=== PATIENT | female | born 1940 | race Caucasian/White ===

== ENCOUNTER 2020-06-26 09:54 | Inpatient (IN) | payer MEDICARE, SELFPAY ==
[2020-06-26] VITALS (35 sets, daily range): BP systolic 100–188; BP diastolic 56–170; PULSE 74–116; RESP 20–34; TEMP 35.8–36.2; O2SAT 88–100; BMI 43.4
--- NOTE | ~2020-06-26 | XR_ITS ---
XR chest 2V DATE: 06/30/2020 12:44 INDICATION: Shortness of breath. Congestive heart failure exacerbation. TECHNIQUE: AP and lateral views COMPARISON: 06/26/2020 portable AP chest FINDINGS: Cardiomegaly. Aortic arch calcification. Left-sided dual-lead pacemaker device with leads o verlying right atrium and right ventricle. There are bilateral lower lung infiltrates and/or atelectasis, left greater than right. There is mild blunting of the left costophrenic angle suggesting small left pleural effusion No pneumothorax. Diffuse osteopenia. Degenerative spurring of the thoracic spine. IMPRESSION: Bibasilar infiltrate and/or atelectasis, left greater than right Small left pleural effusion Cardiomegaly Aortic calcification Status post cholecystectomy Reviewed, dictated and finalized at location A.
--- NOTE | ~2020-06-26 | XR_ITS ---
EXAMINATION: XR chest 2V DATE: 07/08/2020 09:23 INDICATION: Shortness of breath. Respiratory failure. TECHNIQUE: frontal and lateral views of the chest were obtained. COMPARISON: Chest radiograph dated 07/03/2020 and 06/30/2020 FINDINGS: Unchanged opacities in the bilateral lower lung zones to largely 2 small bilateral pleural effusions with blunting at the left costophrenic and cardiophrenic angles and with fluid tracking along the rig ht major fissure. No pulmonary edema or pneumothorax. Cardiomegaly. Right paracardial fat pad. Calcif ied right hilar and mediastinal lymph nodes consistent with old granulomatous disease. Dual lead pace maker seen with leads projecting over the expected locations of the right atrium and right ventricle. Cholecystectomy clips in the right upper quadrant. Moderate thoracic spondylosis. Moderate thoracic spondylosis. IMPRESSION: 1. Unchanged opacities in the bilateral lower lung zones consistent with small bilateral pleural effu sions, left greater than right with associated bibasilar atelectasis and/or pneumonia. 2. Cardiomegaly. Reviewed, dictated and finalized at location B. IMPRESSION: 1. Unchanged opacities in the bilateral lower lung zones consistent with small bilateral pleural effusions, left greater than right with associated bibasilar atelectasis and/or pneumonia. 2. Cardiomegaly.
--- NOTE | ~2020-06-26 | XR_ITS ---
XR chest 1V portable DATE: 07/03/2020 05:54 INDICATION: Shortness of breath, cough, congestive heart failure TECHNIQUE: Portable AP chest on 07/03/2020 at 0522 hours COMPARISON: 06/30/2020 portable AP chest at 1242 hours FINDINGS: Left-sided dual-lead pacemaker device with leads overlying right atrium and right ventricle . Cardiomegaly. Aortic arch calcification. There are bilateral lower lung infiltrates and/atelectasis, left greater than right. There is mild bl unting of left costophrenic angle suggesting left pleural effusion. Diffuse osteopenia. IMPRESSION: No significant change since 06/30/2020 Reviewed, dictated and finalized at location A.
--- NOTE | ~2020-06-26 | XR_ITS ---
XR chest 1V portable DATE: 06/26/2020 10:24 INDICATION: Cough TECHNIQUE: Portable upright AP chest on 06/26/2020 at 1018 hours COMPARISON: 04/05/2016 portable AP chest FINDINGS: Cardiomegaly. There is pulmonary vascular redistribution consistent with pulmonary venous h ypertension. There are patchy infiltrates and/atelectasis in the lower lung zones. Left-sided dual-lead pacemaker device with leads overlying right atrium and right ventricle. Diffuse prominent osteopenia. IMPRESSION: Cardiomegaly, pulmonary vascular redistribution, consistent with congestive heart failure Dual-lead pacemaker Patchy infiltrate and/atelectasis in the lower lung zones Reviewed, dictated and finalized at location B. IMPRESSION: Cardiomegaly, pulmonary vascular redistribution, consistent with co ngestive heart failure Dual-lead pacemaker Patchy infiltrate and/atelectasis in the lower lung zones
--- NOTE | ~2020-06-26 | CT_ITS ---
EXAMINATION: CT brain wo con INDICATION: Transient alteration of awareness COMPARISON: 11/05/2012 TECHNIQUE: Standard unenhanced head CT. The dose-length product (DLP) was 681.00 mGy-cm. The mA was a djusted according to patient size. Iterative reconstruction technique was employed. FINDINGS: There is no acute intraparenchymal hemorrhage. No evidence of mass lesion. No evidence of a cute infarction. There is mild periventricular and subcortical hypodensity probably related to small vessel ischemic disease. There is mild prominence of the sulci and ventricles related to cerebral atr ophy. Intracranial calcified cerebral atherosclerosis is noted. There are no extra-axial collections. There is no mass effect or midline shift. Changes in the globes are likely from ocular lens surgery. Bilateral proptosis is again noted. There is mild mucosal thickening of the paranasal sinuses. IMPRESSION: 1. No acute intracranial abnormality. 2. Age related findings. Reviewed, dictated and finalized at location A.
--- NOTE | 2020-06-26 09:58 | ECG_ITS ---
Measurements Intervals [place] Rate: 77 P: DE: 0 QRS: 0 QRSD: 76 T: -82 QT: 364 QTc: 412 Interpretive Statements ATRIAL FLUTTER/TACHYCARDIA VENTRICULAR PREMATURE COMPLEXES LOW QRS VOLTAGE IN PRECORDIAL LEADS ST-T WAVE ABNORMALITY IN ANTEROLAT/INF LEADS- CONSIDER ISCHEMIA BASELINE ARTIFACT- V3-V4 ABNORMAL ECG Electronically Signed On 06-26-2020 10:34:30 CDT by Con Singh D.O.
--- NOTE | 2020-06-26 10:34 | ED.SOB ---
HPI - SOB/Dyspnea General Chief Complaint: Shortness of Breath/Dyspnea <Mitchell Asif PA-C - Last Filed: 06/26/20 12:16> Stated Complaint: SOB <ROLANDO Salvador Last Filed: 06/26/20 12:16> Time Seen by Provider: 06/26/20 10:14 <ROLANDO Salvador Last Filed: 06/26/20 12:16> Source: patient and old records reviewed <ROLANDO Salvador Last Filed: 06/26/20 12:16> Mode of arrival: EMS <ROLANDO Salvador Last Filed: 06/26/20 12:16> Limitations: no limitations <ROLANDO Salvador Last Filed: 06/26/20 12:16> History of Present Illness HPI Narrative: Patient is a 80-year-old female who presents to emergency department for evaluation of shortness of breath patient has been having difficulty managing her heart failure 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 <ROLANDO Salvador Last Filed: 06/26/20 12:16> Related Data Home Medications: Home Medications Medication Instructions Recorded Confirmed diltiazem HCl 180 mg capsule,24 180 mg PO DAILY 08/05/19 hr,extended release furosemide 40 mg tablet 60 mg PO QAM 08/05/19 ipratropium 0.5 mg-albuterol 3 mg 3 ml INHALATION Q4H PRN 08/05/19 (2.5 mg base)/3 mL nebulization soln metoprolol tartrate 25 mg tablet 25 mg PO DAILY 08/05/19 cholecalciferol (vitamin D3) 25 1,000 unit PO DAILY cap 08/21/19 mcg (1,000 unit) capsule <ROLANDO Salvador Last Filed: 06/26/20 12:16> Allergies/Adverse Reactions: Allergies Allergy/AdvReac Type Severity Reaction Status Date / Time succinylcholine Allergy Severe unknown Verified 06/26/20 10:13 rosuvastatin Allergy Unknown muscle Verified 10/02/20 10:13 aches <Mitchell Asif PA-C - Last Filed: 06/26/20 12:16> Review of Systems Review of Systems: All systems reviewed & are unremarkable except as noted in HPI and below <Mitchell Asif PA-C - Last Filed: 06/26/20 12:16> [facility] Past Medical History Medical History: Medical History (Updated 06/26/20 @ 12:16 by Mitchell Asif PA-C) Benign hypertension Body mass index (BMI) 40.0-44.9, adult (12/29/15) Chronic kidney disease, stage 4 (severe) Chronic obstructive pulmonary disease, unspecified Congestive heart failure Hypertensive chronic kidney disease with stage 1 through stage 4 chronic kidney disease, or unspecified chronic kidney disease Irritable bowel syndrome Ischemic cardiomyopathy Mixed hyperlipidemia due to type 2 diabetes mellitus Obstructive sleep apnea Obstructive sleep apnea, adult Postprocedural hypothyroidism Unspecified atrial fibrillation <Mitchell Asif PA-C - Last Filed: 06/26/20 12:16> Surgical History Surgical History: Surgical History H/O cataract extraction H/O thyroidectomy History of appendectomy History of biliary duct stent placement History of cholecystectomy History of permanent cardiac pacemaker placement <Mitchell Asif PA-C - Last Filed: 06/26/20 12:16> Family History Family History: Family History Father Family history of malignant neoplasm Mother Diabetes mellitus Sibling Diabetes mellitus Family history of glaucoma Family history of malignant neoplasm <Mitchell Asif PA-C - Last Filed: 06/26/20 12:16> Social History Social History: Social History Smoking status: Never smoker Alcohol intake: never Substance use: never Substance use type: does not use Gender identity (if verbalized by the patient): Female <Mitchell Asif PA-C - Last Filed: 06/26/20 12:16> Exam Narr
[2020-06-26 10:36] LABS: Basophils Percent Auto 0.3 % (0.2-1.2); Eosinophils Percent Auto 0.1 % (0-4.4); Hematocrit 33.9 % (37.0-47.0); Hemoglobin 10.8 g/dL (12.0-15.0); Immature Granulocyte Absolute 0.13 K/mm3 (0.00-0.031); Immature Granulocyte Percent A 0.8 % (0-0.5); Lymphocytes Absolute Auto 0.41 K/mm3 (0.9-3.2); Lymphocytes Percent Auto 2.6 % (18.3-44.2); Mean Corpuscular HGB Conc 31.9 g/dl (32-36); Mean Corpuscular Hemoglobin 35.9 pg (26-34); Mean Corpuscular Volume 112.6 fl (80-100); Mean Platelet Volume 11.2 fl (7.4-10.4); Monocytes Percent Auto 6.5 % (2.6-8.5); Neutrophils Percent Auto 89.7 % (45.5-73.1); Nucleated Red Blood Cells Perc 0.2 % (0.0-0.2); Platelet Count Result 249 k/mm3 (150-375); Red Blood Count 3.01 M/mm3 (4.2-5.4); Red Cell Distribution Width 13.3 % (11.5-14.5); White Blood Count 15.7 K/mm3 (4.5-10.0)
[2020-06-26 10:46] LABS: INR 3.2; Prothrombin Time 32.5 Seconds (11.1-14.7)
[2020-06-26 10:47] LABS: Partial Thromboplastin Time 40.4 SECONDS (22.3-36.8)
[2020-06-26] MEDS: FUROSEMIDE INJ 40 MG/4 ML VIAL 60 MG IV PUSH (10:59)
[2020-06-26 11:28] LABS: Anion Gap 9 mmol/L (8-16); Blood Urea Nitrogen 56 mg/dL (7-17); Calcium 9.3 mg/dL (8.4-10.2); Carbon Dioxide 38 mmol/L (22-30); Chloride 93 mmol/L (98-107); Estimated CRCL calculation 30 ml/min; Estimated Glomerular Filt Rate 29; Glucose 328 mg/dL (65-105); Potassium 5.7 mmol/L (3.4-5.0); Sodium 140 mmol/L (137-145)
[2020-06-26 11:39] LABS: NT Pro B Type Natriuretic Pept 2680 PG/ML (5-100); Troponin I 0.021 ng/mL (0.000-0.034)
--- NOTE | 2020-06-26 12:32 | PC.NURSE ---
BS 293.
[2020-06-26] MEDS: INSULIN HUMAN REGULAR (*BKC) 100 UNITS/ML 10 UNITS IV PUSH (12:39)
[2020-06-26] MEDS: DEXTROSE 50% 25 GM/50 ML SYRINGE IV PUSH (12:42)
[2020-06-26] MEDS: CALCIUM GLUCONATE 1,000 MG/10 ML VIAL 1000 MG IV PUSH (12:45)
[2020-06-26] MEDS: SODIUM POLYSTYRENE SULFONONATE 15 GM/60 ML BTL 30 GM PO (12:50)
[2020-06-26 12:57] LABS: Glucose Point of Care 293 (65-105)
--- NOTE | 2020-06-26 13:49 | ECHO_ITS ---
Patient Info Name: Shelli Albrecht Age: 80 years : 1940 Gender: Female Ht: 64 in Wt: 249 lbs BSA: 2.32 m2 HR: 79 bpm BP: 100 / 77 mmHg Heart Rhythm: Atrial Fibrillation Technical Quality: Good Exam Date: 06/26/2020 2:30 PM Exam Location: [facility] Patient Status: Outpatient Admit Date: 06/26/2020 Staff Ordering Physician: Carolee Albrecht APRN Nuclear Plant Equipment Operator: Pedro Saldana RDCS, RT Attending Provider: Miles Talley MD Referring Physician: Ambrocio VALLE; Exam Type: CA echo dop color flow w con Study Info Indications R06.02 - Shortness of breath Complete two-dimensional, color flow and Doppler transthoracic echocardiogram is performed with contrast to opacify the left ventricle and to improve the deliniation of the left ventricle endocardial borders. Summary 1. Definity contrast injected to improve visualization. 2. Left ventricular systolic function is normal, estimated at 55-60%. 3. There is mild aortic valve sclerosis. 4. The aortic valve is mildly stenotic. 5. The mitral valve has normal leaflets. 6. There is trace mitral valve regurgitation. 7. Moderate biatrial dilation. 8. Atrial fibrillation. Left Ventricle Left ventricular chamber dimension is mildly enlarged. Left ventricular systolic function is normal, estimated at 55-60%. Definity contrast injected to improve visualization. Right Ventricle Right ventricular chamber dimension is normal. Linear artifact in right ventricle suggestive of catheter(s), pacemaker lead(s), or ICD lead(s). Left Atria Left atrial chamber dimension is moderately enlarged. Right Atria Right atrial chamber dimension is moderately enlarged. Aortic Valve The aortic valve is trileaflet. There is mild aortic valve sclerosis. There is trace aortic valve regurgitation. The aortic valve is mildly stenotic. Pulmonic Valve The pulmonic valve is not well visualized. Mitral Valve The mitral valve has normal leaflets. There is trace mitral valve regurgitation. Tricuspid Valve The tricuspid valve leaflets are not well visualized. There is mild tricuspid valve regurgitation. Pericardium/Pleural The pericardium appears normal. Aorta The aortic root size at the sinus of Valsalva is normal. Left Ventricular Outflow Tract Name Value Normal LVOT 2D LVOT Diameter 1.95 cm LVOT Doppler LVOT Peak Gradient 4 mmHg LVOT Mean Gradient 2 mmHg LVOT VTI 20.38 cm LVOT VTI/AV VTI Ratio 0.43 LVOT Stroke Volume 60.69 ml LVOT CO 4.47 l/min LVOT CI 1.93 L/min/m2 Mitral Valve Name Value Normal MV Doppler MV Peak Gradient 1 mmHg MV Mean Gradient 1
[2020-06-26] MEDS: PERFLUTREN LIPID MICROSPHERES 1.5 ML VIAL DILUTED TO 10 ML TOTAL VOLUME IV PUSH (14:57)
--- NOTE | 2020-06-26 16:12 | PM.CNCAR ---
Assessment and Plan Additional Plan 80-year-old woman who apparently has developed worsening diastolic heart failure she has shortness of breath and volume overload despite relatively aggressive outpatient diuretic treatment. According to the chart she has chronic atrial fibrillation for that reason she is anticoagulated and has rate control being provided with combination of diltiazem and metoprolol. Anticoagulation is with warfarin. At this time I would recommend advancing her furosemide for the time being 80 mg IV q.12 hours try to mobilize some of her volume overload. I will ask for another echocardiogram to be done to assess her structural /functional status at this time since she is having a lot more difficulty with fluid overload and required a lot more aggressive diuretic treatment than I would expect otherwise. I would continue her baseline regimen of metoprolol and diltiazem for now to provide rate control. Jeremias Zamora MD [facility] History of Present Illness History of Present Illness Consult date/time: 06/26/20 16:12 Consult reason: congestive heart failure Reason For Visit: Acute CHF/acute renal insufficiency/hyperkalemia/h Narrative: this is a 80-year-old woman is known to Dr. caldwell stromal our practice but previously not known to myself. She entered the hospital through the emergency room earlier today with shortness of breath and symptoms of increasing lower extremity edema she says this has been progressively getting worse for about the last 2 weeks. She says that she does have mild MARTÍNEZ at baseline she is morbidly obese and has sleep apnea and therefore shortness of breath to some extent is not a new thing but it has gotten a lot worse in the last couple of weeks or so. She follows with Dr. huber from what I can see in the chart with a history of persistent, chronic atrial fibrillation she has a chronically implanted pacemaker device that was implanted in 2012 and history of diastolic noncompliance. Previous evaluations with echocardiogram have demonstrated evidence of good left ventricular systolic function and no significant valvular disease that was noticed or least mentioned in her chart. The patient is not reporting any sense of chest pain pressure or heaviness. She saw Dr. barr in the office on Monday of this week and she notice these issues and advanced her dosages of furosemide and added some metolazone. She says that she spoke with her this morning and they decided things were getting any better so she came to the emergency room. We in the situation I have been consulted to see her in assist with her care. Her significant comorbidities a can include morbid obesity some chronic kidney disease a history of sleep apnea which treated with CPAP with which she says she is compliant. She also has type 2 diabetes. The patient has a history of intolerance to statins in the past having a myopathy. Review of Systems Constitutional: Constitutional: Reports fatigue and Reports lethargy Eyes: Eyes: Reports no additional eye complaints ENT: Reports system reviewed and no additional complaints, except as documented Cardiovascular: Cardiovascular: Reports as per HPI Respiratory: Respiratory: Reports dyspnea Gastrointestinal: Gastrointestinal: Reports no additional gastrointestinal complaints Musculoskeletal: Musculoskeletal: Reports no additional musculoskeletal complaints Neurologic: Reports system reviewed and no additional complaints, except as documented Endocrine: Endocrine: Reports no additional endocrine complaints Hematologic/Lymphatic: Hematologic/Lymphatic: Reports no additional hematologic/lymphatic complaints Allergic/Immunologic: Allergic/Immunologic: Reports no additional allergic/immunologic complaints [facility] Past Medical History Medical History (Updated 06/26/20 @ 13:00 by Alonzo Evangelista PA-C) Benign hypertension Body mass index (BMI) 40.0-44.9, adult (12/29/15) Chronic kidney dise
--- NOTE | 2020-06-26 17:30 | PM.IMHP ---
H&P: HPI History of Present Illness Date/Time: 06/26/20 17:30 Chief complaint: Shortness of breath. Narrative: Shelli Albrecht is a a 80-year-old female with persistent atrial fibrillation on long-term anticoagulation, diastolic congestive heart failure, insulin-dependent diabetes, hypertension, chronic kidney disease, Graves disease now with postsurgical hypothyroidism, and obstructive sleep apnea presented to the emergency department earlier today for evaluation of shortness of breath. She has had progressive dyspnea on lesser and lesser exertion for the past couple of weeks and by chance she had a routine appointment with Dr. Mahan earlier this week at which point her Lasix was increased. She was also given a prescription for home oxygen due to ambulatory hypoxia, and she has been monitoring her pulse ox since that time. She was instructed to come to the emergency department should she be persistently hypoxic, and over the past couple of days she has frequently see numbers in the mid 70s to 80s on 2 L nasal cannula and thus she came in for evaluation today. With further questioning she states compliance with her medications but it sounds like she has dietary indiscretion, consuming chips and deli meat including ham. She has gained about 10 lb in the last 48 hours or so and also reports increasing lower extremity edema, increased abdominal girth, orthopnea, and PND. She has not had chest pain, pleuritic pain, palpitations, or feelings of racing heart. She also denies cough as well as cold and flu symptoms. No sick contacts. Review of Systems Review of Systems: Narrative: Twelve systems were reviewed with pertinent positives and negatives as per HPI. No fever, chills, or sweats. She denies sick contacts and exposure to those positive for COVID-19. She sleeps in a hospital bed at nighttime and has been raising that up for the last week or so due to orthopnea. She states compliance with her CPAP at nighttime. Unfortunately she has not been sleeping well despite the CPAP. Appetite has been stable. No nausea or vomiting. She has not noticed an increase in urine output with her recent increase in Lasix. Her glucose has been running a bit high was 7.4% in July 2019. She denies blurry vision, polydipsia, and polyuria. On exam patient noted to have bilateral elbow nodules and evidence of gouty tophi, but she denies ever having been diagnosed with such and has no known history of gout however she will on occasion have painful, swollen joints. No history of rheumatoid arthritis either. Except as documented, all other systems were reviewed and are negative. [facility] Past Medical History Medical History (Updated 06/26/20 @ 19:30 by Chantel Gr PA-C) Benign hypertension Body mass index (BMI) 40.0-44.9, adult (12/29/15) Chronic anemia Chronic macrocytic anemia. 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 Insulin dependent type 2 diabetes mellitus Irritable bowel syndrome Macular degeneration Mixed hyperlipidemia Obstructive sleep apnea on CPAP Persistent atrial fibrillation On long-term anticoagulation with warfarin. Postsurgical hypothyroidism Surgical History Surgical History (Updated 06/26/20 @ 19:15 by Chantel Gr PA-C) History of appendectomy History of bilateral cataract extraction History of biliary duct stent placement History of cholecystectomy History of permanent cardiac pacemaker placement History of thyroidectomy Family History Family History Father COPD (chronic obstructive pulmonary disease) Mother Diabetes mellitus Glaucoma
[2020-06-26] MEDS: FUROSEMIDE INJ 100 MG/10 ML VIAL 80 MG IV PUSH (17:34)
[2020-06-26 17:37] LABS: Glucose Point of Care 306 (65-105)
[2020-06-26] MEDS: INSULIN ASPART (*BKC) 100 UNITS/ML SUB-Q (17:39)
[2020-06-26 19:40] LABS: Hemoglobin A1C 6.6 % (<5.7)
[2020-06-26 19:50] LABS: Alanine Aminotransferase 36 U/L (4-35); Albumin Level 4.1 g/dL (3.5-5.1); Alkaline Phosphatase 123 U/L (38-126); Anion Gap 10.99999 mmol/L (8-16); Aspartate Amino Transferase 29 U/L (14-36); Bilirubin,Total 0.9 mg/dL (0.2-1.3); Blood Urea Nitrogen 56 mg/dL (7-17); Calcium 9.8 mg/dL (8.4-10.2); Carbon Dioxide > 40 mmol/L (22-30); Chloride 90 mmol/L (98-107); Estimated CRCL calculation 29 ml/min; Estimated Glomerular Filt Rate 27; Glucose 348 mg/dL (65-105); Phosphorus 4.9 mg/dL (2.5-4.5); Potassium 4.7 mmol/L (3.4-5.0); Sodium 141 mmol/L (137-145); Uric Acid 10.2 mg/dL (2.5-7.5)
[2020-06-26] MEDS: LATANOPROST 0.005% OP SOLN 2.5 ML BTL 1 DROP EACH EYE (20:37)
[2020-06-26] MEDS: METOPROLOL TARTRATE 25 MG TABLET PO (20:38)
[2020-06-26 20:52] LABS: Glucose Point of Care 330 (65-105)
[2020-06-26] MEDS: ALBUTEROL SULFATE NEB 2.5 MG/0.5 ML INH INHALATION (22:12)
[2020-06-26] MEDS: IPRATROPIUM BR 0.02% INH SOLN 0.5 MG/2.5 ML VIAL INHALATION (22:12)
[2020-06-27] VITALS (23 sets, daily range): BP systolic 122–149; BP diastolic 51–88; PULSE 73–121; RESP 16–30; TEMP 35.7–37.1; O2SAT 78–100
[2020-06-27] MEDS: IPRATROPIUM BR 0.02% INH SOLN 0.5 MG/2.5 ML VIAL INHALATION ×2 (02:23→21:17)
[2020-06-27] MEDS: ALBUTEROL SULFATE NEB 2.5 MG/0.5 ML INH INHALATION ×2 (02:23→21:17)
[2020-06-27 05:57] LABS: Hematocrit 31.8 % (37.0-47.0); Hemoglobin 10.2 g/dL (12.0-15.0); Mean Corpuscular HGB Conc 32.1 g/dl (32-36); Mean Corpuscular Hemoglobin 35.3 pg (26-34); Mean Platelet Volume 10.8 fl (7.4-10.4); Platelet Count Result 207 k/mm3 (150-375); Red Blood Count 2.89 M/mm3 (4.2-5.4); Red Cell Distribution Width 12.9 % (11.5-14.5); White Blood Count 13.6 K/mm3 (4.5-10.0)
[2020-06-27] MEDS: LEVOTHYROXINE SODIUM 100 MCG TABLET 200 MCG PO (05:59)
[2020-06-27 06:18] LABS: Anion Gap 9.99999 mmol/L (8-16); Blood Urea Nitrogen 57 mg/dL (7-17); Calcium 9.1 mg/dL (8.4-10.2); Carbon Dioxide > 40 mmol/L (22-30); Chloride 92 mmol/L (98-107); Estimated CRCL calculation 29 ml/min; Estimated Glomerular Filt Rate 27; Glucose 252 mg/dL (65-105); Magnesium 1.9 mg/dL (1.6-2.3); Potassium 4.8 mmol/L (3.4-5.0); Sodium 142 mmol/L (137-145)
[2020-06-27 07:41] LABS: Glucose Point of Care 221 (65-105)
[2020-06-27 07:59] LABS: INR 3.5; Prothrombin Time 34.3 Seconds (11.1-14.7)
[2020-06-27] MEDS: INSULIN ASPART (*BKC) 100 UNITS/ML SUB-Q ×2 (08:36→11:59)
[2020-06-27] MEDS: FUROSEMIDE INJ 100 MG/10 ML VIAL 80 MG IV PUSH ×2 (08:39→17:26)
[2020-06-27] MEDS: CHOLECALCIFEROL 1,000 UNITS TABLET 1000 UNITS PO (08:40)
[2020-06-27] MEDS: CYANOCOBALAMIN 1,000 MCG TABLET 1000 MCG PO (08:40)
[2020-06-27] MEDS: CALCIUM CARBONATE (OSCAL) 500 MG TABLET PO (08:40)
[2020-06-27] MEDS: METOPROLOL TARTRATE 25 MG TABLET PO ×2 (08:40→21:27)
[2020-06-27] MEDS: dilTIAZem HCL CD 180 MG CAP.ER.24H PO (08:41)
[2020-06-27] MEDS: PRAVASTATIN SODIUM 10 MG TABLET PO (08:41)
[2020-06-27] MEDS: calcitrioL 0.25 MCG CAPSULE PO (08:41)
[2020-06-27] MEDS: MAGNESIUM OXIDE 400 MG TABLET PO (08:41)
[2020-06-27] MEDS: TIMOLOL MALEATE 0.5% OP SOLN 5 ML BOTTLE 1 DROP EACH EYE (08:43)
[2020-06-27] MEDS: INSULIN HUMAN REGULAR (*BKC) 100 UNITS/ML 25 UNITS SUB-Q ×2 (10:21→13:58)
[2020-06-27] MEDS: INSULIN DETEMIR 100 UNITS/ML 25 UNITS SUB-Q (10:22)
[2020-06-27 11:36] LABS: Glucose Point of Care 263 (65-105)
--- NOTE | 2020-06-27 12:05 | PM.PNCARD ---
Progress Note: A&P Additional Plan picture of volume overload presumed diastolic congestive heart failure in this 80-year-old lady who also has chronic persistent atrial fibrillation. 's office notes clearly demonstrate the patient has been in AFib for a long time there is therefore no recent to discuss or consider cardioverting this lady. We will continue high-dose furosemide for now she seems to be benefitting from that. Jeremias Zamora MD [facility] Subjective Date/time seen: Date of service:06/27/20 12:05 Interval history: Follow-up visit in this 80-year-old lady with decompensated congestive heart failure primarily right-sided failure with volume overload some pulmonary congestion on exam. Patient is high-dose furosemide now and reports improvement in her symptomatology since yesterday. She is eating lunch with her in the room and appears to be comfortable. Oxygen saturations are reasonable on nasal cannula supplementation. Accurate IO is not recorded in the chart. Exam Const: General: comfortable and no acute distress HENMT: Mouth: Yes moist mucous membranes Eyes: Sclera: sclerae normal Neck: Neck: supple Other: Cannot assess JVD given her body habitus Resp: Effort & Inspection: normal respiratory effort Other: breath sounds relatively clear there may be a few scant bibasilar rales Cardio: Rhythm: abnormal rhythm regularly irregular Skin: General skin exam: normal color Neuro: Cognition (Neuro): normal cognition Extrem: Other: moderate lower extremity edema persists may be is little bit better than yesterday, difficult to assess Objective Data Vital Signs Vital Signs: Vital Signs - 24 hr 06/26/20 12:15 06/26/20 12:17 06/26/20 12:31 Temperature Pulse Rate 95 116 H 97 Respiratory Rate 26 H 26 H 23 H Blood Pressure 188/170 H Pulse Oximetry 99 100 99 06/26/20 12:51 06/26/20 13:14 06/26/20 14:00 Temperature 36.1 C L Pulse Rate 108 H 89 91 Respiratory Rate 23 H 26 H 22 H Blood Pressure 128/69 100/77 Pulse Oximetry 99 98 92 06/26/20 16:00 06/26/20 18:00 06/26/20 20:00 Temperature 36.1 C L 35.8 C L Pulse Rate 101 H 107 H 100 Respiratory Rate 20 22 H Blood Pressure 138/56 L 150/62 H Pulse Oximetry 96 92 06/26/20 20:36 06/26/20 20:38 06/26/20 21:02 Temperature Pulse Rate 74 Respiratory Rate Blood Pressure Pulse Oximetry 96 93 06/26/20 22:13 06/26/20 22:16 06/26/20 22:21 Temperature Pulse Rate 113 H 108 H 108 H Respiratory Rate 24 H 25 H 25 H Blood Pressure Pulse Oximetry 93 06/26/20 23:48 06/26/20 23:54 06/27/20 00:00 Temperature 36.6 C Pulse Rate 89 Respiratory Rate 20 Blood Pressure 149/74 H Pulse Oximetry 91 88 L 94 06/27/20 02:24 06/27/20 02:25 06/27/20 02:31 Temperature Pulse Rate 94 94 92 Respiratory Rate 26 H 26 H 28 H Blood Pressure Pulse Oximetry 88 L 06/27/20 02:56 06/27/20 03:40 06/27/20 03:41 Temperature Pulse Rate 90 Respiratory Rate Blood Pressure Pulse Oximetry 92 92 06/27/20 04:00 06/27/20 08:00 06/27/20 08:40 Temperature 37.1 C Pulse Rate 81 121 H 98 Respiratory Rate 22 H Blood Pressure 140/68 Pulse Oximetry 91 06/27/20 10:00 Temperature 35.7 C L Pulse Rate 96 Respiratory Rate 30 H Blood Pressure 127/88 Pulse Oximetry 91 Intake/Output Intake/Output: Intake & Output 06/24/20 06/25/20 06/26/20 06/27/20 23:59 23:59 23:59 23:59 Intake Total 440 540 Output Total 2900 Balance 440 -2360 Meds/Results Medications: Active Medications Generic Name Dose Route Start Last Admin Trade Name Freq PRN Reason Stop Dose Admin Acetaminophen 650 mg 06/26/20 12:17 Tylenol Tablet PO Q4H PRN Mild Pain (1-3) Albuterol 2.5 mg 06/26/20 19:04 06/27/20 02:23 Albuterol Sulf Neb 2.5mg/0.5ml INHALATION 2.5 mg Q4HRT PRN Administration Shortness Of Breath Calcitriol 0.25 mcg 06/27/20 09:00 06/27/20
--- NOTE | 2020-06-27 12:38 | P.PNIM_ITS ---
Progress Note: A&P Assessment and Plan (1) Acute exacerbation of congestive heart failure: Code(s): I50.9 - Heart failure, unspecified Status: Acute Assessment and Plan: Diastolic CHF; right sided. Cardiology following and appreciate recommendations. Appears to be clinically improving. I/Os inaccurate in chart * Continue IV lasix 80 mg BID per Cardiology * Monitor volume status and renal function closely * Echo is pending to be read * Await further recommendation from Cardiology (2) Acute and chronic respiratory failure with hypoxia: Code(s): J96.21 - Acute and chronic respiratory failure with hypoxia Status: Acute Assessment and Plan: Likely secondary to acute CHF exacerbation. Patient states she was just placed on Home oxygen on 06/25 due to her increasing shortness of breath. Hopefully, we willl see improvement with hypoxia with diuresis * Wean O2 as tolerated * Goal is to wean to RA if possible. (3) Chronic kidney disease, stage 4 (severe): Code(s): N18.4 - Chronic kidney disease, stage 4 (severe) Status: Acute Assessment and Plan: Cr 1.80 today; stable. Appears to be at baseline. Dr. Nguyen following and krysten reciate recommendations * monitor closely with diuresis * Await further recommendations from Nephrology (4) Current use of machine long goods helper anticoagulation: Code(s): Z79.01 - shelter (current) use of anticoagulants Status: Acute Assessment and Plan: Currently taking warfarin for a. fib; this has been held given mildly supratherapeutic INR. No evidence of bleeding * Continue to hold warfarin for now * Resume once therapeutic (5) Persistent atrial fibrillation: Code(s): I48.19 - Other persistent atrial fibrillation Status: Acute Assessment and Plan: On warfarin and rate controlled with diltiazem and metoprolol; has a pacemaker. Dr. 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 BGL in 200s today * Continue home insulin regimen * Accuchecks ACHS, hypoglycemia protocol, correctional insulin, diabetic diet * Monitor closely; adjust insulin as appropriate (7) Postsurgical hypothyroidism: Code(s): E89.0 - Postprocedural hypothyroidism Status: Acute Assessment and Plan: TSH wnl * Continue home levothyroxine (8) Obstructive sleep apnea on CPAP: Code(s): G47.33 - Obstructive sleep apnea (adult) (pediatric); Z99.89 - Dependence on other enabling machines and devices Status: Acute Assessment and Plan: * Continue with CPAP (9) Benign hypertension: Code(s): I10 - Essential (primary) hypertension Status: Acute Assessment and Plan: BP 120s sys this morning. * Spironolactone held given hyperkalemia * Continue other home medications * Monitor (10) Hyperkalemia: Code(s): E87.5 - Hyperkalemia Status: Acute Assessment and Plan: K 4.8 today * Monitor
--- NOTE | 2020-06-27 12:38 | PM.IMPN ---
Progress Note: A&P Assessment and Plan (1) Acute exacerbation of congestive heart failure: Code(s): I50.9 - Heart failure, unspecified Status: Acute Assessment and Plan: Diastolic CHF; right sided. Cardiology following and appreciate recommendations. Appears to be clinically improving. I/Os inaccurate in chart Continue IV lasix 80 mg BID per Cardiology Monitor volume status and renal function closely Echo is pending to be read Await further recommendation from Cardiology (2) Acute and chronic respiratory failure with hypoxia: Code(s): J96.21 - Acute and chronic respiratory failure with hypoxia Status: Acute Assessment and Plan: Likely secondary to acute CHF exacerbation. Patient states she was just placed on Home oxygen on 06/25 due to her increasing shortness of breath. Hopefully, we willl see improvement with hypoxia with diuresis Wean O2 as tolerated Goal is to wean to RA if possible. (3) Chronic kidney disease, stage 4 (severe): Code(s): N18.4 - Chronic kidney disease, stage 4 (severe) Status: Acute Assessment and Plan: Cr 1.80 today; stable. Appears to be at baseline. Dr. Nguyen following and appreciate recommendations monitor closely with diuresis Await further recommendations from Nephrology (4) Current use of exterminator termite anticoagulation: Code(s): Z79.01 - exterminator termite (current) use of anticoagulants Status: Acute Assessment and Plan: Currently taking warfarin for a. fib; this has been held given mildly supratherapeutic INR. No evidence of bleeding Continue to hold warfarin for now Resume once therapeutic (5) Persistent atrial fibrillation: Code(s): I48.19 - Other persistent atrial fibrillation Status: Acute Assessment and Plan: On warfarin and rate controlled with diltiazem and metoprolol; has a pacemaker. Dr. Zamora following Continue home metoprolol and diltizem Warfarin held due to supratherapeutic INR Monitor (6) Insulin dependent type 2 diabetes mellitus: Code(s): E11.9 - Type 2 diabetes mellitus without complications; Z79.4 - exterminator termite (current) use of insulin Status: Acute Assessment and Plan: A1c 6.6 yesterday. BGL in 200s today Continue home insulin regimen Accuchecks ACHS, hypoglycemia protocol, correctional insulin, diabetic diet Monitor closely; adjust insulin as appropriate (7) Postsurgical hypothyroidism: Code(s): E89.0 - Postprocedural hypothyroidism Status: Acute Assessment and Plan: TSH wnl Continue home levothyroxine (8) Obstructive sleep apnea on CPAP: Code(s): G47.33 - Obstructive sleep apnea (adult) (pediatric); Z99.89 - Dependence on other enabling machines and devices Status: Acute Assessment and Plan: Continue with CPAP (9) Benign hypertension: Code(s): I10 - Essential (primary) hypertension Status: Acute Assessment and Plan: BP 120s sys this morning. Spironolactone held given hyperkalemia Continue other home medications Monitor (10) Hyperkalemia: Code(s): E87.5 - Hyperkalemia Status: Acute Assessment and Plan: K 4.8 today Monitor Consider resuming spironolactone if improvement in hyperkalemia (11) Chronic anemia: Code(s): D64.9 - Anemia, unspecified Status: Acute Assessment and Plan: She has chronic macrocytic anemia which is stable on review of previous labs. Given non megaloblastic macrocytic anemia she may have underlying myelodysplasia but again is stable. Monitor F/u with P
--- NOTE | 2020-06-27 12:42 | PM.CNNEP ---
Assessment and Plan Assessment and plan (1) Chronic kidney disease, stage 4 (severe): Code(s): N18.4 - Chronic kidney disease, stage 4 (severe) Status: Acute Assessment and Plan: baseline creatinine ~ 1.7 - 2.1mg/dl in last couple of years due to DM, HTN, diastolic heart failure + diuretics, YUDELKA, and age follow trend with ongoing IV diuresis (2) Acute on chronic diastolic heart failure: Code(s): I50.33 - Acute on chronic diastolic (congestive) heart failure Status: Acute Assessment and Plan: suspect possible dietary indiscretion as trigger however, did not improve with higher dose outpatient therapy on IV lasix follow I/Os, respiratory status, and daily weights repeat Echo Cardiology following (3) Hyperkalemia: Code(s): E87.5 - Hyperkalemia Status: Acute Assessment and Plan: possibly due to #2 better with IV diuretic therapy follow trend (4) Benign hypertension: Code(s): I10 - Essential (primary) hypertension Status: Acute Assessment and Plan: reasonably controlled follow hemodynamics (5) Chronic anemia: Code(s): D64.9 - Anemia, unspecified Status: Acute Assessment and Plan: partly due to CKD if worsens, check iron studies follow trend of H/H (6) Type 2 diabetes mellitus: Code(s): E11.9 - Type 2 diabetes mellitus without complications Status: Acute Assessment and Plan: follow accuchecks on SSI and Levemir Will continue to follow. History of Present Illness Reason for Consult Consult date: 06/27/20 Reason for consult: chronic renal failure Chief Complaint Chief complaint: Shortness of breath. History of Present Illness Narrative: The patient is a 80-year-old female with a past medical history as outlined below who presented to [facility] ER with complaints of worsening shortness of breath. Over the last few weeks, the patient has noticed increasing shortness of breath with minimal exertional activities. She recently had an appointment with her primary archives director, Dr. barr, who increased her Lasix to compensate for the symptoms and was also given a prescription for home oxygen therapy due to ambulatory hypoxia. She was instructed to follow her oxygen saturations and if they put progressively got worse she was instructed to come to the emergency room. She noted in the last couple of days that her O2 saturations were anywhere from 70-80% on 2 L of oxygen and hence came to the ER based on these findings. Further questioning reveals some evidence of dietary indiscretion along with associated 10 lb weight gain in the last 2-3 days associated with increasing lower extremity edema abdominal girth, orthopnea, and PND. She denies any symptoms of chest pain palpitations dizziness lightheadedness fever chills nausea vomiting or diarrhea. Workup and evaluation emergency room demonstrated the patient to be hemodynamically stable. Routine blood test demonstrated labs consistent with her known history of chronic kidney disease but her chest x-ray was significant for pulmonary vascular congestion and findings consistent with congestive heart failure. She was not noted to be hypoxic as far as I am aware. She was started on high-dose IV diuretic therapy and subsequent [facility] for further evaluation and therapy. Since her admission, she clinically states that she feels somewhat better particular with regard to her breathing and edema. Cardiology has seen the patient already and is continuing with aggressive IV diuretic therapy given her failure with outpatient therapy. I am unclear if she is resistant to her current oral diuretics and perhaps maybe she would benefit from different loop diuretic therapy (.e. torsemide or bumex) or his there is some other factor besides dietary indiscretion that led to her current status. Renal consultation was requested due to h
[2020-06-27 16:17] LABS: Glucose Point of Care 71 (65-105)
[2020-06-27] MEDS: LATANOPROST 0.005% OP SOLN 2.5 ML BTL 1 DROP EACH EYE (21:27)
[2020-06-27 21:40] LABS: Glucose Point of Care 128 (65-105)
[2020-06-28] VITALS (21 sets, daily range): BP systolic 117–144; BP diastolic 52–66; PULSE 71–112; RESP 15–24; TEMP 36.1–36.4; O2SAT 84–99
[2020-06-28] MEDS: LEVOTHYROXINE SODIUM 100 MCG TABLET 200 MCG PO (05:14)
[2020-06-28 05:27] LABS: Basophils Percent Auto 0.3 % (0.2-1.2); Eosinophils Absolute Auto 0.1 K/mm3 (0-0.3); Eosinophils Percent Auto 0.8 % (0-4.4); Hematocrit 32.6 % (37.0-47.0); Hemoglobin 10.6 g/dL (12.0-15.0); Immature Granulocyte Absolute 0.08 K/mm3 (0.00-0.031); Immature Granulocyte Percent A 0.6 % (0-0.5); Lymphocytes Absolute Auto 0.76 K/mm3 (0.9-3.2); Mean Corpuscular HGB Conc 32.5 g/dl (32-36); Mean Corpuscular Hemoglobin 35.2 pg (26-34); Mean Corpuscular Volume 108.3 fl (80-100); Monocytes Absolute Auto 1.1 K/mm3 (0.1-0.6); Monocytes Percent Auto 8.7 % (2.6-8.5); Neutrophils Absolute Auto 10.5 K/mm3 (1.3-6.7); Neutrophils Percent Auto 83.6 % (45.5-73.1); Nucleated Red Blood Cells Perc 0.2 % (0.0-0.2); Platelet Count Result 237 k/mm3 (150-375); Red Blood Count 3.01 M/mm3 (4.2-5.4); Red Cell Distribution Width 12.8 % (11.5-14.5); White Blood Count 12.6 K/mm3 (4.5-10.0)
[2020-06-28 05:32] LABS: INR 1.9; Prothrombin Time 21.5 Seconds (11.1-14.7)
[2020-06-28 05:43] LABS: Anion Gap 11.99999 mmol/L (8-16); Blood Urea Nitrogen 58 mg/dL (7-17); Calcium 9.7 mg/dL (8.4-10.2); Carbon Dioxide > 40 mmol/L (22-30); Chloride 89 mmol/L (98-107); Estimated CRCL calculation 33 ml/min; Estimated Glomerular Filt Rate 31; Glucose 182 mg/dL (65-105); Magnesium 1.8 mg/dL (1.6-2.3); Potassium 4.2 mmol/L (3.4-5.0); Sodium 141 mmol/L (137-145)
[2020-06-28 08:19] LABS: Glucose Point of Care 187 (65-105)
[2020-06-28] MEDS: INSULIN HUMAN REGULAR (*BKC) 100 UNITS/ML 25 UNITS SUB-Q ×3 (08:21→17:32)
[2020-06-28] MEDS: INSULIN DETEMIR 100 UNITS/ML 25 UNITS SUB-Q (08:21)
[2020-06-28] MEDS: FUROSEMIDE INJ 100 MG/10 ML VIAL 80 MG IV PUSH ×2 (08:22→17:32)
[2020-06-28] MEDS: TIMOLOL MALEATE 0.5% OP SOLN 5 ML BOTTLE 1 DROP EACH EYE (08:22)
[2020-06-28] MEDS: dilTIAZem HCL CD 180 MG CAP.ER.24H PO (08:23)
[2020-06-28] MEDS: MAGNESIUM OXIDE 400 MG TABLET PO (08:23)
[2020-06-28] MEDS: METOPROLOL TARTRATE 25 MG TABLET PO ×2 (08:23→20:28)
[2020-06-28] MEDS: CHOLECALCIFEROL 1,000 UNITS TABLET 1000 UNITS PO (08:23)
[2020-06-28] MEDS: CALCIUM CARBONATE (OSCAL) 500 MG TABLET PO (08:23)
[2020-06-28] MEDS: CYANOCOBALAMIN 1,000 MCG TABLET 1000 MCG PO (08:23)
[2020-06-28] MEDS: calcitrioL 0.25 MCG CAPSULE PO (08:23)
[2020-06-28] MEDS: PRAVASTATIN SODIUM 10 MG TABLET PO (08:24)
--- NOTE | 2020-06-28 11:25 | PM.PNCARD ---
Progress Note: A&P Additional Plan 80-year-old lady with a history of chronic atrial fibrillation admitted with exacerbation of diastolic heart failure. She still is responding well to IV furosemide and I do not believe I would recommend discharging her today. They at least another 24 hours of IV diuretics would seem to be beneficial. Jeremias Zamora MD [facility] Subjective Date/time seen: 06/28/20 11:25 Interval history: Follow-up visit in this 80-year-old lady with decompensated congestive heart failure primarily right-sided failure with volume overload some pulmonary congestion on exam. Patient is high-dose furosemide now . has been diuresing relatively well for the last couple of days. Still has modest MARTÍNEZ which I think is to be expected. Lower extremity edema is clearly improving. Patient indicates somewhat on the staff told her she was probably going home today. Exam Const: General: comfortable and no acute distress HENMT: Mouth: Yes dry mucous membranes Eyes: Sclera: sclerae normal Neck: Neck: supple Other: Difficult to assess JVD given morbid obesity Resp: Effort & Inspection: normal respiratory effort Other: scattered bibasilar rales are audible today Cardio: Rhythm: abnormal rhythm irregularly irregular GI: Auscultation: normal bowel sounds Skin: General skin exam: normal color Neuro: Cognition (Neuro): normal cognition Extrem: Other: chronic lower extremity edema is improving but moderate edema persists Objective Data Vital Signs Vital Signs: Vital Signs - 24 hr 06/27/20 12:00 06/27/20 14:00 06/27/20 16:00 Temperature 35.9 C L Pulse Rate 84 73 86 Respiratory Rate 22 H Blood Pressure 122/69 Pulse Oximetry 95 06/27/20 18:00 06/27/20 20:00 06/27/20 20:58 Temperature 35.9 C L 36.3 C L Pulse Rate 85 109 H 83 Respiratory Rate 20 16 Blood Pressure 139/51 L 129/66 Pulse Oximetry 100 98 06/27/20 21:17 06/27/20 21:20 06/27/20 21:27 Temperature Pulse Rate 86 86 90 Respiratory Rate 26 H 26 H Blood Pressure Pulse Oximetry 96 06/27/20 21:32 06/27/20 23:30 06/28/20 00:00 Temperature Pulse Rate 88 93 78 Respiratory Rate 24 H 24 H Blood Pressure Pulse Oximetry 78 L 06/28/20 02:40 06/28/20 03:03 06/28/20 03:36 Temperature 36.1 C L Pulse Rate 71 96 Respiratory Rate 18 21 H Blood Pressure 144/66 H Pulse Oximetry 94 84 L 98 06/28/20 04:00 06/28/20 05:45 06/28/20 08:00 Temperature 36.2 C L Pulse Rate 86 82 100 Respiratory Rate 16 Blood Pressure 138/57 L Pulse Oximetry 98 06/28/20 08:23 06/28/20 10:05 Temperature 36.4 C Pulse Rate 112 H 90 Respiratory Rate 15 Blood Pressure 117/54 L Pulse Oximetry 99 Intake/Output Intake/Output: Intake & Output 06/25/20 06/26/20 06/27/20 06/28/20 23:59 23:59 23:59 23:59 Intake Total 440 1560 510 Output Total 4050 800 Balance 440 -9870 -290 Meds/Results Medications: Active Medications Generic Name Dose Route Start Last Admin Trade Name Freq PRN Reason Stop Dose Admin Acetaminophen 650 mg 06/26/20 12:17 Tylenol Tablet PO Q4H PRN Mild Pain (1-3) Albuterol 2.5 mg 06/26/20 19:04 06/27/20 21:17 Albuterol Sulf Neb 2.5mg/0.5ml INHALATION 2.5 mg Q4HRT PRN Administration Shortness Of Breath Calcitriol 0.25 mcg 06/27/20 09:00 06/28/20 08:23 Rocaltrol PO 0.25 mcg DAILY RAEANN Administration Calcium Carbonate 500 mg 06/27/20 09:00 06/28/20 08:23 Oscal 500 Mg PO 500 mg DAILY RAEANN Administration Cyanocobalamin 1,000 mcg 06/27/20 09:00 06/28/20 08:23 Vitamin B-12 Tab PO 1,000 mcg DAILY RAEANN Administration Diltiazem HCl 180 mg 06/27/20 09:00 06/28/20 08:23 Cardizem Cd PO 180 mg DAILY RAEANN Administration Furosemide 80 mg 06/26/20 17:00 06/28/20 08:22 Lasix Inj IV PUSH 80 mg BID RAEANN Administration Insulin Aspart 2 - 5 units 06/26/20 17:00 06/28/20 08:24 Novolog SUB-Q
[2020-06-28 11:32] LABS: Glucose Point of Care 293 (65-105)
--- NOTE | 2020-06-28 11:35 | P.PNNP_ITS ---
Progress Note: A&P Assessment and Plan (1) Chronic kidney disease, stage 4 (severe): Code(s): N18.4 - Chronic kidney disease, stage 4 (severe) Status: Acute Assessment and Plan: * baseline creatinine ~ 1.7 - 2.1mg/dl in last couple of years * due to DM, HTN, diastolic heart failure + diuretics, YUDELKA, and age * stable if not better at this time * follow trend with ongoing IV diuresis (2) Acute on chronic diastolic heart failure: Code(s): I50.33 - Acute on chronic diastolic (congestive) heart failure Status: Acute Assessment and Plan: * suspect possible dietary indiscretion as trigger * however, did not improve with higher dose outpatient therapy * on IV lasix * follow I/Os, respiratory status, and daily weights * repeat Echo * Cardiology following (3) Metabolic alkalosis: Code(s): E87.3 - Alkalosis Status: Acute Assessment and Plan: * due to contraction from diuresis(?) * will give a couple of doses of acetazolamide * follow trend (4) Hyperkalemia: Code(s): E87.5 - Hyperkalemia Status: Acute Assessment and Plan: * possibly due to #2 * better with IV diuretic therapy * follow trend (5) Chronic anemia: Code(s): D64.9 - Anemia, unspecified Status: Acute Assessment and Plan: * partly due to CKD * no need for NURY * follow trend of H/H (6) Benign hypertension: Code(s): I10 - Essential (primary) hypertension Status: Acute Assessment and Plan: * reasonably controlled * follow hemodynamics (7) Type 2 diabetes mellitus: Code(s): E11.9 - Type 2 diabetes mellitus without complications Status: Acute Assessment and Plan: * follow accuchecks * on SSI and Levemir Will continue to follow. Subjective Date/time seen: 06/28/20 11:35 Seems to be doing reasonably well; reasonable response with IV diuretics with improvement in shortness of breath as well as lower extremity edema; no events overnight or earlier this AM; no apparent distress voiced at the time of my visit. Exam 2 Narrative: Exam Narrative: General: Elderly female in NAD Heart: IRRR, normal S1 and S2; no rub Lungs: clear anteriorly; decreased at bases Abdomen: soft, nontender, nondistended, positive bowel sounds Extremities: no cyanosis or clubbing; 1+ edema Skin: warm and dry Objective Data Vital Signs Vital Signs: Vital Signs Temp Pulse Resp BP Pulse Ox 06/28/20 11:27 91 06/28/20 10:05 36.4 C 90 15 117/54 L 99 06/28/20 08:23 112 H 06/28/20 08:00 100 06/28/20 05:45 36.2 C L 82 16 138/57 L 98 06/28/20 04:00 86 06/28/20 03:36 98 06/28/20 03:03 96 21 H 84 L 06/28/20 02:40 36.1 C L 71 18 144/66 H 94 06/28/20 00:00 78 06/27/20 23:30 93 24 H 78 L 06/27/20 21:32 88 24 H 06/27/20 21:27 90 06/27/20 21:20 86 26 H 96 06/27/20 21:17 86 26 H 06/27/20 20:58 36.3 C L 83 16 129/66 98 06/27/20 20:00 109 H 06/27/20 18:00 35.9 C L 85 20 139/51 L 100 06/27/20 16:00 86 06/27/20 14:00 35.9 C L 73 22 H 122/69 95 06/27/20 12:00 84 Intake/Output Intake/Output: Intake & Output 06/25/20
--- NOTE | 2020-06-28 11:35 | PM.PNNEP ---
Progress Note: A&P Assessment and Plan (1) Chronic kidney disease, stage 4 (severe): Code(s): N18.4 - Chronic kidney disease, stage 4 (severe) Status: Acute Assessment and Plan: baseline creatinine ~ 1.7 - 2.1mg/dl in last couple of years due to DM, HTN, diastolic heart failure + diuretics, YUDELKA, and age stable if not better at this time follow trend with ongoing IV diuresis (2) Acute on chronic diastolic heart failure: Code(s): I50.33 - Acute on chronic diastolic (congestive) heart failure Status: Acute Assessment and Plan: suspect possible dietary indiscretion as trigger however, did not improve with higher dose outpatient therapy on IV lasix follow I/Os, respiratory status, and daily weights repeat Echo Cardiology following (3) Metabolic alkalosis: Code(s): E87.3 - Alkalosis Status: Acute Assessment and Plan: due to contraction from diuresis(?) will give a couple of doses of acetazolamide follow trend (4) Hyperkalemia: Code(s): E87.5 - Hyperkalemia Status: Acute Assessment and Plan: possibly due to #2 better with IV diuretic therapy follow trend (5) Chronic anemia: Code(s): D64.9 - Anemia, unspecified Status: Acute Assessment and Plan: partly due to CKD no need for NURY follow trend of H/H (6) Benign hypertension: Code(s): I10 - Essential (primary) hypertension Status: Acute Assessment and Plan: reasonably controlled follow hemodynamics (7) Type 2 diabetes mellitus: Code(s): E11.9 - Type 2 diabetes mellitus without complications Status: Acute Assessment and Plan: follow accuchecks on SSI and Levemir Will continue to follow. Subjective Date/time seen: 06/28/20 11:35 Seems to be doing reasonably well; reasonable response with IV diuretics with improvement in shortness of breath as well as lower extremity edema; no events overnight or earlier this AM; no apparent distress voiced at the time of my visit. Exam Narrative: Exam Narrative: General: Elderly female in NAD Heart: IRRR, normal S1 and S2; no rub Lungs: clear anteriorly; decreased at bases Abdomen: soft, nontender, nondistended, positive bowel sounds Extremities: no cyanosis or clubbing; 1+ edema Skin: warm and dry Objective Data Vital Signs Vital Signs: Vital Signs Temp Pulse Resp BP Pulse Ox 06/28/20 11:27 91 06/28/20 10:05 36.4 C 90 15 117/54 L 99 06/28/20 08:23 112 H 06/28/20 08:00 100 06/28/20 05:45 36.2 C L 82 16 138/57 L 98 06/28/20 04:00 86 06/28/20 03:36 98 06/28/20 03:03 96 21 H 84 L 06/28/20 02:40 36.1 C L 71 18 144/66 H 94 06/28/20 00:00 78 06/27/20 23:30 93 24 H 78 L 06/27/20 21:32 88 24 H 06/27/20 21:27 90 06/27/20 21:20 86 26 H 96 06/27/20 21:17 86 26 H 06/27/20 20:58 36.3 C L 83 16 129/66 98 06/27/20 20:00 109 H 06/27/20 18:00 35.9 C L 85 20 139/51 L 100 06/27/20 16:00 86 06/27/20 14:00 35.9 C L 73 22 H 122/69 95 06/27/20 12:00 84 Intake/Output Intake/Output: Intake & Output 06/25/20 06/26/20 06/27/20 06/28/20 23:59 23:59 23:59 23:59 Intake Total 440 1560 510 Output Total 4050 800 Balance 393 -9282 -727 Meds/Results Medications: Active Medications Generic Name Dose Route Start Last Admin Trade Name Joeq PRN Reason Stop Dose Admin Acetaminophen 650 mg 06/26/20 12:17 Tylenol Tablet PO Q4H PRN Mild Pain (1-3) Albuterol 2.5 mg 06/26/20 19:04 06/27/20 21:17 Albuterol Sulf Neb 2.5mg/0.5ml INHALATION 2.5 mg Q4HRT PRN Administration Shortness Of Breath Calcitriol 0.25 mcg 06/27/20 09:00 06/28/20 08:23 Rocaltrol PO 0.25 mcg DAILY RAEANN Administration Calcium Carbonate 500 mg 06/27/20 09:00 06/28/20 08:23 Oscal 500 Mg PO 500 mg DAILY [facility] Ad
[2020-06-28] MEDS: INSULIN ASPART (*BKC) 100 UNITS/ML SUB-Q (11:48)
--- NOTE | 2020-06-28 12:10 | P.PNIM_ITS ---
Progress Note: A&P Assessment and Plan (1) Acute exacerbation of congestive heart failure: Code(s): I50.9 - Heart failure, unspecified Status: Acute Assessment and Plan: Diastolic CHF; right sided. Cardiology following and appreciate recommendations. Appears to be clinically improving. Appears to have ~2.5 L negative fluid balance since admission. Echo results as above. * Continue IV lasix 80 mg BID per Cardiology * Monitor volume status and renal function closely * Await further recommendation from Cardiology (2) Acute and chronic respiratory failure with hypoxia: Code(s): J96.21 - Acute and chronic respiratory failure with hypoxia Status: Acute Assessment and Plan: Likely secondary to acute CHF exacerbation. Patient states she was just placed on Home oxygen on 06/25 due to her increasing shortness of breath. Hopefully, we willl see improvement with hypoxia with diuresis * Wean O2 as tolerated * Goal is to wean to RA if possible. (3) Chronic kidney disease, stage 4 (severe): Code(s): N18.4 - Chronic kidney disease, stage 4 (severe) Status: Acute Assessment and Plan: Cr 1.60 today; stable/improved. Appears to be at baseline. Dr. Nguyen following and appreciate recommendations. 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 fib; this had been held given mildly supratherapeutic INR; INR 1.9 today. No evidence of bleeding * Resume home warfarin tonight * Monitor INR (5) Persistent atrial fibrillation: Code(s): I48.19 - Other persistent atrial fibrillation Status: Acute Assessment and Plan: On warfarin and rate controlled with diltiazem and metoprolol; has a pacemaker. Dr. 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 BGL in high 100- 200s today * Continue home insulin regimen * Accuchecks ACHS, hypoglycemia protocol, correctional insulin, diabetic diet * Monitor closely; adjust insulin as appropriate (7) Postsurgical hypothyroidism: Code(s): E89.0 - Postprocedural hypothyroidism Status: Acute Assessment and Plan: TSH wnl * Continue home levothyroxine (8) Obstructive sleep apnea on CPAP: Code(s): G47.33 - Obstructive sleep apnea (adult) (pediatric); Z99.89 - Dependence on o ther enabling machines and devices Status: Acute Assessment and Plan: * Continue with CPAP (9) Benign hypertension: Code(s): I10 - Essential (primary) hypertension Status: Acute Assessment and Plan: BP 110s sys this morning. * Spironolactone held given hyperkalemia * Continue other home medications * Monitor
--- NOTE | 2020-06-28 12:10 | PM.IMPN ---
Progress Note: A&P Assessment and Plan (1) Acute exacerbation of congestive heart failure: Code(s): I50.9 - Heart failure, unspecified Status: Acute Assessment and Plan: Diastolic CHF; right sided. Cardiology following and appreciate recommendations. Appears to be clinically improving. Appears to have ~2.5 L negative fluid balance since admission. Echo results as above. Continue IV lasix 80 mg BID per Cardiology Monitor volume status and renal function closely Await further recommendation from Cardiology (2) Acute and chronic respiratory failure with hypoxia: Code(s): J96.21 - Acute and chronic respiratory failure with hypoxia Status: Acute Assessment and Plan: Likely secondary to acute CHF exacerbation. Patient states she was just placed on Home oxygen on 06/25 due to her increasing shortness of breath. Hopefully, we willl see improvement with hypoxia with diuresis Wean O2 as tolerated Goal is to wean to RA if possible. (3) Chronic kidney disease, stage 4 (severe): Code(s): N18.4 - Chronic kidney disease, stage 4 (severe) Status: Acute Assessment and Plan: Cr 1.60 today; stable/improved. Appears to be at baseline. Dr. Nguyen following and appreciate recommendations. 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 fib; this had been held given mildly supratherapeutic INR; INR 1.9 today. No evidence of bleeding Resume home warfarin tonight Monitor INR (5) Persistent atrial fibrillation: Code(s): I48.19 - Other persistent atrial fibrillation Status: Acute Assessment and Plan: On warfarin and rate controlled with diltiazem and metoprolol; has a pacemaker. Dr. Zamora following Continue home metoprolol and diltiazem Warfarin to be resumed tonight Monitor (6) Insulin dependent type 2 diabetes mellitus: Code(s): E11.9 - Type 2 diabetes mellitus without complications; Z79.4 - long-term (current) use of insulin Status: Acute Assessment and Plan: A1c 6.6 yesterday. BGL in high 100- 200s today Continue home insulin regimen Accuchecks ACHS, hypoglycemia protocol, correctional insulin, diabetic diet Monitor closely; adjust insulin as appropriate (7) Postsurgical hypothyroidism: Code(s): E89.0 - Postprocedural hypothyroidism Status: Acute Assessment and Plan: TSH wnl Continue home levothyroxine (8) Obstructive sleep apnea on CPAP: Code(s): G47.33 - Obstructive sleep apnea (adult) (pediatric); Z99.89 - Dependence on other enabling machines and devices Status: Acute Assessment and Plan: Continue with CPAP (9) Benign hypertension: Code(s): I10 - Essential (primary) hypertension Status: Acute Assessment and Plan: BP 110s sys this morning. Spironolactone held given hyperkalemia Continue other home medications Monitor (10) Hyperkalemia: Code(s): E87.5 - Hyperkalemia Status: Acute Assessment and Plan: K 4.2 today Monitor Consider resuming spironolactone if improvement in hyperkalemia and if BP allows given aggressive diuresis (11) Chronic anemia: Code(s): D64.9 - Anemia, unspecified Status: Acute Assessment and Plan: She has chr
[2020-06-28] MEDS: acetaZOLAMIDE TAB 250 MG TABLET PO ×2 (13:28→17:32)
[2020-06-28 16:38] LABS: Glucose Point of Care 120 (65-105)
[2020-06-28] MEDS: WARFARIN (*PBKC) 5 MG TABLET PO (17:32)
[2020-06-28] MEDS: LATANOPROST 0.005% OP SOLN 2.5 ML BTL 1 DROP EACH EYE (20:28)
[2020-06-28 20:35] LABS: Glucose Point of Care 133 (65-105)
[2020-06-28] MEDS: IPRATROPIUM BR 0.02% INH SOLN 0.5 MG/2.5 ML VIAL INHALATION (20:36)
[2020-06-28] MEDS: ALBUTEROL SULFATE NEB 2.5 MG/0.5 ML INH INHALATION (20:36)
[2020-06-29] VITALS (17 sets, daily range): BP systolic 99–131; BP diastolic 54–75; PULSE 70–93; RESP 14–22; TEMP 36.1–36.6; O2SAT 90–100
[2020-06-29 05:32] LABS: Basophils Absolute Auto 0.1 K/mm3 (0.0-0.1); Basophils Percent Auto 0.4 % (0.2-1.2); Eosinophils Absolute Auto 0.1 K/mm3 (0-0.3); Eosinophils Percent Auto 1.2 % (0-4.4); Hematocrit 32.9 % (37.0-47.0); Hemoglobin 10.6 g/dL (12.0-15.0); Immature Granulocyte Absolute 0.09 K/mm3 (0.00-0.031); Immature Granulocyte Percent A 0.8 % (0-0.5); Lymphocytes Absolute Auto 0.79 K/mm3 (0.9-3.2); Lymphocytes Percent Auto 6.6 % (18.3-44.2); Mean Corpuscular HGB Conc 32.2 g/dl (32-36); Mean Corpuscular Hemoglobin 35.7 pg (26-34); Mean Corpuscular Volume 110.8 fl (80-100); Mean Platelet Volume 11.1 fl (7.4-10.4); Monocytes Absolute Auto 1.1 K/mm3 (0.1-0.6); Monocytes Percent Auto 8.9 % (2.6-8.5); Neutrophils Absolute Auto 9.8 K/mm3 (1.3-6.7); Neutrophils Percent Auto 82.1 % (45.5-73.1); Nucleated Red Blood Cells Perc 0.3 % (0.0-0.2); Platelet Count Result 249 k/mm3 (150-375); Red Blood Count 2.97 M/mm3 (4.2-5.4); Red Cell Distribution Width 13.1 % (11.5-14.5)
[2020-06-29 05:45] LABS: INR 1.4
[2020-06-29 06:06] LABS: Anion Gap 12.99999 mmol/L (8-16); Blood Urea Nitrogen 62 mg/dL (7-17); Calcium 9.7 mg/dL (8.4-10.2); Carbon Dioxide > 40 mmol/L (22-30); Chloride 86 mmol/L (98-107); Estimated CRCL calculation 28 ml/min; Estimated Glomerular Filt Rate 26; Glucose 134 mg/dL (65-105); Magnesium 1.9 mg/dL (1.6-2.3); Potassium 3.9 mmol/L (3.4-5.0); Sodium 139 mmol/L (137-145)
[2020-06-29] MEDS: LEVOTHYROXINE SODIUM 100 MCG TABLET 200 MCG PO (06:12)
[2020-06-29 07:34] LABS: Glucose Point of Care 163 (65-105)
[2020-06-29] MEDS: CALCIUM CARBONATE (OSCAL) 500 MG TABLET PO (08:41)
[2020-06-29] MEDS: CHOLECALCIFEROL 1,000 UNITS TABLET 1000 UNITS PO (08:41)
[2020-06-29] MEDS: dilTIAZem HCL CD 180 MG CAP.ER.24H PO (08:41)
[2020-06-29] MEDS: MAGNESIUM OXIDE 400 MG TABLET PO (08:41)
[2020-06-29] MEDS: acetaZOLAMIDE TAB 250 MG TABLET PO ×2 (08:42→18:10)
[2020-06-29] MEDS: calcitrioL 0.25 MCG CAPSULE PO (08:42)
[2020-06-29] MEDS: PRAVASTATIN SODIUM 10 MG TABLET PO (08:42)
[2020-06-29] MEDS: CYANOCOBALAMIN 1,000 MCG TABLET 1000 MCG PO (08:42)
[2020-06-29] MEDS: FUROSEMIDE INJ 100 MG/10 ML VIAL 80 MG IV PUSH (08:42)
[2020-06-29] MEDS: METOPROLOL TARTRATE 25 MG TABLET PO ×2 (08:42→21:05)
[2020-06-29] MEDS: TIMOLOL MALEATE 0.5% OP SOLN 5 ML BOTTLE 1 DROP EACH EYE (08:43)
[2020-06-29] MEDS: INSULIN DETEMIR 100 UNITS/ML 25 UNITS SUB-Q (09:08)
[2020-06-29] MEDS: INSULIN HUMAN REGULAR (*BKC) 100 UNITS/ML 25 UNITS SUB-Q ×3 (09:09→18:08)
--- NOTE | 2020-06-29 10:33 | P.PNIM_ITS ---
Progress Note: A&P Assessment and Plan (1) Acute exacerbation of congestive heart failure: Code(s): I50.9 - Heart failure, unspecified Status: Acute Assessment and Plan: Diastolic CHF; right sided. Cardiology following and appreciate recommendations. Appears to be clinically improving. Appears to have ~3.5 L negative fluid balance since admission. Echo results as above. * Continue IV lasix 80 mg BID per Cardiology * Monitor volume status and renal function closely * Await further recommendation from Cardiology (2) Acute and chronic respiratory failure with hypoxia: Code(s): J96.21 - Acute and chronic respiratory failure with hypoxia Status: Acute Assessment and Plan: Likely secondary to acute CHF exacerbation. Patient states she was just placed on Home oxygen on 06/25 due to her increasing shortness of breath. Hopefully, we willl see improvement with hypoxia with diuresis * Wean O2 as tolerated * Goal is to wean to RA if possible. * Home O2 evaluation prior to discharge (3) Chronic kidney disease, stage 4 (severe): Code(s): N18.4 - Chronic kidney disease, stage 4 (severe) Status: Acute Assessment and Plan: Cr 1.90 today; stable/improved. Appears to be at baseline. Dr. Nguyen following and appreciate recommendations. Metabolic alkalosis noted, likely contraction alkalosis 2/2 aggressive diuresis * monitor closely with diuresis * Agree with acetazolamide * Await further recommendations from Nephrology (4) Current use of [facility] anticoagulation: Code(s): Z79.01 - correction (current) use of anticoagulants Status: Acute Assessment and Plan: Currently taking warfarin for a. fib; this had been held given mildly suprather apeutic INR; INR 1.4 today. No evidence of bleeding * Continue Warfarin * Monitor INR (5) Persistent atrial fibrillation: Code(s): I48.19 - Other persistent atrial fibrillation Status: Acute Assessment and Plan: On warfarin and rate controlled with diltiazem and metoprolol; has a pacemaker. Cardiology following * Continue home metoprolol and diltiazem * Continue Warfarin * Monitor (6) Insulin dependent type 2 diabetes mellitus: Code(s): E11.9 - Type 2 diabetes mellitus without complications; Z79.4 - correction (current) use of insulin Status: Acute Assessment and Plan: A1c 6.6 yesterday. BGL in high 100s today * Continue home insulin regimen * Accuchecks ACHS, hypoglycemia protocol, correctional insulin, diabetic diet * Monitor closely; adjust insulin as appropriate (7) Postsurgical hypothyroidism: Code(s): E89.0 - Postprocedural hypothyroidism Status: Acute Assessment and Plan: TSH wnl * Continue home levothyroxine (8) Obstructive sleep apnea on CPAP: Code(s): G47.33 - Obstructive sleep apnea (adult) (pediatric); Z99.89 - Dependence on other enabling machines and devices Status: Acute Assessment and Plan: * Continue with CPAP (9) Benign hypertension: Code(s): I10 - Essential (primary) hypertension Status: Acute Assessment and Plan: BP 110s sys this morning. * Spironolactone held given hyperkalemia earlier in stay * Continue other home medications * Monitor
--- NOTE | 2020-06-29 10:33 | PM.IMPN ---
Progress Note: A&P Assessment and Plan (1) Acute exacerbation of congestive heart failure: Code(s): I50.9 - Heart failure, unspecified Status: Acute Assessment and Plan: Diastolic CHF; right sided. Cardiology following and appreciate recommendations. Appears to be clinically improving. Appears to have ~3.5 L negative fluid balance since admission. Echo results as above. Continue IV lasix 80 mg BID per Cardiology Monitor volume status and renal function closely Await further recommendation from Cardiology (2) Acute and chronic respiratory failure with hypoxia: Code(s): J96.21 - Acute and chronic respiratory failure with hypoxia Status: Acute Assessment and Plan: Likely secondary to acute CHF exacerbation. Patient states she was just placed on Home oxygen on 06/25 due to her increasing shortness of breath. Hopefully, we willl see improvement with hypoxia with diuresis Wean O2 as tolerated Goal is to wean to RA if possible. Home O2 evaluation prior to discharge (3) Chronic kidney disease, stage 4 (severe): Code(s): N18.4 - Chronic kidney disease, stage 4 (severe) Status: Acute Assessment and Plan: Cr 1.90 today; stable/improved. Appears to be at baseline. Dr. Nguyen following and appreciate recommendations. Metabolic alkalosis noted, likely contraction alkalosis 2/2 aggressive diuresis monitor closely with diuresis Agree with acetazolamide Await further recommendations from Nephrology (4) Current use of terminal superintendent anticoagulation: Code(s): Z79.01 - termite helper (current) use of anticoagulants Status: Acute Assessment and Plan: Currently taking warfarin for a. fib; this had been held given mildly supratherapeutic INR; INR 1.4 today. No evidence of bleeding Continue Warfarin Monitor INR (5) Persistent atrial fibrillation: Code(s): I48.19 - Other persistent atrial fibrillation Status: Acute Assessment and Plan: On warfarin and rate controlled with diltiazem and metoprolol; has a pacemaker. Cardiology following Continue home metoprolol and diltiazem Continue Warfarin Monitor (6) Insulin dependent type 2 diabetes mellitus: Code(s): E11.9 - Type 2 diabetes mellitus without complications; Z79.4 - alf (current) use of insulin Status: Acute Assessment and Plan: A1c 6.6 yesterday. BGL in high 100s today Continue home insulin regimen Accuchecks ACHS, hypoglycemia protocol, correctional insulin, diabetic diet Monitor closely; adjust insulin as appropriate (7) Postsurgical hypothyroidism: Code(s): E89.0 - Postprocedural hypothyroidism Status: Acute Assessment and Plan: TSH wnl Continue home levothyroxine (8) Obstructive sleep apnea on CPAP: Code(s): G47.33 - Obstructive sleep apnea (adult) (pediatric); Z99.89 - Dependence on other enabling machines and devices Status: Acute Assessment and Plan: Continue with CPAP (9) Benign hypertension: Code(s): I10 - Essential (primary) hypertension Status: Acute Assessment and Plan: BP 110s sys this morning. Spironolactone held given hyperkalemia earlier in stay Continue other home medications Monitor (10) Hyperkalemia: Code(s): E87.5 - Hyperkalemia Status: Acute Assessment and Plan: K 3.9 today Monitor Consider resuming spironolactone if improvement in hyperkalemia and if BP allows given aggressive diuresis (11) Chronic anemia: Code(s): D64.9 - Anemia, unspecified Status: Acute Assessment
[2020-06-29 12:07] LABS: Glucose Point of Care 331 (65-105)
[2020-06-29] MEDS: EUCERIN CREAM 120 GM JAR 1 APPLIC TOPICAL (12:30)
[2020-06-29] MEDS: INSULIN ASPART (*BKC) 100 UNITS/ML SUB-Q (12:30)
--- NOTE | 2020-06-29 13:30 | PM.PNCARD ---
Progress Note: A&P Assessment and Plan (1) Acute exacerbation of congestive heart failure: Code(s): I50.9 - Heart failure, unspecified Status: Acute Assessment and Plan: Echocardiogram 06/26/2020: Definity contrast injected to improve visualization.Left ventricular systolic function is normal, estimated at 55-60%. There is mild aortic valve sclerosis. The aortic valve is mildly stenotic. The mitral valve has normal leaflets. There is trace mitral valve regurgitation. Moderate biatrial dilation. Atrial fibrillation. Cumulative since admission -3620 cc. Clinically improved. Transition furosemide to 80 mg p.o. b.i.d.. BMP in the morning. (2) [facility] (current) use of anticoagulants: Code(s): Z79.01 - long term care pharmacist (current) use of anticoagulants Status: Acute Assessment and Plan: She is on warfarin for her atrial fibrillation. NR 3.2 on admission. Dayna to 3.5. INR 1.4 06/28/2020. Restarted on 5 mg warfarin daily (home dose). INR 1.4 today. Elevated INR most likely due to heart failure. Would continue her home dose of warfarin , allow her to drift back up and monitor INR. (3) Acute and chronic respiratory failure with hypoxia: Code(s): J96.21 - Acute and chronic respiratory failure with hypoxia Status: Acute Assessment and Plan: Uses her CPAP at home without fail. Unable to be comfortable on the CPAP masks we have available. Still on oxygen at 1 L.. Home O2 eval to be done. (4) Chronic kidney disease, stage 4 (severe): Code(s): N18.4 - Chronic kidney disease, stage 4 (severe) Status: Acute Assessment and Plan: Dr. Patrick marshall. He follows her in his clinic. Additional Plan Not ready for discharge today. Hopefully Dr Uppstrom will be able to see her tomorrow. Plan discussed with Dr. Zamora [id number] 06/29/2020 Subjective Date/time seen: 06/29/20 13:30 Interval history: Follow-up for: decompensated congestive heart failure primarily right-sided failure with volume overload some pulmonary congestion on exam. Date of service: 06/29/2020 Subjective: Shortness of breath with exertional activity as much better. Lower extremity edema some better. Still has edema up to behind her knees. No lightheadedness. No chest discomfort. Review of Systems Constitutional: Constitutional: Reports fatigue Eyes: Eyes: Denies blurry vision ENT: Denies epistaxis Cardiovascular: Cardiovascular: Reports dyspnea ( Improved) Respiratory: Respiratory: Reports dyspnea ( improved) Gastrointestinal: Gastrointestinal: Reports bloating ( improved), Denies nausea and Denies vomiting Genitourinary: Genitourinary: Denies hematuria Musculoskeletal: Musculoskeletal: Denies back pain Integumentary/Breasts: Skin/Breast: Denies erythema and Denies rash Neurologic: Reports Normal hearing present Psychiatric: Psychiatric: Reports anxiety Endocrine: Endocrine: Reports fatigue Hematologic/Lymphatic: Hematologic/Lymphatic: Denies easy bleeding and Denies easy bruising Allergic/Immunologic: Allergic/Immunologic: Denies lip swelling and Denies throat swelling Exam Const: General: comfortable and no acute distress Other: Morbidly obese white female sitting up in chair. at bedside. HENMT: Head: normocephalic and atraumatic Ears: hearing grossly normal bilaterally General nose exam: Normal external nose present Mouth: Yes moist mucous membranes Eyes: Sclera: sclerae normal Pupils: Equal, round and reactive pupils present Neck: Neck: supple Resp: Effort & Inspection: normal respiratory effort and able to speak in complete sentences Other: Bibasilar crackles right greater than left Cardio: Rhythm: abnormal rhythm irregularly irregular GI: Inspection: obesity GI Palp: Yes Soft to palpati
--- NOTE | 2020-06-29 15:55 | P.PNNP_ITS ---
Progress Note: A&P Assessment and Plan (1) Chronic kidney disease, stage 4 (severe): Code(s): N18.4 - Chronic kidney disease, stage 4 (severe) Status: Acute Assessment and Plan: * baseline creatinine ~ 1.7 - 2.1mg/dl in last couple of years * due to DM, HTN, diastolic heart failure + diuretics, YUDELKA, and age * in spite of diuresis, creatinine seems to be relatively stable within the range stated above. (2) Acute on chronic diastolic heart failure: Code(s): I50.33 - Acute on chronic diastolic (congestive) heart failure Status: Acute Assessment and Plan: * suspect possible dietary indiscretion as trigger * Seems to be responding to diuretics now. * Her repeat echocardiogram shows normal ejection fraction. * It is possible that decreased renal function could be the cause of the edema and with diuresis she may end up with a higher creatinine reflective of her true kidney function. * So far no rise in creatinine. Continue IV diuretics for now. (3) Metabolic alkalosis: Code(s): E87.3 - Alkalosis Status: Acute Assessment and Plan: * due to contraction from diuresis(?) * Continue the acetazolamide (4) Hyperkalemia: Code(s): E87.5 - Hyperkalemia Status: Acute Assessment and Plan: * possibly due to #2 * better with IV diuretic therapy * follow trend (5) Chronic anemia: Code(s): D64.9 - Anemia, unspecified Status: Acute Assessment and Plan: * partly due to CKD * no need for NURY * hemoglobin still above 10. (6) Benign hypertension: Code(s): I10 - Essential (primary) hypertension Status: Acute Assessment and Plan: * reasonably controlled * follow hemodynamics (7) Type 2 diabetes mellitus: Code(s): E11.9 - Type 2 diabetes mellitus without complications Status: Acute Assessment and Plan: * follow accuchecks * on SSI and Levemir Subjective Date/time seen: 06/29/20 15:55 Interval history: Patient feels okay today. She is a little less short of breath. However she does get a little dyspneic when she lays flat. No chest pain. Eating okay and bowels are moving fine. Review of Systems Cardiovascular: Cardiovascular: Reports no additional cardiovascular complaints Respiratory: Respiratory: Reports no additional respiratory complaints Gastrointestinal: Gastrointestinal: Reports no additional gastrointestinal complaints Genitourinary: Genitourinary: Reports no additional female genitourinary complaints Exam Narrative: Exam Narrative: General: Elderly female in NAD Heart: IRRR, normal S1 and S2; no rub or gallop Lungs: clear anteriorly; decreased at bases Abdomen: soft, nontender, nondistended, positive bowel sounds Extremities: no cyanosis or clubbing; 1-2+ edema Skin: No rash Objective Data Vital Signs Vital Signs: Vital Signs - 24 hr 06/28/20 16:00 06/28/20 18:02 06/28/20 20:00 Temperature 36.4 C L Pulse Rate 85 89 89 Respiratory Rate 16 Blood Pressure 120/52 L Pulse Oximetry 94 06/28/20 20:28 06/28/20 20:37 06/28/20 20:42 Temperature Pulse Rate 90 91 91 Respiratory Rate 24 H 24 H Blood Pressure Pulse Oximetry 90 1
--- NOTE | 2020-06-29 15:55 | PM.PNNEP ---
Progress Note: A&P Assessment and Plan (1) Chronic kidney disease, stage 4 (severe): Code(s): N18.4 - Chronic kidney disease, stage 4 (severe) Status: Acute Assessment and Plan: baseline creatinine ~ 1.7 - 2.1mg/dl in last couple of years due to DM, HTN, diastolic heart failure + diuretics, YUDELKA, and age in spite of diuresis, creatinine seems to be relatively stable within the range stated above. (2) Acute on chronic diastolic heart failure: Code(s): I50.33 - Acute on chronic diastolic (congestive) heart failure Status: Acute Assessment and Plan: suspect possible dietary indiscretion as trigger Seems to be responding to diuretics now. Her repeat echocardiogram shows normal ejection fraction. It is possible that decreased renal function could be the cause of the edema and with diuresis she may end up with a higher creatinine reflective of her true kidney function. So far no rise in creatinine. Continue IV diuretics for now. (3) Metabolic alkalosis: Code(s): E87.3 - Alkalosis Status: Acute Assessment and Plan: due to contraction from diuresis(?) Continue the acetazolamide (4) Hyperkalemia: Code(s): E87.5 - Hyperkalemia Status: Acute Assessment and Plan: possibly due to #2 better with IV diuretic therapy follow trend (5) Chronic anemia: Code(s): D64.9 - Anemia, unspecified Status: Acute Assessment and Plan: partly due to CKD no need for NURY hemoglobin still above 10. (6) Benign hypertension: Code(s): I10 - Essential (primary) hypertension Status: Acute Assessment and Plan: reasonably controlled follow hemodynamics (7) Type 2 diabetes mellitus: Code(s): E11.9 - Type 2 diabetes mellitus without complications Status: Acute Assessment and Plan: follow accuchecks on SSI and Levemir Subjective Date/time seen: 06/29/20 15:55 Interval history: Patient feels okay today. She is a little less short of breath. However she does get a little dyspneic when she lays flat. No chest pain. Eating okay and bowels are moving fine. Review of Systems Cardiovascular: Cardiovascular: Reports no additional cardiovascular complaints Respiratory: Respiratory: Reports no additional respiratory complaints Gastrointestinal: Gastrointestinal: Reports no additional gastrointestinal complaints Genitourinary: Genitourinary: Reports no additional female genitourinary complaints Exam Narrative: Exam Narrative: General: Elderly female in NAD Heart: IRRR, normal S1 and S2; no rub or gallop Lungs: clear anteriorly; decreased at bases Abdomen: soft, nontender, nondistended, positive bowel sounds Extremities: no cyanosis or clubbing; 1-2+ edema Skin: No rash Objective Data Vital Signs Vital Signs: Vital Signs - 24 hr 06/28/20 16:00 06/28/20 18:02 06/28/20 20:00 Temperature 36.4 C L Pulse Rate 85 89 89 Respiratory Rate 16 Blood Pressure 120/52 L Pulse Oximetry 94 06/28/20 20:28 06/28/20 20:37 06/28/20 20:42 Temperature Pulse Rate 90 91 91 Respiratory Rate 24 H 24 H Blood Pressure Pulse Oximetry 90 06/28/20 20:45 06/28/20 21:02 06/28/20 22:40 Temperature 36.3 C L Pulse Rate 89 90 79 Respiratory Rate 24 H 16 24 H Blood Pressure 117/53 L Pulse Oximetry 95 94 06/29/20 00:00 06/29/20 01:42 06/29/20 03:20 Temperature 36.2 C L Pulse Rate 79 93 77 Respiratory Rate 18 22 H Blood Pressure 119/57 L Pulse Oximetry 94 93 06/29/20 04:00 06/29/20 05:53 06/29/20 08:00 Temperature 36.1 C L Pulse Rate 81 80 86 Respiratory Rate 16 Blood Pressure 131/56 L Pulse Oximetry 97 06/29/20 08:30 06/29/20 08:42 06/29/20 10:37 Temperature 36.3 C L Pulse Rate 92 80 Respiratory Rate 17 Blood Pressure 120/60 112/75 Pulse Oximetry 98 06/29/20 14:58 Temperature 36.4 C
[2020-06-29 17:00] LABS: Glucose Point of Care 158 (65-105)
[2020-06-29] MEDS: FUROSEMIDE 80 MG TABLET PO (18:10)
[2020-06-29] MEDS: WARFARIN (*PBKC) 5 MG TABLET PO (18:11)
[2020-06-29] MEDS: LATANOPROST 0.005% OP SOLN 2.5 ML BTL 1 DROP EACH EYE (21:05)
[2020-06-29 21:19] LABS: Glucose Point of Care 115 (65-105)
[2020-06-30] VITALS (20 sets, daily range): BP systolic 110–131; BP diastolic 51–89; PULSE 69–97; RESP 16–28; TEMP 36.3–36.6; O2SAT 86–99
[2020-06-30 05:55] LABS: Basophils Absolute Auto 0.1 K/mm3 (0.0-0.1); Basophils Percent Auto 0.4 % (0.2-1.2); Eosinophils Absolute Auto 0.1 K/mm3 (0-0.3); Hematocrit 32.8 % (37.0-47.0); Hemoglobin 10.5 g/dL (12.0-15.0); Immature Granulocyte Absolute 0.12 K/mm3 (0.00-0.031); Immature Granulocyte Percent A 0.9 % (0-0.5); Lymphocytes Absolute Auto 0.68 K/mm3 (0.9-3.2); Lymphocytes Percent Auto 4.9 % (18.3-44.2); Mean Corpuscular Hemoglobin 35.7 pg (26-34); Mean Corpuscular Volume 111.6 fl (80-100); Mean Platelet Volume 11.3 fl (7.4-10.4); Monocytes Absolute Auto 1.3 K/mm3 (0.1-0.6); Monocytes Percent Auto 9.2 % (2.6-8.5); Neutrophils Absolute Auto 11.7 K/mm3 (1.3-6.7); Neutrophils Percent Auto 83.6 % (45.5-73.1); Nucleated Red Blood Cells Perc 0.1 % (0.0-0.2); Platelet Count Result 250 k/mm3 (150-375); Red Blood Count 2.94 M/mm3 (4.2-5.4)
[2020-06-30 06:04] LABS: INR 1.6; Prothrombin Time 18.5 Seconds (11.1-14.7)
[2020-06-30] MEDS: LEVOTHYROXINE SODIUM 100 MCG TABLET 200 MCG PO (06:08)
[2020-06-30 06:18] LABS: Anion Gap 12.99999 mmol/L (8-16); Blood Urea Nitrogen 71 mg/dL (7-17); Calcium 9.9 mg/dL (8.4-10.2); Carbon Dioxide > 40 mmol/L (22-30); Chloride 84 mmol/L (98-107); Estimated CRCL calculation 26 ml/min; Estimated Glomerular Filt Rate 24; Glucose 143 mg/dL (65-105); Magnesium 2.1 mg/dL (1.6-2.3); Potassium 3.9 mmol/L (3.4-5.0); Sodium 137 mmol/L (137-145)
[2020-06-30 08:06] LABS: Glucose Point of Care 170 (65-105)
--- NOTE | 2020-06-30 09:15 | P.PNNP_ITS ---
Progress Note: A&P Assessment and Plan (1) Chronic kidney disease, stage 4 (severe): Code(s): N18.4 - Chronic kidney disease, stage 4 (severe) Status: Acute Assessment and Plan: * baseline creatinine ~ 1.7 - 2.1mg/dl in last couple of years * due to DM, HTN, diastolic heart failure + diuretics, YUDELKA, and age * Creatinine creeping up, as expected. (2) Acute on chronic diastolic heart failure: Code(s): I50.33 - Acute on chronic diastolic (congestive) heart failure Status: Acute Assessment and Plan: * suspect possible dietary indiscretion as trigger * Seems to be responding to diuretics now. * Her repeat echocardiogram shows normal ejection fraction. * It is possible that decreased renal function could be the cause of the edema and with diuresis she may end up with a higher creatinine reflective of her true kidney function. (3) Metabolic alkalosis: Code(s): E87.3 - Alkalosis Status: Acute Assessment and Plan: * due to contraction from diuresis(?) * Continue the acetazolamide bid. (4) Hyperkalemia: Code(s): E87.5 - Hyperkalemia Status: Acute Assessment and Plan: * possibly due to #2 * better with IV diuretic therapy * follow trend (5) Chronic anemia: Code(s): D64.9 - Anemia, unspecified Status: Acute Assessment and Plan: * partly due to CKD * no need for NURY * hemoglobin still above 10. (6) Benign hypertension: Code(s): I10 - Essential (primary) hypertension Status: Acute Assessment and Plan: * well controlled * follow hemodynamics (7) Type 2 diabetes mellitus: Code(s): E11.9 - Type 2 diabetes mellitus without complications Status: Acute Assessment and Plan: * follow accuchecks * on SSI and Levemir Subjective Date/time seen: 06/30/20 09:15 Interval history: Patient feels okay today. She is still unable to lie flat in bed but is much better than she was. Swelling is down some. Still on oxygen Review of Systems Cardiovascular: Cardiovascular: Reports no additional cardiovascular complaints Respiratory: Respiratory: Reports no additional respiratory complaints Gastrointestinal: Gastrointestinal: Reports no additional gastrointestinal complaints Genitourinary: Genitourinary: Reports no additional female genitourinary complaints Exam Narrative: Exam Narrative: General: Elderly female in NAD Heart: IRRR, normal S1 and S2; no rub or gallop Lungs: clear anteriorly; decreased at bases Abdomen: soft, nontender, nondistended, positive bowel sounds Extremities: no cyanosis or clubbing; 1-2+ edema. left may be slightly better. Skin: No rash Objective Data Vital Signs Vital Signs: Vital Signs - 24 hr 06/29/20 10:00 06/29/20 10:37 06/29/20 12:00 Temperature 36.3 C L Pulse Rate 80 86 Respiratory Rate 17 Blood Pressure 112/75 Pulse Oximetry 91 98 06/29/20 14:58 06/29/20 16:00 06/29/20 19:27 Temperature 36.4 C 36.6 C Pulse Rate 70 90 80 Respiratory Rate 18 14 Blood Pressure 99/68 L 104/54 L Pulse Oximetry 98 100 06/29/20 20:00 06/29/20 21:05 06/29/20 22:00 Temperature 36.2 C L Pulse Rate 78
--- NOTE | 2020-06-30 09:15 | PM.PNNEP ---
Progress Note: A&P Assessment and Plan (1) Chronic kidney disease, stage 4 (severe): Code(s): N18.4 - Chronic kidney disease, stage 4 (severe) Status: Acute Assessment and Plan: baseline creatinine ~ 1.7 - 2.1mg/dl in last couple of years due to DM, HTN, diastolic heart failure + diuretics, YUDELKA, and age Creatinine creeping up, as expected. (2) Acute on chronic diastolic heart failure: Code(s): I50.33 - Acute on chronic diastolic (congestive) heart failure Status: Acute Assessment and Plan: suspect possible dietary indiscretion as trigger Seems to be responding to diuretics now. Her repeat echocardiogram shows normal ejection fraction. It is possible that decreased renal function could be the cause of the edema and with diuresis she may end up with a higher creatinine reflective of her true kidney function. (3) Metabolic alkalosis: Code(s): E87.3 - Alkalosis Status: Acute Assessment and Plan: due to contraction from diuresis(?) Continue the acetazolamide bid. (4) Hyperkalemia: Code(s): E87.5 - Hyperkalemia Status: Acute Assessment and Plan: possibly due to #2 better with IV diuretic therapy follow trend (5) Chronic anemia: Code(s): D64.9 - Anemia, unspecified Status: Acute Assessment and Plan: partly due to CKD no need for NURY hemoglobin still above 10. (6) Benign hypertension: Code(s): I10 - Essential (primary) hypertension Status: Acute Assessment and Plan: well controlled follow hemodynamics (7) Type 2 diabetes mellitus: Code(s): E11.9 - Type 2 diabetes mellitus without complications Status: Acute Assessment and Plan: follow accuchecks on SSI and Levemir Subjective Date/time seen: 06/30/20 09:15 Interval history: Patient feels okay today. She is still unable to lie flat in bed but is much better than she was. Swelling is down some. Still on oxygen Review of Systems Cardiovascular: Cardiovascular: Reports no additional cardiovascular complaints Respiratory: Respiratory: Reports no additional respiratory complaints Gastrointestinal: Gastrointestinal: Reports no additional gastrointestinal complaints Genitourinary: Genitourinary: Reports no additional female genitourinary complaints Exam Narrative: Exam Narrative: General: Elderly female in NAD Heart: IRRR, normal S1 and S2; no rub or gallop Lungs: clear anteriorly; decreased at bases Abdomen: soft, nontender, nondistended, positive bowel sounds Extremities: no cyanosis or clubbing; 1-2+ edema. left may be slightly better. Skin: No rash Objective Data Vital Signs Vital Signs: Vital Signs - 24 hr 06/29/20 10:00 06/29/20 10:37 06/29/20 12:00 Temperature 36.3 C L Pulse Rate 80 86 Respiratory Rate 17 Blood Pressure 112/75 Pulse Oximetry 91 98 06/29/20 14:58 06/29/20 16:00 06/29/20 19:27 Temperature 36.4 C 36.6 C Pulse Rate 70 90 80 Respiratory Rate 18 14 Blood Pressure 99/68 L 104/54 L Pulse Oximetry 98 100 06/29/20 20:00 06/29/20 21:05 06/29/20 22:00 Temperature 36.2 C L Pulse Rate 78 84 Respiratory Rate 22 H Blood Pressure 112/59 L Pulse Oximetry 90 94 06/30/20 00:00 06/30/20 00:18 06/30/20 03:42 Temperature 36.6 C Pulse Rate 72 77 70 Respiratory Rate 24 H 24 H 22 H Blood Pressure 130/55 L Pulse Oximetry 95 94 94 06/30/20 04:00 Temperature 36.5 C Pulse Rate 77 Respiratory Rate 20 Blood Pressure 131/51 L Pulse Oximetry 92 Intake/Output Intake/Output: Intake & Output 06/27/20 06/28/20 06/29/20 06/30/20 23:59 23:59 23:59 23:59 Intake Total 1560 1590 1420 600 Output Total 4050 2350 2200 900 Balance -2490 -760 -780 -300 Meds/Results Medications: Active Medications Generic Name Dose Route Start Last Admin Trade Name Freq PRN Reason Stop Dose Admin Acetaminoph
[2020-06-30] MEDS: INSULIN HUMAN REGULAR (*BKC) 100 UNITS/ML 25 UNITS SUB-Q ×3 (09:41→17:28)
[2020-06-30] MEDS: METOPROLOL TARTRATE 25 MG TABLET PO ×2 (09:49→21:19)
[2020-06-30] MEDS: FUROSEMIDE 80 MG TABLET PO ×2 (09:49→17:24)
[2020-06-30] MEDS: CALCIUM CARBONATE (OSCAL) 500 MG TABLET PO (09:49)
[2020-06-30] MEDS: CHOLECALCIFEROL 1,000 UNITS TABLET 1000 UNITS PO (09:49)
[2020-06-30] MEDS: CYANOCOBALAMIN 1,000 MCG TABLET 1000 MCG PO (09:49)
[2020-06-30] MEDS: dilTIAZem HCL CD 180 MG CAP.ER.24H PO (09:49)
[2020-06-30] MEDS: MAGNESIUM OXIDE 400 MG TABLET PO (09:49)
[2020-06-30] MEDS: calcitrioL 0.25 MCG CAPSULE PO (09:49)
[2020-06-30] MEDS: EUCERIN CREAM 120 GM JAR 1 APPLIC TOPICAL (09:50)
[2020-06-30] MEDS: PRAVASTATIN SODIUM 10 MG TABLET PO (09:50)
[2020-06-30] MEDS: TIMOLOL MALEATE 0.5% OP SOLN 5 ML BOTTLE 1 DROP EACH EYE (09:50)
[2020-06-30] MEDS: INSULIN DETEMIR 100 UNITS/ML 25 UNITS SUB-Q (09:53)
--- NOTE | 2020-06-30 11:19 | P.PNIM_ITS ---
Progress Note: A&P Assessment and Plan (1) Acute exacerbation of congestive heart failure: Code(s): I50.9 - Heart failure, unspecified Status: Acute Assessment and Plan: Diastolic CHF; right sided. Cardiology following and appreciate recommendations. Appears to be clinically improving, although still crackles on exam. Appears to have ~4 L negative fluid balance since admission. Echo results as above. * Continue PO lasix 80 mg BID per Cardiology; switched from IV to PO on 06/29 * Will do CXR today * Monitor volume status and renal function closely * Await further recommendation from Cardiology (2) Acute and chronic respiratory failure with hypoxia: Code(s): J96.21 - Acute and chronic respiratory failure with hypoxia Status: Acute Assessment and Plan: Likely secondary to acute CHF exacerbation. Patient states she was just placed on Home oxygen on 06/25 due to her increasing shortness of breath. Hopefully, we willl see improvement with hypoxia with diuresis * Wean O2 as tolerated * Goal is to wean to RA if possible. * Home O2 evaluation prior to discharge (3) Chronic kidney disease, stage 4 (severe): Code(s): N18.4 - Chronic kidney disease, stage 4 (severe) Status: Acute Assessment and Plan: Cr 2.00 today; stable. Appears to be at baseline. Dr. Mclaughlin following and appreciate recommendations; follows with Dr. Nguyen as OP. Metabolic alkalosis noted, likely contraction alkalosis 2/2 aggressive diuresis. Discussed with Dr. Mclaughlin and will likely need acetazolamide as outpatient until follow up as an outpatient. 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 fib; this had been held given mildly supratherapeutic INR; INR 1.6 today. No evidence of bleeding * Continue Warfarin * Monitor INR (5) Persistent atrial fibrillation: Code(s): I48.19 - Other persistent atrial fibrillation Status: Acute Assessment and Plan: On warfarin and rate controlled with diltiazem and metoprolol; has a pacemaker. Cardiology following * Continue home metoprolol and diltiazem * Continue Warfarin * Monitor (6) Insulin dependent type 2 diabetes mellitus: Code(s): E11.9 - Type 2 diabetes mellitus without complications; Z79.4 - oil heaterman (current) use of insulin Status: Acute Assessment and Plan: A1c 6.6 yesterday. BGL in mid-high 100s today * Continue home insulin regimen * Accuchecks ACHS, hypoglycemia protocol, correctional insulin, diabetic diet * Monitor closely; adjust insulin as appropriate (7) Postsurgical hypothyroidism: Code(s): E89.0 - Postprocedural hypothyroidism Status: Acute Assessment and Plan: TSH wnl * Continue home levothyroxine (8) Obstructive sleep apnea on CPAP: Code(s): G47.33 - Obstructive sleep apnea (adult) (pediatric); Z99.89 - Dependence on other enabling machines and devices Status: Acute Assessment and Plan: * Continue with home CPAP (9) Benign hypertension: Code(s): I10 - Essential (
--- NOTE | 2020-06-30 11:19 | PM.IMPN ---
Progress Note: A&P Assessment and Plan (1) Acute exacerbation of congestive heart failure: Code(s): I50.9 - Heart failure, unspecified Status: Acute Assessment and Plan: Diastolic CHF; right sided. Cardiology following and appreciate recommendations. Appears to be clinically improving, although still crackles on exam. Appears to have ~4 L negative fluid balance since admission. Echo results as above. Continue PO lasix 80 mg BID per Cardiology; switched from IV to PO on 06/29 Will do CXR today Monitor volume status and renal function closely Await further recommendation from Cardiology (2) Acute and chronic respiratory failure with hypoxia: Code(s): J96.21 - Acute and chronic respiratory failure with hypoxia Status: Acute Assessment and Plan: Likely secondary to acute CHF exacerbation. Patient states she was just placed on Home oxygen on 06/25 due to her increasing shortness of breath. Hopefully, we willl see improvement with hypoxia with diuresis Wean O2 as tolerated Goal is to wean to RA if possible. Home O2 evaluation prior to discharge (3) Chronic kidney disease, stage 4 (severe): Code(s): N18.4 - Chronic kidney disease, stage 4 (severe) Status: Acute Assessment and Plan: Cr 2.00 today; stable. Appears to be at baseline. Dr. Mclaughlin following and appreciate recommendations; follows with Dr. Nguyen as OP. Metabolic alkalosis noted, likely contraction alkalosis 2/2 aggressive diuresis. Discussed with Dr. Mclaughlin and will likely need acetazolamide as outpatient until follow up as an outpatient. monitor closely with diuresis Agree with acetazolamide Await further recommendations from Nephrology (4) Current use of long term care administrator anticoagulation: Code(s): Z79.01 - watermaster (current) use of anticoagulants Status: Acute Assessment and Plan: Currently taking warfarin for a. fib; this had been held given mildly supratherapeutic INR; INR 1.6 today. No evidence of bleeding Continue Warfarin Monitor INR (5) Persistent atrial fibrillation: Code(s): I48.19 - Other persistent atrial fibrillation Status: Acute Assessment and Plan: On warfarin and rate controlled with diltiazem and metoprolol; has a pacemaker. Cardiology following Continue home metoprolol and diltiazem Continue Warfarin Monitor (6) Insulin dependent type 2 diabetes mellitus: Code(s): E11.9 - Type 2 diabetes mellitus without complications; Z79.4 - USP (current) use of insulin Status: Acute Assessment and Plan: A1c 6.6 yesterday. BGL in mid-high 100s today Continue home insulin regimen Accuchecks ACHS, hypoglycemia protocol, correctional insulin, diabetic diet Monitor closely; adjust insulin as appropriate (7) Postsurgical hypothyroidism: Code(s): E89.0 - Postprocedural hypothyroidism Status: Acute Assessment and Plan: TSH wnl Continue home levothyroxine (8) Obstructive sleep apnea on CPAP: Code(s): G47.33 - Obstructive sleep apnea (adult) (pediatric); Z99.89 - Dependence on other enabling machines and devices Status: Acute Assessment and Plan: Continue with home CPAP (9) Benign hypertension: Code(s): I10 - Essential (primary) hypertension Status: Acute Assessment and Plan: BP 110s sys this morning. Spironolactone held given hyperkalemia earlier in stay Continue other home medications Monitor (10) Hyperkalemia: Code(s): E87.5 - Hyperkalemia Status: Acute Assessment and Plan: K 3.9 today Monitor Consider resuming juanis
[2020-06-30] MEDS: INSULIN ASPART (*BKC) 100 UNITS/ML SUB-Q (11:46)
[2020-06-30 11:57] LABS: Glucose Point of Care 294 (65-105)
--- NOTE | 2020-06-30 15:16 | PM.PNCARD ---
Progress Note: A&P Assessment and Plan (1) Acute exacerbation of congestive heart failure: Code(s): I50.9 - Heart failure, unspecified Status: Acute Assessment and Plan: Echocardiogram 06/26/2020: EF estimated at 55-60%. Cumulative since admission -3620 cc. Clinically improved with some improvement of edema and dyspnea, Improvement of chest x-ray but still has a lot of volume overload and pleural effusions. I do not think she is quite ready to be discharged and manage herself.. Continue furosemide to 80 mg p.o. b.i.d. Also now on Diamox and will continue the spironolactone. BMP in the morning. If renal function has improved perhaps another dose of IV Lasix tomorrow morning. Probably discharge tomorrow. Likely will need home health care, physical therapy and possibly home O2. 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 NR 3.2 on admission. Dayna to 3.5. INR 1.4 06/28/2020. Restarted on 5 mg warfarin daily (home dose). INR 1.6 today. Elevated INR most likely due to heart failure. Would continue her home dose of warfarin , allow her to drift back up and monitor INR. (3) Acute and chronic respiratory failure with hypoxia: Code(s): J96.21 - Acute and chronic respiratory failure with hypoxia Status: Acute Assessment and Plan: Uses her CPAP at home without fail. Unable to be comfortable on the CPAP masks we have available. Still on oxygen at 1 L.. Home O2 eval to be done. (4) Chronic kidney disease, stage 4 (severe): Code(s): N18.4 - Chronic kidney disease, stage 4 (severe) Status: Acute Assessment and Plan: Dr. Patrick marshall. He follows her in his clinic. Subjective Date/time seen: 06/30/20 15:16 Interval history: Follow-up for: decompensated Diastolic congestive heart failure with volume overload, significant edema,pleural effusions and pulmonary congestion on exam. VIsit: 06/29/2020 Subjective: Shortness of breath with exertional activity as much better. Lower extremity edema some better. Still has edema up to behind her knees. No lightheadedness. No chest discomfort. change IV furosemide 2:80 mg p.o. b.i.d.. Still on 1 L O2. INR still low, but back on warfarin 5 mg daily Date of service: 06/30/2020 Patient says she sometimes feels good and sometimes not so good. Restless at times, even talking and with mild activity. Not sleeping well, says she is still having trouble with her CPAP although the respiratory therapist said she tolerated it pretty well. Patient is afraid that if she goes home today showed be coming right back. I's and O's yesterday were: 1400 in, 2200 out. Diuresing a little today on her p.o. Lasix 80 mg b.i.d..Still on O2 1 L nasal prong. INR today 1.6 , back on warfarin 5 mg daily since June 28. Review of Systems Constitutional: Constitutional: Reports difficulty sleeping, Reports fatigue, Reports lethargy and Reports weakness Eyes: Eyes: Reports no additional eye complaints ENT: Denies nasal congestion Cardiovascular: Cardiovascular: Denies chest pain, Reports pedal edema, Reports leg edema and Denies palpitations Respiratory: Respiratory: Reports dyspnea and Reports dyspnea on exertion Gastrointestinal: Gastrointestinal: Denies abdominal pain Genitourinary: Genitourinary: Denies hematuria Neurologic: Denies confusion Psychiatric: Psychiatric: Reports no additional psychiatric complaints Exam Const: General: no acute distress and uncomfortable Other: Patient is having difficulty with tachypnea and cannot talk in full sentences. HENMT: Mouth: Yes dry mucous membranes Eyes: EOM: EOMs intact bilaterally Ot
[2020-06-30 16:43] LABS: Glucose Point of Care 174 (65-105)
--- NOTE | 2020-06-30 17:15 | HOMEO2EVAL ---
Home Oxygen Evaluation RC: Home Oxygen (O2) Evaluation Start: 06/29/20 10:37 Freq: ONCE Status: Active Protocol: RPE Activity Type Activity Date Activity User E-Sign Co-Sign Detail Recorded Client Recorded Date Recorded By Document 06/30/20 16:30 CHRIS [email or web address] 06/30/20 17:15 CHRIS Document 06/30/20 16:33 CHRIS [email or web address] 06/30/20 17:15 CHRIS Document 06/30/20 16:35 CHRIS [email or web address] 06/30/20 17:15 CHRIS Document 06/30/20 16:38 CHRIS [email or web address] 06/30/20 17:15 CHRIS Document 06/30/20 16:45 CHRIS [email or web address] 06/30/20 17:15 CHRIS 06/30/20 06/30/20 06/30/20 16:30 16:33 16:35 Home O2 Evaluation Test Phase Resting Resting Exercise Oxygen Delivery Room Air Nasal Cannula Nasal Cannula Oxygen Flow Rate (L/min) 1 1 Pulse Oximetry (90-100 %) 86 L 92 87 L Pulse Rate (60-100 beats/min) 76 89 Activity Tolerance Good Ambulation Distance (feet) Home Oxygen Evaluation Comments Treatment Charges O2 Evaluation 06/30/20 06/30/20 16:38 16:45 Home O2 Evaluation Test Phase Exercise Resting Oxygen Delivery Nasal Cannula Nasal Cannula Oxygen Flow Rate (L/min) 2 1 Pulse Oximetry (90-100 %) 90 94 Pulse Rate (60-100 beats/min) 72 Activity Tolerance Ambulation Distance (feet) 50 Home Oxygen Evaluation Comments PT REQUIRES 1 L AT REST AND 2 L WITH ACTIVITY Treatment Charges
--- NOTE | 2020-06-30 17:22 | PCRCNOTE ---
WILL FAX ALL PAPERWORK FOR UPDATED HOME O2 NEEDS. 1L REST AND 2L ACTIVITY TO [facility]. PHONE # [phone]. [facility] IS AWARE. PT HAS PORTABLE [employer]OG[employer] CONCENTRATOR IN CAR FOR TRANSPORT HOME. [facility] IS CLOSED AT THIS TIME.
[2020-06-30] MEDS: WARFARIN (*PBKC) 5 MG TABLET PO (17:24)
[2020-06-30] MEDS: acetaZOLAMIDE TAB 250 MG TABLET 500 MG PO (17:24)
[2020-06-30] MEDS: LATANOPROST 0.005% OP SOLN 2.5 ML BTL 1 DROP EACH EYE (21:20)
[2020-06-30 21:50] LABS: Glucose Point of Care 101 (65-105)
[2020-07-01] VITALS (19 sets, daily range): BP systolic 105–142; BP diastolic 38–50; PULSE 65–90; RESP 14–28; TEMP 36.1–37.1; O2SAT 90–100
[2020-07-01] MEDS: LEVOTHYROXINE SODIUM 100 MCG TABLET 200 MCG PO (05:57)
[2020-07-01 06:30] LABS: Basophils Percent Auto 0.3 % (0.2-1.2); Eosinophils Percent Auto 0.2 % (0-4.4); Hematocrit 32.6 % (37.0-47.0); Hemoglobin 10.3 g/dL (12.0-15.0); Immature Granulocyte Absolute 0.14 K/mm3 (0.00-0.031); Immature Granulocyte Percent A 0.9 % (0-0.5); Lymphocytes Absolute Auto 0.72 K/mm3 (0.9-3.2); Lymphocytes Percent Auto 4.5 % (18.3-44.2); Mean Corpuscular HGB Conc 31.6 g/dl (32-36); Mean Corpuscular Hemoglobin 35.2 pg (26-34); Mean Corpuscular Volume 111.3 fl (80-100); Mean Platelet Volume 11.4 fl (7.4-10.4); Monocytes Absolute Auto 1.2 K/mm3 (0.1-0.6); Monocytes Percent Auto 7.5 % (2.6-8.5); Neutrophils Absolute Auto 13.7 K/mm3 (1.3-6.7); Neutrophils Percent Auto 86.6 % (45.5-73.1); Nucleated Red Blood Cells Perc 0.2 % (0.0-0.2); Platelet Count Result 259 k/mm3 (150-375); Red Blood Count 2.93 M/mm3 (4.2-5.4); Red Cell Distribution Width 13.2 % (11.5-14.5); White Blood Count 15.9 K/mm3 (4.5-10.0)
[2020-07-01 06:38] LABS: Magnesium 2.3 mg/dL (1.6-2.3)
[2020-07-01 06:42] LABS: Albumin Level 3.7 g/dL (3.5-5.1); Anion Gap 11.99999 mmol/L (8-16); Blood Urea Nitrogen 72 mg/dL (7-17); Calcium 9.9 mg/dL (8.4-10.2); Carbon Dioxide > 40 mmol/L (22-30); Chloride 85 mmol/L (98-107); Estimated CRCL calculation 26 ml/min; Estimated Glomerular Filt Rate 24; Glucose 117 mg/dL (65-105); Phosphorus 4.6 mg/dL (2.5-4.5); Potassium 3.9 mmol/L (3.4-5.0); Sodium 137 mmol/L (137-145)
[2020-07-01 06:46] LABS: INR 1.8; Prothrombin Time 20.1 Seconds (11.1-14.7)
[2020-07-01 07:52] LABS: Glucose Point of Care 147 (65-105)
[2020-07-01] MEDS: INSULIN HUMAN REGULAR (*BKC) 100 UNITS/ML 25 UNITS SUB-Q ×3 (08:54→17:43)
[2020-07-01] MEDS: INSULIN DETEMIR 100 UNITS/ML 25 UNITS SUB-Q (08:54)
[2020-07-01] MEDS: FUROSEMIDE 80 MG TABLET PO ×2 (08:56→17:43)
[2020-07-01] MEDS: CYANOCOBALAMIN 1,000 MCG TABLET 1000 MCG PO (08:56)
[2020-07-01] MEDS: MAGNESIUM OXIDE 400 MG TABLET PO (08:56)
[2020-07-01] MEDS: acetaZOLAMIDE TAB 250 MG TABLET 500 MG PO ×2 (08:56→17:43)
[2020-07-01] MEDS: calcitrioL 0.25 MCG CAPSULE PO (08:57)
[2020-07-01] MEDS: CALCIUM CARBONATE (OSCAL) 500 MG TABLET PO (08:57)
[2020-07-01] MEDS: dilTIAZem HCL CD 180 MG CAP.ER.24H PO (08:57)
[2020-07-01] MEDS: METOPROLOL TARTRATE 25 MG TABLET PO ×2 (08:57→20:29)
[2020-07-01] MEDS: PRAVASTATIN SODIUM 10 MG TABLET PO (08:57)
[2020-07-01] MEDS: CHOLECALCIFEROL 1,000 UNITS TABLET 1000 UNITS PO (08:57)
[2020-07-01] MEDS: TIMOLOL MALEATE 0.5% OP SOLN 5 ML BOTTLE 1 DROP EACH EYE (08:58)
[2020-07-01] MEDS: EUCERIN CREAM 120 GM JAR 1 APPLIC TOPICAL (08:58)
[2020-07-01] MEDS: ACETAMINOPHEN 325 MG TABLET 650 MG PO (10:17)
[2020-07-01 11:46] LABS: Glucose Point of Care 208 (65-105)
[2020-07-01] MEDS: INSULIN ASPART (*BKC) 100 UNITS/ML SUB-Q (12:19)
--- NOTE | 2020-07-01 13:12 | PCOTNOTE ---
Attempted OT evaluation, but unable to complete as nurse advised to wait until tomorrow. RN reported that patient seems off today and has stat ABGs ordered. Will continue to follow.
--- NOTE | 2020-07-01 13:15 | PCPTNOTE ---
Patient attempted to be seen this afternoon for PT/OT evaluation, after speaking with patient's nurse she stated a change in patient's status and is going for STAT lab work, RN stated to wait for evaluation until tomorrow 07/02.
[2020-07-01 13:38] LABS: Base Excess ABG 16.1 mEq/l (+/-2.0); Carboxyhemoglobin 0.8 % THb (0-2.0); Fractional Inspired Oxygen 28 %; HCO3 ABG 46.6 mEq/l (22.0-26.0); Methemoglobin ABG 0.4 %THb (0-1.5); Oxygen Saturation ABG 96.3 % (95.0-100.0); PO2 ABG 95.6 mmHg (80.0-100.0); PO2 FiO2 Ratio Arterial Blood 3.41 %; Reduced Hemoglobin 3.8 %THb (0-5.0); Total Hemoglobin 13.4 g/dL (12.0-18.0); pH ABG 7.325 (7.350-7.450)
[2020-07-01 13:46] LABS: Modified Allen's Test Pass; PCO2 ABG 91.5 mmHg (35.0-45.0); Site Drawn LEFT RADIAL
[2020-07-01 13:47] LABS: Device NASAL CANNULA
--- NOTE | 2020-07-01 14:03 | PCRCNOTE ---
Placed patient on Bipap settings of 14/7 per Daniel Sheihk PA-C. Obtain ABG in one hour.
--- NOTE | 2020-07-01 14:05 | P.PNIM_ITS ---
Progress Note: A&P Assessment and Plan (1) Respiratory acidosis: Code(s): E87.2 - Acidosis Status: Acute Assessment and Plan: With met alkolosis; likely multifactorial with aggressive diuresing for CHF and likely retention of CO2. * Will do BiPAP, recheck ABG later this afternoon. * Likely BiPAP overnight * Monitor closely (2) Acute exacerbation of congestive heart failure: Code(s): I50.9 - Heart failure, unspecified Status: Acute Assessment and Plan: Diastolic CHF; right sided. Cardiology following and appreciate r ecommendations. Appears to be clinically improving, although still crackles on exam. Appears to have ~4.3 L negative fluid balance since admission. Echo results as above. * Continue diuresing per Cardiology; switched from IV to PO on 06/29 * Monitor volume status and renal function closely * Await further recommendation from Cardiology (3) Acute and chronic respiratory failure with hypoxia: Code(s): J96.21 - Acute and chronic respiratory failure with hypoxia Status: Acute Assessment and Plan: Likely secondary to acute CHF exacerbation. Patient states she was just placed on Home oxygen on 06/25 due to her increasing shortness of breath. Hopefully, we willl see improvement with hypoxia with diuresis * Wean O2 as tolerated * Goal is to wean to RA if possible. * Home O2 evaluation rec 1L at rest with 2L with activity * See a/p for #1. Likely BiPAP overnight (4) Chronic kidney disease, stage 4 (severe): Code(s): N18.4 - Chronic kidney disease, stage 4 (severe) Status: Acute Assessment and Plan: Cr 2.00 today; stable. Appears to be at baseline. Dr. Mclaughlin following and appreciate recommendations; follows with Dr. Nguyen as OP. Metabolic alkalosis noted, likely contraction alkalosis 2/2 aggressive diuresis, although patient also shows acidosis on ABG; respiratory acidosis likely due to retention. * monitor closely with diuresis * Agree with acetazolamide; likely will continue this until OP follow up with [facility] * Await further recommendations from Nephrology (5) Current use of long-term anticoagulation: Code(s): Z79.01 - senior living (current) use of anticoagulants Status: Acute Assessment and Plan: Currently taking warfarin for a. fib; this had been held given mildly supratherapeutic INR; INR 1.8 today. No evidence of bleeding * Continue Warfarin * Monitor INR (6) Persistent atrial fibrillation: Code(s): I48.19 - Other persistent atrial fibrillation Status: Acute Assessment and Plan: On warfarin and rate controlled with diltiazem and metoprolol; has a pacemaker. Cardiology following * Continue home metoprolol and diltiazem * Continue Warfarin * Monitor (7) Insulin dependent type 2 diabetes mellitus: Code(s): E11.9 - Type 2 diabetes mellitus without complications; Z79.4 - senior living (current) use of insulin Status: Acute Assessment and Plan: A1c 6.6 yesterday. BGL in mid-high 100s today * Continue home insulin regimen * Accuchecks ACHS, hypoglycemia protocol, correctional insulin, diabetic diet * Monitor closely; adjust insulin as appropriate (8) Postsurgical hypothyroidism: Code(s): E89.0 - Postprocedural hypothyroidism Status: Acute Assessment and Plan:
--- NOTE | 2020-07-01 14:05 | PM.IMPN ---
Progress Note: A&P Assessment and Plan (1) Respiratory acidosis: Code(s): E87.2 - Acidosis Status: Acute Assessment and Plan: With met alkolosis; likely multifactorial with aggressive diuresing for CHF and likely retention of CO2. Will do BiPAP, recheck ABG later this afternoon. Likely BiPAP overnight Monitor closely (2) Acute exacerbation of congestive heart failure: Code(s): I50.9 - Heart failure, unspecified Status: Acute Assessment and Plan: Diastolic CHF; right sided. Cardiology following and appreciate recommendations. Appears to be clinically improving, although still crackles on exam. Appears to have ~4.3 L negative fluid balance since admission. Echo results as above. Continue diuresing per Cardiology; switched from IV to PO on 06/29 Monitor volume status and renal function closely Await further recommendation from Cardiology (3) Acute and chronic respiratory failure with hypoxia: Code(s): J96.21 - Acute and chronic respiratory failure with hypoxia Status: Acute Assessment and Plan: Likely secondary to acute CHF exacerbation. Patient states she was just placed on Home oxygen on 06/25 due to her increasing shortness of breath. Hopefully, we willl see improvement with hypoxia with diuresis Wean O2 as tolerated Goal is to wean to RA if possible. Home O2 evaluation rec 1L at rest with 2L with activity See a/p for #1. Likely BiPAP overnight (4) Chronic kidney disease, stage 4 (severe): Code(s): N18.4 - Chronic kidney disease, stage 4 (severe) Status: Acute Assessment and Plan: Cr 2.00 today; stable. Appears to be at baseline. Dr. Mclaughlin following and appreciate recommendations; follows with Dr. Nguyen as OP. Metabolic alkalosis noted, likely contraction alkalosis 2/2 aggressive diuresis, although patient also shows acidosis on ABG; respiratory acidosis likely due to retention. 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 fib; this had been held given mildly supratherapeutic INR; INR 1.8 today. No evidence of bleeding Continue Warfarin Monitor INR (6) Persistent atrial fibrillation: Code(s): I48.19 - Other persistent atrial fibrillation Status: Acute Assessment and Plan: On warfarin and rate controlled with diltiazem and metoprolol; has a pacemaker. Cardiology following Continue home metoprolol and diltiazem Continue Warfarin Monitor (7) Insulin dependent type 2 diabetes mellitus: Code(s): E11.9 - Type 2 diabetes mellitus without complications; Z79.4 - snf (current) use of insulin Status: Acute Assessment and Plan: A1c 6.6 yesterday. BGL in mid-high 100s today Continue home insulin regimen Accuchecks ACHS, hypoglycemia protocol, correctional insulin, diabetic diet Monitor closely; adjust insulin as appropriate (8) Postsurgical hypothyroidism: Code(s): E89.0 - Postprocedural hypothyroidism Status: Acute Assessment and Plan: TSH wnl Continue home levothyroxine (9) Obstructive sleep apnea on CPAP: Code(s): G47.33 - Obstructive sleep apnea (adult) (pediatric); Z99.89 - Dependence on other enabling machines and devices Status: Acute Assessment and Plan: Continue with home CPAP (10) Benign hypertension:
[2020-07-01 15:26] LABS: Alveolar/Arterial O2 Gradient 27.7 mmHg; Base Excess ABG 15.1 mEq/l (+/-2.0); Carboxyhemoglobin 0.4 % THb (0-2.0); Fractional Inspired Oxygen 28 %; HCO3 ABG 44.6 mEq/l (22.0-26.0); Methemoglobin ABG 0.4 %THb (0-1.5); Oxygen Content ABG 15.9 %vol (16.0-22.0); Oxygen Saturation ABG 92.6 % (95.0-100.0); Oxyhemoglobin 91.4 % THb (90.0-100.0); PO2 ABG 72.1 mmHg (80.0-100.0); PO2 FiO2 Ratio Arterial Blood 2.58 %; Reduced Hemoglobin 7.8 %THb (0-5.0); Total Hemoglobin 12.3 g/dL (12.0-18.0)
--- NOTE | 2020-07-01 15:26 | P.PNNP_ITS ---
Progress Note: A&P Assessment and Plan (1) Chronic kidney disease, stage 4 (severe): Code(s): N18.4 - Chronic kidney disease, stage 4 (severe) Status: Acute Assessment and Plan: * baseline creatinine ~ 1.7 - 2.1mg/dl in last couple of years * due to DM, HTN, diastolic heart failure + diuretics, YUDELKA, and age * Creatinine creeping up, as expected. (2) Acute on chronic diastolic heart failure: Code(s): I50.33 - Acute on chronic diastolic (congestive) heart failure Status: Acute Assessment and Plan: * suspect possible dietary indiscretion as trigger * Seems to be responding to diuretics now. * Diuresis continues and creatinine seems to be hanging in there at 2.0 today. (3) Metabolic alkalosis: Code(s): E87.3 - Alkalosis Status: Acute Assessment and Plan: * due to contraction from diuresis(?) * Continue the acetazolamide bid. * She will need this as an outpatient for now. (4) Hyperkalemia: Code(s): E87.5 - Hyperkalemia Status: Acute Assessment and Plan: * possibly due to #2 * better with IV diuretic therapy * follow trend (5) Chronic anemia: Code(s): D64.9 - Anemia, unspecified Status: Acute Assessment and Plan: * partly due to CKD * no need for NURY * hemoglobin still above 10. (6) Benign hypertension: Code(s): I10 - Essential (primary) hypertension Status: Acute Assessment and Plan: * well controlled * follow hemodynamics (7) Type 2 diabetes mellitus: Code(s): E11.9 - Type 2 diabetes mellitus without complications Status: Acute Assessment and Plan: * follow accuchecks * on SSI and Levemir Subjective Date/time seen: 07/01/20 15:26 Interval history: Patient feels okay today. Feels so much better. Eager for discharge. She walked in the halls last evening and also is walking to the bathroom now. Review of Systems Cardiovascular: Cardiovascular: Reports no additional cardiovascular complaints Respiratory: Respiratory: Reports no additional respiratory complaints Gastrointestinal: Gastrointestinal: Reports no additional gastrointestinal complaints Genitourinary: Genitourinary: Reports no additional female genitourinary complaints Exam Narrative: Exam Narrative: General: Elderly female in NAD Heart: IRRR, normal S1 and S2; no rub or gallop Lungs: clear anteriorly; decreased at bases Abdomen: soft, nontender, nondistended, positive bowel sounds Extremities: no cyanosis or clubbing; 1-2+ edema. Skin: No rash Objective Data Vital Signs Vital Signs: Vital Signs - 24 hr 06/30/20 16:00 06/30/20 16:30 06/30/20 16:33 Temperature Pulse Rate 77 76 Respiratory Rate Blood Pressure Pulse Oximetry 86 L 92 06/30/20 16:35 06/30/20 16:38 06/30/20 16:45 Temperature Pulse Rate 89 72 Respiratory Rate Blood Pressure Pulse Oximetry 87 L 90 94 06/30/20 18:00 06/30/20 20:00 06/30/20 21:04 Temperature 36.5 C 36.6 C Pulse Rate 79 69 78 Respiratory Rate 16 28 H 18 Blood Pressure 127/89 118/63 Pulse Oximetry 98 93 96 06/30/20 21:05 06/30/20
--- NOTE | 2020-07-01 15:26 | PM.PNNEP ---
Progress Note: A&P Assessment and Plan (1) Chronic kidney disease, stage 4 (severe): Code(s): N18.4 - Chronic kidney disease, stage 4 (severe) Status: Acute Assessment and Plan: baseline creatinine ~ 1.7 - 2.1mg/dl in last couple of years due to DM, HTN, diastolic heart failure + diuretics, YUDELKA, and age Creatinine creeping up, as expected. (2) Acute on chronic diastolic heart failure: Code(s): I50.33 - Acute on chronic diastolic (congestive) heart failure Status: Acute Assessment and Plan: suspect possible dietary indiscretion as trigger Seems to be responding to diuretics now. Diuresis continues and creatinine seems to be hanging in there at 2.0 today. (3) Metabolic alkalosis: Code(s): E87.3 - Alkalosis Status: Acute Assessment and Plan: due to contraction from diuresis(?) Continue the acetazolamide bid. She will need this as an outpatient for now. (4) Hyperkalemia: Code(s): E87.5 - Hyperkalemia Status: Acute Assessment and Plan: possibly due to #2 better with IV diuretic therapy follow trend (5) Chronic anemia: Code(s): D64.9 - Anemia, unspecified Status: Acute Assessment and Plan: partly due to CKD no need for NURY hemoglobin still above 10. (6) Benign hypertension: Code(s): I10 - Essential (primary) hypertension Status: Acute Assessment and Plan: well controlled follow hemodynamics (7) Type 2 diabetes mellitus: Code(s): E11.9 - Type 2 diabetes mellitus without complications Status: Acute Assessment and Plan: follow accuchecks on SSI and Levemir Subjective Date/time seen: 07/01/20 15:26 Interval history: Patient feels okay today. Feels so much better. Eager for discharge. She walked in the halls last evening and also is walking to the bathroom now. Review of Systems Cardiovascular: Cardiovascular: Reports no additional cardiovascular complaints Respiratory: Respiratory: Reports no additional respiratory complaints Gastrointestinal: Gastrointestinal: Reports no additional gastrointestinal complaints Genitourinary: Genitourinary: Reports no additional female genitourinary complaints Exam Narrative: Exam Narrative: General: Elderly female in NAD Heart: IRRR, normal S1 and S2; no rub or gallop Lungs: clear anteriorly; decreased at bases Abdomen: soft, nontender, nondistended, positive bowel sounds Extremities: no cyanosis or clubbing; 1-2+ edema. Skin: No rash Objective Data Vital Signs Vital Signs: Vital Signs - 24 hr 06/30/20 16:00 06/30/20 16:30 06/30/20 16:33 Temperature Pulse Rate 77 76 Respiratory Rate Blood Pressure Pulse Oximetry 86 L 92 06/30/20 16:35 06/30/20 16:38 06/30/20 16:45 Temperature Pulse Rate 89 72 Respiratory Rate Blood Pressure Pulse Oximetry 87 L 90 94 06/30/20 18:00 06/30/20 20:00 06/30/20 21:04 Temperature 36.5 C 36.6 C Pulse Rate 79 69 78 Respiratory Rate 16 28 H 18 Blood Pressure 127/89 118/63 Pulse Oximetry 98 93 96 06/30/20 21:05 06/30/20 21:19 06/30/20 22:00 Temperature Pulse Rate 69 78 69 Respiratory Rate 28 H Blood Pressure Pulse Oximetry 94 93 07/01/20 00:00 07/01/20 02:00 07/01/20 04:00 Temperature 37.0 C Pulse Rate 70 70 70 Respiratory Rate 20 Blood Pressure 121/50 L Pulse Oximetry 90 07/01/20 04:48 07/01/20 06:00 07/01/20 08:00 Temperature 36.9 C Pulse Rate 65 67 83 Respiratory Rate 23 H 18 Blood Pressure 117/49 L Pulse Oximetry 92 95 07/01/20 08:57 07/01/20 09:57 07/01/20 10:05 Temperature 36.3 C L Pulse Rate 80 71 Respiratory Rate 17 Blood Pressure 114/38 L Pulse Oximetry 94 92 07/01/20 12:00 07/01/20 14:05 07/01/20 14:48 Temperature 37.1 C Pulse Rate 70 88 70 Respiratory Rate 26 H 14 Blood Pressure 105/45 L Pulse Oximetry
[2020-07-01 15:28] LABS: Device BIPAP; Modified Allen's Test Pass; PCO2 ABG 84.6 mmHg (35.0-45.0); Site Drawn RIGHT RADIAL
[2020-07-01 15:29] LABS: Expiratory Pressure 7 cmH2O; Inspiratory Pressure 14 cmH2O
[2020-07-01 16:33] LABS: Glucose Point of Care 144 (65-105)
[2020-07-01 16:49] LABS: Alveolar/Arterial O2 Gradient 38.4 mmHg; Carboxyhemoglobin 0.3 % THb (0-2.0); Fractional Inspired Oxygen 28 %; HCO3 ABG 43.5 mEq/l (22.0-26.0); Methemoglobin ABG 0.4 %THb (0-1.5); Oxygen Saturation ABG 93.3 % (95.0-100.0); PO2 ABG 71.7 mmHg (80.0-100.0); PO2 FiO2 Ratio Arterial Blood 2.56 %; Reduced Hemoglobin 7.3 %THb (0-5.0); Total Hemoglobin 12.3 g/dL (12.0-18.0); pH ABG 7.376 (7.350-7.450)
[2020-07-01 16:51] LABS: PCO2 ABG 75.9 mmHg (35.0-45.0)
[2020-07-01 16:52] LABS: Device BIPAP; Expiratory Pressure 8 cmH2O; Inspiratory Pressure 18 cmH2O; Modified Allen's Test Pass; Site Drawn RIGHT RADIAL
[2020-07-01] MEDS: WARFARIN (*PBKC) 5 MG TABLET PO (17:44)
[2020-07-01] MEDS: LATANOPROST 0.005% OP SOLN 2.5 ML BTL 1 DROP EACH EYE (20:29)
[2020-07-01 20:49] LABS: Glucose Point of Care 175 (65-105)
[2020-07-02] VITALS (21 sets, daily range): BP systolic 107–147; BP diastolic 35–63; PULSE 69–84; RESP 16–25; TEMP 35.9–36.8; O2SAT 92–100
[2020-07-02 05:05] LABS: Alveolar/Arterial O2 Gradient 75.5 mmHg; Base Excess ABG 15.7 mEq/l (+/-2.0); Carboxyhemoglobin 0.2 % THb (0-2.0); Fractional Inspired Oxygen 32 %; HCO3 ABG 43.9 mEq/l (22.0-26.0); Methemoglobin ABG 0.3 %THb (0-1.5); Oxygen Content ABG 14.9 %vol (16.0-22.0); Oxygen Saturation ABG 91.3 % (95.0-100.0); Oxyhemoglobin 91.1 % THb (90.0-100.0); PO2 ABG 64.7 mmHg (80.0-100.0); PO2 FiO2 Ratio Arterial Blood 2.02 %; Reduced Hemoglobin 8.4 %THb (0-5.0); Total Hemoglobin 11.6 g/dL (12.0-18.0); pH ABG 7.384 (7.350-7.450)
[2020-07-02 05:08] LABS: Device BIPAP; Modified Allen's Test Pass; PCO2 ABG 75.2 mmHg (35.0-45.0); Site Drawn RIGHT RADIAL
[2020-07-02 05:09] LABS: Expiratory Pressure 8 cmH2O; Inspiratory Pressure 18 cmH2O
[2020-07-02] MEDS: LEVOTHYROXINE SODIUM 100 MCG TABLET 200 MCG PO (05:35)
[2020-07-02 06:08] LABS: Basophils Percent Auto 0.3 % (0.2-1.2); Eosinophils Absolute Auto 0.1 K/mm3 (0-0.3); Eosinophils Percent Auto 0.3 % (0-4.4); Hematocrit 32.9 % (37.0-47.0); Hemoglobin 10.5 g/dL (12.0-15.0); Immature Granulocyte Absolute 0.11 K/mm3 (0.00-0.031); Immature Granulocyte Percent A 0.7 % (0-0.5); Lymphocytes Absolute Auto 0.66 K/mm3 (0.9-3.2); Lymphocytes Percent Auto 4.5 % (18.3-44.2); Mean Corpuscular HGB Conc 31.9 g/dl (32-36); Mean Corpuscular Hemoglobin 35.4 pg (26-34); Mean Corpuscular Volume 110.8 fl (80-100); Mean Platelet Volume 11.3 fl (7.4-10.4); Monocytes Absolute Auto 1.3 K/mm3 (0.1-0.6); Monocytes Percent Auto 8.9 % (2.6-8.5); Neutrophils Absolute Auto 12.6 K/mm3 (1.3-6.7); Neutrophils Percent Auto 85.3 % (45.5-73.1); Nucleated Red Blood Cells Perc 0.3 % (0.0-0.2); Platelet Count Result 265 k/mm3 (150-375); Red Blood Count 2.97 M/mm3 (4.2-5.4); Red Cell Distribution Width 13.2 % (11.5-14.5); White Blood Count 14.8 K/mm3 (4.5-10.0)
[2020-07-02 06:19] LABS: INR 2.2; Prothrombin Time 23.7 Seconds (11.1-14.7)
[2020-07-02 06:34] LABS: Albumin Level 3.7 g/dL (3.5-5.1); Anion Gap 12.99999 mmol/L (8-16); Blood Urea Nitrogen 75 mg/dL (7-17); Calcium 10.4 mg/dL (8.4-10.2); Carbon Dioxide > 40 mmol/L (22-30); Chloride 87 mmol/L (98-107); Estimated CRCL calculation 25 ml/min; Estimated Glomerular Filt Rate 23; Glucose 92 mg/dL (65-105); Magnesium 2.4 mg/dL (1.6-2.3); Phosphorus 4.8 mg/dL (2.5-4.5); Potassium 3.8 mmol/L (3.4-5.0); Sodium 140 mmol/L (137-145)
[2020-07-02 08:18] LABS: Alveolar/Arterial O2 Gradient 56.1 mmHg; Base Excess ABG 14.1 mEq/l (+/-2.0); Carboxyhemoglobin 0.3 % THb (0-2.0); Fractional Inspired Oxygen 30 %; HCO3 ABG 41.7 mEq/l (22.0-26.0); Methemoglobin ABG 0.3 %THb (0-1.5); Oxygen Content ABG 14.9 %vol (16.0-22.0); Oxygen Saturation ABG 94.6 % (95.0-100.0); Oxyhemoglobin 93.1 % THb (90.0-100.0); PO2 FiO2 Ratio Arterial Blood 2.53 %; Reduced Hemoglobin 6.3 %THb (0-5.0); Total Hemoglobin 11.3 g/dL (12.0-18.0); pH ABG 7.395 (7.350-7.450)
[2020-07-02 08:20] LABS: Device NON-INVASIVE VENT; Modified Allen's Test Pass; Non-Invasive Expiratory Pressure 8 CMH2O; Non-Invasive Inspiratory Pressure 20 CMH2O; Non-Invasive Vent Rate 20 /MIN; PCO2 ABG 69.6 mmHg (35.0-45.0); Site Drawn LEFT RADIAL
[2020-07-02] MEDS: MAGNESIUM OXIDE 400 MG TABLET PO (09:48)
[2020-07-02] MEDS: CYANOCOBALAMIN 1,000 MCG TABLET 1000 MCG PO (09:48)
[2020-07-02] MEDS: acetaZOLAMIDE TAB 250 MG TABLET 500 MG PO ×2 (09:48→18:11)
[2020-07-02] MEDS: dilTIAZem HCL CD 180 MG CAP.ER.24H PO (09:48)
[2020-07-02] MEDS: CALCIUM CARBONATE (OSCAL) 500 MG TABLET PO (09:48)
[2020-07-02] MEDS: calcitrioL 0.25 MCG CAPSULE PO (09:48)
[2020-07-02] MEDS: TIMOLOL MALEATE 0.5% OP SOLN 5 ML BOTTLE 1 DROP EACH EYE (09:48)
[2020-07-02] MEDS: PRAVASTATIN SODIUM 10 MG TABLET PO (09:48)
[2020-07-02] MEDS: FUROSEMIDE 80 MG TABLET PO ×2 (09:49→18:12)
[2020-07-02] MEDS: METOPROLOL TARTRATE 25 MG TABLET PO ×2 (09:49→20:26)
[2020-07-02] MEDS: CHOLECALCIFEROL 1,000 UNITS TABLET 1000 UNITS PO (09:49)
[2020-07-02 10:06] LABS: Folic Acid 11.8 ng/mL (2.76->20); Vitamin B12 > 1000.0 pg/mL (239-931)
[2020-07-02 10:11] LABS: Glucose Point of Care 123 (65-105)
[2020-07-02 11:27] LABS: Glucose Point of Care 141 (65-105)
[2020-07-02] MEDS: INSULIN HUMAN REGULAR (*BKC) 100 UNITS/ML 25 UNITS SUB-Q (12:09)
[2020-07-02] MEDS: INSULIN DETEMIR 100 UNITS/ML 25 UNITS SUB-Q (12:10)
[2020-07-02] MEDS: EUCERIN CREAM 120 GM JAR 1 APPLIC TOPICAL (12:18)
--- NOTE | 2020-07-02 12:22 | PM.PNCARD ---
Progress Note: A&P Assessment and Plan (1) Acute exacerbation of congestive heart failure: Code(s): I50.9 - Heart failure, unspecified Status: Acute Assessment and Plan: Echocardiogram 06/26/2020: EF estimated at 55-60%. Cumulative since admission -3900 cc. Clinically improved with some improvement of edema and dyspnea, Improvement of chest x-ray but still has a lot of volume overload and pleural effusions. Continue furosemide to 80 mg p.o. b.i.d. Extra dose fursemide 40 mg today X1. Also now on Diamox and will resume the spironolactone at a lower dose, 50 mg qd. Follow renal fxn and K+ w/ daily BMP Portable CXR tmr. Likely will need home health care, physical therapy and possibly home O2. (2) custodial (current) use of anticoagulants: Code(s): Z79.01 - custodial (current) use of anticoagulants Status: Acute Assessment and Plan: She is on warfarin for her atrial fibrillation. NR 3.2 on admission. Dayna to 3.5. INR 1.4 06/28/2020. Restarted on 5 mg warfarin daily (home dose). INR 2.2 today. Elevated INR most likely due to heart failure. Would continue her home dose of warfarin , and monitor INR. (3) Acute and chronic respiratory failure with hypoxia: Code(s): J96.21 - Acute and chronic respiratory failure with hypoxia Status: Acute Assessment and Plan: Uses her CPAP at home . Looks like she has chronic hypercarbic respiratory failure since her pH is normal with a pCO2 of 70. May be near her baseline? (4) Chronic kidney disease, stage 4 (severe): Code(s): N18.4 - Chronic kidney disease, stage 4 (severe) Status: Acute Assessment and Plan: Dr. Mclaughlin is following. Additional Plan Subjective Date/time seen: 07/02/20 12:22 Interval history: Follow-up for: decompensated Diastolic congestive heart failure with volume overload, significant edema,pleural effusions and pulmonary congestion on exam. VIsit: 06/29/2020 Subjective: Shortness of breath with exertional activity as much better. Lower extremity edema some better. Still has edema up to behind her knees. No lightheadedness. No chest discomfort. change IV furosemide 2:80 mg p.o. b.i.d.. Still on 1 L O2. INR still low, but back on warfarin 5 mg daily Visit: 06/30/2020 Patient says she sometimes feels good and sometimes not so good. Restless at times, even talking and with mild activity. Not sleeping well, says she is still having trouble with her CPAP although the respiratory therapist said she tolerated it pretty well. Patient is afraid that if she goes home today showed be coming right back. I's and O's yesterday were: 1400 in, 2200 out. Diuresing a little today on her p.o. Lasix 80 mg b.i.d..Still on O2 1 L nasal prong. INR today 1.6 , back on warfarin 5 mg daily since June 28 Date of service: 07/02/2020. Patient was not discharged yesterday because her pCO2 was 80 and she was mildly acidotic. ON CPAP most of the day. Today's pCO2 is 70 with a normal pH so she probably lives around this level. Does not feel SOB w/ mild activity. Not diuresing much by I's and O's, but has no Molina and says she's urinating a lot, with less edema, on furosemide 80 mg b.i.d.. Renal function looks stable, though BUN and creatinine have increased somewhat since admission. Review of Systems Constitutional: Constitutional: Denies fever(s) Cardiovascular: Cardiovascular: Denies chest pain, Reports pedal edema (improved), Denies lightheadedness and Denies dyspnea Respiratory: Respiratory: Denies chest congestion and Denies dyspnea Gastrointestinal: Gastrointestinal: Denies abdominal pain and Denies hematochezia Musculoskeletal: Musculoskeletal: Reports no additional musculoskeletal complaints Integumentary/Breasts: Skin/Breast:
--- NOTE | 2020-07-02 12:54 | P.PNIM_ITS ---
Progress Note: A&P Assessment and Plan (1) Respiratory acidosis: Code(s): E87.2 - Acidosis Status: Acute Assessment and Plan: With met alkalosis; likely multifactorial with aggressive diuresing for CHF/contraction alkalosis and likely retention (chronic issue?) of CO2 * Will do BiPAP twice during the day, then every night * Monitor closely (2) Acute exacerbation of congestive heart failure: Code(s): I50.9 - Heart failure, unspecified Status: Acute Assessment and Plan: Diastolic CHF; right sided. Cardiology following and appreciate recommendations. Appears to be clinically improving, although still crackles on exam. Appears to have ~4 L negative fluid balance since admission. Echo results as above. * Continue diuresing per Cardiology; switched from IV to PO on 06/29 * Monitor volume status and renal function closely * Await further recommendation from Cardiology (3) Acute and chronic respiratory failure with hypoxia: Code(s): J96.21 - Acute and chronic respiratory failure with hypoxia Status: Acute Assessment and Plan: Likely secondary to acute CHF exacerbation vs underlying lung issues such as YUDELKA, COPD, or even OHS. Patient states she was just placed on Home oxygen on 06/25 due to her increasing shortness of breath. She was * Wean O2 as tolerated * Goal is to wean to RA if possible. * Home O2 evaluation rec 1L at rest with 2L with activity * See a/p for #1. BiPAP twice during the day and overnight (4) Chronic kidney disease, stage 4 (severe): Code(s): N18.4 - Chronic kidney disease, stage 4 (severe) Status: Acute Assessment and Plan: Cr 2.10 today; stable. Appears to be at baseline, although creeping up. Dr. Mclaughlin following and appreciate recommendations; follows with Dr. Nguyen as OP. Metabolic alkalosis noted, likely contraction alkalosis 2/2 aggressive diuresis, although patient also shows acidosis on ABG; respiratory acidosis likely due to retention. * monitor closely with diuresis * Agree with acetazolamide; likely will continue this until OP follow up with Nephrology * Await further recommendations from Nephrology (5) Current use of group home anticoagulation: Code(s): Z79.01 - FDC (current) use of anticoagulants Status: Acute Assessment and Plan: Currently taking warfarin for a. fib; this had been held given mildly supratherapeutic INR; INR 2.2 today. No evidence of bleeding * Continue Warfarin * Monitor INR (6) Persistent atrial fibrillation: Code(s): I48.19 - Other persistent atrial fibrillation Status: Acute Assessment and Plan: On warfarin and rate controlled with diltiazem and metoprolol; has a pacemaker. Cardiology following * Continue home metoprolol and diltiazem * Continue Warfarin * Monitor (7) Insulin dependent type 2 diabetes mellitus: Code(s): E11.9 - Type 2 diabetes mellitus without complications; Z79.4 - FDC (current) use of insulin Status: Acute Assessment and Plan: A1c 6.6. BGL in mid 100s today * Continue home insulin regimen * Accuchecks ACHS, hypoglycemia protocol, correctional insulin, diabetic diet * Monitor closely; adjust insulin as appropriate (8) Postsurgical hypothyroidism: Code(s): E89.0 - Postprocedural hypothyroidism Status: Acu
--- NOTE | 2020-07-02 12:54 | PM.IMPN ---
Progress Note: A&P Assessment and Plan (1) Respiratory acidosis: Code(s): E87.2 - Acidosis Status: Acute Assessment and Plan: With met alkalosis; likely multifactorial with aggressive diuresing for CHF/contraction alkalosis and likely retention (chronic issue?) of CO2 Will do BiPAP twice during the day, then every third mate closely (2) Acute exacerbation of congestive heart failure: Code(s): I50.9 - Heart failure, unspecified Status: Acute Assessment and Plan: Diastolic CHF; right sided. Cardiology following and appreciate recommendations. Appears to be clinically improving, although still crackles on exam. Appears to have ~4 L negative fluid balance since admission. Echo results as above. Continue diuresing per Cardiology; switched from IV to PO on 06/29 Monitor volume status and renal function closely Await further recommendation from Cardiology (3) Acute and chronic respiratory failure with hypoxia: Code(s): J96.21 - Acute and chronic respiratory failure with hypoxia Status: Acute Assessment and Plan: Likely secondary to acute CHF exacerbation vs underlying lung issues such as YUDELKA, COPD, or even OHS. Patient states she was just placed on Home oxygen on 06/25 due to her increasing shortness of breath. She was Wean O2 as tolerated Goal is to wean to RA if possible. Home O2 evaluation rec 1L at rest with 2L with activity See a/p for #1. BiPAP twice during the day and overnight (4) Chronic kidney disease, stage 4 (severe): Code(s): N18.4 - Chronic kidney disease, stage 4 (severe) Status: Acute Assessment and Plan: Cr 2.10 today; stable. Appears to be at baseline, although creeping up. Dr. Mclaughlin following and appreciate recommendations; follows with Dr. Nguyen as OP. Metabolic alkalosis noted, likely contraction alkalosis 2/2 aggressive diuresis, although patient also shows acidosis on ABG; respiratory acidosis likely due to retention. 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 fib; this had been held given mildly supratherapeutic INR; INR 2.2 today. No evidence of bleeding Continue Warfarin Monitor INR (6) Persistent atrial fibrillation: Code(s): I48.19 - Other persistent atrial fibrillation Status: Acute Assessment and Plan: On warfarin and rate controlled with diltiazem and metoprolol; has a pacemaker. 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 BGL in mid 100s today Continue home insulin regimen Accuchecks ACHS, hypoglycemia protocol, correctional insulin, diabetic diet Monitor closely; adjust insulin as appropriate (8) Postsurgical hypothyroidism: Code(s): E89.0 - Postprocedural hypothyroidism Status: Acute Assessment and Plan: TSH wnl Continue home levothyroxine (9) Obstructive sleep apnea on CPAP: Code(s): G47.33 - Obstructive sleep apnea (adult) (pediatric); Z99.89 - Dependence on other enabling machines and devices Status: Acute Assessment and Plan: Continue with home CPAP
--- NOTE | 2020-07-02 13:45 | P.PNNP_ITS ---
Progress Note: A&P Assessment and Plan (1) Chronic kidney disease, stage 4 (severe): Code(s): N18.4 - Chronic kidney disease, stage 4 (severe) Status: Acute Assessment and Plan: * baseline creatinine ~ 1.7 - 2.1mg/dl in last couple of years * due to DM, HTN, diastolic heart failure + diuretics, YUDELKA, and age * Creatinine creeping up, as expected. currently the level is 2.1. (2) Acute on chronic diastolic heart failure: Code(s): I50.33 - Acute on chronic diastolic (congestive) heart failure Status: Acute Assessment and Plan: * suspect possible dietary indiscretion as trigger * Seems to be responding to diuretics now. * Diuresis continues * Her oxygen level still is relatively low. * Think we should increase diuretics. * Add metolazone for a couple of days. (3) Metabolic alkalosis: Code(s): E87.3 - Alkalosis Status: Acute Assessment and Plan: * due to contraction from diuresis(?) * Continue the acetazolamide bid. * She will need this as an outpatient for now. (4) Hyperkalemia: Code(s): E87.5 - Hyperkalemia Status: Acute Assessment and Plan: * possibly due to #2 * better with IV diuretic therapy * follow trend (5) Chronic anemia: Code(s): D64.9 - Anemia, unspecified Status: Acute Assessment and Plan: * partly due to CKD * no need for NURY * hemoglobin still above 10. (6) Benign hypertension: Code(s): I10 - Essential (primary) hypertension Status: Acute Assessment and Plan: * well controlled * follow hemodynamics (7) Type 2 diabetes mellitus: Code(s): E11.9 - Type 2 diabetes mellitus without complications Status: Acute Assessment and Plan: * follow accuchecks * on SSI and Levemir Subjective Date/time seen: 07/02/20 13:45 Interval history: Patient feels okay today. up in a chair.. Review of Systems Cardiovascular: Cardiovascular: Reports no additional cardiovascular complaints Respiratory: Respiratory: Reports no additional respiratory complaints Gastrointestinal: Gastrointestinal: Reports no additional gastrointestinal complaints Genitourinary: Genitourinary: Reports no additional female genitourinary complaints Exam Narrative: Exam Narrative: General: Elderly female in NAD Heart: IRRR, normal S1 and S2; no rub or gallop Lungs: clear anteriorly; decreased at bases Abdomen: soft, nontender, nondistended, positive bowel sounds Extremities: 1-2+ edema. Skin: No rash Or subcu nodules Objective Data Vital Signs Vital Signs: Vital Signs - 24 hr 07/01/20 14:05 07/01/20 14:48 07/01/20 15:30 Temperature 37.1 C Pulse Rate 88 70 89 Respiratory Rate 26 H 14 28 H Blood Pressure 105/45 L Pulse Oximetry 93 100 93 07/01/20 16:00 07/01/20 18:46 07/01/20 20:00 Temperature 36.1 C L Pulse Rate 70 70 76 Respiratory Rate 17 22 H Blood Pressure 142/46 H Pulse Oximetry 95 97 07/01/20 20:16 07/01/20 20:29 07/01/20 21:24 Temperature 36.6 C Pulse Rate 88 70 76 Respiratory Rate 26 H 22 H Blood Pressure 140/46 L Pulse Oximetry 95 97 07/02/20
--- NOTE | 2020-07-02 13:45 | PM.PNNEP ---
Progress Note: A&P Assessment and Plan (1) Chronic kidney disease, stage 4 (severe): Code(s): N18.4 - Chronic kidney disease, stage 4 (severe) Status: Acute Assessment and Plan: baseline creatinine ~ 1.7 - 2.1mg/dl in last couple of years due to DM, HTN, diastolic heart failure + diuretics, YUDELKA, and age Creatinine creeping up, as expected. currently the level is 2.1. (2) Acute on chronic diastolic heart failure: Code(s): I50.33 - Acute on chronic diastolic (congestive) heart failure Status: Acute Assessment and Plan: suspect possible dietary indiscretion as trigger Seems to be responding to diuretics now. Diuresis continues Her oxygen level still is relatively low. Think we should increase diuretics. Add metolazone for a couple of days. (3) Metabolic alkalosis: Code(s): E87.3 - Alkalosis Status: Acute Assessment and Plan: due to contraction from diuresis(?) Continue the acetazolamide bid. She will need this as an outpatient for now. (4) Hyperkalemia: Code(s): E87.5 - Hyperkalemia Status: Acute Assessment and Plan: possibly due to #2 better with IV diuretic therapy follow trend (5) Chronic anemia: Code(s): D64.9 - Anemia, unspecified Status: Acute Assessment and Plan: partly due to CKD no need for NURY hemoglobin still above 10. (6) Benign hypertension: Code(s): I10 - Essential (primary) hypertension Status: Acute Assessment and Plan: well controlled follow hemodynamics (7) Type 2 diabetes mellitus: Code(s): E11.9 - Type 2 diabetes mellitus without complications Status: Acute Assessment and Plan: follow accuchecks on SSI and Levemir Subjective Date/time seen: 07/02/20 13:45 Interval history: Patient feels okay today. up in a chair.. Review of Systems Cardiovascular: Cardiovascular: Reports no additional cardiovascular complaints Respiratory: Respiratory: Reports no additional respiratory complaints Gastrointestinal: Gastrointestinal: Reports no additional gastrointestinal complaints Genitourinary: Genitourinary: Reports no additional female genitourinary complaints Exam Narrative: Exam Narrative: General: Elderly female in NAD Heart: IRRR, normal S1 and S2; no rub or gallop Lungs: clear anteriorly; decreased at bases Abdomen: soft, nontender, nondistended, positive bowel sounds Extremities: 1-2+ edema. Skin: No rash Or subcu nodules Objective Data Vital Signs Vital Signs: Vital Signs - 24 hr 07/01/20 14:05 07/01/20 14:48 07/01/20 15:30 Temperature 37.1 C Pulse Rate 88 70 89 Respiratory Rate 26 H 14 28 H Blood Pressure 105/45 L Pulse Oximetry 93 100 93 07/01/20 16:00 07/01/20 18:46 07/01/20 20:00 Temperature 36.1 C L Pulse Rate 70 70 76 Respiratory Rate 17 22 H Blood Pressure 142/46 H Pulse Oximetry 95 97 07/01/20 20:16 07/01/20 20:29 07/01/20 21:24 Temperature 36.6 C Pulse Rate 88 70 76 Respiratory Rate 26 H 22 H Blood Pressure 140/46 L Pulse Oximetry 95 97 07/02/20 00:00 07/02/20 01:55 07/02/20 02:00 Temperature 36.8 C Pulse Rate 70 69 70 Respiratory Rate 20 16 Blood Pressure 129/44 L Pulse Oximetry 93 96 07/02/20 04:00 07/02/20 05:40 07/02/20 06:00 Temperature 36.6 C Pulse Rate 70 70 70 Respiratory Rate 21 H 25 H Blood Pressure 126/45 L Pulse Oximetry 92 97 07/02/20 08:00 07/02/20 09:49 07/02/20 09:50 Temperature 36.2 C L Pulse Rate 75 84 72 Respiratory Rate 18 22 H Blood Pressure 135/55 L Pulse Oximetry 92 98 Intake/Output Intake/Output: Intake & Output 06/29/20 06/30/20 07/01/20 07/02/20 23:59 23:59 23:59 23:59 Intake Total 1420 1600 1270 590 Output Total 2200 2200 975 600 Balance -780 -600 295 -10 Meds/Results Medications: Active Medications Generic Name Dose Route Star
--- NOTE | 2020-07-02 14:55 | ECG_ITS ---
Measurements Intervals Hatch Rate: 70 P: [place]: 0 QRS: -72 QRSD: 197 T: 89 QT: 489 QTc: 529 Interpretive Statements ELECTRONIC VENTRICULAR PACEMAKER BASELINE ARTIFACT- V1-V2 NO FURTHER INTERPRETATION IS POSSIBLE ATYPICAL ECG Electronically Signed On 07-02-2020 16:48:05 CDT by Con Singh D.O.
--- NOTE | 2020-07-02 15:06 | PCOTNOTE ---
OT evaluation attempted. Patient found unresponsive sitting in recliner. Rapid response called. Will attempt OT evaluation at later date pending medical appropriateness/stability.
[2020-07-02 15:22] LABS: Alveolar/Arterial O2 Gradient 42.6 mmHg; Base Excess ABG 14.1 mEq/l (+/-2.0); Carboxyhemoglobin 0.1 % THb (0-2.0); Fractional Inspired Oxygen 28 %; HCO3 ABG 44.3 mEq/l (22.0-26.0); Methemoglobin ABG 0.5 %THb (0-1.5); Oxygen Content ABG 11.9 %vol (16.0-22.0); PO2 FiO2 Ratio Arterial Blood 1.62 %; Reduced Hemoglobin 26.4 %THb (0-5.0); Total Hemoglobin 11.6 g/dL (12.0-18.0)
[2020-07-02 15:23] LABS: Device NASAL CANNULA; Modified Allen's Test Pass; Oxygen Saturation ABG 72.7 % (95.0-100.0); PCO2 ABG 94.7 mmHg (35.0-45.0); PO2 ABG 45.3 mmHg (80.0-100.0); Site Drawn RIGHT RADIAL; pH ABG 7.288 (7.350-7.450)
[2020-07-02] MEDS: FUROSEMIDE INJ 40 MG/4 ML VIAL IV PUSH (15:26)
[2020-07-02] MEDS: SPIRONOLACTONE 50 MG TABLET PO (15:26)
--- NOTE | 2020-07-02 16:01 | PCRCNOTE ---
ALL REQUIRED DOCUMENTATION HAS BEEN SUBMITTED TO [facility] FOR HOME TRILOGY UNIT. WAITING ON NICKOLAS FROM [facility] TO FAX ORDER FORM FOR DOCTOR SIGNATURE. PT RECENTLY MOVED FROM [facility] TO [facility].
[2020-07-02 16:32] LABS: Glucose Point of Care 232 (65-105)
--- NOTE | 2020-07-02 17:09 | PC.NURSE ---
This patient, Shelli Albrecht, was received from [facility] on 07/02/20 at 1620. Report received from MARTINA Edward. Patient/family oriented to unit policies and routines
[2020-07-02] MEDS: INSULIN ASPART (*BKC) 100 UNITS/ML SUB-Q (18:07)
[2020-07-02 18:10] LABS: Alveolar/Arterial O2 Gradient 52.9 mmHg; Base Excess ABG 15.8 mEq/l (+/-2.0); Fractional Inspired Oxygen 30 %; HCO3 ABG 44.1 mEq/l (22.0-26.0); Oxygen Content ABG 15.2 %vol (16.0-22.0); Oxygen Saturation ABG 93.6 % (95.0-100.0); Oxyhemoglobin 92.6 % THb (90.0-100.0); PO2 ABG 72.3 mmHg (80.0-100.0); PO2 FiO2 Ratio Arterial Blood 2.41 %; Total Hemoglobin 11.6 g/dL (12.0-18.0); pH ABG 7.384 (7.350-7.450)
[2020-07-02 18:12] LABS: PCO2 ABG 75.5 mmHg (35.0-45.0)
[2020-07-02] MEDS: WARFARIN (*PBKC) 5 MG TABLET PO (18:12)
[2020-07-02 18:13] LABS: Device BIPAP; Expiratory Pressure 8 cmH2O; Inspiratory Pressure 20 cmH2O; Modified Allen's Test Pass; Site Drawn RIGHT RADIAL
--- NOTE | 2020-07-02 18:17 | PC.NURSE ---
Pt found at 1500 by PT to be sound asleep. PT could not wake the patient up so they came and got me. We tried sternal rubbing the patient and shouting her name and pt was still not waking up. A rapid was called. After several other attempts, the pt slowly started to wake up/open her eyes. After 10-15 minutes she was able to answer orientation questions.
--- NOTE | 2020-07-02 18:19 | PC.NURSE ---
This patient, Shelli Albrecht, was transferred to [ IMU] on 07/02/20 at 1819. Personal belongings sent with patient. Belongings list checked and signed with receiving [ IMU]. Report given to [ RN]. Appropriate documentation sent with patient.
[2020-07-02] MEDS: LATANOPROST 0.005% OP SOLN 2.5 ML BTL 1 DROP EACH EYE (20:26)
[2020-07-02 22:06] LABS: Glucose Point of Care 147 (65-105)
[2020-07-03] VITALS (20 sets, daily range): BP systolic 100–137; BP diastolic 39–64; PULSE 70–77; RESP 20–24; TEMP 36–36.5; O2SAT 96–100
[2020-07-03 04:56] LABS: Alveolar/Arterial O2 Gradient 54.2 mmHg; Base Excess ABG 16.3 mEq/l (+/-2.0); Carboxyhemoglobin 0.1 % THb (0-2.0); Fractional Inspired Oxygen 30 %; HCO3 ABG 44.6 mEq/l (22.0-26.0); Methemoglobin ABG 0.3 %THb (0-1.5); Oxygen Content ABG 16.6 %vol (16.0-22.0); Oxyhemoglobin 92.7 % THb (90.0-100.0); PO2 ABG 73.1 mmHg (80.0-100.0); PO2 FiO2 Ratio Arterial Blood 2.44 %; Reduced Hemoglobin 6.9 %THb (0-5.0); Total Hemoglobin 12.7 g/dL (12.0-18.0)
[2020-07-03 04:59] LABS: Device BIPAP; Modified Allen's Test Pass; PCO2 ABG 73.7 mmHg (35.0-45.0); Site Drawn RIGHT RADIAL
[2020-07-03 05:00] LABS: Expiratory Pressure 8 cmH2O; Inspiratory Pressure 20 cmH2O
[2020-07-03 05:38] LABS: Basophils Percent Auto 0.3 % (0.2-1.2); Eosinophils Absolute Auto 0.1 K/mm3 (0-0.3); Hematocrit 31.2 % (37.0-47.0); Hemoglobin 9.8 g/dL (12.0-15.0); Immature Granulocyte Absolute 0.08 K/mm3 (0.00-0.031); Immature Granulocyte Percent A 0.7 % (0-0.5); Lymphocytes Absolute Auto 0.74 K/mm3 (0.9-3.2); Lymphocytes Percent Auto 6.4 % (18.3-44.2); Mean Corpuscular HGB Conc 31.4 g/dl (32-36); Mean Corpuscular Hemoglobin 34.5 pg (26-34); Mean Corpuscular Volume 109.9 fl (80-100); Monocytes Absolute Auto 1.3 K/mm3 (0.1-0.6); Neutrophils Absolute Auto 9.3 K/mm3 (1.3-6.7); Neutrophils Percent Auto 80.6 % (45.5-73.1); Nucleated Red Blood Cells Perc 0.3 % (0.0-0.2); Platelet Count Result 267 k/mm3 (150-375); Red Blood Count 2.84 M/mm3 (4.2-5.4); Red Cell Distribution Width 13.2 % (11.5-14.5); White Blood Count 11.6 K/mm3 (4.5-10.0)
[2020-07-03 05:57] LABS: INR 3.2; Prothrombin Time 32.2 Seconds (11.1-14.7)
[2020-07-03] MEDS: LEVOTHYROXINE SODIUM 100 MCG TABLET 200 MCG PO (06:01)
[2020-07-03 06:09] LABS: Albumin Level 3.5 g/dL (3.5-5.1); Anion Gap 13.99999 mmol/L (8-16); Blood Urea Nitrogen 74 mg/dL (7-17); Calcium 10.3 mg/dL (8.4-10.2); Carbon Dioxide > 40 mmol/L (22-30); Chloride 85 mmol/L (98-107); Estimated CRCL calculation 25 ml/min; Estimated Glomerular Filt Rate 23; Glucose 188 mg/dL (65-105); Magnesium 2.3 mg/dL (1.6-2.3); Phosphorus 4.2 mg/dL (2.5-4.5); Potassium 3.5 mmol/L (3.4-5.0); Sodium 139 mmol/L (137-145)
[2020-07-03 06:42] LABS: Glucose Point of Care 159 (65-105)
[2020-07-03] MEDS: INSULIN HUMAN REGULAR (*BKC) 100 UNITS/ML 25 UNITS SUB-Q ×3 (06:42→19:39)
--- NOTE | 2020-07-03 08:18 | P.PNIM_ITS ---
Progress Note: A&P Assessment and Plan (1) Respiratory acidosis: Code(s): E87.2 - Acidosis Status: Acute Assessment and Plan: Likely mixed picture with aggressive diuresing for CHF/contraction alkalosis and likely retention (chronic issue?) of CO2. Patient states she feels better today. * Will continue continuous BiPAP; consider trial off BiPAP if continued clinical improvement, likely tomorrow * ABG tomorrow * Monitor closely (2) Acute exacerbation of congestive heart failure: Code(s): I50.9 - Heart failure, unspecified Status: Acute Assessment and Plan: Diastolic CHF; right sided. Cardiology following and appreciate recommendations. Appears to be clinically improving, although still crackles on exam. Appears to have ~4.5 L negative fluid balance since admission. Echo results as above. * Continue diuresing per Cardiology; switched from IV to PO on 06/29. IV lasix once yesterday per Cardiology, as well * Monitor volume status and renal function closely * Await further recommendation from Cardiology (3) Acute and chronic respiratory failure with hypoxia: Code(s): J96.21 - Acute and chronic respiratory failure with hypoxia Status: Acute Assessment and Plan: Likely secondary to acute CHF exacerbation vs underlying lung issues such as YUDELKA, COPD, or even OHS. Patient states she was just placed on Home oxygen on 06/25 due to her increasing shortness of breath. She was * Wean O2 as tolerated * Goal is to wean to RA if possible after improvement on Bipap * Home O2 evaluation rec 1L at rest with 2L with activity on 06/30; likely will need to repeat closer to discharge * See a/p for #1. (4) Chronic kidney disease, stage 4 (severe): Code(s): N18.4 - Chronic kidney disease, stage 4 (severe) Status: Acute Assessment and Plan: Cr 2.10 today; stable. Appears to be at baseline, although creeping up. Dr. Mclaughlin following and appreciate recommendations; follows with Dr. Nguyen as OP. Metabolic alkalosis noted, likely contraction alkalosis 2/2 diuresis, although patient also shows acidosis on previous ABGs; respiratory acidosis lik fernando due to retention. 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 fib; this had been held given mildly supratherapeutic INR; INR 3.2 today. No evidence of bleeding * Continue Warfarin; if still supratherapeutic tomorrow, then likely hold * Cardiology following patient as well * Monitor INR (6) Persistent atrial fibrillation: Code(s): I48.19 - Other persistent atrial fibrillation Status: Acute Assessment and Plan: On warfarin and rate controlled with diltiazem and metoprolol; has a pacemaker. Cardiology following * Continue home metoprolol and diltiazem * Continue Warfarin * Monitor (7) Insulin dependent type 2 diabetes mellitus: Code(s): E11.9 - Type 2 diabetes mellitus without complications; Z79.4 - continuous churn buttermaker (current) use of insulin Status: Acute Assessment and Plan: A1c 6.6. BGL in mid-upper 100s today * Continue home insulin regimen
--- NOTE | 2020-07-03 08:18 | PM.IMPN ---
Progress Note: A&P Assessment and Plan (1) Respiratory acidosis: Code(s): E87.2 - Acidosis Status: Acute Assessment and Plan: Likely mixed picture with aggressive diuresing for CHF/contraction alkalosis and likely retention (chronic issue?) of CO2. Patient states she feels better today. Will continue continuous BiPAP; consider trial off BiPAP if continued clinical improvement, likely tomorrow ABG tomorrow Monitor closely (2) Acute exacerbation of congestive heart failure: Code(s): I50.9 - Heart failure, unspecified Status: Acute Assessment and Plan: Diastolic CHF; right sided. Cardiology following and appreciate recommendations. Appears to be clinically improving, although still crackles on exam. Appears to have ~4.5 L negative fluid balance since admission. Echo results as above. Continue diuresing per Cardiology; switched from IV to PO on 06/29. IV lasix once yesterday per Cardiology, as well Monitor volume status and renal function closely Await further recommendation from Cardiology (3) Acute and chronic respiratory failure with hypoxia: Code(s): J96.21 - Acute and chronic respiratory failure with hypoxia Status: Acute Assessment and Plan: Likely secondary to acute CHF exacerbation vs underlying lung issues such as YUDELKA, COPD, or even OHS. Patient states she was just placed on Home oxygen on 06/25 due to her increasing shortness of breath. She was Wean O2 as tolerated Goal is to wean to RA if possible after improvement on Bipap Home O2 evaluation rec 1L at rest with 2L with activity on 06/30; likely will need to repeat closer to discharge See a/p for #1. (4) Chronic kidney disease, stage 4 (severe): Code(s): N18.4 - Chronic kidney disease, stage 4 (severe) Status: Acute Assessment and Plan: Cr 2.10 today; stable. Appears to be at baseline, although creeping up. Dr. Mclaughlin following and appreciate recommendations; follows with Dr. Nguyen as OP. Metabolic alkalosis noted, likely contraction alkalosis 2/2 diuresis, although patient also shows acidosis on previous ABGs; respiratory acidosis likely due to retention. monitor closely with diuresis Agree with acetazolamide; likely will continue this until OP follow up with Nephrology Await further recommendations from Nephrology (5) Current use of shelter anticoagulation: Code(s): Z79.01 - intermodal customer service (current) use of anticoagulants Status: Acute Assessment and Plan: Currently taking warfarin for a. fib; this had been held given mildly supratherapeutic INR; INR 3.2 today. No evidence of bleeding Continue Warfarin; if still supratherapeutic tomorrow, then likely hold Cardiology following patient as well Monitor INR (6) Persistent atrial fibrillation: Code(s): I48.19 - Other persistent atrial fibrillation Status: Acute Assessment and Plan: On warfarin and rate controlled with diltiazem and metoprolol; has a pacemaker. Cardiology following Continue home metoprolol and diltiazem Continue Warfarin Monitor (7) Insulin dependent type 2 diabetes mellitus: Code(s): E11.9 - Type 2 diabetes mellitus without complications; Z79.4 - intermodal customer service (current) use of insulin Status: Acute Assessment and Plan: A1c 6.6. BGL in mid-upper 100s today Continue home insulin regimen Accuchecks ACHS, hypoglycemia protocol, correctional insulin, diabetic diet Monitor closely; adjust insulin as appropriate (8) Postsurgical hypothyroidism: Code(s): E89.0 - Postprocedural hypothyroidism Status: Acute Assessment and Plan: TSH wnl Continue home levothyroxine
[2020-07-03] MEDS: TIMOLOL MALEATE 0.5% OP SOLN 5 ML BOTTLE 1 DROP EACH EYE (09:09)
[2020-07-03] MEDS: MAGNESIUM OXIDE 400 MG TABLET PO (09:09)
[2020-07-03] MEDS: FUROSEMIDE 80 MG TABLET PO (09:09)
[2020-07-03] MEDS: CALCIUM CARBONATE (OSCAL) 500 MG TABLET PO (09:10)
[2020-07-03] MEDS: METOPROLOL TARTRATE 25 MG TABLET PO ×2 (09:10→20:52)
[2020-07-03] MEDS: CYANOCOBALAMIN 1,000 MCG TABLET 1000 MCG PO (09:10)
[2020-07-03] MEDS: calcitrioL 0.25 MCG CAPSULE PO (09:10)
[2020-07-03] MEDS: metOLazone 5 MG TABLET PO (09:10)
[2020-07-03] MEDS: dilTIAZem HCL CD 180 MG CAP.ER.24H PO (09:10)
[2020-07-03] MEDS: acetaZOLAMIDE TAB 250 MG TABLET 500 MG PO ×2 (09:10→19:40)
[2020-07-03] MEDS: PRAVASTATIN SODIUM 10 MG TABLET PO (09:10)
[2020-07-03] MEDS: CHOLECALCIFEROL 1,000 UNITS TABLET 1000 UNITS PO (09:10)
[2020-07-03] MEDS: SPIRONOLACTONE 50 MG TABLET PO (09:10)
[2020-07-03] MEDS: INSULIN DETEMIR 100 UNITS/ML 25 UNITS SUB-Q (09:11)
[2020-07-03] MEDS: EUCERIN CREAM 120 GM JAR 1 APPLIC TOPICAL (09:11)
[2020-07-03 09:25] LABS: Glucose Point of Care 132 (65-105)
--- NOTE | 2020-07-03 10:54 | PCDIET ---
Weekly nutritional screen. Patient is tolerating diabetic diet with adequate intake. No weight loss reported. BMI 43.4. No nutritional needs at this time.
--- NOTE | 2020-07-03 11:21 | PM.PNCARD ---
Progress Note: A&P Assessment and Plan (1) Acute exacerbation of congestive heart failure: Code(s): I50.9 - Heart failure, unspecified Status: Acute Assessment and Plan: HFpEF . Mostly right-sided. Diuresing with furosemide 80 mg p.o. b.i.d.. Cumulative balance since admission -4175 cc. Also receiving Diamox. Spironolactone restarted by Dr Mahan 07/02/2020. Monitor renal function and electrolytes closely (2) ct scan technologist (current) use of anticoagulants: Code(s): Z79.01 - [facility] (current) use of anticoagulants Status: Acute Assessment and Plan: She is on warfarin for her atrial fibrillation. INR 3.2 on admission. Dayna to 3.5. Warfarin held. INR 1.4 06/29/2020. Restarted on 5 mg warfarin daily (home dose). INR 3.2 07/03/2020. Seems to drop quickly if doses are held. Elevated INR most likely due to heart failure. Would continue her home dose of warfarin , allow her to drift back up and monitor INR. (3) Acute and chronic respiratory failure with hypoxia: Code(s): J96.21 - Acute and chronic respiratory failure with hypoxia Status: Acute Assessment and Plan: Uses her CPAP at home without fail. Rapid was called yesterday due to CO2 narcosis. Transferred down to IMU and placed on BiPAP. C02 improve this morning. Management per hospitalist. (4) Chronic kidney disease, stage 4 (severe): Code(s): N18.4 - Chronic kidney disease, stage 4 (severe) Status: Acute Assessment and Plan: Dr. Mclaughlin now following. Follows with Dr. Nguyen in the office. Additional Plan Plan discussed with Dr Dejesus 1215 07/03/2020 Subjective Date/time seen: 07/03/20 11:21 Interval history: Follow-up for: decompensated congestive heart failure primarily right-sided failure with volume overload some pulmonary congestion on exam. Date of service: 07/03/2020 Subjective: just getting back to bed off bedside commode. Short of breath with exertional activity which she believes is at her baseline. Denied chest discomfort or lightheadedness. Review of Systems Constitutional: Constitutional: Reports fatigue Eyes: Eyes: Denies blurry vision ENT: Reports Normal hearing present, Denies lip swelling, Denies epistaxis and Denies throat swelling Cardiovascular: Cardiovascular: Reports dyspnea ( improved) Respiratory: Respiratory: Reports dyspnea ( improved) Gastrointestinal: Gastrointestinal: Reports bloating ( improved), Denies nausea and Denies vomiting Genitourinary: Genitourinary: Denies hematuria Musculoskeletal: Musculoskeletal: Denies back pain Integumentary/Breasts: Skin/Breast: Denies erythema and Denies rash Neurologic: Reports Normal hearing present Psychiatric: Psychiatric: Reports anxiety Endocrine: Endocrine: Reports fatigue Hematologic/Lymphatic: Hematologic/Lymphatic: Denies easy bleeding and Denies easy bruising Allergic/Immunologic: Allergic/Immunologic: Denies lip swelling and Denies throat swelling Exam Const: General: comfortable and no acute distress Other: Morbidly obese white female in bed at bedside. HENMT: Head: normocephalic and atraumatic Ears: hearing grossly normal bilaterally General nose exam: Normal external nose present Mouth: Yes moist mucous membranes Eyes: Sclera: sclerae normal Pupils: Equal, round and reactive pupils present Neck: Neck: supple Resp: Effort & Inspection: normal respiratory effort and able to speak in complete sentences Other: decreased only to right base Cardio: Rhythm: abnormal rhythm irregularly irregular GI: Inspection: obesity Auscultation: normal bowel sounds Skin: General skin exam: normal color Neuro: Cranial nerves: Yes Equal, round and reactive pupils present and Yes Normal hearing pr
[2020-07-03 12:21] LABS: Glucose Point of Care 216 (65-105)
[2020-07-03] MEDS: INSULIN ASPART (*BKC) 100 UNITS/ML SUB-Q (13:44)
--- NOTE | 2020-07-03 15:32 | P.PNNP_ITS ---
Progress Note: A&P Assessment and Plan (1) Chronic kidney disease, stage 4 (severe): Code(s): N18.4 - Chronic kidney disease, stage 4 (severe) Status: Acute Assessment and Plan: * baseline creatinine ~ 1.7 - 2.1mg/dl in last couple of years * due to DM, HTN, diastolic heart failure + diuretics, YUDELKA, and age * Creatinine creeping up, as expected. currently the level is 2.1 , same as yesterday.. (2) Acute on chronic diastolic heart failure: Code(s): I50.33 - Acute on chronic diastolic (congestive) heart failure Status: Acute Assessment and Plan: * suspect possible dietary indiscretion as trigger * Seems to be responding to diuretics now. * Diuresis continues * (3) Metabolic alkalosis: Code(s): E87.3 - Alkalosis Status: Acute Assessment and Plan: * due to contraction from diuresis(?) * Continue the acetazolamide bid. * Her pCO2 is now high. So she has CO2 narcosis. * Will hold diuretics except for acetazolamide and spironolactone. * I talked with pharmacy about the possibility of giving 0.1 % hydrochloric acid or ammonium chloride but they do not have any in stock and they called around to all the pharmacies in the area and no but he seems to have any. (4) Hyperkalemia: Code(s): E87.5 - Hyperkalemia Status: Acute Assessment and Plan: * Resolved (5) Chronic anemia: Code(s): D64.9 - Anemia, unspecified Status: Acute Assessment and Plan: * partly due to CKD * no need for NURY * hemoglobin dropped a little bit to 9.8. (6) Benign hypertension: Code(s): I10 - Essential (primary) hypertension Status: Acute Assessment and Plan: * well controlled * follow hemodynamics (7) Type 2 diabetes mellitus: Code(s): E11.9 - Type 2 diabetes mellitus without complications Status: Acute Assessment and Plan: * follow accuchecks * on SSI and Levemir Subjective Date/time seen: 07/03/20 15:32 Interval history: Patient Is sleepy. She developed CO2 narcosis and is on the BiPAP machine now. Review of Systems Cardiovascular: Cardiovascular: Reports no additional cardiovascular complaints Respiratory: Respiratory: Reports no additional respiratory complaints Gastrointestinal: Gastrointestinal: Reports no additional gastrointestinal complaints Genitourinary: Genitourinary: Reports no additional female genitourinary complaints Exam Narrative: Exam Narrative: General: Elderly female in NAD Heart: IRRR, normal S1 and S2; no rub or gallop Lungs: clear anteriorly; decreased at bases Abdomen: soft, nontender, nondistended, positive bowel sounds Extremities: 1-2+ edema. Skin: No rash Objective Data Vital Signs Vital Signs: Vital Signs - 24 hr 07/02/20 16:00 07/02/20 18:00 07/02/20 20:00 Temperature 35.9 C L 36.2 C L Pulse Rate 70 70 70 Respiratory Rate 25 H 20 Blood Pressure 107/35 L 119/46 L Pulse Oximetry 98 99 07/02/20 20:26 07/02/20 20:53 07/02/20 21:15 Temperature Pulse Rate 70 Respiratory Rate Blood Pressure Pulse Oximetry 100 100 07/02/20 21:40 07/02/20 21:53 07/02/20 23:55 Temperature 36.8 C
--- NOTE | 2020-07-03 15:32 | PM.PNNEP ---
Progress Note: A&P Assessment and Plan (1) Chronic kidney disease, stage 4 (severe): Code(s): N18.4 - Chronic kidney disease, stage 4 (severe) Status: Acute Assessment and Plan: baseline creatinine ~ 1.7 - 2.1mg/dl in last couple of years due to DM, HTN, diastolic heart failure + diuretics, YUDELKA, and age Creatinine creeping up, as expected. currently the level is 2.1 , same as yesterday.. (2) Acute on chronic diastolic heart failure: Code(s): I50.33 - Acute on chronic diastolic (congestive) heart failure Status: Acute Assessment and Plan: suspect possible dietary indiscretion as trigger Seems to be responding to diuretics now. Diuresis continues (3) Metabolic alkalosis: Code(s): E87.3 - Alkalosis Status: Acute Assessment and Plan: due to contraction from diuresis(?) Continue the acetazolamide bid. Her pCO2 is now high. So she has CO2 narcosis. Will hold diuretics except for acetazolamide and spironolactone. I talked with pharmacy about the possibility of giving 0.1 % hydrochloric acid or ammonium chloride but they do not have any in stock and they called around to all the pharmacies in the area and no but he seems to have any. (4) Hyperkalemia: Code(s): E87.5 - Hyperkalemia Status: Acute Assessment and Plan: Resolved (5) Chronic anemia: Code(s): D64.9 - Anemia, unspecified Status: Acute Assessment and Plan: partly due to CKD no need for NURY hemoglobin dropped a little bit to 9.8. (6) Benign hypertension: Code(s): I10 - Essential (primary) hypertension Status: Acute Assessment and Plan: well controlled follow hemodynamics (7) Type 2 diabetes mellitus: Code(s): E11.9 - Type 2 diabetes mellitus without complications Status: Acute Assessment and Plan: follow accuchecks on SSI and Levemir Subjective Date/time seen: 07/03/20 15:32 Interval history: Patient Is sleepy. She developed CO2 narcosis and is on the BiPAP machine now. Review of Systems Cardiovascular: Cardiovascular: Reports no additional cardiovascular complaints Respiratory: Respiratory: Reports no additional respiratory complaints Gastrointestinal: Gastrointestinal: Reports no additional gastrointestinal complaints Genitourinary: Genitourinary: Reports no additional female genitourinary complaints Exam Narrative: Exam Narrative: General: Elderly female in NAD Heart: IRRR, normal S1 and S2; no rub or gallop Lungs: clear anteriorly; decreased at bases Abdomen: soft, nontender, nondistended, positive bowel sounds Extremities: 1-2+ edema. Skin: No rash Objective Data Vital Signs Vital Signs: Vital Signs - 24 hr 07/02/20 16:00 07/02/20 18:00 07/02/20 20:00 Temperature 35.9 C L 36.2 C L Pulse Rate 70 70 70 Respiratory Rate 25 H 20 Blood Pressure 107/35 L 119/46 L Pulse Oximetry 98 99 07/02/20 20:26 07/02/20 20:53 07/02/20 21:15 Temperature Pulse Rate 70 Respiratory Rate Blood Pressure Pulse Oximetry 100 100 07/02/20 21:40 07/02/20 21:53 07/02/20 23:55 Temperature 36.8 C Pulse Rate 70 70 70 Respiratory Rate 25 H 23 H Blood Pressure 147/39 H Pulse Oximetry 98 98 07/02/20 23:57 07/03/20 00:00 07/03/20 02:00 Temperature Pulse Rate 70 70 70 Respiratory Rate 23 H Blood Pressure Pulse Oximetry 98 07/03/20 03:00 07/03/20 04:00 07/03/20 04:15 Temperature 36.5 C Pulse Rate 70 70 70 Respiratory Rate 20 24 H 24 H Blood Pressure 124/40 L Pulse Oximetry 98 100 100 07/03/20 05:01 07/03/20 06:00 07/03/20 07:35 Temperature Pulse Rate 71 70 70 Respiratory Rate 23 H 20 Blood Pressure Pulse Oximetry 96 100 07/03/20 08:00 07/03/20 09:10 07/03/20 10:00 Temperature 36.0 C L Pulse Rate 70 70 70 Respiratory Rate 21 H Blood Pressure 128/48 L
[2020-07-03 16:44] LABS: Glucose Point of Care 180 (65-105)
[2020-07-03] MEDS: LATANOPROST 0.005% OP SOLN 2.5 ML BTL 1 DROP EACH EYE (20:52)
[2020-07-03 21:04] LABS: Glucose Point of Care 242 (65-105)
[2020-07-04] VITALS (25 sets, daily range): BP systolic 102–136; BP diastolic 42–94; PULSE 67–91; RESP 16–26; TEMP 35.7–36.6; O2SAT 96–100
[2020-07-04 04:48] LABS: Basophils Percent Auto 0.3 % (0.2-1.2); Eosinophils Absolute Auto 0.1 K/mm3 (0-0.3); Eosinophils Percent Auto 0.8 % (0-4.4); Hemoglobin 10.2 g/dL (12.0-15.0); Immature Granulocyte Absolute 0.15 K/mm3 (0.00-0.031); Immature Granulocyte Percent A 1.1 % (0-0.5); Lymphocytes Absolute Auto 0.77 K/mm3 (0.9-3.2); Lymphocytes Percent Auto 5.9 % (18.3-44.2); Mean Corpuscular HGB Conc 31.9 g/dl (32-36); Mean Corpuscular Hemoglobin 35.2 pg (26-34); Mean Corpuscular Volume 110.3 fl (80-100); Mean Platelet Volume 11.4 fl (7.4-10.4); Monocytes Absolute Auto 1.5 K/mm3 (0.1-0.6); Monocytes Percent Auto 11.2 % (2.6-8.5); Neutrophils Absolute Auto 10.6 K/mm3 (1.3-6.7); Neutrophils Percent Auto 80.7 % (45.5-73.1); Nucleated Red Blood Cells Absolute Auto 0.1 K/mm3 (0.0-0.012); Nucleated Red Blood Cells Perc 0.5 % (0.0-0.2); Platelet Count Result 279 k/mm3 (150-375); Red Cell Distribution Width 13.2 % (11.5-14.5); White Blood Count 13.2 K/mm3 (4.5-10.0)
[2020-07-04 04:57] LABS: INR 3.2; Prothrombin Time 31.8 Seconds (11.1-14.7)
[2020-07-04 05:14] LABS: Albumin Level 3.7 g/dL (3.5-5.1); Anion Gap 8.99999 mmol/L (8-16); Blood Urea Nitrogen 79 mg/dL (7-17); Calcium 10.2 mg/dL (8.4-10.2); Carbon Dioxide > 40 mmol/L (22-30); Chloride 87 mmol/L (98-107); Estimated CRCL calculation 23 ml/min; Estimated Glomerular Filt Rate 22; Glucose 99 mg/dL (65-105); Magnesium 2.3 mg/dL (1.6-2.3); Phosphorus 3.7 mg/dL (2.5-4.5); Potassium 3.4 mmol/L (3.4-5.0); Sodium 136 mmol/L (137-145)
[2020-07-04 06:23] LABS: Glucose Point of Care 122 (65-105)
[2020-07-04] MEDS: LEVOTHYROXINE SODIUM 100 MCG TABLET 200 MCG PO (06:23)
[2020-07-04] MEDS: INSULIN HUMAN REGULAR (*BKC) 100 UNITS/ML 25 UNITS SUB-Q ×3 (07:28→17:58)
[2020-07-04 08:36] LABS: Glucose Point of Care 168 (65-105)
--- NOTE | 2020-07-04 09:02 | P.PNIM_ITS ---
Progress Note: A&P Assessment and Plan (1) Respiratory acidosis: Code(s): E87.2 - Acidosis Status: Acute Assessment and Plan: Likely mixed picture with aggressive diuresing for CHF/contraction alkalosis and likely retention (chronic issue?) of CO2. Patient states she feels better today. * Will trial off of BiPAP for today; BiPAP overnight and with naps * ABG today to reassess * Monitor closely (2) Acute exacerbation of congestive heart failure: Code(s): I50.9 - Heart failure, unspecified Status: Acute Assessment and Plan: Diastolic CHF; right sided. Cardiology following and appreciate recommendations. Appears to be clinically improving, although still crackles on exam. Appears to have ~4.7 L negative fluid balance since admission. Echo results as above. * Continue diuresing per Cardiology; switched from IV to PO on 06/29. Spironolactone resumed 07/02 per Cardiology * Monitor volume status and renal function closely * Await further recommendation from Cardiology (3) Acute and chronic respiratory failure with hypoxia: Code(s): J96.21 - Acute and chronic respiratory failure with hypoxia Status: Acute Assessment and Plan: Likely secondary to acute CHF exacerbation vs underlying lung issues such as YUDELKA, COPD, or even OHS. Patient states she was just placed on Home oxygen on 06/25 due to her increasing shortness of breath. She was * Wean O2 as tolerated * Goal is to wean to RA if possible after improvement on Bipap * Home O2 evaluation rec 1L at rest with 2L with activity on 06/30; likely will need to repeat closer to discharge * See a/p for #1. (4) Chronic kidney disease, stage 4 (severe): Code(s): N18.4 - Chronic kidney disease, stage 4 (severe) Status: Acute Assessment and Plan: Cr 2.20 today; stable. Appears to be at baseline, although creeping up. Dr. Mclaughlin following and appreciate recommendations; follows with Dr. Nguyen as OP. Metabolic alkalosis noted, likely contraction alkalosis 2/2 diuresis, although patient also shows acidosis on previous ABGs; respiratory acidosis likely due to underlying lung conditions * monitor closely with diuresis * Agree with acetazolamide; likely will continue this until OP follow up with Nephrology * Await further recommendations from Nephrology (5) Current use of alf anticoagulation: Code(s): Z79.01 - computer terminal operator (current) use of anticoagulants Status: Acute Assessment and Plan: Currently taking warfarin for a. fib; this had been held given mildly supratherapeutic INR; INR 3.2 today; stable. No evidence of bleeding * Continue Warfarin per Cardiology rec * Cardiology following patient as well * Monitor INR (6) Persistent atrial fibrillation: Code(s): I48.19 - Other persistent atrial fibrillation Status: Acute Assessment and Plan: On warfarin and rate controlled with diltiazem and metoprolol; has a pacemaker. Cardiology following * Continue home metoprolol and diltiazem * Continue Warfarin * Monitor (7) Insulin dependent type 2 diabetes mellitus: Code(s): E11.9 - Type 2 diabetes mellitus without complications; Z79.4 - computer terminal operator (current) use of insulin Status: Acute Assessment and Plan: A1c 6.6. BGL in mid 100s today * Continue home insulin regimen * Accuchecks ACHS, hypoglycemia protocol, correctional in
--- NOTE | 2020-07-04 09:02 | PM.IMPN ---
Progress Note: A&P Assessment and Plan (1) Respiratory acidosis: Code(s): E87.2 - Acidosis Status: Acute Assessment and Plan: Likely mixed picture with aggressive diuresing for CHF/contraction alkalosis and likely retention (chronic issue?) of CO2. Patient states she feels better today. Will trial off of BiPAP for today; BiPAP overnight and with naps ABG today to reassess Monitor closely (2) Acute exacerbation of congestive heart failure: Code(s): I50.9 - Heart failure, unspecified Status: Acute Assessment and Plan: Diastolic CHF; right sided. Cardiology following and appreciate recommendations. Appears to be clinically improving, although still crackles on exam. Appears to have ~4.7 L negative fluid balance since admission. Echo results as above. Continue diuresing per Cardiology; switched from IV to PO on 06/29. Spironolactone resumed 07/02 per Cardiology Monitor volume status and renal function closely Await further recommendation from Cardiology (3) Acute and chronic respiratory failure with hypoxia: Code(s): J96.21 - Acute and chronic respiratory failure with hypoxia Status: Acute Assessment and Plan: Likely secondary to acute CHF exacerbation vs underlying lung issues such as YUDELKA, COPD, or even OHS. Patient states she was just placed on Home oxygen on 06/25 due to her increasing shortness of breath. She was Wean O2 as tolerated Goal is to wean to RA if possible after improvement on Bipap Home O2 evaluation rec 1L at rest with 2L with activity on 06/30; likely will need to repeat closer to discharge See a/p for #1. (4) Chronic kidney disease, stage 4 (severe): Code(s): N18.4 - Chronic kidney disease, stage 4 (severe) Status: Acute Assessment and Plan: Cr 2.20 today; stable. Appears to be at baseline, although creeping up. Dr. Mclaughlin following and appreciate recommendations; follows with Dr. Nguyen as OP. 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 fib; this had been held given mildly supratherapeutic INR; INR 3.2 today; stable. No evidence of bleeding Continue Warfarin per Cardiology rec Cardiology following patient as well Monitor INR (6) Persistent atrial fibrillation: Code(s): I48.19 - Other persistent atrial fibrillation Status: Acute Assessment and Plan: On warfarin and rate controlled with diltiazem and metoprolol; has a pacemaker. Cardiology following Continue home metoprolol and diltiazem Continue Warfarin Monitor (7) Insulin dependent type 2 diabetes mellitus: Code(s): E11.9 - Type 2 diabetes mellitus without complications; Z79.4 - terminal manager (current) use of insulin Status: Acute Assessment and Plan: A1c 6.6. BGL in mid 100s today Continue home insulin regimen Accuchecks ACHS, hypoglycemia protocol, correctional insulin, diabetic diet Monitor closely; adjust insulin as appropriate (8) Postsurgical hypothyroidism: Code(s): E89.0 - Postprocedural hypothyroidism Status: Acute Assessment and Plan: TSH wnl Continue home levothyroxine (9) Obstructive sleep apnea on CPAP: Code(
[2020-07-04] MEDS: CALCIUM CARBONATE (OSCAL) 500 MG TABLET PO (10:37)
[2020-07-04] MEDS: SPIRONOLACTONE 50 MG TABLET PO (10:37)
[2020-07-04] MEDS: CHOLECALCIFEROL 1,000 UNITS TABLET 1000 UNITS PO (10:37)
[2020-07-04] MEDS: PRAVASTATIN SODIUM 10 MG TABLET PO (10:38)
[2020-07-04] MEDS: calcitrioL 0.25 MCG CAPSULE PO (10:38)
[2020-07-04] MEDS: EUCERIN CREAM 120 GM JAR 1 APPLIC TOPICAL (10:38)
[2020-07-04] MEDS: MAGNESIUM OXIDE 400 MG TABLET PO (10:39)
[2020-07-04] MEDS: dilTIAZem HCL CD 180 MG CAP.ER.24H PO (10:39)
[2020-07-04] MEDS: METOPROLOL TARTRATE 25 MG TABLET PO ×2 (10:39→21:07)
[2020-07-04] MEDS: CYANOCOBALAMIN 1,000 MCG TABLET 1000 MCG PO (10:40)
[2020-07-04] MEDS: acetaZOLAMIDE TAB 250 MG TABLET 500 MG PO ×2 (10:40→17:59)
[2020-07-04] MEDS: TIMOLOL MALEATE 0.5% OP SOLN 5 ML BOTTLE 1 DROP EACH EYE (10:41)
[2020-07-04] MEDS: INSULIN DETEMIR 100 UNITS/ML 25 UNITS SUB-Q (10:42)
[2020-07-04 10:53] LABS: Alveolar/Arterial O2 Gradient 9.7 mmHg; Base Excess ABG 15.3 mEq/l (+/-2.0); Carboxyhemoglobin 0.5 % THb (0-2.0); Fractional Inspired Oxygen 28 %; HCO3 ABG 44.4 mEq/l (22.0-26.0); Methemoglobin ABG 0.5 %THb (0-1.5); Oxygen Content ABG 19.9 %vol (16.0-22.0); Oxygen Saturation ABG 97.3 % (95.0-100.0); Oxyhemoglobin 95.9 % THb (90.0-100.0); PO2 ABG 101.2 mmHg (80.0-100.0); PO2 FiO2 Ratio Arterial Blood 3.61 %; Reduced Hemoglobin 3.1 %THb (0-5.0); Total Hemoglobin 14.7 g/dL (12.0-18.0); pH ABG 7.389 (7.350-7.450)
[2020-07-04 10:56] LABS: PCO2 ABG 75.2 mmHg (35.0-45.0)
[2020-07-04 10:57] LABS: Device NASAL CANNULA; Modified Allen's Test Pass; Site Drawn LEFT RADIAL
[2020-07-04 12:13] LABS: Glucose Point of Care 338 (65-105)
[2020-07-04] MEDS: INSULIN ASPART (*BKC) 100 UNITS/ML SUB-Q ×2 (12:26→17:58)
--- NOTE | 2020-07-04 13:08 | P.PNNP_ITS ---
Progress Note: A&P Assessment and Plan (1) Chronic kidney disease, stage 4 (severe): Code(s): N18.4 - Chronic kidney disease, stage 4 (severe) Status: Acute Assessment and Plan: * baseline creatinine ~ 1.7 - 2.1mg/dl in last couple of years * due to DM, HTN, diastolic heart failure + diuretics, YUDELKA, and age * Creatinine creeping up, as expected. currently the level is 2.2 * (2) Acute on chronic diastolic heart failure: Code(s): I50.33 - Acute on chronic diastolic (congestive) heart failure Status: Acute Assessment and Plan: * suspect possible dietary indiscretion as trigger * Diuresis continues * made 2L overnight in spite of only being on a seat his own might in spironolactone. * Her potassium is fine. (3) Metabolic alkalosis: Code(s): E87.3 - Alkalosis Status: Acute Assessment and Plan: * due to contraction from diuresis * Continue the acetazolamide bid. * Her pCO2 is Still above 40. * Continue same regimen. * (4) Hyperkalemia: Code(s): E87.5 - Hyperkalemia Status: Acute Assessment and Plan: * Resolved (5) Chronic anemia: Code(s): D64.9 - Anemia, unspecified Status: Acute Assessment and Plan: * partly due to CKD * no need for NURY * hemoglobin back up above 10 (6) Benign hypertension: Code(s): I10 - Essential (primary) hypertension Status: Acute Assessment and Plan: * well controlled * follow hemodynamics (7) Type 2 diabetes mellitus: Code(s): E11.9 - Type 2 diabetes mellitus without complications Status: Acute Assessment and Plan: * follow accuchecks * on SSI and Levemir Subjective Date/time seen: 07/04/20 13:08 Interval history: the patient feels better today. Up in a chair off BiPAP and conversive. is in the room. Review of Systems Cardiovascular: Cardiovascular: Reports no additional cardiovascular complaints Respiratory: Respiratory: Reports no additional respiratory complaints Gastrointestinal: Gastrointestinal: Reports no additional gastrointestinal complaints Genitourinary: Genitourinary: Reports no additional female genitourinary complaints Exam Narrative: Exam Narrative: General: Elderly female in NAD Sitting in a chair. Heart: IRRR, normal S1 and S2; no rub or gallop Lungs: clear anteriorly; decreased at bases Abdomen: soft, nontender, nondistended, positive bowel sounds Extremities: 1-2+ edema. Skin: No rash Or subcu nodules Objective Data Vital Signs Vital Signs: Vital Signs - 24 hr 07/03/20 14:00 07/03/20 16:00 07/03/20 18:00 Temperature 36.4 C L Pulse Rate 70 71 74 Respiratory Rate 21 H Blood Pressure 135/43 L Pulse Oximetry 100 07/03/20 20:00 07/03/20 20:52 07/03/20 21:15 Temperature 36.4 C L Pulse Rate 70 70 77 Respiratory Rate 20 21 H Blood Pressure 137/39 L Pulse Oximetry 100 100 07/03/20 22:00 07/03/20 23:50 07/04/20 00:00 Temperature 36.3 C L Pulse Rate 70 70 70 Respiratory Rate 23 H 23 H Blood Pressure 115/43 L Pulse Oximetry 98 98 07/04/20 02:00 07/04/20
--- NOTE | 2020-07-04 13:08 | PM.PNNEP ---
Progress Note: A&P Assessment and Plan (1) Chronic kidney disease, stage 4 (severe): Code(s): N18.4 - Chronic kidney disease, stage 4 (severe) Status: Acute Assessment and Plan: baseline creatinine ~ 1.7 - 2.1mg/dl in last couple of years due to DM, HTN, diastolic heart failure + diuretics, YUDELKA, and age Creatinine creeping up, as expected. currently the level is 2.2 (2) Acute on chronic diastolic heart failure: Code(s): I50.33 - Acute on chronic diastolic (congestive) heart failure Status: Acute Assessment and Plan: suspect possible dietary indiscretion as trigger Diuresis continues made 2L overnight in spite of only being on a seat his own might in spironolactone. Her potassium is fine. (3) Metabolic alkalosis: Code(s): E87.3 - Alkalosis Status: Acute Assessment and Plan: due to contraction from diuresis Continue the acetazolamide bid. Her pCO2 is Still above 40. Continue same regimen. (4) Hyperkalemia: Code(s): E87.5 - Hyperkalemia Status: Acute Assessment and Plan: Resolved (5) Chronic anemia: Code(s): D64.9 - Anemia, unspecified Status: Acute Assessment and Plan: partly due to CKD no need for NURY hemoglobin back up above 10 (6) Benign hypertension: Code(s): I10 - Essential (primary) hypertension Status: Acute Assessment and Plan: well controlled follow hemodynamics (7) Type 2 diabetes mellitus: Code(s): E11.9 - Type 2 diabetes mellitus without complications Status: Acute Assessment and Plan: follow accuchecks on SSI and Levemir Subjective Date/time seen: 07/04/20 13:08 Interval history: the patient feels better today. Up in a chair off BiPAP and conversive. is in the room. Review of Systems Cardiovascular: Cardiovascular: Reports no additional cardiovascular complaints Respiratory: Respiratory: Reports no additional respiratory complaints Gastrointestinal: Gastrointestinal: Reports no additional gastrointestinal complaints Genitourinary: Genitourinary: Reports no additional female genitourinary complaints Exam Narrative: Exam Narrative: General: Elderly female in NAD Sitting in a chair. Heart: IRRR, normal S1 and S2; no rub or gallop Lungs: clear anteriorly; decreased at bases Abdomen: soft, nontender, nondistended, positive bowel sounds Extremities: 1-2+ edema. Skin: No rash Or subcu nodules Objective Data Vital Signs Vital Signs: Vital Signs - 24 hr 07/03/20 14:00 07/03/20 16:00 07/03/20 18:00 Temperature 36.4 C L Pulse Rate 70 71 74 Respiratory Rate 21 H Blood Pressure 135/43 L Pulse Oximetry 100 07/03/20 20:00 07/03/20 20:52 07/03/20 21:15 Temperature 36.4 C L Pulse Rate 70 70 77 Respiratory Rate 20 21 H Blood Pressure 137/39 L Pulse Oximetry 100 100 07/03/20 22:00 07/03/20 23:50 07/04/20 00:00 Temperature 36.3 C L Pulse Rate 70 70 70 Respiratory Rate 23 H 23 H Blood Pressure 115/43 L Pulse Oximetry 98 98 07/04/20 02:00 07/04/20 02:01 07/04/20 03:19 Temperature 36.6 C Pulse Rate 70 73 70 Respiratory Rate 20 24 H Blood Pressure 136/53 L Pulse Oximetry 99 99 07/04/20 04:00 07/04/20 06:00 07/04/20 08:20 Temperature 36.1 C L Pulse Rate 75 80 83 Respiratory Rate 22 H Blood Pressure 108/42 L Pulse Oximetry 100 07/04/20 09:00 07/04/20 10:39 07/04/20 12:06 Temperature 35.7 C L Pulse Rate 91 87 Respiratory Rate 16 Blood Pressure 103/45 L Pulse Oximetry 100 100 Intake/Output Intake/Output: Intake & Output 07/01/20 07/02/20 07/03/20 07/04/20 23:59 23:59 23:59 23:59 Intake Total 2538 218 6591 640 Output Total 975 1200 1700 700 Balance 295 -610 -180 -60 Meds/Results Medications: Active Medications Generic Name Dose Route Start Last Admin Trade Name Freq
--- NOTE | 2020-07-04 14:48 | PM.PNCARD ---
Progress Note: A&P Assessment and Plan (1) Acute exacerbation of congestive heart failure: Code(s): I50.9 - Heart failure, unspecified Status: Acute Assessment and Plan: HFpEF . Mostly right-sided. furosemide 80 mg p.o. b.i.d. Held since yesterday afternoon. Resume per Nephrology, but will hold for now. Diamox. Spironolactone restarted 07/02/2020. Monitor renal function and electrolytes closely (2) intermodal customer service (current) use of anticoagulants: Code(s): Z79.01 - nursing home (current) use of anticoagulants Status: Acute Assessment and Plan: She is on warfarin for her atrial fibrillation. INR 3.2. (3) Acute and chronic respiratory failure with hypoxia: Code(s): J96.21 - Acute and chronic respiratory failure with hypoxia Status: Acute Assessment and Plan: BiPAP (4) Chronic kidney disease, stage 4 (severe): Code(s): N18.4 - Chronic kidney disease, stage 4 (severe) Status: Acute Assessment and Plan: Dr. Mclaughlin following. Follows with Dr. Nguyen in the office. appreciate his recommendations. Additional Plan Subjective Date/time seen: Date of service: 07/04/20 14:48 Interval history: Follow-up for: decompensated congestive heart failure primarily right-sided failure with volume overload some pulmonary congestion on exam. Subjective: Okay today. Less short of breath but wearing BiPAP while sleeping. Denies chest pain or new issues overnight. Tolerating BiPAP well. at bedside. Lasix was held yesterday afternoon. Review of Systems Constitutional: Constitutional: Reports difficulty sleeping, Reports fatigue, Denies fever(s), Reports lethargy and Reports weakness Eyes: Eyes: Reports no additional eye complaints and Denies blurry vision ENT: Reports Normal hearing present, Denies lip swelling, Denies epistaxis, Denies nasal congestion and Denies throat swelling Cardiovascular: Cardiovascular: Denies chest pain, Reports pedal edema (improved), Reports leg edema, Denies lightheadedness, Denies palpitations, Reports dyspnea ( improved) and Reports dyspnea on exertion Respiratory: Respiratory: Denies chest congestion, Reports dyspnea ( improved) and Reports dyspnea on exertion Gastrointestinal: Gastrointestinal: Denies abdominal pain, Reports bloating ( improved), Denies hematochezia, Denies nausea and Denies vomiting Genitourinary: Genitourinary: Denies hematuria Musculoskeletal: Musculoskeletal: Reports no additional musculoskeletal complaints and Denies back pain Integumentary/Breasts: Skin/Breast: Reports system reviewed and no additional complaints, except as docu, Denies erythema and Denies rash Neurologic: Reports system reviewed and no additional complaints, except as documented, Reports Normal hearing present, Denies behavioral changes, Denies confusion and Reports weakness Psychiatric: Psychiatric: Reports no additional psychiatric complaints, Reports anxiety, Denies behavioral changes and Denies confusion Endocrine: Endocrine: Reports fatigue and Denies palpitations Hematologic/Lymphatic: Hematologic/Lymphatic: Denies easy bleeding and Denies easy bruising Allergic/Immunologic: Allergic/Immunologic: Denies lip swelling and Denies throat swelling Exam Const: General: comfortable, no acute distress and uncomfortable; No confusion Orientation/consciousness: No confusion Other: Morbidly obese white female in bed at bedside. BiPAP in place. HENMT: Head: normocephalic and atraumatic Ears: hearing grossly normal bilaterally General nose exam: Normal external nose present Mouth: Yes moist mucous membranes and Yes dry mucous membranes Eyes: Sclera: sclerae normal Pupils: Equal, round and reactive pupils present EOM: EOMs intact bilaterally
[2020-07-04 16:47] LABS: Glucose Point of Care 228 (65-105)
[2020-07-04] MEDS: LATANOPROST 0.005% OP SOLN 2.5 ML BTL 1 DROP EACH EYE (21:06)
[2020-07-04 21:14] LABS: Glucose Point of Care 207 (65-105)
[2020-07-04] MEDS: WARFARIN (*PBKC) 5 MG TABLET PO (21:21)
[2020-07-05] VITALS (16 sets, daily range): BP systolic 105–147; BP diastolic 44–65; PULSE 69–85; RESP 16–26; TEMP 36–36.6; O2SAT 92–99
[2020-07-05 06:22] LABS: Basophils Absolute Auto 0.1 K/mm3 (0.0-0.1); Basophils Percent Auto 0.4 % (0.2-1.2); Eosinophils Absolute Auto 0.1 K/mm3 (0-0.3); Eosinophils Percent Auto 0.5 % (0-4.4); Hematocrit 31.6 % (37.0-47.0); Hemoglobin 9.9 g/dL (12.0-15.0); Immature Granulocyte Absolute 0.14 K/mm3 (0.00-0.031); Lymphocytes Absolute Auto 0.71 K/mm3 (0.9-3.2); Lymphocytes Percent Auto 5.1 % (18.3-44.2); Mean Corpuscular HGB Conc 31.3 g/dl (32-36); Mean Corpuscular Hemoglobin 35.1 pg (26-34); Mean Corpuscular Volume 112.1 fl (80-100); Mean Platelet Volume 11.5 fl (7.4-10.4); Monocytes Absolute Auto 1.6 K/mm3 (0.1-0.6); Monocytes Percent Auto 11.3 % (2.6-8.5); Neutrophils Absolute Auto 11.5 K/mm3 (1.3-6.7); Neutrophils Percent Auto 81.7 % (45.5-73.1); Nucleated Red Blood Cells Absolute Auto 0.1 K/mm3 (0.0-0.012); Nucleated Red Blood Cells Perc 0.4 % (0.0-0.2); Platelet Count Result 263 k/mm3 (150-375); Red Blood Count 2.82 M/mm3 (4.2-5.4); Red Cell Distribution Width 13.3 % (11.5-14.5); White Blood Count 14.1 K/mm3 (4.5-10.0)
[2020-07-05 06:30] LABS: INR 2.9; Prothrombin Time 29.7 Seconds (11.1-14.7)
[2020-07-05] MEDS: LEVOTHYROXINE SODIUM 100 MCG TABLET 200 MCG PO (06:34)
[2020-07-05] MEDS: INSULIN HUMAN REGULAR (*BKC) 100 UNITS/ML 25 UNITS SUB-Q ×3 (06:34→16:49)
[2020-07-05 06:35] LABS: Glucose Point of Care 145 (65-105)
[2020-07-05 06:41] LABS: Albumin Level 3.7 g/dL (3.5-5.1); Anion Gap 10.99999 mmol/L (8-16); Blood Urea Nitrogen 84 mg/dL (7-17); Calcium 10.2 mg/dL (8.4-10.2); Carbon Dioxide > 40 mmol/L (22-30); Chloride 88 mmol/L (98-107); Estimated CRCL calculation 21 ml/min; Estimated Glomerular Filt Rate 20; Glucose 133 mg/dL (65-105); Magnesium 2.3 mg/dL (1.6-2.3); Phosphorus 3.8 mg/dL (2.5-4.5); Potassium 3.5 mmol/L (3.4-5.0); Sodium 139 mmol/L (137-145)
[2020-07-05 08:37] LABS: CRP 3.6 mg/dL (<1.0)
[2020-07-05 08:48] LABS: Glucose Point of Care 119 (65-105)
[2020-07-05] MEDS: ACETAMINOPHEN 325 MG TABLET 650 MG PO (09:57)
[2020-07-05] MEDS: acetaZOLAMIDE TAB 250 MG TABLET 500 MG PO ×2 (09:58→16:49)
[2020-07-05] MEDS: INSULIN DETEMIR 100 UNITS/ML 25 UNITS SUB-Q (09:58)
[2020-07-05] MEDS: CHOLECALCIFEROL 1,000 UNITS TABLET 1000 UNITS PO (09:59)
[2020-07-05] MEDS: dilTIAZem HCL CD 180 MG CAP.ER.24H PO (09:59)
[2020-07-05] MEDS: calcitrioL 0.25 MCG CAPSULE PO (09:59)
[2020-07-05] MEDS: CALCIUM CARBONATE (OSCAL) 500 MG TABLET PO (09:59)
[2020-07-05] MEDS: PRAVASTATIN SODIUM 10 MG TABLET PO (09:59)
[2020-07-05] MEDS: TIMOLOL MALEATE 0.5% OP SOLN 5 ML BOTTLE 1 DROP EACH EYE (09:59)
[2020-07-05] MEDS: CYANOCOBALAMIN 1,000 MCG TABLET 1000 MCG PO (10:00)
[2020-07-05] MEDS: EUCERIN CREAM 120 GM JAR 1 APPLIC TOPICAL (10:00)
[2020-07-05] MEDS: MAGNESIUM OXIDE 400 MG TABLET PO (10:00)
[2020-07-05] MEDS: METOPROLOL TARTRATE 25 MG TABLET PO ×2 (10:00→20:26)
[2020-07-05] MEDS: SPIRONOLACTONE 50 MG TABLET PO (10:00)
--- NOTE | 2020-07-05 10:21 | P.PNNP_ITS ---
Progress Note: A&P Assessment and Plan (1) Chronic kidney disease, stage 4 (severe): Code(s): N18.4 - Chronic kidney disease, stage 4 (severe) Status: Acute Assessment and Plan: * baseline creatinine ~ 1.7 - 2.1mg/dl in last couple of years * due to DM, HTN, diastolic heart failure + diuretics, YUDELKA, and age * Creatinine Continues to creep up. She is up to 2.4 now. * I suspect she will end up needing to be higher to get all of her fluid off. (2) Acute on chronic diastolic heart failure: Code(s): I50.33 - Acute on chronic diastolic (congestive) heart failure Status: Acute Assessment and Plan: * suspect possible dietary indiscretion as trigger * On spironolactone and acetazolamide mostly for electrolyte issues. * Loop diuretics are on hold because of her high CO2. * Urine output not so good last night. * If this cycle of high CO2 respiratory failure and holding diuretics again keeps happening then perhaps dialysis might be in the near future. (3) Metabolic alkalosis: Code(s): E87.3 - Alkalosis Status: Acute Assessment and Plan: * due to contraction from diuresis * Continue the acetazolamide bid. * Her pCO2 is Still above 40. * Continue same regimen. (4) Hyperkalemia: Code(s): E87.5 - Hyperkalemia Status: Acute Assessment and Plan: * Resolved (5) Chronic anemia: Code(s): D64.9 - Anemia, unspecified Status: Acute Assessment and Plan: * partly due to CKD * no need for NURY * hemoglobin back up arouond 10 (6) Benign hypertension: Code(s): I10 - Essential (primary) hypertension Status: Acute Assessment and Plan: * well controlled * follow hemodynamics (7) Type 2 diabetes mellitus: Code(s): E11.9 - Type 2 diabetes mellitus without complications Status: Acute Assessment and Plan: * follow accuchecks * on SSI and Levemir Subjective Date/time seen: 07/05/20 10:21 Interval history: the patient feels better today. sitting up in a chair. Was on BiPAP last night. Review of Systems Cardiovascular: Cardiovascular: Reports no additional cardiovascular complaints Respiratory: Respiratory: Reports no additional respiratory complaints Gastrointestinal: Gastrointestinal: Reports no additional gastrointestinal complaints Genitourinary: Genitourinary: Reports no additional female genitourinary complaints Exam Narrative: Exam Narrative: General: Elderly female in NAD Sitting in a chair. Heart: IRRR, normal S1 and S2; no rub or gallop Lungs: clear anteriorly; decreased at bases Abdomen: soft, nontender, nondistended, positive bowel sounds Extremities: 1-2+ edema. Skin: No rash Or subcu nodules Objective Data Vital Signs Vital Signs: Vital Signs - 24 hr 07/04/20 10:39 07/04/20 12:00 07/04/20 12:06 Temperature 35.7 C L Pulse Rate 91 85 87 Respiratory Rate 16 Blood Pressure 103/45 L Pulse Oximetry 100 07/04/20 14:00 07/04/20 15:44 07/04/20 16:00 Temperature Pulse Rate 71 71 70 Respiratory Rate 20 Blood Pressure Pulse Oximetry 100 07/04/20 16:38 07/04/20 18:00 07/04/20 19:57 Temperature
--- NOTE | 2020-07-05 10:21 | PM.PNNEP ---
Progress Note: A&P Assessment and Plan (1) Chronic kidney disease, stage 4 (severe): Code(s): N18.4 - Chronic kidney disease, stage 4 (severe) Status: Acute Assessment and Plan: baseline creatinine ~ 1.7 - 2.1mg/dl in last couple of years due to DM, HTN, diastolic heart failure + diuretics, YUDELKA, and age Creatinine Continues to creep up. She is up to 2.4 now. I suspect she will end up needing to be higher to get all of her fluid off. (2) Acute on chronic diastolic heart failure: Code(s): I50.33 - Acute on chronic diastolic (congestive) heart failure Status: Acute Assessment and Plan: suspect possible dietary indiscretion as trigger On spironolactone and acetazolamide mostly for electrolyte issues. Loop diuretics are on hold because of her high CO2. Urine output not so good last night. If this cycle of high CO2 respiratory failure and holding diuretics again keeps happening then perhaps dialysis might be in the near future. (3) Metabolic alkalosis: Code(s): E87.3 - Alkalosis Status: Acute Assessment and Plan: due to contraction from diuresis Continue the acetazolamide bid. Her pCO2 is Still above 40. Continue same regimen. (4) Hyperkalemia: Code(s): E87.5 - Hyperkalemia Status: Acute Assessment and Plan: Resolved (5) Chronic anemia: Code(s): D64.9 - Anemia, unspecified Status: Acute Assessment and Plan: partly due to CKD no need for NURY hemoglobin back up arouond 10 (6) Benign hypertension: Code(s): I10 - Essential (primary) hypertension Status: Acute Assessment and Plan: well controlled follow hemodynamics (7) Type 2 diabetes mellitus: Code(s): E11.9 - Type 2 diabetes mellitus without complications Status: Acute Assessment and Plan: follow accuchecks on SSI and Levemir Subjective Date/time seen: 07/05/20 10:21 Interval history: the patient feels better today. sitting up in a chair. Was on BiPAP last night. Review of Systems Cardiovascular: Cardiovascular: Reports no additional cardiovascular complaints Respiratory: Respiratory: Reports no additional respiratory complaints Gastrointestinal: Gastrointestinal: Reports no additional gastrointestinal complaints Genitourinary: Genitourinary: Reports no additional female genitourinary complaints Exam Narrative: Exam Narrative: General: Elderly female in NAD Sitting in a chair. Heart: IRRR, normal S1 and S2; no rub or gallop Lungs: clear anteriorly; decreased at bases Abdomen: soft, nontender, nondistended, positive bowel sounds Extremities: 1-2+ edema. Skin: No rash Or subcu nodules Objective Data Vital Signs Vital Signs: Vital Signs - 24 hr 07/04/20 10:39 07/04/20 12:00 07/04/20 12:06 Temperature 35.7 C L Pulse Rate 91 85 87 Respiratory Rate 16 Blood Pressure 103/45 L Pulse Oximetry 100 07/04/20 14:00 07/04/20 15:44 07/04/20 16:00 Temperature Pulse Rate 71 71 70 Respiratory Rate 20 Blood Pressure Pulse Oximetry 100 07/04/20 16:38 07/04/20 18:00 07/04/20 19:57 Temperature 35.9 C L 36.4 C Pulse Rate 71 81 75 Respiratory Rate 24 H 24 H Blood Pressure 119/83 134/94 H Pulse Oximetry 97 97 07/04/20 20:00 07/04/20 21:07 07/04/20 21:21 Temperature Pulse Rate 72 71 67 Respiratory Rate 24 H 25 H Blood Pressure Pulse Oximetry 97 99 07/04/20 22:00 07/04/20 23:22 07/04/20 23:58 Temperature 36.4 C L Pulse Rate 75 77 77 Respiratory Rate 24 H 26 H Blood Pressure 102/78 Pulse Oximetry 96 98 07/05/20 00:00 07/05/20 02:00 07/05/20 03:06 Temperature Pulse Rate 74 72 70 Respiratory Rate 26 H 20 Blood Pressure Pulse Oximetry 98 98 07/05/20 03:51 07/05/20 03:53 07/05/20 04:00 Temperature 36.1 C L Pulse Rate 74 74 72 Respiratory Rate 24 H 24
--- NOTE | 2020-07-05 10:40 | P.PNIM_ITS ---
Progress Note: A&P Assessment and Plan (1) Respiratory acidosis: Code(s): E87.2 - Acidosis Status: Acute Assessment and Plan: Likely mixed picture with diuresing for CHF/contraction alkalosis and likely retention (chronic issue?) of CO2. Patient states she feels better today. * Will continue BiPAP overnight and with naps * Transfer to medical floor * Consider ABG tomorrow * Monitor closely (2) Acute exacerbation of congestive heart failure: Code(s): I50.9 - Heart failure, unspecified Status: Acute Assessment and Plan: Diastolic CHF; right sided. Cardiology following and appreciate recommendations. Appears to be clinically improving, although still crackles on exam. Appears to have ~3.5 L negative fluid balance since admission. Echo results as above. * Continue diuresing per Cardiology; switched from IV to PO on 06/29 although this has been held for now given chemistry abnormalities. Spironolactone resumed 07/02 per Cardiology * Monitor volume status and renal function closely * Await further recommendation from Cardiology (3) Acute and chronic respiratory failure with hypoxia: Code(s): J96.21 - Acute and chronic respiratory failure with hypoxia Status: Acute Assessment and Plan: Likely secondary to acute CHF exacerbation vs underlying lung issues such as YUDELKA, COPD, or even OHS. Patient states she was just placed on Home oxygen on 06/25 due to her increasing shortness of breath. She was * Wean O2 as tolerated * Home O2 evaluation rec 1L at rest with 2L with activity on 06/30; likely will need to repeat closer to discharge * See a/p for #1. (4) Chronic kidney disease, stage 4 (severe): Code(s): N18.4 - Chronic kidney disease, stage 4 (severe) Status: Acute Assessment and Plan: Cr 2.40 today; although creeping up. Dr. Mclaughlin following and appreciate recommendations; follows with Dr. Nguyen as OP. 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 fib; this had been held given mildly supratherapeutic INR; INR 2.9 today; stable. No evidence of bleeding * Continue Warfarin per Cardiology rec * Cardiology following patient as well * Monitor INR (6) Persistent atrial fibrillation: Code(s): I48.19 - Other persistent atrial fibrillation Status: Acute Assessment and Plan: On warfarin and rate controlled with diltiazem and metoprolol; has a pacemaker. Cardiology following * Continue home metoprolol and diltiazem * Continue Warfarin * Monitor (7) Insulin dependent type 2 diabetes mellitus: Code(s): E11.9 - Type 2 diabetes mellitus without complications; Z79.4 - intermediate accountant (cu rrent) use of insulin Status: Acute Assessment and Plan: A1c 6.6. BGL in low-mid 100s today * Continue home insulin regimen * Accuchecks ACHS, hypoglycemia protocol, correctional insulin, diabetic diet * Mon
--- NOTE | 2020-07-05 10:40 | PM.IMPN ---
Progress Note: A&P Assessment and Plan (1) Respiratory acidosis: Code(s): E87.2 - Acidosis Status: Acute Assessment and Plan: Likely mixed picture with diuresing for CHF/contraction alkalosis and likely retention (chronic issue?) of CO2. Patient states she feels better today. Will continue BiPAP overnight and with naps Transfer to medical floor Consider ABG tomorrow Monitor closely (2) Acute exacerbation of congestive heart failure: Code(s): I50.9 - Heart failure, unspecified Status: Acute Assessment and Plan: Diastolic CHF; right sided. Cardiology following and appreciate recommendations. Appears to be clinically improving, although still crackles on exam. Appears to have ~3.5 L negative fluid balance since admission. Echo results as above. Continue diuresing per Cardiology; switched from IV to PO on 06/29 although this has been held for now given chemistry abnormalities. Spironolactone resumed 07/02 per Cardiology Monitor volume status and renal function closely Await further recommendation from Cardiology (3) Acute and chronic respiratory failure with hypoxia: Code(s): J96.21 - Acute and chronic respiratory failure with hypoxia Status: Acute Assessment and Plan: Likely secondary to acute CHF exacerbation vs underlying lung issues such as YUDELKA, COPD, or even OHS. Patient states she was just placed on Home oxygen on 06/25 due to her increasing shortness of breath. She was Wean O2 as tolerated Home O2 evaluation rec 1L at rest with 2L with activity on 06/30; likely will need to repeat closer to discharge See a/p for #1. (4) Chronic kidney disease, stage 4 (severe): Code(s): N18.4 - Chronic kidney disease, stage 4 (severe) Status: Acute Assessment and Plan: Cr 2.40 today; although creeping up. Dr. Mclaughlin following and appreciate recommendations; follows with Dr. Nguyen as OP. Metabolic alkalosis noted, likely contraction alkalosis 2/2 diuresis, although patient also shows acidosis on previous ABGs; respiratory acidosis likely due to underlying lung conditions monitor closely with diuresis Agree with acetazolamide; likely will continue this until OP follow up with Nephrology Await further recommendations from Nephrology (5) Current use of manager long term care anticoagulation: Code(s): Z79.01 - buttermaker (current) use of anticoagulants Status: Acute Assessment and Plan: Currently taking warfarin for a. fib; this had been held given mildly supratherapeutic INR; INR 2.9 today; stable. No evidence of bleeding Continue Warfarin per Cardiology rec Cardiology following patient as well Monitor INR (6) Persistent atrial fibrillation: Code(s): I48.19 - Other persistent atrial fibrillation Status: Acute Assessment and Plan: On warfarin and rate controlled with diltiazem and metoprolol; has a pacemaker. Cardiology following Continue home metoprolol and diltiazem Continue Warfarin Monitor (7) Insulin dependent type 2 diabetes mellitus: Code(s): E11.9 - Type 2 diabetes mellitus without complications; Z79.4 - buttermaker (current) use of insulin Status: Acute Assessment and Plan: A1c 6.6. BGL in low-mid 100s today Continue home insulin regimen Accuchecks ACHS, hypoglycemia protocol, correctional insulin, diabetic diet Monitor closely; adjust insulin as appropriate (8) Postsurgical hypothyroidism: Code(s): E89.0 - Postprocedural hypothyroidism Status: Acute Assessment and Plan: TSH wnl Continue home levothyroxine (9) Obstructive sleep apnea on CPAP: Code(s): G47.33 - Obstructive sleep
--- NOTE | 2020-07-05 12:29 | PM.PNCARD ---
Progress Note: A&P Assessment and Plan (1) Acute exacerbation of congestive heart failure: Code(s): I50.9 - Heart failure, unspecified Status: Acute Assessment and Plan: HFpEF . Mostly right-sided. furosemide on hld due to contraction alkalosis and worsening renal failure. Resume per Nephrology, but will hold for now. Diamox. Spironolactone restarted 07/02/2020. 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 INR 2.9. (3) Acute and chronic respiratory failure with hypoxia: Code(s): J96.21 - Acute and chronic respiratory failure with hypoxia Status: Acute Assessment and Plan: BiPAP (4) Chronic kidney disease, stage 4 (severe): Code(s): N18.4 - Chronic kidney disease, stage 4 (severe) Status: Acute Assessment and Plan: Dr. Mclaughlin following. Appreciate recommendations/involvement. IF renal function continues to deteriorate with decompensated heart failure hemodialysis may be required. (5) Persistent atrial fibrillation: Code(s): I48.19 - Other persistent atrial fibrillation Status: Acute Assessment and Plan: Intermittently V paced. As above. (6) History of permanent cardiac pacemaker placement: Code(s): Z95.0 - Presence of cardiac pacemaker Status: Acute Assessment and Plan: Intermittently V paced. Additional Plan Subjective Date/time seen: date of service: 07/05/20 12:29 Interval history: Follow-up for: decompensated congestive heart failure primarily right-sided failure with volume overload some pulmonary congestion on exam. Subjective: Feels better today. Tolerating BiPAP well. No chest pain. Sitting up in chair today, less shortness of breath overall. No new issues overnight. Tolerating BiPAP well. at bedside. They feel her edema continues to improve. Review of Systems Constitutional: Constitutional: Denies difficulty sleeping, Reports fatigue, Denies fever(s), Denies lethargy and Denies weakness Eyes: Eyes: Reports no additional eye complaints and Denies blurry vision ENT: Reports Normal hearing present, Denies lip swelling, Denies epistaxis, Denies nasal congestion and Denies throat swelling Cardiovascular: Cardiovascular: Denies chest pain, Reports pedal edema (improved), Reports leg edema, Denies lightheadedness, Denies palpitations, Denies dyspnea ( improved) and Reports dyspnea on exertion Respiratory: Respiratory: Denies chest congestion, Denies dyspnea ( improved) and Reports dyspnea on exertion Gastrointestinal: Gastrointestinal: Denies abdominal pain, Denies bloating ( improved), Denies hematochezia, Denies nausea and Denies vomiting Genitourinary: Genitourinary: Denies hematuria Musculoskeletal: Musculoskeletal: Reports no additional musculoskeletal complaints and Denies back pain Integumentary/Breasts: Skin/Breast: Reports system reviewed and no additional complaints, except as docu, Denies erythema and Denies rash Neurologic: Reports system reviewed and no additional complaints, except as documented, Reports Normal hearing present, Denies behavioral changes, Denies confusion and Reports weakness Psychiatric: Psychiatric: Reports no additional psychiatric complaints, Denies anxiety, Denies behavioral changes and Denies confusion Endocrine: Endocrine: Reports fatigue and Denies palpitations Hematologic/Lymphatic: Hematologic/Lymphatic: Denies easy bleeding and Denies easy bruising Allergic/Immunologic: Allergic/Immunologic: Denies lip swelling and Denies throat swelling Exam Const: General:
[2020-07-05 12:33] LABS: Glucose Point of Care 159 (65-105)
[2020-07-05] MEDS: INSULIN ASPART (*BKC) 100 UNITS/ML SUB-Q (16:48)
[2020-07-05] MEDS: WARFARIN (*PBKC) 5 MG TABLET PO (16:50)
[2020-07-05 16:55] LABS: Glucose Point of Care 229 (65-105)
--- NOTE | 2020-07-05 18:05 | PC.NURSE ---
This patient, Shelli Albrecht, was received from IMU on 07/05/20 at 1805. Personal belongings list checked and signed. Patient/family oriented to unit policies and routines
--- NOTE | 2020-07-05 18:11 | PC.NURSE ---
This patient, Shelli Albrecht, was transferred to [facility] on 07/05/20 at 1753. Personal belongings sent with patient. Report given to Trish. Appropriate documentation sent with patient.
[2020-07-05] MEDS: LATANOPROST 0.005% OP SOLN 2.5 ML BTL 1 DROP EACH EYE (20:26)
[2020-07-05 21:49] LABS: Glucose Point of Care 148 (65-105)
[2020-07-06] VITALS (9 sets, daily range): BP systolic 112–145; BP diastolic 71–93; PULSE 70–73; RESP 16–24; TEMP 35.7–36.8; O2SAT 94–98
[2020-07-06 06:11] LABS: Basophils Percent Auto 0.3 % (0.2-1.2); Eosinophils Absolute Auto 0.1 K/mm3 (0-0.3); Eosinophils Percent Auto 0.9 % (0-4.4); Hematocrit 31.5 % (37.0-47.0); Immature Granulocyte Absolute 0.11 K/mm3 (0.00-0.031); Immature Granulocyte Percent A 1.1 % (0-0.5); Lymphocytes Absolute Auto 0.74 K/mm3 (0.9-3.2); Lymphocytes Percent Auto 7.1 % (18.3-44.2); Mean Corpuscular HGB Conc 31.7 g/dl (32-36); Mean Corpuscular Hemoglobin 34.6 pg (26-34); Mean Platelet Volume 11.3 fl (7.4-10.4); Monocytes Absolute Auto 1.2 K/mm3 (0.1-0.6); Monocytes Percent Auto 11.1 % (2.6-8.5); Neutrophils Absolute Auto 8.3 K/mm3 (1.3-6.7); Neutrophils Percent Auto 79.5 % (45.5-73.1); Nucleated Red Blood Cells Perc 0.4 % (0.0-0.2); Platelet Count Result 244 k/mm3 (150-375); Red Blood Count 2.89 M/mm3 (4.2-5.4); White Blood Count 10.4 K/mm3 (4.5-10.0)
[2020-07-06 06:18] LABS: INR 3.4; Prothrombin Time 33.9 Seconds (11.1-14.7)
[2020-07-06] MEDS: LEVOTHYROXINE SODIUM 100 MCG TABLET 200 MCG PO (06:27)
[2020-07-06 06:42] LABS: Albumin Level 3.6 g/dL (3.5-5.1); Anion Gap 10.99999 mmol/L (8-16); Blood Urea Nitrogen 78 mg/dL (7-17); Calcium 10.2 mg/dL (8.4-10.2); Carbon Dioxide > 40 mmol/L (22-30); Chloride 89 mmol/L (98-107); Estimated CRCL calculation 24 ml/min; Estimated Glomerular Filt Rate 23; Glucose 106 mg/dL (65-105); Magnesium 2.4 mg/dL (1.6-2.3); Phosphorus 4.4 mg/dL (2.5-4.5); Potassium 3.6 mmol/L (3.4-5.0); Sodium 140 mmol/L (137-145)
[2020-07-06 06:51] LABS: Glucose Point of Care 106 (65-105)
[2020-07-06 07:56] LABS: Glucose Point of Care 136 (65-105)
[2020-07-06] MEDS: PRAVASTATIN SODIUM 10 MG TABLET PO (08:10)
[2020-07-06] MEDS: calcitrioL 0.25 MCG CAPSULE PO (08:10)
[2020-07-06] MEDS: TIMOLOL MALEATE 0.5% OP SOLN 5 ML BOTTLE 1 DROP EACH EYE (08:10)
[2020-07-06] MEDS: CALCIUM CARBONATE (OSCAL) 500 MG TABLET PO (08:10)
[2020-07-06] MEDS: MAGNESIUM OXIDE 400 MG TABLET PO (08:10)
[2020-07-06] MEDS: CYANOCOBALAMIN 1,000 MCG TABLET 1000 MCG PO (08:10)
[2020-07-06] MEDS: acetaZOLAMIDE TAB 250 MG TABLET 500 MG PO ×2 (08:10→16:50)
[2020-07-06] MEDS: CHOLECALCIFEROL 1,000 UNITS TABLET 1000 UNITS PO (08:10)
[2020-07-06] MEDS: INSULIN DETEMIR 100 UNITS/ML 25 UNITS SUB-Q (08:10)
[2020-07-06] MEDS: SPIRONOLACTONE 50 MG TABLET PO (08:10)
[2020-07-06] MEDS: METOPROLOL TARTRATE 25 MG TABLET PO ×2 (08:12→20:00)
[2020-07-06] MEDS: dilTIAZem HCL CD 180 MG CAP.ER.24H PO (08:12)
[2020-07-06] MEDS: EUCERIN CREAM 120 GM JAR 1 APPLIC TOPICAL (08:17)
[2020-07-06] MEDS: ACETAMINOPHEN 325 MG TABLET 650 MG PO ×2 (08:26→23:01)
--- NOTE | 2020-07-06 09:46 | PM.PNCARD ---
Progress Note: A&P Assessment and Plan (1) Acute exacerbation of congestive heart failure: Code(s): I50.9 - Heart failure, unspecified Status: Acute Assessment and Plan: HFpEF . Mostly right-sided. Furosemide on hold due to contraction alkalosis and worsening renal failure. Resume per Nephrology. Diamox. Spironolactone restarted 07/02/2020. 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 INR 3.4 will hold warfarin for today (3) Acute and chronic respiratory failure with hypoxia: Code(s): J96.21 - Acute and chronic respiratory failure with hypoxia Status: Acute Assessment and Plan: BiPAP (4) Chronic kidney disease, stage 4 (severe): Code(s): N18.4 - Chronic kidney disease, stage 4 (severe) Status: Acute Assessment and Plan: Nephrology following. Appreciate recommendations/involvement. IF renal function continues to deteriorate with decompensated heart failure hemodialysis may be required. (5) Persistent atrial fibrillation: Code(s): I48.19 - Other persistent atrial fibrillation Status: Acute Assessment and Plan: Rate controlled (6) History of permanent cardiac pacemaker placement: Code(s): Z95.0 - Presence of cardiac pacemaker Status: Acute Assessment and Plan: No longer on telemetry. Was intermittently V paced Additional Plan Plan discussed with Dr Brenner [phone] 07/06/2020 Subjective Date/time seen: 07/06/20 09:46 Interval history: Follow-up for: decompensated congestive heart failure primarily right-sided failure with volume overload some pulmonary congestion on exam. Date of service: 07/06/2020 Subjective: Up in chair with legs elevated. No chest pain. Denies shortness of breath with activity. No lightheadedness. Review of Systems Constitutional: Constitutional: Denies difficulty sleeping, Reports fatigue, Denies fever(s), Denies lethargy and Reports weakness Eyes: Eyes: Denies blurry vision ENT: Reports Normal hearing present, Denies lip swelling, Denies epistaxis, Denies nasal congestion and Denies throat swelling Cardiovascular: Cardiovascular: Denies chest pain, Reports pedal edema (improved), Reports leg edema, Denies lightheadedness, Denies palpitations, Denies dyspnea ( improved) and Reports dyspnea on exertion Respiratory: Respiratory: Denies chest congestion, Denies dyspnea and Denies dyspnea on exertion Gastrointestinal: Gastrointestinal: Denies abdominal pain, Denies bloating ( improved), Denies hematochezia, Denies nausea and Denies vomiting Genitourinary: Genitourinary: Denies hematuria Musculoskeletal: Musculoskeletal: Denies back pain Integumentary/Breasts: Skin/Breast: Denies erythema and Denies rash Neurologic: Reports Normal hearing present, Denies behavioral changes, Denies confusion and Reports weakness Psychiatric: Psychiatric: Denies anxiety, Denies behavioral changes and Denies confusion Endocrine: Endocrine: Reports fatigue and Denies palpitations Hematologic/Lymphatic: Hematologic/Lymphatic: Denies easy bleeding and Denies easy bruising Allergic/Immunologic: Allergic/Immunologic: Denies lip swelling and Denies throat swelling Exam Const: General: comfortable and no acute distress; No confusion Orientation/consciousness: No confusion Other: Morbidly obese white female sitting upright in chair breathing comfortably. No distress. HENMT: Head: normocephalic and atraumatic Ears: hearing grossly normal bilaterally General nose exam: Normal external nose pres
[2020-07-06 11:41] LABS: Glucose Point of Care 271 (65-105)
[2020-07-06] MEDS: INSULIN ASPART (*BKC) 100 UNITS/ML SUB-Q ×2 (12:30→16:49)
[2020-07-06] MEDS: INSULIN HUMAN REGULAR (*BKC) 100 UNITS/ML 25 UNITS SUB-Q ×2 (12:30→16:49)
--- NOTE | 2020-07-06 14:57 | P.PNIM_ITS ---
Progress Note: A&P Assessment and Plan (1) Respiratory acidosis: Code(s): E87.2 - Acidosis Status: Acute Assessment and Plan: Likely mixed picture with diuresing for CHF/contraction alkalosis and likely retention (chronic issue?) of CO2. Patient states she feels better again today. * Will continue BiPAP overnight and with naps * Consider ABG tomorrow * Monitor closely (2) Acute exacerbation of congestive heart failure: Code(s): I50.9 - Heart failure, unspecified Status: Acute Assessment and Plan: Diastolic CHF; right sided. Cardiology following and appreciate recommendations. Appears to be clinically improving, although still crackles on exam. Appears to have ~1.6 L negative fluid balance since admission, although accurate I/Os in question. Echo results as above. * Continue diuresing per Cardiology; switched from IV to PO on 06/29 although this has been held for now given chemistry abnormalities. Spironolactone resumed 07/02 per Cardiology * Monitor volume status and renal function closely * Await further recommendation from Cardiology/Nephrology (3) Acute and chronic respiratory failure with hypoxia: Code(s): J96.21 - Acute and chronic respiratory failure with hypoxia Status: Acute Assessment and Plan: Likely secondary to acute CHF exacerbation vs underlying lung issues such as YUDELKA, COPD, or even OHS. Patient states she was just placed on Home oxygen on 06/25 due to her increasing shortness of breath. * Wean O2 as tolerated * Home O2 evaluation rec 1L at rest with 2L with activity on 06/30; likely will need to repeat Home O2 eval closer to discharge * See a/p for #1. (4) Chronic kidney disease, stage 4 (severe): Code(s): N18.4 - Chronic kidney disease, stage 4 (severe) Status: Acute Assessment and Plan: Cr 2.10 today; improved today. Nephrology following and appreciate recommendations; follows with Dr. Nguyen as OP. 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 fib; this had been held given mildly supratherapeutic INR; INR 3.4 today; warfarin held per Cardiology. No evidence of bleeding * Hold Warfarin per Cardiology rec * Cardiology following patient as well * Monitor INR (6) Persistent atrial fibrillation: Code(s): I48.19 - Other persistent atrial fibrillation Status: Acute Assessment and Plan: On warfarin and rate controlled with diltiazem and metoprolol; has a pacemaker. 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 BGL up into 200s today, although morning insulin held by delivery mgr given BGL 100
--- NOTE | 2020-07-06 14:57 | PM.IMPN ---
Progress Note: A&P Assessment and Plan (1) Respiratory acidosis: Code(s): E87.2 - Acidosis Status: Acute Assessment and Plan: Likely mixed picture with diuresing for CHF/contraction alkalosis and likely retention (chronic issue?) of CO2. Patient states she feels better again today. Will continue BiPAP overnight and with naps Consider ABG tomorrow Monitor closely (2) Acute exacerbation of congestive heart failure: Code(s): I50.9 - Heart failure, unspecified Status: Acute Assessment and Plan: Diastolic CHF; right sided. Cardiology following and appreciate recommendations. Appears to be clinically improving, although still crackles on exam. Appears to have ~1.6 L negative fluid balance since admission, although accurate I/Os in question. Echo results as above. Continue diuresing per Cardiology; switched from IV to PO on 06/29 although this has been held for now given chemistry abnormalities. Spironolactone resumed 07/02 per Cardiology Monitor volume status and renal function closely Await further recommendation from Cardiology/Nephrology (3) Acute and chronic respiratory failure with hypoxia: Code(s): J96.21 - Acute and chronic respiratory failure with hypoxia Status: Acute Assessment and Plan: Likely secondary to acute CHF exacerbation vs underlying lung issues such as YUDELKA, COPD, or even OHS. Patient states she was just placed on Home oxygen on 06/25 due to her increasing shortness of breath. Wean O2 as tolerated Home O2 evaluation rec 1L at rest with 2L with activity on 06/30; likely will need to repeat Home O2 eval closer to discharge See a/p for #1. (4) Chronic kidney disease, stage 4 (severe): Code(s): N18.4 - Chronic kidney disease, stage 4 (severe) Status: Acute Assessment and Plan: Cr 2.10 today; improved today. Nephrology following and appreciate recommendations; follows with Dr. Nguyen as OP. 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 fib; this had been held given mildly supratherapeutic INR; INR 3.4 today; warfarin held per Cardiology. No evidence of bleeding Hold Warfarin per Cardiology rec Cardiology following patient as well Monitor INR (6) Persistent atrial fibrillation: Code(s): I48.19 - Other persistent atrial fibrillation Status: Acute Assessment and Plan: On warfarin and rate controlled with diltiazem and metoprolol; has a pacemaker. 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 BGL up into 200s today, although morning insulin held by sales support consultant given BGL 100s on BMP Continue home insulin regimen Accuchecks ACHS, hypoglycemia protocol, correctional insulin, diabetic diet Monitor closely; adjust insulin as appropriate (8) Postsurgical hypothyroidism: Code(s): E89.0 - Postprocedural hypothyroidism Status: Acute Assessment and Plan: TSH wnl Continue home l
[2020-07-06 16:15] LABS: Glucose Point of Care 253 (65-105)
--- NOTE | 2020-07-06 18:26 | P.PNNP_ITS ---
Progress Note: A&P Assessment and Plan (1) Chronic kidney disease, stage 4 (severe): Code(s): N18.4 - Chronic kidney disease, stage 4 (severe) Status: Acute Assessment and Plan: * baseline creatinine ~ 1.7 - 2.1mg/dl in last couple of years * due to DM, HTN, diastolic heart failure + diuretics, YUDELKA, and age * we may have to accept a higher creatinine to maintain euvolemia (2) Acute on chronic diastolic heart failure: Code(s): I50.33 - Acute on chronic diastolic (congestive) heart failure Status: Acute Assessment and Plan: * suspect possible dietary indiscretion as trigger * on spironolactone and acetazolamide mostly for electrolyte issues. * loop diuretics are on hold because of her high CO2. * urine output not so good last night. * if this cycle of high CO2 respiratory failure and holding diuretics again keeps happening then perhaps dialysis might be in the near future (3) Metabolic alkalosis: Code(s): E87.3 - Alkalosis Status: Acute Assessment and Plan: * due to contraction from diuresis * continue acetazolamide bid. * CO2 still above 40. (4) Hyperkalemia: Code(s): E87.5 - Hyperkalemia Status: Acute Assessment and Plan: * Resolved (5) Chronic anemia: Code(s): D64.9 - Anemia, unspecified Status: Acute Assessment and Plan: * partly due to CKD * no need for NURY * hemoglobin back up arouond 10 (6) Benign hypertension: Code(s): I10 - Essential (primary) hypertension Status: Acute Assessment and Plan: * well controlled * follow hemodynamics (7) Type 2 diabetes mellitus: Code(s): E11.9 - Type 2 diabetes mellitus without complications Status: Acute Assessment and Plan: * follow accuchecks * on SSI and Levemir Will continue to follow. Subjective Date/time seen: 07/06/20 18:26 Appears to be doing reasonably well since I last saw her; breathing seems stable if not improved; still has some chronic edema but appears better as well. Exam Narrative: Exam Narrative: General: Elderly female in NAD Sitting in a chair. Heart: IRRR, normal S1 and S2; no rub or gallop Lungs: clear anteriorly; decreased at bases Abdomen: soft, nontender, nondistended, positive bowel sounds Extremities: 1+ edema Skin: Warm and dry Objective Data Vital Signs Vital Signs: Vital Signs Temp Pulse Resp BP Pulse Ox 07/06/20 15:36 71 18 98 07/06/20 14:58 36.8 C 70 16 112/72 97 07/06/20 08:12 73 07/06/20 06:01 35.7 C L 70 16 145/71 H 94 07/06/20 02:40 71 22 H 98 07/05/20 23:28 69 26 H 97 07/05/20 20:27 36.0 C L 70 16 147/65 H 99 07/05/20 20:26 77 07/05/20 19:49 96 Intake/Output Intake/Output: Intake & Output 07/03/20 07/04/20 07/05/20 07/06/20 23:59 23:59 23:59 23:59 Intake Total 1520 1200 2600 1130 Output Total 1700 800 820 Balance -151 985 8237 1130 Meds/Results Medications: Active Medications Generic Name Dose Route Start Last Admin Trade Name Joeq PRN Reason Stop Dose Admin Acetaminophen 650 mg 06/26/20 12:17 07/06/20 08:26 Acetaminophen 325 Mg Tablet PO 650 mg Q4H PRN Administration
--- NOTE | 2020-07-06 18:26 | PM.PNNEP ---
Progress Note: A&P Assessment and Plan (1) Chronic kidney disease, stage 4 (severe): Code(s): N18.4 - Chronic kidney disease, stage 4 (severe) Status: Acute Assessment and Plan: baseline creatinine ~ 1.7 - 2.1mg/dl in last couple of years due to DM, HTN, diastolic heart failure + diuretics, YUDELKA, and age we may have to accept a higher creatinine to maintain euvolemia (2) Acute on chronic diastolic heart failure: Code(s): I50.33 - Acute on chronic diastolic (congestive) heart failure Status: Acute Assessment and Plan: suspect possible dietary indiscretion as trigger on spironolactone and acetazolamide mostly for electrolyte issues. loop diuretics are on hold because of her high CO2. urine output not so good last night. if this cycle of high CO2 respiratory failure and holding diuretics again keeps happening then perhaps dialysis might be in the near future (3) Metabolic alkalosis: Code(s): E87.3 - Alkalosis Status: Acute Assessment and Plan: due to contraction from diuresis continue acetazolamide bid. CO2 still above 40. (4) Hyperkalemia: Code(s): E87.5 - Hyperkalemia Status: Acute Assessment and Plan: Resolved (5) Chronic anemia: Code(s): D64.9 - Anemia, unspecified Status: Acute Assessment and Plan: partly due to CKD no need for NURY hemoglobin back up arouond 10 (6) Benign hypertension: Code(s): I10 - Essential (primary) hypertension Status: Acute Assessment and Plan: well controlled follow hemodynamics (7) Type 2 diabetes mellitus: Code(s): E11.9 - Type 2 diabetes mellitus without complications Status: Acute Assessment and Plan: follow accuchecks on SSI and Levemir Will continue to follow. Subjective Date/time seen: 07/06/20 18:26 Appears to be doing reasonably well since I last saw her; breathing seems stable if not improved; still has some chronic edema but appears better as well. Exam Narrative: Exam Narrative: General: Elderly female in NAD Sitting in a chair. Heart: IRRR, normal S1 and S2; no rub or gallop Lungs: clear anteriorly; decreased at bases Abdomen: soft, nontender, nondistended, positive bowel sounds Extremities: 1+ edema Skin: Warm and dry Objective Data Vital Signs Vital Signs: Vital Signs Temp Pulse Resp BP Pulse Ox 07/06/20 15:36 71 18 98 07/06/20 14:58 36.8 C 70 16 112/72 97 07/06/20 08:12 73 07/06/20 06:01 35.7 C L 70 16 145/71 H 94 07/06/20 02:40 71 22 H 98 07/05/20 23:28 69 26 H 97 07/05/20 20:27 36.0 C L 70 16 147/65 H 99 07/05/20 20:26 77 07/05/20 19:49 96 Intake/Output Intake/Output: Intake & Output 07/03/20 07/04/20 07/05/20 07/06/20 23:59 23:59 23:59 23:59 Intake Total 1520 1200 2600 1130 Output Total 1700 800 820 Balance -557 080 0906 1130 Meds/Results Medications: Active Medications Generic Name Dose Route Start Last Admin Trade Name Freq PRN Reason Stop Dose Admin Acetaminophen 650 mg 06/26/20 12:17 07/06/20 08:26 Acetaminophen 325 Mg Tablet PO 650 mg Q4H PRN Administration Mild Pain (1-3) Acetazolamide 500 mg 06/30/20 17:00 07/06/20 16:50 Diamox Tab PO 500 mg BID RAEANN Administration Albuterol 2.5 mg 06/26/20 19:04 06/28/20 20:36 Albuterol Sulf Neb 2.5mg/0.5ml INHALATION 2.5 mg Q4HRT PRN Administration Shortness Of Breath Calcitriol 0.25 mcg 06/27/20 09:00 07/06/20 08:10 Rocaltrol PO 0.25 mcg DAILY RAEANN Administration Calcium Carbonate 500 mg 06/27/20 09:00 07/06/20 08:10 Oscal 500 Mg PO 500 mg DAILY [facility] Administration Cyanocobalamin 1,000 mcg 06/27/20 09:00 07/06/20 08:10 Vitamin B-12 Tab PO 1,000 mcg DAILY [facility] Administration Diltiazem HCl 180 mg 06/27/20 09:00 07/06/20 08:12 Cardizem Cd PO 180 mg DAILY [facility]
[2020-07-06 19:58] LABS: Glucose Point of Care 169 (65-105)
[2020-07-06] MEDS: LATANOPROST 0.005% OP SOLN 2.5 ML BTL 1 DROP EACH EYE (20:00)
[2020-07-07] VITALS (9 sets, daily range): BP systolic 122–130; BP diastolic 65–86; PULSE 68–76; RESP 18–24; TEMP 36.2–36.6; O2SAT 95–100
[2020-07-07] MEDS: LEVOTHYROXINE SODIUM 100 MCG TABLET 200 MCG PO (06:07)
[2020-07-07] MEDS: INSULIN HUMAN REGULAR (*BKC) 100 UNITS/ML 25 UNITS SUB-Q ×3 (06:07→16:57)
[2020-07-07 06:22] LABS: Glucose Point of Care 155 (65-105)
[2020-07-07 07:53] LABS: Glucose Point of Care 146 (65-105)
[2020-07-07 07:53] LABS: Glucose Point of Care 144 (65-105)
[2020-07-07 08:08] LABS: Basophils Percent Auto 0.4 % (0.2-1.2); Eosinophils Absolute Auto 0.1 K/mm3 (0-0.3); Eosinophils Percent Auto 0.9 % (0-4.4); Hematocrit 32.8 % (37.0-47.0); Hemoglobin 10.3 g/dL (12.0-15.0); Immature Granulocyte Percent A 0.9 % (0-0.5); Lymphocytes Absolute Auto 0.77 K/mm3 (0.9-3.2); Lymphocytes Percent Auto 7.2 % (18.3-44.2); Mean Corpuscular HGB Conc 31.4 g/dl (32-36); Mean Corpuscular Hemoglobin 34.7 pg (26-34); Mean Corpuscular Volume 110.4 fl (80-100); Monocytes Absolute Auto 1.1 K/mm3 (0.1-0.6); Monocytes Percent Auto 10.6 % (2.6-8.5); Neutrophils Absolute Auto 8.5 K/mm3 (1.3-6.7); Nucleated Red Blood Cells Perc 0.3 % (0.0-0.2); Platelet Count Result 259 k/mm3 (150-375); Red Blood Count 2.97 M/mm3 (4.2-5.4); Red Cell Distribution Width 13.1 % (11.5-14.5); White Blood Count 10.6 K/mm3 (4.5-10.0)
[2020-07-07 08:17] LABS: INR 3.5; Prothrombin Time 34.8 Seconds (11.1-14.7)
[2020-07-07 08:32] LABS: Albumin Level 3.6 g/dL (3.5-5.1); Anion Gap 9.99999 mmol/L (8-16); Blood Urea Nitrogen 74 mg/dL (7-17); Calcium 10.7 mg/dL (8.4-10.2); Carbon Dioxide > 40 mmol/L (22-30); Chloride 89 mmol/L (98-107); Estimated CRCL calculation 24 ml/min; Estimated Glomerular Filt Rate 23; Glucose 162 mg/dL (65-105); Magnesium 2.5 mg/dL (1.6-2.3); Phosphorus 4.1 mg/dL (2.5-4.5); Potassium 3.7 mmol/L (3.4-5.0); Sodium 139 mmol/L (137-145)
[2020-07-07] MEDS: acetaZOLAMIDE TAB 250 MG TABLET 500 MG PO ×2 (09:09→16:54)
[2020-07-07] MEDS: SPIRONOLACTONE 50 MG TABLET PO (09:09)
[2020-07-07] MEDS: CHOLECALCIFEROL 1,000 UNITS TABLET 1000 UNITS PO (09:09)
[2020-07-07] MEDS: PRAVASTATIN SODIUM 10 MG TABLET PO (09:09)
[2020-07-07] MEDS: CYANOCOBALAMIN 1,000 MCG TABLET 1000 MCG PO (09:09)
[2020-07-07] MEDS: MAGNESIUM OXIDE 400 MG TABLET PO (09:09)
[2020-07-07] MEDS: TIMOLOL MALEATE 0.5% OP SOLN 5 ML BOTTLE 1 DROP EACH EYE (09:09)
[2020-07-07] MEDS: calcitrioL 0.25 MCG CAPSULE PO (09:09)
[2020-07-07] MEDS: CALCIUM CARBONATE (OSCAL) 500 MG TABLET PO (09:09)
[2020-07-07] MEDS: dilTIAZem HCL CD 180 MG CAP.ER.24H PO (09:10)
[2020-07-07] MEDS: EUCERIN CREAM 120 GM JAR 1 APPLIC TOPICAL (09:10)
[2020-07-07] MEDS: METOPROLOL TARTRATE 25 MG TABLET PO ×2 (09:12→20:02)
[2020-07-07] MEDS: INSULIN DETEMIR 100 UNITS/ML 25 UNITS SUB-Q (09:12)
--- NOTE | 2020-07-07 11:09 | PM.PNNEP ---
Progress Note: A&P Assessment and Plan (1) Chronic kidney disease, stage 4 (severe): Code(s): N18.4 - Chronic kidney disease, stage 4 (severe) Status: Acute Assessment and Plan: baseline creatinine ~ 1.7 - 2.1mg/dl in last couple of years due to DM, HTN, diastolic heart failure + diuretics, YUDELKA, and age we may have to accept a higher creatinine to maintain euvolemia (2) Acute on chronic diastolic heart failure: Code(s): I50.33 - Acute on chronic diastolic (congestive) heart failure Status: Acute Assessment and Plan: suspect possible dietary indiscretion as trigger on spironolactone and acetazolamide mostly for electrolyte issues. loop diuretics are on hold because of her high CO2 but will these on discharge if this cycle of high CO2 respiratory failure and holding diuretics again keeps happening then perhaps dialysis might be in the near future (3) Metabolic alkalosis: Code(s): E87.3 - Alkalosis Status: Acute Assessment and Plan: due to contraction from diuresis continue acetazolamide but will increase to tid dosing CO2 still above 40 (4) Hyperkalemia: Code(s): E87.5 - Hyperkalemia Status: Acute Assessment and Plan: resolved (5) Chronic anemia: Code(s): D64.9 - Anemia, unspecified Status: Acute Assessment and Plan: partly due to CKD no need for NURY hemoglobin back up around 10 (6) Benign hypertension: Code(s): I10 - Essential (primary) hypertension Status: Acute Assessment and Plan: well controlled follow hemodynamics (7) Type 2 diabetes mellitus: Code(s): E11.9 - Type 2 diabetes mellitus without complications Status: Acute Assessment and Plan: follow accuchecks on SSI and Levemir Will continue to follow. Subjective Date/time seen: 07/07/20 11:09 Appears to be doing reasonably well; no apparent distress voiced at this time; no events overnight or earlier this AM. Exam Narrative: Exam Narrative: General: Elderly female in NAD Sitting in a chair. Heart: IRRR, normal S1 and S2; no rub or gallop Lungs: clear anteriorly; decreased at bases Abdomen: soft, nontender, nondistended, positive bowel sounds Extremities: no cyanosis or clubbing; 1+ edema Skin: Warm and intact Objective Data Vital Signs Vital Signs: Vital Signs Temp Pulse Resp BP Pulse Ox 07/07/20 09:12 70 07/07/20 08:30 36.2 C L 76 18 127/84 99 07/07/20 04:15 69 24 H 98 07/07/20 03:56 68 95 07/06/20 23:21 70 24 H 98 07/06/20 23:15 96 07/06/20 20:00 70 07/06/20 19:52 36.2 C L 70 16 135/93 H 96 07/06/20 15:36 71 18 98 07/06/20 14:58 36.8 C 70 16 112/72 97 Intake/Output Intake/Output: Intake & Output 07/04/20 07/05/20 07/06/20 07/07/20 23:59 23:59 23:59 23:59 Intake Total 1200 2600 1130 540 Output Total 800 820 600 Balance 400 1780 1130 -60 Meds/Results Medications: Active Medications Generic Name Dose Route Start Last Admin Trade Name Freq PRN Reason Stop Dose Admin Acetaminophen 650 mg 06/26/20 12:17 07/06/20 23:01 Acetaminophen 325 Mg Tablet PO 650 mg Q4H PRN Administration Mild Pain (1-3) Acetazolamide 500 mg 06/30/20 17:00 07/07/20 09:09 Diamox Tab PO 500 mg BID RAEANN Administration Albuterol 2.5 mg 06/26/20 19:04 06/28/20 20:36 Albuterol Sulf Neb 2.5mg/0.5ml INHALATION 2.5 mg Q4HRT PRN Administration Shortness Of Breath Calcitriol 0.25 mcg 06/27/20 09:00 07/07/20 09:09 Rocaltrol PO 0.25 mcg DAILY RAEANN Administration Calcium Carbonate 500 mg 06/27/20 09:00 07/07/20 09:09 Oscal 500 Mg PO 500 mg DAILY RAEANN Administration Cyanocobalamin 1,000 mcg 06/27/20 09:00 07/07/20 09:09 Vitamin B-12 Tab PO 1,000 mcg DAILY RAEANN Administration Diltiazem HCl 180 mg 06/27/20 09:00 07/07/20 09:10 Cardizem Cd P
[2020-07-07 11:39] LABS: Glucose Point of Care 204 (65-105)
[2020-07-07] MEDS: INSULIN ASPART (*BKC) 100 UNITS/ML SUB-Q (12:00)
--- NOTE | 2020-07-07 15:14 | P.PNIM_ITS ---
Progress Note: A&P Assessment and Plan (1) Respiratory acidosis: Code(s): E87.2 - Acidosis Status: Acute Assessment and Plan: Likely mixed picture with diuresing for CHF/contraction alkalosis and likely retention (chronic issue?) of CO2. Patient states she feels better again today. * Will continue BiPAP overnight and with naps * Talked to Nephrology to is worried about her serum bicarb being greater than 40. We will get an ABG in the morning to see the overall picture and if it is related to metabolic versus respiratory cause. * Monitor closely (2) Acute exacerbation of congestive heart failure: Code(s): I50.9 - Heart failure, unspecified Status: Acute Assessment and Plan: Diastolic CHF; right sided. Cardiology following and appreciate recommendations. Appears to be clinically improving, although still crackles on exam. Appears to have ~1.6 L negative fluid balance since admission, although accurate I/Os in question. Echo results as above. * Continue diuresing per Nephrology due to her electrolyte abnormalities. * Lasix switched from IV to PO on 06/29 although this has been held for now given chemistry abnormalities * Now nephrology is adjusting her diuretics with spironolactone and acetazolamide * Appears to be euvolemic at this time. * Monitor volume status and renal function closely * Await further recommendation from Cardiology/Nephrology (3) Acute and chronic respiratory failure with hypoxia: Code(s): J96.21 - Acute and chronic respiratory failure with hypoxia Status: Acute Assessment and Plan: Likely secondary to acute CHF exacerbation vs underlying lung issues such as YUDELKA, COPD, or even OHS. Patient states she was just placed on Home oxygen on 06/25 due to her increasing shortness of breath. * Wean O2 as tolerated * Home O2 evaluation rec 1L at rest with 2L with activity on 06/30 * Will repeat home oxygen evaluation tomorrow * This morning she was 99% on 1 L which would not help with her CO2 retention. * See a/p for #1. (4) Chronic kidney disease, stage 4 (severe): Code(s): N18.4 - Chronic kidney disease, stage 4 (severe) Status: Acute Assessment and Plan: Cr 2.10 today; stable today. Nephrology following and appreciate recommendations; follows with Dr. Nguyen as outpatient. 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 fib; this had been held given mildly supratherapeutic INR; INR 3.5 today; warfarin held per Cardiology. No evidence of bleeding * Hold Warfarin per Cardiology rec * Cardiology following patient as well * Monitor INR (6) Persistent atrial fibrillation: Code(s): I48.19 - Other persistent atrial fibrillation Status: Acute Assessment and Plan: On warfarin and rate controlled with diltiazem and metoprolol; has a pacemaker. Cardiology following * Continue home metoprolol and diltiazem * Warfarin held * Monit
--- NOTE | 2020-07-07 15:14 | PM.IMPN ---
Progress Note: A&P Assessment and Plan (1) Respiratory acidosis: Code(s): E87.2 - Acidosis Status: Acute Assessment and Plan: Likely mixed picture with diuresing for CHF/contraction alkalosis and likely retention (chronic issue?) of CO2. Patient states she feels better again today. Will continue BiPAP overnight and with naps Talked to Nephrology to is worried about her serum bicarb being greater than 40. We will get an ABG in the morning to see the overall picture and if it is related to metabolic versus respiratory cause. Monitor closely (2) Acute exacerbation of congestive heart failure: Code(s): I50.9 - Heart failure, unspecified Status: Acute Assessment and Plan: Diastolic CHF; right sided. Cardiology following and appreciate recommendations. Appears to be clinically improving, although still crackles on exam. Appears to have ~1.6 L negative fluid balance since admission, although accurate I/Os in question. Echo results as above. Continue diuresing per Nephrology due to her electrolyte abnormalities. Lasix switched from IV to PO on 06/29 although this has been held for now given chemistry abnormalities Now nephrology is adjusting her diuretics with spironolactone and acetazolamide Appears to be euvolemic at this time. Monitor volume status and renal function closely Await further recommendation from Cardiology/Nephrology (3) Acute and chronic respiratory failure with hypoxia: Code(s): J96.21 - Acute and chronic respiratory failure with hypoxia Status: Acute Assessment and Plan: Likely secondary to acute CHF exacerbation vs underlying lung issues such as YUDELKA, COPD, or even OHS. Patient states she was just placed on Home oxygen on 06/25 due to her increasing shortness of breath. Wean O2 as tolerated Home O2 evaluation rec 1L at rest with 2L with activity on 06/30 Will repeat home oxygen evaluation tomorrow This morning she was 99% on 1 L which would not help with her CO2 retention. See a/p for #1. (4) Chronic kidney disease, stage 4 (severe): Code(s): N18.4 - Chronic kidney disease, stage 4 (severe) Status: Acute Assessment and Plan: Cr 2.10 today; stable today. Nephrology following and appreciate recommendations; follows with Dr. Nguyen as outpatient. Metabolic alkalosis noted, likely contraction alkalosis 2/2 diuresis, although patient also shows acidosis on previous ABGs; respiratory acidosis likely due to underlying lung conditions Monitor closely with diuresis Lasix has been held for now and nephrology working on adjustments with acetazolamide and spironolactone Await further recommendations from Nephrology (5) Current use of alf anticoagulation: Code(s): Z79.01 - [facility] (current) use of anticoagulants Status: Acute Assessment and Plan: Currently taking warfarin for a. fib; this had been held given mildly supratherapeutic INR; INR 3.5 today; warfarin held per Cardiology. No evidence of bleeding Hold Warfarin per Cardiology rec Cardiology following patient as well Monitor INR (6) Persistent atrial fibrillation: Code(s): I48.19 - Other persistent atrial fibrillation Status: Acute Assessment and Plan: On warfarin and rate controlled with diltiazem and metoprolol; has a pacemaker. Cardiology following Continue home metoprolol and diltiazem Warfarin held Monitor (7) Insulin dependent type 2 diabetes mellitus: Code(s): E11.9 - Type 2 diabetes mellitus without complications; Z79.4 - [facility] (current) use of insulin Status: Acute Assessment and Plan: A1c 6.6. BGL up into 160-200s today, although morning insulin held by table games manager given BGL 100s on BM
--- NOTE | 2020-07-07 15:45 | PM.PNCARD ---
Progress Note: A&P Assessment and Plan (1) Acute exacerbation of congestive heart failure: Code(s): I50.9 - Heart failure, unspecified Status: Acute Assessment and Plan: HFpEF . Mostly right-sided. Furosemide on hold due to contraction alkalosis and worsening renal failure. Resume per Nephrology. Diamox. Spironolactone restarted 07/02/2020. Monitor renal function and electrolytes closely Chest X-ray in am. Still has some decreased breath size on the right and fine crackles in the bases on the left (2) [facility] (current) use of anticoagulants: Code(s): Z79.01 - [facility] (current) use of anticoagulants Status: Acute Assessment and Plan: She is on warfarin for her atrial fibrillation. INR 3.5 will hold warfarin again today (3) Acute and chronic respiratory failure with hypoxia: Code(s): J96.21 - Acute and chronic respiratory failure with hypoxia Status: Acute Assessment and Plan: BiPAP (4) Chronic kidney disease, stage 4 (severe): Code(s): N18.4 - Chronic kidney disease, stage 4 (severe) Status: Acute Assessment and Plan: Nephrology following. Appreciate recommendations/involvement. IF renal function continues to deteriorate with decompensated heart failure hemodialysis may be required. magnesium 2.5 07/07/2020. Will hold Mag oxide. (5) Persistent atrial fibrillation: Code(s): I48.19 - Other persistent atrial fibrillation Status: Acute Assessment and Plan: Rate controlled (6) History of permanent cardiac pacemaker placement: Code(s): Z95.0 - Presence of cardiac pacemaker Status: Acute Assessment and Plan: No longer on telemetry. Was intermittently V paced Additional Plan Plan discussed with Dr Brenner [id number] 07/07/2020 Subjective Date/time seen: 07/07/20 15:45 Interval history: Follow-up for: decompensated congestive heart failure primarily right-sided failure with volume overload some pulmonary congestion on exam. Date of service: 07/06/2020 Subjective: Up in chair with legs elevated. No chest pain. Denies shortness of breath with activity. No lightheadedness. Review of Systems Constitutional: Constitutional: Denies difficulty sleeping, Reports fatigue, Denies fever(s), Denies lethargy and Reports weakness Eyes: Eyes: Denies blurry vision ENT: Reports Normal hearing present, Denies lip swelling, Denies epistaxis, Denies nasal congestion and Denies throat swelling Cardiovascular: Cardiovascular: Denies chest pain, Reports pedal edema (improved), Reports leg edema, Denies lightheadedness, Denies palpitations, Denies dyspnea and Denies dyspnea on exertion Respiratory: Respiratory: Denies chest congestion, Denies dyspnea and Denies dyspnea on exertion Gastrointestinal: Gastrointestinal: Denies abdominal pain, Denies bloating ( improved), Denies hematochezia, Denies nausea and Denies vomiting Genitourinary: Genitourinary: Denies hematuria Musculoskeletal: Musculoskeletal: Denies back pain Integumentary/Breasts: Skin/Breast: Denies erythema and Denies rash Neurologic: Reports Normal hearing present, Denies behavioral changes, Denies confusion and Reports weakness Psychiatric: Psychiatric: Denies anxiety, Denies behavioral changes and Denies confusion Endocrine: Endocrine: Reports fatigue and Denies palpitations Hematologic/Lymphatic: Hematologic/Lymphatic: Denies easy bleeding and Denies easy bruising Allergic/Immunologic: Allergic/Immunologic: Denies lip swelling and Denies throat swelling Exam Const: General: comfortable and no acute distress; No confusion Orientation/consciousness: No confusion Other: Morbidly obese white female sitting upright in chair. Breathing comfortably.
[2020-07-07 16:45] LABS: Glucose Point of Care 159 (65-105)
[2020-07-07] MEDS: LATANOPROST 0.005% OP SOLN 2.5 ML BTL 1 DROP EACH EYE (20:02)
[2020-07-07 22:18] LABS: Glucose Point of Care 161 (65-105)
[2020-07-08 06:06] VITALS: BP 138/54; PULSE 71; RESP 18; TEMP 36.4; O2SAT 100
[2020-07-08] MEDS: LEVOTHYROXINE SODIUM 100 MCG TABLET 200 MCG PO (06:12)
[2020-07-08] MEDS: INSULIN HUMAN REGULAR (*BKC) 100 UNITS/ML 25 UNITS SUB-Q ×2 (06:13→11:35)
[2020-07-08 06:15] LABS: Glucose Point of Care 160 (65-105)
[2020-07-08 07:07] LABS: Base Excess ABG 12.2 mEq/l (+/-2.0); Carboxyhemoglobin 0.1 % THb (0-2.0); Fractional Inspired Oxygen 24 %; HCO3 ABG 40.3 mEq/l (22.0-26.0); Methemoglobin ABG 0.4 %THb (0-1.5); Oxygen Content ABG 15.1 %vol (16.0-22.0); Oxygen Saturation ABG 96.6 % (95.0-100.0); Oxyhemoglobin 95.8 % THb (90.0-100.0); PO2 ABG 94.5 mmHg (80.0-100.0); PO2 FiO2 Ratio Arterial Blood 3.94 %; Reduced Hemoglobin 3.7 %THb (0-5.0); Total Hemoglobin 11.1 g/dL (12.0-18.0); pH ABG 7.356 (7.350-7.450)
[2020-07-08 07:09] LABS: PCO2 ABG 73.7 mmHg (35.0-45.0)
[2020-07-08 07:11] LABS: Device NASAL CANNULA; Modified Allen's Test Pass; Site Drawn RIGHT RADIAL
[2020-07-08 07:40] LABS: Glucose Point of Care 152 (65-105)
[2020-07-08 08:14] VITALS: O2SAT 95
[2020-07-08 08:22] LABS: Basophils Absolute Auto 0.1 K/mm3 (0.0-0.1); Basophils Percent Auto 0.4 % (0.2-1.2); Eosinophils Absolute Auto 0.1 K/mm3 (0-0.3); Eosinophils Percent Auto 0.7 % (0-4.4); Hematocrit 30.2 % (37.0-47.0); Hemoglobin 9.7 g/dL (12.0-15.0); Immature Granulocyte Absolute 0.09 K/mm3 (0.00-0.031); Immature Granulocyte Percent A 0.7 % (0-0.5); Lymphocytes Absolute Auto 0.82 K/mm3 (0.9-3.2); Lymphocytes Percent Auto 6.8 % (18.3-44.2); Mean Corpuscular HGB Conc 32.1 g/dl (32-36); Monocytes Absolute Auto 1.2 K/mm3 (0.1-0.6); Neutrophils Absolute Auto 9.9 K/mm3 (1.3-6.7); Neutrophils Percent Auto 81.4 % (45.5-73.1); Nucleated Red Blood Cells Perc 0.2 % (0.0-0.2); Platelet Count Result 257 k/mm3 (150-375); Red Blood Count 2.77 M/mm3 (4.2-5.4); White Blood Count 12.1 K/mm3 (4.5-10.0)
[2020-07-08 08:31] LABS: INR 2.7; Prothrombin Time 28.1 Seconds (11.1-14.7)
[2020-07-08 08:32] LABS: Partial Thromboplastin Time 41.1 SECONDS (22.3-36.8)
[2020-07-08 08:37] LABS: Albumin Level 3.7 g/dL (3.5-5.1); Anion Gap 6.99999 mmol/L (8-16); Blood Urea Nitrogen 71 mg/dL (7-17); Calcium 10.5 mg/dL (8.4-10.2); Carbon Dioxide > 40 mmol/L (22-30); Chloride 91 mmol/L (98-107); Estimated CRCL calculation 25 ml/min; Estimated Glomerular Filt Rate 24; Glucose 156 mg/dL (65-105); Magnesium 2.4 mg/dL (1.6-2.3); Phosphorus 3.6 mg/dL (2.5-4.5); Potassium 3.6 mmol/L (3.4-5.0); Sodium 138 mmol/L (137-145)
[2020-07-08 08:42] VITALS: PULSE 68
[2020-07-08] MEDS: METOPROLOL TARTRATE 25 MG TABLET PO (08:42)
[2020-07-08] MEDS: calcitrioL 0.25 MCG CAPSULE PO (08:42)
[2020-07-08] MEDS: CALCIUM CARBONATE (OSCAL) 500 MG TABLET PO (08:42)
[2020-07-08] MEDS: PRAVASTATIN SODIUM 10 MG TABLET PO (08:43)
[2020-07-08] MEDS: CYANOCOBALAMIN 1,000 MCG TABLET 1000 MCG PO (08:43)
[2020-07-08] MEDS: SPIRONOLACTONE 50 MG TABLET PO (08:43)
[2020-07-08] MEDS: CHOLECALCIFEROL 1,000 UNITS TABLET 1000 UNITS PO (08:43)
[2020-07-08] MEDS: dilTIAZem HCL CD 180 MG CAP.ER.24H PO (08:43)
[2020-07-08] MEDS: acetaZOLAMIDE TAB 250 MG TABLET 500 MG PO (08:44)
[2020-07-08] MEDS: EUCERIN CREAM 120 GM JAR 1 APPLIC TOPICAL (08:44)
[2020-07-08] MEDS: TIMOLOL MALEATE 0.5% OP SOLN 5 ML BOTTLE 1 DROP EACH EYE (08:44)
[2020-07-08] MEDS: INSULIN DETEMIR 100 UNITS/ML 25 UNITS SUB-Q (08:54)
[2020-07-08 09:06] VITALS: PULSE 68; RESP 18; O2SAT 95
--- NOTE | 2020-07-08 10:43 | PM.PNCARD ---
Progress Note: A&P Assessment and Plan (1) Acute exacerbation of congestive heart failure: Code(s): I50.9 - Heart failure, unspecified Status: Acute Assessment and Plan: HFpEF . Mostly right-sided. Furosemide on hold due to contraction alkalosis and worsening renal failure. Resume per Nephrology. Diamox. Spironolactone restarted 07/02/2020. Monitor renal function and electrolytes closely Chest X-ray 07/08/2020: stable findings. Still has some decreased breath size on the right and fine crackles in the bases on the left (2) [facility]P (current) use of anticoagulants: Code(s): Z79.01 - [facility] (current) use of anticoagulants Status: Acute Assessment and Plan: She is on warfarin for her atrial fibrillation. INR 2.7 Restart warfarin today at home dose and check INR Monday,July 13, 2020 (3) Acute and chronic respiratory failure with hypoxia: Code(s): J96.21 - Acute and chronic respiratory failure with hypoxia Status: Acute Assessment and Plan: BiPAP. Home oxygen eval and [employer] has been set up at home (4) Chronic kidney disease, stage 4 (severe): Code(s): N18.4 - Chronic kidney disease, stage 4 (severe) Status: Acute Assessment and Plan: Dr Nguyen follows her in clinic. Diuretics per his recommendation. Labs will be sent to his office Magnesium 2.5 07/07/2020. Hold Mag oxide. Recheck magnesium with labs (5) Persistent atrial fibrillation: Code(s): I48.19 - Other persistent atrial fibrillation Status: Acute Assessment and Plan: Rate controlled (6) History of permanent cardiac pacemaker placement: Code(s): Z95.0 - Presence of cardiac pacemaker Status: Acute Assessment and Plan: No longer on telemetry. Was intermittently V paced Additional Plan OK to discharge from a cardiac standpoint. See discharge instructions for follow-up. Plan discussed with Dr Brenner [id number] 07/08/2020 Subjective Date/time seen: 07/08/20 10:43 Interval history: Follow-up for: decompensated congestive heart failure primarily right-sided failure with volume overload some pulmonary congestion on exam. Date of service: 07/08/2020 Subjective: Review of Systems Constitutional: Constitutional: Denies difficulty sleeping, Denies fatigue, Denies fever(s), Denies lethargy and Denies weakness Eyes: Eyes: Denies blurry vision ENT: Reports Normal hearing present, Denies lip swelling, Denies epistaxis, Denies nasal congestion and Denies throat swelling Cardiovascular: Cardiovascular: Denies chest pain, Reports pedal edema (improved), Reports leg edema, Denies lightheadedness, Denies palpitations, Denies dyspnea and Denies dyspnea on exertion Respiratory: Respiratory: Denies chest congestion, Denies dyspnea and Denies dyspnea on exertion Gastrointestinal: Gastrointestinal: Denies abdominal pain, Denies bloating ( improved), Denies hematochezia, Denies nausea and Denies vomiting Genitourinary: Genitourinary: Denies hematuria Musculoskeletal: Musculoskeletal: Denies back pain Integumentary/Breasts: Skin/Breast: Denies erythema and Denies rash Neurologic: Reports Normal hearing present, Denies behavioral changes, Denies confusion and Reports weakness Psychiatric: Psychiatric: Denies anxiety, Denies behavioral changes and Denies confusion Endocrine: Endocrine: Reports fatigue and Denies palpitations Hematologic/Lymphatic: Hematologic/Lymphatic: Denies easy bleeding and Denies easy bruising Allergic/Immunologic: Allergic/Immunologic: Denies lip swelling and Denies throat swelling Exam Const: General: comfortable and no acute distress; No confusion Orientation/consciousness: No confusion Other: Morbidly obese white female sitt
[2020-07-08 11:28] LABS: Glucose Point of Care 221 (65-105)
[2020-07-08] MEDS: INSULIN ASPART (*BKC) 100 UNITS/ML SUB-Q (11:36)
[2020-07-08 11:57] VITALS: PULSE 70; O2SAT 84
[2020-07-08 12:00] VITALS: BP 144/64; PULSE 70; PULSE 71; RESP 20; TEMP 36.4; O2SAT 92; O2SAT 98
--- NOTE | 2020-07-08 12:02 | PM.DS ---
DS: Admitting Diagnosis Admitting Diagnosis Admitting Diagnosis: Acute CHF, Acute renal insufficiency, Hyperkalemia DS: Discharge Diagnosis Discharge Diagnosis (1) Respiratory acidosis: Code(s): E87.2 - Acidosis Status: Acute Assessment and Plan: Likely mixed picture with diuresing for CHF/contraction alkalosis and likely retention (chronic issue?) of CO2. Patient states she feels better again today. Educated to continue BiPAP overnight and with naps ABG this morning showed respiratory acidosis again with pH being compensated and CO2 retention stable at 73. She will be discharged with a trilogy machine to prevent worsening hypercapnia. She has been educated in length about the trilogy and how to use it to prevent further issues, altered mental status and hospitalizations. Patient and understand agree with the plan all questions answered. (2) Acute exacerbation of congestive heart failure: Code(s): I50.9 - Heart failure, unspecified Status: Acute Assessment and Plan: Diastolic CHF; right sided. Cardiology following and appreciate recommendations. Appears to be clinically improving, although still crackles on exam. Appears to have ~1.6 L negative fluid balance since admission, although accurate I/Os in question. Echo results as above. I talked to Nephrology who recommends discharge on Lasix 60mg in the morning and 20 mg in the evening, Diamox 500 mg b.i.d. and spironolactone 50 mg daily in the morning. Will check a BMP and magnesium Monday for further evaluation and monitoring of her renal function, electrolytes and Mag. (3) Acute and chronic respiratory failure with hypoxia: Code(s): J96.21 - Acute and chronic respiratory failure with hypoxia Status: Acute Assessment and Plan: Likely secondary to acute CHF exacerbation vs underlying lung issues such as YUDELKA, COPD, or even OHS. Patient states she was just placed on Home oxygen on 06/25 due to her increasing shortness of breath. Wean O2 as tolerated Home O2 evaluation rec 1L at rest with 2L with activity on 07/08. Her oxygen decreased to 84% once oxygen was removed so she will still need 1 L at rest and 2 L with exertion. (4) Chronic kidney disease, stage 4 (severe): Code(s): N18.4 - Chronic kidney disease, stage 4 (severe) Status: Acute Assessment and Plan: Cr 2.10 today; stable today. Nephrology following and appreciate recommendations; follows with Dr. Nguyen as outpatient. Metabolic alkalosis noted, likely contraction alkalosis 2/2 diuresis, although patient also shows acidosis on previous ABGs; respiratory acidosis likely due to underlying lung conditions Nephrology has made some adjustments to her diuretics upon discharge and we will have labs on Monday for further evaluation and monitoring. 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 fib; this had been held given mildly supratherapeutic INR; INR 2.7 today; warfarin held per Cardiology. No evidence of bleeding INR was 2.7 which is back within normal range. Cardiology agrees with continuing warfarin 5 mg and we will check INR in 1 week. (6) Persistent atrial fibrillation: Code(s): I48.19 - Other persistent atrial fibrillation Status: Acute Assessment and Plan: On warfarin and rate controlled with diltiazem and metoprolol; has a pacemaker. Cardiology following Continue home metoprolol and diltiazem Restart warfarin tonight. (7) Insulin dependent type 2 diabetes mellitus: Code(s): E11.9 - Type 2 diabetes mellitus without complications; Z79.4 - Long ter
--- NOTE | 2020-07-08 13:11 | HOMEO2EVAL ---
Home Oxygen Evaluation RC: Home Oxygen (O2) Evaluation Start: 06/29/20 10:37 Freq: ONCE Status: Active Protocol: RPE Activity Type Activity Date Activity User E-Sign Co-Sign Detail Recorded Client Recorded Date Recorded By Document 07/08/20 11:57 KRM [id number] 07/08/20 13:11 KRM Document 07/08/20 12:00 KRM [id number] 07/08/20 13:11 KRM 07/08/20 07/08/20 11:57 12:00 Home O2 Evaluation Test Phase Resting Resting Oxygen Delivery Room Air Nasal Cannula Oxygen Flow Rate (L/min) 1 Pulse Oximetry (90-100 %) 84 L 92 Pulse Rate (60-100 beats/min) 70 71 Home Oxygen Evaluation Comments 1lpm at rest 2lpm with activity.
--- NOTE | 2020-07-08 13:11 | PCRCNOTE ---
HOME O2 EVALUATION DONE, 1LPM AT REST, 2LPM WITH ACTIVITY. PT. HAS [facility] FOR DME. HAS ALREADY BROUGHT TANK FOR TRANSPORT HOME. UPDATED HOME O2 EVAL FAXED TO [facility].
== END 2020-07-08 14:00 | disposition home or self-care (01) | DRG 291 ==
LOC: ANHED 12:16 → ANH2MED 17:20 → ANHIMU 07-02 16:07 → ANH3MED 07-05 17:54
PROVIDERS: Internal Medicine; Internal Medicine Nephrology; Physician Assistant; Admitting Provider Internal Medicine; Emergency Provider Emergency Medicine; PCP Family Medicine; Visit Provider Internal Medicine
DX: I13.0 Hypertensive heart and chronic kidney disease with heart failure and stage 1 through stage 4 chronic kidney disease, or unspecified chronic kidney disease (principal); J96.21 Acute and chronic respiratory failure with hypoxia; I50.33 Acute on chronic diastolic (congestive) heart failure; N18.4 Chronic kidney disease, stage 4 (severe); Z68.41 Body mass index [BMI] 40.0-44.9, adult; I48.19 Other persistent atrial fibrillation; E87.3 Alkalosis; E11.22 Type 2 diabetes mellitus with diabetic chronic kidney disease; K58.9 Irritable bowel syndrome, unspecified; G47.33 Obstructive sleep apnea (adult) (pediatric); J44.9 Chronic obstructive pulmonary disease, unspecified; E78.5 Hyperlipidemia, unspecified; E11.42 Type 2 diabetes mellitus with diabetic polyneuropathy; E11.65 Type 2 diabetes mellitus with hyperglycemia; E11.319 Type 2 diabetes mellitus with unspecified diabetic retinopathy without macular edema; H35.30 Unspecified macular degeneration; E89.0 Postprocedural hypothyroidism; I25.5 Ischemic cardiomyopathy; E87.5 Hyperkalemia; D53.1 Other megaloblastic anemias, not elsewhere classified; D63.8 Anemia in other chronic diseases classified elsewhere; E66.01 Morbid (severe) obesity due to excess calories; Z98.41 Cataract extraction status, right eye; Z98.42 Cataract extraction status, left eye; Z90.49 Acquired absence of other specified parts of digestive tract; Z95.0 Presence of cardiac pacemaker; Z87.891 Personal history of nicotine dependence; Z79.01 Long term (current) use of anticoagulants
CPT/HCPCS: 36415; 36600; 70450; 71045; 71046; 80048; 80053; 80069; 82375; 82607; 82746; 82805; 83036; 83050; 83735; 83880; 84100; 84443; 84484; 84550; 85025; 85027; 85610; 85730; 86140; 93005; 94002; 94003; 94618; 94640; 96374; 96375; 96376; 97110; 97116; 97161; 97165; 97530; 97535; 99291; A9270; C8929; G0378; J0610; J1815; J1940; Q9957

== ENCOUNTER → 2021-01-02 00:59 | Outpatient (CLI) | payer MEDICARE, SELFPAY ==
[2021-01-02 18:53] LABS: SARS-CoV-2 RNA PCR Negative
== END ==
PROVIDERS: PCP Family Medicine; Visit Provider Internal Medicine Cardiovascular Disease
DX: Z01.812 Encounter for preprocedural laboratory examination (principal); Z20.822 Contact with and (suspected) exposure to COVID-19
CPT/HCPCS: C9803; U0003; U0005

== ENCOUNTER 2021-01-06 02:47 | Day surgery (SDC) | payer MEDICARE, SELFPAY ==
[2021-01-05 14:46] VITALS: BMI 39.7
[2021-01-06] VITALS (7 sets, daily range): BP systolic 109–141; BP diastolic 38–96; PULSE 70–71; RESP 16–18; TEMP 36; O2SAT 89–100; BMI 39.6
[2021-01-06 07:33] LABS: Basophils Percent Auto 0.3 % (0.2-1.2); Eosinophils Absolute Auto 0.1 K/mm3 (0-0.3); Eosinophils Percent Auto 1.1 % (0-4.4); Hematocrit 33.6 % (37.0-47.0); Hemoglobin 11.3 g/dL (12.0-15.0); Immature Granulocyte Percent A 0.8 % (0-0.5); Lymphocytes Absolute Auto 0.92 K/mm3 (0.9-3.2); Mean Corpuscular HGB Conc 33.6 g/dl (32-36); Mean Corpuscular Hemoglobin 36.7 pg (26-34); Mean Corpuscular Volume 109.1 fl (80-100); Mean Platelet Volume 10.8 fl (7.4-10.4); Monocytes Percent Auto 7.7 % (2.6-8.5); Neutrophils Percent Auto 83.1 % (45.5-73.1); Platelet Count Result 239 k/mm3 (150-375); Red Blood Count 3.08 M/mm3 (4.2-5.4); Red Cell Distribution Width 13.4 % (11.5-14.5); White Blood Count 13.2 K/mm3 (4.5-10.0)
[2021-01-06 07:43] LABS: Anion Gap 10 mmol/L (8-16); Blood Urea Nitrogen 78 mg/dL (7-17); Calcium 10.2 mg/dL (8.4-10.2); Carbon Dioxide 32 mmol/L (22-30); Chloride 98 mmol/L (98-107); Estimated CRCL calculation 23 ml/min; Estimated Glomerular Filt Rate 22; Glucose 256 mg/dL (65-105); Sodium 140 mmol/L (137-145)
[2021-01-06 07:47] LABS: INR 1.9; Prothrombin Time 22.3 Seconds (11.1-14.7)
[2021-01-06 07:55] LABS: Glucose Point of Care 233 (65-105)
--- NOTE | 2021-01-06 08:32 | PM.IMHP ---
H&P: HPI History of Present Illness Date/Time: 01/06/21 08:32 Chief Complaint: Pacemaker at JAMI Narrative: Johnson Matute is a 80-year-old female who is [employer] pacemaker has reached [facility] on 12/19/2020. She is here for elective generator change. She is feeling well today, no fevers or shortness of breath. She also has a history of diastolic heart failure, persistent atrial fib/flutter, mild aortic stenosis, COPD, YUDELKA tolerating CPAP, diabetes, CKD, and she has a history of a tracheostomy. Herwarfarin has been discontinued with the last dose being on MondayJanuary 01. Review of Systems Constitutional: Constitutional: Reports no additional constitutional complaints ENT: Reports system reviewed and no additional complaints, except as documented Cardiovascular: Cardiovascular: Denies chest pain, Reports pedal edema, Reports leg edema, Denies lightheadedness and Denies palpitations Respiratory: Respiratory: Denies chest congestion, Denies dyspnea and Denies dyspnea on exertion Gastrointestinal: Gastrointestinal: Denies abdominal pain Genitourinary: Genitourinary: Denies flank pain Musculoskeletal: Musculoskeletal: Reports arthralgias Integumentary/Breasts: Skin/Breast: Denies rash Neurologic: Denies system reviewed and no additional complaints, except as documented Psychiatric: Psychiatric: Denies no additional psychiatric complaints [facility] Past Medical History Medical History (Updated 01/06/21 @ 08:38 by Marsha Mahan MD) Benign hypertension Body mass index (BMI) 40.0-44.9, adult (12/29/15) Chronic anemia Chronic macrocytic anemia. 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 Insulin dependent type 2 diabetes mellitus Irritable bowel syndrome Macular degeneration Mixed hyperlipidemia Obstructive sleep apnea on CPAP Persistent atrial fibrillation On long-term anticoagulation with warfarin. Postsurgical hypothyroidism Surgical History Surgical History (Updated 01/06/21 @ 08:35 by Marsha Mahan MD) History of appendectomy History of bilateral cataract extraction History of biliary duct stent placement History of cholecystectomy History of permanent cardiac pacemaker placement [employer] pacemaker originally inserted 03/2013, Thatch change 12/2020 History of thyroidectomy History of tracheostomy Family History Family History Father COPD (chronic obstructive pulmonary disease) Mother Diabetes mellitus Glaucoma Sibling Diabetes mellitus COPD (chronic obstructive pulmonary disease) Leukemia Hypothyroid Glaucoma Social History Social History Social History: Surrogate decision maker: German Albrecht, spouse. Code status: Full code. Smoking packs per day: 0.3 Smoking cigarettes per day: 6.0 Years smoked: 28 Smoking pack-years: 8.40 Tobacco type: cigarettes Alcohol intake: never Substance use: never Substance use type: does not use Additional living arrangements comments: Resides with her spouse in [facility]. Gender identity (if verbalized by the patient): Female Spiritual care concerns: No Meds Home Medications and Allergies Home Medications Medication Instructions Recorded Confirmed Type diltiazem HCl 180 mg capsule,24 180 mg PO DAILY 08/05/19 01/05/21 History hr,extended release ipratropium 0.5 mg-albuterol 3 mg 3 ml INHALATION Q4H PRN 08/05/19 01/05/21 History (2.5 mg base)/3 mL nebulization soln metoprolol tartrate 25 mg tablet 25 mg PO BID 08/05/19 01/05/21 History cholecalciferol (
--- NOTE | 2021-01-06 08:41 | WPDMODSED ---
Moderate Sedation Note-Pt Data Patient Data Diagnosis: Pacemaker JAMI Present Complaint: Pacemaker JAMI Procedure to be performed/Plan: Conscious sedation, generator change Allergies Allergy/AdvReac Type Severity Reaction Status Date / Time succinylcholine Allergy Severe unknown Verified 01/06/21 07:43 Home Medications Medication Instructions Recorded Confirmed Type diltiazem HCl 180 mg capsule,24 180 mg PO DAILY 08/05/19 01/05/21 History hr,extended release ipratropium 0.5 mg-albuterol 3 mg 3 ml INHALATION Q4H PRN 08/05/19 01/05/21 History (2.5 mg base)/3 mL nebulization soln metoprolol tartrate 25 mg tablet 25 mg PO BID 08/05/19 01/05/21 History cholecalciferol (vitamin D3) 25 1,000 unit PO DAILY cap 08/21/19 01/05/21 History mcg (1,000 unit) capsule insulin syringe-needle U-100 1 mL #100 each 03/09/20 11/03/20 Rx 27 gauge x 1/2 Levemir U-100 Insulin 25 unit SUB-Q DAILY 06/26/20 01/05/21 History calcium carbonate 500 mg PO DAILY 06/26/20 01/05/21 History cyanocobalamin (vitamin B-12) 1,000 mcg PO DAILY 06/26/20 01/05/21 History latanoprost 1 drp OPHTHALMIC (EYE) DAILY 06/26/20 01/05/21 History timolol maleate 1 drp OPHTHALMIC (EYE) DAILY 06/26/20 01/05/21 History furosemide 40 mg PO QAM #30 tablet 07/08/20 01/05/21 Rx allopurinol 100 mg tablet 100 mg PO DAILY #90 tablet 08/04/20 01/05/21 Rx furosemide 20 mg tablet 20 mg PO DAILY #30 tablet 08/04/20 01/05/21 Rx pravastatin 10 mg tablet 10 mg PO DAILY #90 tablet 09/28/20 01/05/21 Rx calcitriol 0.25 mcg capsule 0.25 mcg PO DAILY #90 cap 11/16/20 01/05/21 Rx spironolactone 50 mg tablet 25 mg PO DAILY #45 tablet 11/18/20 01/05/21 Rx warfarin 5 mg tablet 5 mg PO DAILY #90 tablet 12/07/20 01/05/21 Rx insulin regular human 100 unit/mL 25 unit SUBCUT TID #25 ml 12/09/20 01/05/21 Rx injection solution levothyroxine 200 mcg PO DAILY 01/05/21 01/05/21 History Sedation/Anesthesia: No previous sedation/anesthesia problems (including family history). [facility] Past Medical History Medical History (Updated 01/06/21 @ 08:38 by Marsha Mahan MD) Benign hypertension Body mass index (BMI) 40.0-44.9, adult (12/29/15) Chronic anemia Chronic macrocytic anemia. Chronic kidney disease, stage 4 (severe) Chronic obstructive pulmonary disease, unspecified Congestive heart failure Current use of nursing home anticoagulation Diabetic peripheral neuropathy Diabetic retinopathy Diastolic congestive heart failure Gouty tophi Graves disease Status post radioactive iodine therapy x4 without much success, now status post thyroidectomy. Insulin dependent type 2 diabetes mellitus Irritable bowel syndrome Macular degeneration Mixed hyperlipidemia Obstructive sleep apnea on CPAP Persistent atrial fibrillation On long-term anticoagulation with warfarin. Postsurgical hypothyroidism Surgical History Surgical History (Updated 01/06/21 @ 08:35 by Marsha Mahan MD) History of appendectomy History of bilateral cataract extraction History of biliary duct stent placement History of cholecystectomy History of permanent cardiac pacemaker placement [employer] pacemaker originally inserted 03/2013, Thatch change 12/2020 History of thyroidectomy History of tracheostomy Family History Family History Father COPD (chronic obstructive pulmonary disease) Mother Diabetes mellitus Glaucoma Sibling Diabetes mellitus COPD (chronic obstructive pulmonary disease) Leukemia Hypothyroid Glaucoma Social History Social History Social History: Surrogate decision maker: German Ambrocio, spouse. Code status: Full code. Smoking packs per day: 0.3 Smoking cigarettes per day: 6.0 Years smoked: 28 Smoking pack-years: 8.40 Tobacco type: cigarettes Alcohol intake: never Substance use: never Substance use type: does not use Additional living arrangem
--- NOTE | 2021-01-06 09:43 | PM.OP ---
Procedure Note - Brief Procedure Note - Brief Date of procedure: 01/06/21 Pre-op diagnosis: JAMI Post-op diagnosis: same Procedure performed: Conscious sedation Generator change Description of procedure: uneventful generator change Anesthesia: local ( with conscious sedation) Surgeon: Marsha Mahan MD Drains: No Packing: No Pathology: none sent Complications: No immediate complications Condition: stable Disposition: same day
--- NOTE | 2021-01-06 09:44 | P.OP_ITS ---
Procedure Note - Detailed Date of procedure: 01/06/21 Pre-op diagnosis: JAMI Post-op diagnosis: same Procedure performed: conscious sedation Generator change Description of procedure: CONSCIOUS SEDATION: Assessment: The patient has no history of anesthesia problems. The oropharynx is clear. The patient was deemed to be a good candidate for conscious sedation. The patient had continuous hemodynamic and oximetric monitoring during the procedure. Start time: 906 Completion time: 943 Total conscious sedation time: 37 minutes Medications: Versed 1 mg, fentanyl 50 mcg IV push Trained observer: Larissa Caballero RN Outcome: The patient tolerated the procedure well with no complications. PROCEDURE: After informed consent, the patient is brought to the seed analysis laboratory assistant and the left prepectoral area was prepped and draped in usual fashion. The patient was given a prophylactic antibiotic intravenously with Ancef 1 g. After conscious sedation as described above, the area was anesthetized with 1% lidocaine. A skin incision is made with the Plasma Blade and carried down to the pacing capsule which was also incised. Hemostasis is obtained using the Plasma Blade. The lead/s was/were freed from the underlying capsule, which was calcified, and inspected and were found to be intact. The pulse generator was delivered from the pocket. The lead/s was/were disconnected from the existing device and reconnected to the new device. A gentle tug could not remove it/them. The device and lead/s was/were interrogated and found to be functioning appropriately. The area was copiously irrigated with antibiotic- containing solution. The device was replaced in the pocket. The subcutaneous tissues were closed in a two-layer fashion with interrupted 2 0 Vicryl sutures and the skin was closed in a continuous fashion using 4 0 Vicryl. The area was cleansed, an Aquacel dressing applied. The patient tolerated the procedure well with no complications. Estimated blood loss was negligible. DEVICE INFORMATION: Implanted pulse generator: [employer] sinus Essentio MRI DR Model L111, serial number [id number] Existing atrial lead: [employer] model 4136, serial number [id number], implanted 03/10/2013 Existing ventricular lead: [employer] model 4137, serial number [id number], implanted 03/10/2013 Explanted device: [employer] K 173, serial number [id number], implanted 03/10/2013 THRESHOLD INFORMATION: Atrial lead: a fib wave sensing 6.4 mV, impedance 702 Ohms, no thresholds secondary to AFib Ventricular lead: R-wave sensing 15.6 mV, impedance 649 Ohms, threshold 0.7 volts at 0.4 milliseconds PROGRAMMED PARAMETERS: VDDR 60-120 Implants: Implanted pulse generator: [employer] Essentio MRI DR Model L111, serial number [id number] Existing atrial lead: [employer] model 4136, serial number [id number], implanted 03/10/2013 Existing ventricular lead: [employer] model 4137, serial number [id number], implanted 03/10/2013 Explanted device: [employer] K 173, serial number [id number], implanted 03/10/2013 Anesthesia: local ( with conscious sedation) Surgeon: Marsha Mahan MD Estimated blood loss (mL): 5 Drains: No Packing: No Pathology: none sent Complications: No immediate complications Condition: stable Disposition: observation
--- NOTE | 2021-01-06 09:53 | ECG_ITS ---
Measurements Intervals [place] Rate: 70 P: [place]: 0 QRS: -81 QRSD: 179 T: 73 QT: 494 QTc: 534 Interpretive Statements ELECTRONIC VENTRICULAR PACEMAKER BASELINE ARTIFACT- I, II, III, AVR, AVL, AVF, V1-V6 NO FURTHER INTERPRETATION IS POSSIBLE ATYPICAL ECG Electronically Signed On 01-06-2021 11:10:29 CDT by Con Singh D.O.
--- NOTE | 2021-01-06 10:33 | SUR.PHASEII ---
1006 - Pt O2 sats at 89%, O2 placed vis NC at 2L.
--- NOTE | 2021-01-06 13:17 | SUR.PHASEII ---
1115- O2 removed,pat with O2 sats at 91%on RA.Pt has COPD.
== END 2021-01-06 12:15 | disposition home or self-care (01) ==
PROVIDERS: PCP Family Medicine; Visit Provider Internal Medicine Cardiovascular Disease
PROC: 0JPT0PZ Removal of Cardiac Rhythm Related Device from Trunk Subcutaneous Tissue and Fascia, Open Approach (ICD-10-PCS; CPT 33228; principal; 2021-01-06 08:30)
DX: Z45.010 Encounter for checking and testing of cardiac pacemaker pulse generator [battery] (principal); I13.0 Hypertensive heart and chronic kidney disease with heart failure and stage 1 through stage 4 chronic kidney disease, or unspecified chronic kidney disease; I50.30 Unspecified diastolic (congestive) heart failure; E11.22 Type 2 diabetes mellitus with diabetic chronic kidney disease; E11.42 Type 2 diabetes mellitus with diabetic polyneuropathy; N18.4 Chronic kidney disease, stage 4 (severe); I48.19 Other persistent atrial fibrillation; E11.319 Type 2 diabetes mellitus with unspecified diabetic retinopathy without macular edema; E89.0 Postprocedural hypothyroidism; J44.9 Chronic obstructive pulmonary disease, unspecified; D64.9 Anemia, unspecified; M1A.9XX1 Chronic gout, unspecified, with tophus (tophi); E78.2 Mixed hyperlipidemia; G47.33 Obstructive sleep apnea (adult) (pediatric); Z79.51 Long term (current) use of inhaled steroids; Z79.4 Long term (current) use of insulin; Z79.01 Long term (current) use of anticoagulants; F17.210 Nicotine dependence, cigarettes, uncomplicated
CPT/HCPCS: 33228; 36415; 80048; 82948; 85025; 85610; C1785; C9803; J0690; J1644; J2250; J3010; J7040; U0003; U0005

== ENCOUNTER 2021-09-06 17:59 | Inpatient (IN) | payer MEDICARE, SELFPAY ==
--- NOTE | ~2021-09-06 | XR_ITS ---
XR chest 1V portable 09/06/2021 19:09 Indication: Shortness of breath. Hypertension. CHF. Procedure: AP portable chest Comparison: Comparison to multiple prior studies sequentially, with oldest reviewed study dated 11/14 19. Findings: Cardiomegaly. Mild interstitial edema. Small pleural effusions. Pacemaker leads stable. No acute osseous abnormality. Impression: 1: Cardiomegaly with mild interstitial edema. 2: Small pleural effusions. Reviewed, dictated and finalized at location A. R OPERATOR Impression: 1: Cardiomegaly with mild interstitial edema. 2: Small pleural effusions.
--- NOTE | ~2021-09-06 | XR_ITS ---
EXAMINATION: XR elbow LT min 3V DATE: 09/08/2021 16:09 INDICATION: Left elbow cellulitis. TECHNIQUE: 4 views of left elbow were obtained. COMPARISON: None. FINDINGS: Bone alignment is normal. No fracture. Joint spaces are normal. No elbow joint effusion. Th ere is soft tissue swelling overlying the olecranon, consistent with bursitis. IMPRESSION: 1. Olecranon bursitis. No evidence of osteomyelitis. Reviewed, dictated and finalized at location A. RINARY MEDICAL OFFICER
--- NOTE | ~2021-09-06 | US_ITS ---
EXAMINATION: US venous doppler LE EXAM DATE: 09/08/2021 15:02 INDICATION: Bilateral leg edema. TECHNIQUE: Multiple grayscale, color flow and Doppler images of the lower extremity deep venous syste ms bilaterally were obtained and reviewed. There is no prior study for comparison. FINDINGS: Right side: The right common femoral, femoral and profunda veins demonstrate normal color flow, respi ratory variation, augmentation and compressibility. Compressibility, color flow confirmed within the right popliteal, posterior tibial, peroneal, and greater saphenous veins. Left side: The left common femoral, femoral and profunda veins demonstrate normal color flow, respira tory variation, augmentation and compressibility. Compressibility, color flow confirmed within the l eft popliteal, posterior tibial, peroneal, and greater saphenous veins. IMPRESSION: 1. No lower extremity deep venous thrombosis bilaterally. Reviewed, dictated and finalized at location B. UETTE MOLDER
--- NOTE | 2021-09-06 18:00 | PM.IMHP ---
H&P: HPI History of Present Illness Date/Time: 09/06/21 16:30 Chief Complaint: CHF exacerbation. Narrative: Stay very pleasant 81-year-old female with history of diastolic congestive heart failure, obstructive sleep apnea, atrial fibrillation, obstructive sleep apnea, diabetes, COPD, chronic kidney disease, and several other comorbidities who is being directly admitted to the hospitalist service from Dr. Mahan office for diuresis given exacerbation of CHF. She has chronic lower extremity edema however it has been markedly worse over the past couple of weeks, now to the point where she is having weeping from both legs, left greater than right. She has increased her daily furosemide intake to 80 mg a day and she is also taking 2.5 mg of metolazone 3 times a week but unfortunately the swelling continues to get worse. She has also developed a superficial wound on the left lateral calf for which she has been applying Neosporin without a whole lot of benefit. She has not noticed any increasing shortness of breath from baseline. She also denies fever, chills, sweats, chest pain, pleuritic pain, palpitations, orthopnea, PND, nausea, and vomiting. Review of Systems Review of Systems: Twelve systems were reviewed. No recent cold or flu symptoms. No sick contacts. She states compliance with her trilogy at nighttime. She believes her diabetes is fairly well controlled though she did have an episode of hypoglycemia couple of weeks ago in the middle of the night. They have been stable since that time. Most recent INR was supratherapeutic around 3 or little more. She denies melena, hematochezia, hematuria, and epistaxis. No diarrhea or dysuria. Except as documented, all other systems were reviewed and are negative. [facility] Past Medical History Medical History (Updated 09/06/21 @ 21:03 by Chantel Gr PA-C) Benign hypertension Chronic anemia Chronic macrocytic anemia. Chronic kidney disease, stage 4 (severe) Chronic obstructive pulmonary disease, unspecified Current use of residential anticoagulation Diabetic peripheral neuropathy Diabetic retinopathy Diastolic congestive heart failure Gouty tophi Graves disease Status post radioactive iodine therapy x4 without much success, now status post thyroidectomy. Insulin dependent type 2 diabetes mellitus Irritable bowel syndrome Macular degeneration Mixed hyperlipidemia Obstructive sleep apnea on CPAP Patient uses a trilogy. Persistent atrial fibrillation On long-term anticoagulation with warfarin. Postsurgical hypothyroidism Surgical History Surgical History History of appendectomy History of bilateral cataract extraction History of biliary duct stent placement History of cholecystectomy History of permanent cardiac pacemaker placement [employer] pacemaker originally inserted 03/2013, Thatch change 12/2020 History of thyroidectomy History of tracheostomy Family History Family History Father COPD (chronic obstructive pulmonary disease) Mother Diabetes mellitus Glaucoma Sibling Diabetes mellitus COPD (chronic obstructive pulmonary disease) Leukemia Hypothyroid Glaucoma Social History Social History (Updated 09/06/21 @ 20:42 by Chantel Gr PA-C) Social History: Surrogate decision maker: German Albrecht, spouse. Code status: Full code. Smoking packs per day: 0.3 Smoking cigarettes per day: 6.0 Years smoked: 28 Smoking pack-years: 8.40 Smoking status: Former smoker Alcohol intake: never Substance use: never Substance use type: does not use Additional living arrangements comments: Resides with her spouse in [facility]. Additional occupation/education comments: Retired. Meds Home Medications and Allergies Home Medications Medication Instructions Recorded Confirmed Type diltiazem HCl 180 mg capsule,24 180 m
[2021-09-06 18:47] VITALS: BMI 38.7
--- NOTE | 2021-09-06 18:50 | ADMGEN ---
This patient, Shelli Alrbecht, was admitted to Medical Room 346-01. Patient/family oriented to hospital policies and general routines including ID bracelet, bed and alarms, visiting hours, pain management, procedures, bathroom and other care routines, personal items, smoking policy, room service/diet, and visiting hours. Information on how to activate the Rapid Response Team has been discussed. Patient/Family are encouraged to report perceived risks to care and to ask questions if they do not understand what they are told or what they should do.
[2021-09-06 19:25] LABS: Hematocrit 34.7 % (37.0-47.0); Hemoglobin 11.6 g/dL (12.0-15.0); Mean Corpuscular HGB Conc 33.4 g/dl (32-36); Mean Corpuscular Hemoglobin 35.5 pg (26-34); Mean Corpuscular Volume 106.1 fl (80-100); Mean Platelet Volume 10.4 fl (7.4-10.4); Platelet Count Result 328 k/mm3 (150-375); Red Blood Count 3.27 M/mm3 (4.2-5.4); Red Cell Distribution Width 12.9 % (11.5-14.5); White Blood Count 12.1 K/mm3 (4.5-10.0)
[2021-09-06 19:37] LABS: Alanine Aminotransferase 16 U/L (4-35); Albumin Level 4.5 g/dL (3.5-5.1); Alkaline Phosphatase 114 U/L (38-126); Anion Gap 11 mmol/L (8-16); Aspartate Amino Transferase 25 U/L (14-36); Blood Urea Nitrogen 77 mg/dL (7-17); CRP 3.7 mg/dL (<1.0); Calcium 9.6 mg/dL (8.4-10.2); Carbon Dioxide 28 mmol/L (22-30); Chloride 95 mmol/L (98-107); Estimated CRCL calculation 23 ml/min; Estimated Glomerular Filt Rate 23; Glucose 144 mg/dL (65-110); Magnesium 2.2 mg/dL (1.6-2.3); Potassium 3.9 mmol/L (3.4-5.0); Sodium 134 mmol/L (137-145)
[2021-09-06 19:43] LABS: NT Pro B Type Natriuretic Pept 3110 pg/mL (5-100)
[2021-09-06 19:54] LABS: Hemoglobin A1C 7.5 % (<5.7)
[2021-09-06 20:40] VITALS: BP 120/56; PULSE 70; RESP 16; TEMP 36.6; O2SAT 96
[2021-09-06 21:26] LABS: Prothrombin Time 30.2 Seconds (11.1-14.7)
[2021-09-06] MEDS: FUROSEMIDE INJ 40 MG/4 ML VIAL IV PUSH (22:15)
[2021-09-06 22:22] LABS: Glucose Point of Care 212 mg/dl (65-105)
[2021-09-06] MEDS: LATANOPROST 0.005% OP SOLN 2.5 ML BTL 1 DROP EACH EYE (22:46)
[2021-09-06 22:51] VITALS: PULSE 70
[2021-09-06] MEDS: METOPROLOL TARTRATE 25 MG TABLET PO (22:51)
[2021-09-06 23:35] VITALS: PULSE 70; O2SAT 98
[2021-09-07] VITALS (7 sets, daily range): BP systolic 110–124; BP diastolic 51–60; PULSE 70–76; RESP 16–18; TEMP 36.1–36.6; O2SAT 97–98; BMI 39.2
--- NOTE | 2021-09-07 | ECHO_ITS ---
Patient Info Name: Shelli Albrecht Age: 81 years : 1940 Gender: Female Ht: 64 in Wt: 228 lbs BSA: 2.21 m2 HR: 64 bpm BP: 124 / 51 mmHg Heart Rhythm: Atrial Fibrillation, Paced Technical Quality: Good Exam Date: 09/07/2021 1:45 PM Exam Location: [facility] Patient Status: Outpatient Admit Date: 09/06/2021 Staff Ordering Physician: Taryn Magallanes Refrigeration Specialist: JOSIAH Attending Provider: Luis Johnson MD Referring Physician: Sona HASTINGS; Exam Type: CA echo doppler color flow Study Info Indications I35.0 - Nonrheumatic aortic (valve) stenosis I50.40 - Unspecified combined systolic (congestive) and diastolic (congestive) heart failure Complete two-dimensional, color flow and Doppler transthoracic echocardiogram is performed. Summary 1. Complete two-dimensional, color flow and Doppler transthoracic echocardiogram is performed. 2. Left ventricular chamber dimension is mildly enlarged. 3. Left ventricular systolic function is normal, estimated at 55-60%. 4. There is no increased left ventricular wall thickness. 5. Left ventricular septal wall motion is abnormal with septal motion related to pacing. 6. Left atrial chamber dimension is severely enlarged. 7. Right atrial chamber dimension is moderately enlarged. 8. There is moderate to severe aortic valve stenosis with a peak velocity of 304 cm/s, mean gradient of 20 mmHg, and aortic valve area of 0.8 cm2. 9. There is mild mitral valve regurgitation. 10. There is mild tricuspid valve regurgitation. 11. Severe pulmonary hypertension, estimated pulmonary arterial systolic pressure is 61 mmHg. Left Ventricle Left ventricular chamber dimension is mildly enlarged. Left ventricular systolic function is normal, estimated at 55-60%. There is no increased left ventricular wall thickness. Left ventricular septal wall motion is abnormal with septal motion related to pacing. The left ventricular diastolic function is indeterminate. Right Ventricle Right ventricular chamber dimension is normal. Right ventricular systolic function is normal. Linear artifact in right ventricle suggestive of catheter(s), pacemaker lead(s), or ICD lead(s). Left Atria Left atrial chamber dimension is severely enlarged. Right Atria Right atrial chamber dimension is moderately enlarged. Linear artifact in the right atrium suggestive of catheter(s), pacemaker lead(s), or ICD lead(s). Aortic Valve The aortic valve is not well visualized. There is moderate to severe aortic valve stenosis with a peak velocity of 304 cm/s, mean gradient of 20 mmHg, and aortic valve area of 0.8 cm2. There is mild aortic valve regurgitation. Pulmonic Valve The pulmonic valve is not well visualized. There is trace pulmonic regurgitation. Mitral Valve The mitral valve has thickened leaflets and calcified leaflets. There is mild mitral valve regurgitation. The mitral valve annulus is severely calcified. Tricuspid Valve The tricuspid valve leaflets are normal. There is mild tricuspid valve regurgitation. Severe pulmonary hypertension, estimated pulmonary arterial systolic pressure is 61 mmHg. Pericardium/Pleural The pericardium appears normal. There is small circumferential pericardial effusion. Inferior Vena Cava Dilated inferior vena cava with <50% collapse upon inspiration consistent with elevated right atrial pressure, 10 mmHg. Aorta The aortic root size at the sinus of Valsalva is normal. There is mild aortic atherosclerosis.
[2021-09-07] MEDS: ACETAMINOPHEN 500 MG TABLET 1000 MG PO (02:00)
[2021-09-07] MEDS: LEVOTHYROXINE SODIUM 100 MCG TABLET 200 MCG PO (05:40)
[2021-09-07 06:23] LABS: Anion Gap 14 mmol/L (8-16); Blood Urea Nitrogen 75 mg/dL (7-17); Calcium 9.1 mg/dL (8.4-10.2); Carbon Dioxide 25 mmol/L (22-30); Chloride 98 mmol/L (98-107); Estimated CRCL calculation 24 ml/min; Estimated Glomerular Filt Rate 24; Glucose 212 mg/dL (65-110); Potassium 3.6 mmol/L (3.4-5.0); Sodium 137 mmol/L (137-145)
--- NOTE | 2021-09-07 08:01 | P.PNIM_ITS ---
Progress Note: A&P Assessment and Plan (1) Acute exacerbation of congestive heart failure: Qualifiers: Heart failure type: unspecified Qualified Code(s): I50.9 - Heart failure, unspecified Code(s): I50.9 - Heart failure, unspecified Status: Acute Assessment and Plan: * Probably in acute diastolic exacerbation of heart failure * She states compliance with her medications and diet * Patient stated that she drinks 25oz of water a day and eats ice throughout the day. * BNP 3110 upon admission * Chest xray: Cardiomegaly with mild edema and small pleural effusions * Echo from Oct: normal systolic with EF of 55-60% * IV Lasix 40 mg b.i.d. * See Dr. Mahan for cardiology, consulted cards thank you for your help * Trend urine output * Trend labs (2) Chronic kidney disease, stage 4 (severe): Code(s): N18.4 - Chronic kidney disease, stage 4 (severe) Status: Acute Assessment and Plan: * Stable on review of previous labs * Trend labs while diuresis * Current BUN/Cr 75/2.00 * GFR 24 * Baseline BUN/Cr seems to be 70-80/2.00-2.24 (3) Chronic anemia: Code(s): D64.9 - Anemia, unspecified Status: Acute Assessment and Plan: * Current H/H 11.6/34.7, MCV 106.1 * Stable at this time * Run anemia labs in the am * Continue B-12 from home * Supplement if indicated (4) Insulin dependent type 2 diabetes mellitus: Code(s): E11.9 - Type 2 diabetes mellitus without complications; Z79.4 - long term care social worker (current) use of insulin Status: Acute Assessment and Plan: * Uncontrolled * consulted senior health educator about changing diabetes therapy * Current glucose 212 * Lantus 25 unit daily * hemoglobin A1c 7.5 * Initiate sliding scale insulin * Accu-Cheks * hypoglycemic protocol. (5) Current use of long term care social worker anticoagulation: Code(s): Z79.01 - long term care social worker (current) use of anticoagulants Status: Acute Assessment and Plan: * Current INR 3.0 * Trend INR * Continue warfarin 5mg PO at 1700 * Adjust therapy to keep INR in a therapeutic range (6) Gouty tophi of joint: Code(s): M1A.9XX1 - Chronic gout, unspecified, with tophus (tophi) Status: Acute Assessment and Plan: * looks to be having a gout flare up of the left elbow, right hand, left index finger, bilateral heels * Uric acid 8.7 in Oct * Check a uric acid level * start methylprednisone 20mg BID will need for 5-7 days * Her heels have been bothering her recently * Continue febuxostat. (7) Hypothyroidism, unspecified: Qualifiers: Hypothyroidism type: unspecified Qualified Code(s): E03.9 - Hypothyroidism, unspecified Code(s): E03.9 - Hypothyroidism, unspecified Status: Acute Assessment and Plan: * Continue levothyroxine * TSH 2.790 (8) Atrial fibrillation: Code(s): I48.91 - Unspecified atrial fibrillation Status: Acute Assessment and Plan: * Continue diltiazem 180mg daily * Pacemaker present (9) Obstructive sleep apnea on CPAP: Code(s): G47.33 - Obstructive sleep apnea (adult) (pediatric); Z99.89 - Dependence on other enabling machines and devices Status: Acute Assessment and Plan: * home trilogy unit (10) Lower extremity edema: Code(s): R60.0 - Localized edema Status: Acute Assessment and Plan: * A chronic finding but much worse over the last couple of weeks
--- NOTE | 2021-09-07 08:01 | PM.IMPN ---
Progress Note: A&P Assessment and Plan (1) Acute exacerbation of congestive heart failure: Qualifiers: Heart failure type: unspecified Qualified Code(s): I50.9 - Heart failure, unspecified Code(s): I50.9 - Heart failure, unspecified Status: Acute Assessment and Plan: Probably in acute diastolic exacerbation of heart failure She states compliance with her medications and diet Patient stated that she drinks 25oz of water a day and eats ice throughout the day. BNP 3110 upon admission Chest xray: Cardiomegaly with mild edema and small pleural effusions Echo from Oct: normal systolic with EF of 55-60% IV Lasix [address] Mahan for cardiology, consulted cards thank you for your help Trend urine output Trend labs (2) Chronic kidney disease, stage 4 (severe): Code(s): N18.4 - Chronic kidney disease, stage 4 (severe) Status: Acute Assessment and Plan: Stable on review of previous labs Trend labs while diuresis Current BUN/Cr 75/2.00 GFR 24 Baseline BUN/Cr seems to be 70-80/2.00-2.24 (3) Chronic anemia: Code(s): D64.9 - Anemia, unspecified Status: Acute Assessment and Plan: Current H/H 11.6/34.7, MCV 106.1 Stable at this time Run anemia labs in the am Continue B-12 from home Supplement if indicated (4) Insulin dependent type 2 diabetes mellitus: Code(s): E11.9 - Type 2 diabetes mellitus without complications; Z79.4 - intermodal owner operator truck driver (current) use of insulin Status: Acute Assessment and Plan: Uncontrolled consulted telehealth nurse educator about changing diabetes therapy Current glucose 212 Lantus 25 unit daily hemoglobin A1c 7.5 Initiate sliding scale insulin Accu-Cheks hypoglycemic protocol. (5) Current use of skilled nursing anticoagulation: Code(s): Z79.01 - half-way (current) use of anticoagulants Status: Acute Assessment and Plan: Current INR 3.0 Trend INR Continue warfarin 5mg PO at 1700 Adjust therapy to keep INR in a therapeutic range (6) Gouty tophi of joint: Code(s): M1A.9XX1 - Chronic gout, unspecified, with tophus (tophi) Status: Acute Assessment and Plan: looks to be having a gout flare up of the left elbow, right hand, left index finger, bilateral heels Uric acid 8.7 in Oct Check a uric acid level start methylprednisone 20mg BID will need for 5-7 days Her heels have been bothering her recently Continue febuxostat. (7) Hypothyroidism, unspecified: Qualifiers: Hypothyroidism type: unspecified Qualified Code(s): E03.9 - Hypothyroidism, unspecified Code(s): E03.9 - Hypothyroidism, unspecified Status: Acute Assessment and Plan: Continue levothyroxine TSH 2.790 (8) Atrial fibrillation: Code(s): I48.91 - Unspecified atrial fibrillation Status: Acute Assessment and Plan: Continue diltiazem 180mg daily Pacemaker present (9) Obstructive sleep apnea on CPAP: Code(s): G47.33 - Obstructive sleep apnea (adult) (pediatric); Z99.89 - Dependence on other enabling machines and devices Status: Acute Assessment and Plan: home trilogy unit (10) Lower extremity edema: Code(s): R60.0 - Localized edema Status: Acute Assessment and Plan: A chronic finding but much worse over the last couple of weeks DVT unlikely as she is on warfarin Wound nurse consulted given shallow ulcerations Anshu fu Time Spent With Patient Time with patient: Greater than 35 minutes Subjective Date/time seen: 09/07/21 08:01 Interval history: Date/Time: 09/06/21 16:30 Narrative: Stay very pleasant 81-year-old female with history of diastolic congestive heart failure, obstructive sleep apnea, atrial fibrillation, obstructive sleep apnea, diabetes, COPD, chronic kidney disease, and several other comorbidities who is being directly admitted
[2021-09-07 08:17] LABS: Glucose Point of Care 186 mg/dl (65-105)
[2021-09-07] MEDS: CHOLECALCIFEROL 1,000 UNITS TABLET 1000 UNITS PO (08:36)
[2021-09-07] MEDS: dilTIAZem HCL CD 180 MG CAP.ER.24H PO (08:36)
[2021-09-07] MEDS: CYANOCOBALAMIN 1,000 MCG TABLET 1000 MCG PO (08:36)
[2021-09-07] MEDS: FUROSEMIDE INJ 40 MG/4 ML VIAL IV PUSH ×2 (08:40→16:58)
[2021-09-07] MEDS: FEBUXOSTAT 40 MG TABLET PO (08:40)
[2021-09-07] MEDS: SPIRONOLACTONE 25 MG TABLET PO (08:41)
[2021-09-07] MEDS: TIMOLOL MALEATE 0.5% OP SOLN 5 ML BOTTLE 1 DROP EACH EYE (08:41)
[2021-09-07] MEDS: METOPROLOL TARTRATE 25 MG TABLET PO ×2 (08:41→20:25)
[2021-09-07] MEDS: PRAVASTATIN SODIUM 10 MG TABLET PO (08:41)
[2021-09-07] MEDS: INSULIN GLARGINE (*BKC) 100 UNITS/ML 25 UNITS SUB-Q (08:49)
[2021-09-07 10:24] LABS: INR 2.8
[2021-09-07 11:21] LABS: Uric Acid 8.9 mg/dL (2.5-7.5)
[2021-09-07 12:07] LABS: Glucose Point of Care 332 mg/dl (65-105)
[2021-09-07] MEDS: INSULIN ASPART (*BKC) 100 UNITS/ML SUB-Q ×2 (12:22→16:53)
[2021-09-07] MEDS: methylPREDNISolone SOD SUCC 40 MG VIAL 20 MG IV PUSH ×2 (12:24→20:25)
--- NOTE | 2021-09-07 13:14 | PM.CNCAR ---
Assessment and Plan Assessment and plan (1) Acute on chronic diastolic heart failure: Code(s): I50.33 - Acute on chronic diastolic (congestive) heart failure <MARY Fletcher - Last Filed: 09/07/21 14:30> Status: Acute <MARY Fletcher - Last Filed: 09/07/21 14:30> Assessment and Plan: She has a history of diastolic heart failure. Echo from June 2020 shows normal LVEF 55-60%, mild aortic stenosis, moderate biatrial dilation. Has been relatively stable until the past few weeks when she began to develop worsening LE edema, now with some weeping. Some mild pulmonary edema, small pleural effusions on chest xray. LE edema has improved some since last night with administration of IV furosemide. Continue furosemide 40mg IV b.i.d 2L fluid restriction Daily weights Monitor renal function and electrolytes with daily BMP Compression stockings when able to tolerate with LLE weeping Echo has been ordered. Further recommendations to follow review of echo. <MARY Fletcher - Last Filed: 09/07/21 14:30> (2) Lower extremity edema: Code(s): R60.0 - Localized edema <MAYR Fletcher - Last Filed: 09/07/21 14:30> Status: Acute <MARY Fletcher - Last Filed: 09/07/21 14:30> Assessment and Plan: Secondary to acute on chronic CHF. Possible that some of her swelling/erythema related to gout - steroids have been started. <MARY Fletcher - Last Filed: 09/07/21 14:30> (3) Persistent atrial fibrillation: Code(s): I48.19 - Other persistent atrial fibrillation <MARY Fletcher - Last Filed: 09/07/21 14:30> Status: Acute <MARY Fletcher - Last Filed: 09/07/21 14:30> Assessment and Plan: Rate controlled on diltiazem and metoprolol. She has a permanent pacemaker in place. Anticoagulated with coumadin. <MARY Fletcher - Last Filed: 09/07/21 14:30> (4) Current use of intermediate anticoagulation: Code(s): Z79.01 - terminal clerk (current) use of anticoagulants <MARY Fletcher - Last Filed: 09/07/21 14:30> Status: Acute <MARY Fletcher - Last Filed: 09/07/21 14:30> Assessment and Plan: On warfarin for persistent atrial fibrillation. INR today 2.8. Daily INR. <MARY Fletcher - Last Filed: 09/07/21 14:30> (5) History of permanent cardiac pacemaker placement: Code(s): Z95.0 - Presence of cardiac pacemaker <MARY Fletcher - Last Filed: 09/07/21 14:30> Status: Acute <MARY Fletcher - Last Filed: 09/07/21 14:30> Assessment and Plan: [employer] PPM. Most recently interrogated on June of 2021. This interrogation showed normal device function battery function with 6 years remaining battery life to JAMI. Appropriate lead measurements. Presenting rhythm Aflutter - V paced. AF burden 100%. No ventricular high rate episodes noted. <MARY Fletcher - Last Filed: 09/07/21 14:30> (6) Chronic kidney disease, stage 4 (severe): Code(s): N18.4 - Chronic kidney disease, stage 4 (severe) <MARY Fletcher - Last Filed: 09/07/21 14:30> Status: Acute <MARY Fletcher - Last Filed: 09/07/21 14:30> Assessment and Plan: BUN and creatinine appear to be at her baseline. She is followed by Dr. Nguyen. <MARY Fletcher - Last Filed: 09/07/21 14:30> Additional Plan Attending Addendum: I personally seen and examined this patient at bedside. I agree with the above documentation and plan of care as outlined. -Very pleasant elderly woman with past medical history significant for heart failure with preserved ejection fraction, atrial fibrillation, sick sinus syndrome status post pacemaker, diabetes mellitus, chronic kidney disease stage 3 to 4 seen in the office by Dr. Mahan with worsening right sided heart failure sxs with sig painful progre
[2021-09-07] MEDS: MUPIROCIN 2% OINT 22 GM TUBE 1 APPLIC TOPICAL (13:42)
[2021-09-07] MEDS: INSULIN ASPART (*BKC) 100 UNITS/ML 8 UNITS SUB-Q (16:53)
[2021-09-07 16:54] LABS: Glucose Point of Care 338 mg/dl (65-105)
[2021-09-07] MEDS: WARFARIN (*PBKC) 5 MG TABLET PO (16:58)
[2021-09-07] MEDS: LATANOPROST 0.005% OP SOLN 2.5 ML BTL 1 DROP EACH EYE (20:25)
[2021-09-07 20:52] LABS: Glucose Point of Care 377 mg/dl (65-105)
[2021-09-08 05:18] VITALS: BP 123/52; PULSE 70; RESP 16; TEMP 36.1; O2SAT 93
[2021-09-08] MEDS: LEVOTHYROXINE SODIUM 100 MCG TABLET 200 MCG PO (05:42)
[2021-09-08 06:36] LABS: Basophils Percent Auto 0.1 % (0.2-1.2); Hematocrit 32.9 % (37.0-47.0); Hemoglobin 10.8 g/dL (12.0-15.0); Immature Granulocyte Absolute 0.06 K/mm3 (0.00-0.031); Immature Granulocyte Percent A 0.6 % (0-0.5); Lymphocytes Absolute Auto 0.26 K/mm3 (0.9-3.2); Lymphocytes Percent Auto 2.4 % (18.3-44.2); Mean Corpuscular HGB Conc 32.8 g/dl (32-36); Mean Corpuscular Hemoglobin 35.3 pg (26-34); Mean Corpuscular Volume 107.5 fl (80-100); Mean Platelet Volume 10.6 fl (7.4-10.4); Monocytes Absolute Auto 0.2 K/mm3 (0.1-0.6); Neutrophils Absolute Auto 10.2 K/mm3 (1.3-6.7); Neutrophils Percent Auto 94.9 % (45.5-73.1); Nucleated Red Blood Cells Absolute Auto 0.1 K/mm3 (0.0-0.012); Nucleated Red Blood Cells Perc 0.7 % (0.0-0.2); Platelet Count Result 297 k/mm3 (150-375); Red Blood Count 3.06 M/mm3 (4.2-5.4); Red Cell Distribution Width 12.7 % (11.5-14.5); White Blood Count 10.7 K/mm3 (4.5-10.0)
[2021-09-08 06:49] LABS: Alanine Aminotransferase 20 U/L (4-35); Albumin Level 4.1 g/dL (3.5-5.1); Alkaline Phosphatase 115 U/L (38-126); Anion Gap 14 mmol/L (8-16); Aspartate Amino Transferase 26 U/L (14-36); Blood Urea Nitrogen 75 mg/dL (7-17); Calcium 9.1 mg/dL (8.4-10.2); Carbon Dioxide 24 mmol/L (22-30); Chloride 97 mmol/L (98-107); Estimated CRCL calculation 21 ml/min; Estimated Glomerular Filt Rate 20; Glucose 373 mg/dL (65-110); Magnesium 1.9 mg/dL (1.6-2.3); Potassium 4.1 mmol/L (3.4-5.0); Sodium 135 mmol/L (137-145)
[2021-09-08 07:00] LABS: Prothrombin Time 30.2 Seconds (11.1-14.7)
[2021-09-08] MEDS: INSULIN ASPART (*BKC) 100 UNITS/ML SUB-Q ×3 (09:15→16:32)
[2021-09-08] MEDS: INSULIN ASPART (*BKC) 100 UNITS/ML 8 UNITS SUB-Q ×3 (09:15→16:32)
[2021-09-08] MEDS: INSULIN GLARGINE (*BKC) 100 UNITS/ML 25 UNITS SUB-Q (09:16)
[2021-09-08 09:18] LABS: Glucose Point of Care 413 mg/dl (65-105)
[2021-09-08] MEDS: FEBUXOSTAT 40 MG TABLET PO (09:19)
[2021-09-08 09:20] VITALS: PULSE 70
[2021-09-08] MEDS: PRAVASTATIN SODIUM 10 MG TABLET PO (09:20)
[2021-09-08] MEDS: dilTIAZem HCL CD 180 MG CAP.ER.24H PO (09:20)
[2021-09-08] MEDS: METOPROLOL TARTRATE 25 MG TABLET PO ×2 (09:20→20:12)
[2021-09-08] MEDS: CHOLECALCIFEROL 1,000 UNITS TABLET 1000 UNITS PO (09:20)
[2021-09-08] MEDS: methylPREDNISolone SOD SUCC 40 MG VIAL 20 MG IV PUSH ×2 (09:21→20:12)
[2021-09-08] MEDS: CYANOCOBALAMIN 1,000 MCG TABLET 1000 MCG PO (09:21)
[2021-09-08] MEDS: metOLazone 2.5 MG TABLET PO (09:21)
[2021-09-08] MEDS: MUPIROCIN 2% OINT 22 GM TUBE 1 APPLIC TOPICAL (09:22)
[2021-09-08] MEDS: SPIRONOLACTONE 25 MG TABLET PO (09:22)
[2021-09-08] MEDS: FUROSEMIDE INJ 40 MG/4 ML VIAL 60 MG IV PUSH ×2 (09:22→17:05)
[2021-09-08] MEDS: TIMOLOL MALEATE 0.5% OP SOLN 5 ML BOTTLE 1 DROP EACH EYE (09:23)
[2021-09-08 11:58] LABS: Glucose Point of Care 373 mg/dl (65-105)
--- NOTE | 2021-09-08 13:32 | PM.PNCARD ---
Progress Note: A&P Assessment and Plan (1) Acute on chronic diastolic heart failure: Code(s): I50.33 - Acute on chronic diastolic (congestive) heart failure Status: Acute Assessment and Plan: She has a history of diastolic heart failure. Echo from June 2020 shows normal LVEF 55-60%, mild aortic stenosis, moderate biatrial dilation. Has been relatively stable until the past few weeks when she began to develop worsening LE edema, now with some weeping. Some mild pulmonary edema, small pleural effusions on chest xray. LE edema has improved some since last night with administration of IV furosemide. Continue furosemide 60mg IV b.i.d and metolazone 2.5 mg. Monitor renal function very closely. 2L fluid restriction Daily weights Monitor renal function and electrolytes with daily BMP. Recommend Nephrology consultation for their assistance with regards to diuresis and renal failure S current regimen is not significantly improving clinical status with concern for worsening renal function. Discussed options with alternative diuretic such as Bumex, continuous Lasix infusion but would like to avoid if possible. Compression stockings when able to tolerate with LLE weeping Echo has been ordered. Further recommendations to follow review of echo. (2) Lower extremity edema: Code(s): R60.0 - Localized edema Status: Acute Assessment and Plan: Secondary to acute on chronic CHF but mostly right-sided heart failure symptoms. Possible that some of her swelling/erythema related to gout - steroids have been started. Very unlikely to be DVT given therapeutic anticoagulation on warfarin. Will obtain lower extremity venous Dopplers to exclude. (3) Persistent atrial fibrillation: Code(s): I48.19 - Other persistent atrial fibrillation Status: Acute Assessment and Plan: Rate controlled on diltiazem and metoprolol. She has a permanent pacemaker in place. Anticoagulated with coumadin. INR 3.0 today. Monitor INR daily. (4) Current use of prison anticoagulation: Code(s): Z79.01 - USP (current) use of anticoagulants Status: Acute Assessment and Plan: On warfarin for persistent atrial fibrillation. INR today 3.0. Daily INR. (5) History of permanent cardiac pacemaker placement: Code(s): Z95.0 - Presence of cardiac pacemaker Status: Acute Assessment and Plan: [employer] PPM. Most recently interrogated on June of 2021. This interrogation showed normal device function battery function with 6 years remaining battery life to JAMI. Appropriate lead measurements. Presenting rhythm Aflutter - V paced. AF burden 100%. No ventricular high rate episodes noted. (6) Chronic kidney disease, stage 4 (severe): Code(s): N18.4 - Chronic kidney disease, stage 4 (severe) Status: Acute Assessment and Plan: I have asked for Dr. Nguyen to see her. Appreciate his involvement in recommendations. Subjective Date/time seen: Date of service: 09/08/21 13:32 Follow-up for lower extremity edema, aortic stenosis, chronic kidney disease, CHF Patient states she is feeling a little better overall. Legs feel less tight, less painful. She admits she is not making much more urine than she typically does. Denies shortness of breath, chest pain, dizziness or palpitations. Review of Systems Review of Systems: All systems reviewed & are unremarkable except as noted in HPI and below Constitutional: Constitutional: Denies excessive sweating, Denies fatigue, Denies headache(s), Denies lethargy and Denies weakness Eyes: Eyes: Denies change in vision and Denies loss of vision ENT: Reports Normal hearing present, Denies headache(s), Denies nasal congestion, Denies nasal discharge and Denies neck pain Cardiovascular: Cardiovascular: Denies chest pain, Reports pedal edema, Reports leg edema, Denies palpitations, Denies dyspnea and Denies dyspnea on exertio
[2021-09-08 14:00] VITALS: BP 113/47; PULSE 70; RESP 18; TEMP 36.7; O2SAT 93
--- NOTE | 2021-09-08 15:37 | P.PNIM_ITS ---
Progress Note: A&P Assessment and Plan (1) Acute exacerbation of congestive heart failure: Qualifiers: Heart failure type: unspecified Qualified Code(s): I50.9 - Heart failure, unspecified Code(s): I50.9 - Heart failure, unspecified Status: Acute Assessment and Plan: * Probably in acute diastolic exacerbation of heart failure * She states compliance with her medications and diet * Patient stated that she drinks 25oz of water a day and eats ice throughout the day. * BNP 3110 upon admission * Chest xray: Cardiomegaly with mild edema and small pleural effusions * Echo from Oct: normal systolic with EF of 55-60% * IV Lasix 40 mg b.i.d. * See Dr. Mahan for cardiology, consulted cards thank you for your help * Trend urine output * Trend labs (2) Chronic kidney disease, stage 4 (severe): Code(s): N18.4 - Chronic kidney disease, stage 4 (severe) Status: Chronic Assessment and Plan: * Stable on review of previous labs * Trend labs while diuresis * Current BUN/Cr 75/2.30 * GFR 24 * Baseline BUN/Cr seems to be 70-80/2.00-2.24 (3) Chronic anemia: Code(s): D64.9 - Anemia, unspecified Status: Acute Assessment and Plan: * Current H/H 10.8/32.9, MCV 106.1 * Stable at this time * Run anemia labs in the am * Continue B-12 from home * Supplement if indicated (4) Insulin dependent type 2 diabetes mellitus: Code(s): E11.9 - Type 2 diabetes mellitus without complications; Z79.4 - half-way (current) use of insulin Status: Acute Assessment and Plan: * Uncontrolled * consulted clinical educator about changing diabetes therapy * Current glucose 373 * Lantus 25 unit daily * hemoglobin A1c 7.5 * Initiate sliding scale insulin * Accu-Cheks * hypoglycemic protocol * Add aspart 8 units with meals, increase to 10 units (5) Current use of long term acute care registered nurse anticoagulation: Code(s): Z79.01 - terminal operations supervisor (current) use of anticoagulants Status: Acute Assessment and Plan: * Current INR 3.0 * Trend INR * Continue warfarin 5mg PO at 1700 * Adjust therapy to keep INR in a therapeutic range (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 * R/O infection * Prelim culture shows gram positive cocci in clusters * Started on Primaxin and Vanc to cover for cellulitis (7) Hypothyroidism, unspecified: Qualifiers: Hypothyroidism type: unspecified Qualified Code(s): E03.9 - Hypothyroidism, unspecified Code(s): E03.9 - Hypothyroidism, unspecified Status: Acute Assessment and Plan: * Continue levothyroxine * TSH 2.790 (8) Atrial fibrillation: Code(s): I48.91 - Unspecified atrial fibrillation Status: Acute Assessment and Plan: * Continue diltiazem 180mg daily * Pacemaker present (9) Obstructive sleep apnea on CPAP: Code(s): G47.33 - Obstructive sleep apnea (adult) (pediatric); Z99.89 - Dependence on other enabling machines and devices Status: Acute Assessment and Plan: * home trilogy unit (10) Lower extremi
--- NOTE | 2021-09-08 15:37 | PM.IMPN ---
Progress Note: A&P Assessment and Plan (1) Acute exacerbation of congestive heart failure: Qualifiers: Heart failure type: unspecified Qualified Code(s): I50.9 - Heart failure, unspecified Code(s): I50.9 - Heart failure, unspecified Status: Acute Assessment and Plan: Probably in acute diastolic exacerbation of heart failure She states compliance with her medications and diet Patient stated that she drinks 25oz of water a day and eats ice throughout the day. BNP 3110 upon admission Chest xray: Cardiomegaly with mild edema and small pleural effusions Echo from Oct: normal systolic with EF of 55-60% IV Lasix [address] Mahan for cardiology, consulted cards thank you for your help Trend urine output Trend labs (2) Chronic kidney disease, stage 4 (severe): Code(s): N18.4 - Chronic kidney disease, stage 4 (severe) Status: Chronic Assessment and Plan: Stable on review of previous labs Trend labs while diuresis Current BUN/Cr 75/2.30 GFR 24 Baseline BUN/Cr seems to be 70-80/2.00-2.24 (3) Chronic anemia: Code(s): D64.9 - Anemia, unspecified Status: Acute Assessment and Plan: Current H/H 10.8/32.9, MCV 106.1 Stable at this time Run anemia labs in the am Continue B-12 from home Supplement if indicated (4) Insulin dependent type 2 diabetes mellitus: Code(s): E11.9 - Type 2 diabetes mellitus without complications; Z79.4 - medical terminologist (current) use of insulin Status: Acute Assessment and Plan: Uncontrolled consulted family life educator about changing diabetes therapy Current glucose 373 Lantus 25 unit daily hemoglobin A1c 7.5 Initiate sliding scale insulin Accu-Cheks hypoglycemic protocol Add aspart 8 units with meals, increase to 10 units (5) Current use of snf anticoagulation: Code(s): Z79.01 - medical terminologist (current) use of anticoagulants Status: Acute Assessment and Plan: Current INR 3.0 Trend INR Continue warfarin 5mg PO at 1700 Adjust therapy to keep INR in a therapeutic range (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 R/O infection Prelim culture shows gram positive cocci in clusters Started on Primaxin and Vanc to cover for cellulitis (7) Hypothyroidism, unspecified: Qualifiers: Hypothyroidism type: unspecified Qualified Code(s): E03.9 - Hypothyroidism, unspecified Code(s): E03.9 - Hypothyroidism, unspecified Status: Acute Assessment and Plan: Continue levothyroxine TSH 2.790 (8) Atrial fibrillation: Code(s): I48.91 - Unspecified atrial fibrillation Status: Acute Assessment and Plan: Continue diltiazem 180mg daily Pacemaker present (9) Obstructive sleep apnea on CPAP: Code(s): G47.33 - Obstructive sleep apnea (adult) (pediatric); Z99.89 - Dependence on other enabling machines and devices Status: Acute Assessment and Plan: home trilogy unit (10) Lower extremity edema: Code(s): R60.0 - Localized edema Status: Acute Assessment and Plan: A chronic finding but much worse over the last couple of weeks DVT unlikely as she is on warfarin Wound nurse consulted given shallow ulcerations Anshu fu Time Spent With Patient Time with patient: Greater than 35 minutes Subjective Date/time seen: 09/08/21 1200 Interval history: Date/Time: 09/06/21 16:30 Narrative: Stay very pleasant 81-year-old female with history of diastolic congestive heart failure, obs
[2021-09-08 16:33] LABS: Glucose Point of Care 374 mg/dl (65-105)
[2021-09-08] MEDS: WARFARIN (*PBKC) 5 MG TABLET PO (17:09)
--- NOTE | 2021-09-08 19:00 | P.CONNP_ITS ---
Assessment and Plan Assessment and plan (1) Chronic kidney disease, stage 4 (severe): Code(s): N18.4 - Chronic kidney disease, stage 4 (severe) Status: Chronic Assessment and Plan: * baseline creatinine runs around 1.7 - 2.2mg/dl * due to HTN, DM, vascular disease, and age (2) Acute on chronic diastolic heart failure: Code(s): I50.33 - Acute on chronic diastolic (congestive) heart failure Status: Acute Assessment and Plan: * Cardiology following * agree with IV diuresis * leg elevation as tolerated * fluid restriction and daily weights * follow I/Os * no respiratory issues noted at this time (3) Bilateral lower extremity edema: Code(s): R60.0 - Localized edema Status: Acute Assessment and Plan: * presumably related to #2 and possibly #4 * however, suspect a component of venous insufficiency/vascular disease playing a role * continue ongoing care (4) Gout flare: Code(s): M10.9 - Gout, unspecified Status: Acute Assessment and Plan: * localized to left elbow, right hand, left index finger, bilateral heels * continue uloric * started on steroids as well * wound culture from left elbow with Staph - on antibiotics (5) Hypertension: Code(s): I10 - Essential (primary) hypertension Status: Chronic Assessment and Plan: * well controlled at this time * follow trend of hemodynamics (6) Anemia: Code(s): D64.9 - Anemia, unspecified Status: Chronic Assessment and Plan: * chronic issues * partly related to her CKD * no need for ESAs at this time * follow H/H (7) Type 2 diabetes mellitus: Qualifiers: Diabetes mellitus complication status: with other specified complication Diabetes mellitus senior care insulin use: with senior care use Qualified Code(s): E11.69 - Type 2 diabetes mellitus with other specified complication; Z79.4 - truck terminal manager (current) use of insulin Code(s): E11.9 - Type 2 diabetes mellitus without complications Status: Chronic Assessment and Plan: * follow acchecks * suspect more fluctuations with steroid use * glycemic control Will continue to follow. 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 The patient presented to Dr. Mahan's office for routine follow-up of her chronic cardiac issues. It was noted that time that she had significant lower extremity edema that has worsened over the past couple of weeks. She apparently has ongoing weeping from both her legs, the left side greater than right and this is continued to be progressively getting worse. Her outpatient diuretics had been increased in the hope that this would help relieve the symptoms (she was on Lasix 80 mg once a day and metolazone 2.5 mg 3 times a week) but her swelling and weeping has continued to worsen. The swelling and edema as likely resulted in some superficial wounds to her lower extremities as well. In spite of her worsening lower extremity edema, she denies any worsening shortness of breath from her chronic baseline and denies fevers, chills, nausea, vomiting, or any other subjective symptoms. Since admission, she has been started on IV diuret
--- NOTE | 2021-09-08 19:00 | PM.CNNEP ---
Assessment and Plan Assessment and plan (1) Chronic kidney disease, stage 4 (severe): Code(s): N18.4 - Chronic kidney disease, stage 4 (severe) Status: Chronic Assessment and Plan: baseline creatinine runs around 1.7 - 2.2mg/dl due to HTN, DM, vascular disease, and age (2) Acute on chronic diastolic heart failure: Code(s): I50.33 - Acute on chronic diastolic (congestive) heart failure Status: Acute Assessment and Plan: Cardiology following agree with IV diuresis leg elevation as tolerated fluid restriction and daily weights follow I/Os no respiratory issues noted at this time (3) Bilateral lower extremity edema: Code(s): R60.0 - Localized edema Status: Acute Assessment and Plan: presumably related to #2 and possibly #4 however, suspect a component of venous insufficiency/vascular disease playing a role continue ongoing care (4) Gout flare: Code(s): M10.9 - Gout, unspecified Status: Acute Assessment and Plan: localized to left elbow, right hand, left index finger, bilateral heels continue uloric started on steroids as well wound culture from left elbow with Staph - on antibiotics (5) Hypertension: Code(s): I10 - Essential (primary) hypertension Status: Chronic Assessment and Plan: well controlled at this time follow trend of hemodynamics (6) Anemia: Code(s): D64.9 - Anemia, unspecified Status: Chronic Assessment and Plan: chronic issues partly related to her CKD no need for ESAs at this time follow H/H (7) Type 2 diabetes mellitus: Qualifiers: Diabetes mellitus complication status: with other specified complication Diabetes mellitus emt intermediate insulin use: with emt intermediate use Qualified Code(s): E11.69 - Type 2 diabetes mellitus with other specified complication; Z79.4 - penitentiary (current) use of insulin Code(s): E11.9 - Type 2 diabetes mellitus without complications Status: Chronic Assessment and Plan: follow acchecks suspect more fluctuations with steroid use glycemic control Will continue to follow. 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 The patient presented to Dr. Mahan's office for routine follow-up of her chronic cardiac issues. It was noted that time that she had significant lower extremity edema that has worsened over the past couple of weeks. She apparently has ongoing weeping from both her legs, the left side greater than right and this is continued to be progressively getting worse. Her outpatient diuretics had been increased in the hope that this would help relieve the symptoms (she was on Lasix 80 mg once a day and metolazone 2.5 mg 3 times a week) but her swelling and weeping has continued to worsen. The swelling and edema as likely resulted in some superficial wounds to her lower extremities as well. In spite of her worsening lower extremity edema, she denies any worsening shortness of breath from her chronic baseline and denies fevers, chills, nausea, vomiting, or any other subjective symptoms. Since admission, she has been started on IV diuretic therapy in effort to optimize her lower extremity edema /swelling. Is been also noted that she appears to have an infection in her right wrist. Initially, this was thought to be a gout flare but drainage of fluid from that joint seems consistent with an acute infection. She is currently on antibiotics for this issue. Renal consultation was requested due to her known history of chronic kidney disease. The ronaldo
[2021-09-08 20:00] VITALS: PULSE 71; RESP 18; O2SAT 98
[2021-09-08 20:12] VITALS: PULSE 80
[2021-09-08] MEDS: LATANOPROST 0.005% OP SOLN 2.5 ML BTL 1 DROP EACH EYE (20:12)
[2021-09-08 21:05] VITALS: BP 102/66; PULSE 71; RESP 18; TEMP 36.4; O2SAT 98
[2021-09-08 21:16] LABS: Glucose Point of Care 431 mg/dl (65-105)
[2021-09-08] MEDS: INSULIN ASPART (*BKC) 100 UNITS/ML 10 UNITS SUB-Q (21:39)
[2021-09-09] VITALS (7 sets, daily range): BP systolic 112–120; BP diastolic 48–69; PULSE 70–77; RESP 17–18; TEMP 36.4–36.8; O2SAT 97–98
[2021-09-09 01:45] LABS: Glucose Point of Care 346 mg/dl (65-105)
[2021-09-09] MEDS: LEVOTHYROXINE SODIUM 100 MCG TABLET 200 MCG PO (06:01)
[2021-09-09 06:38] LABS: Basophils Percent Auto 0.1 % (0.2-1.2); Hematocrit 30.4 % (37.0-47.0); Hemoglobin 10.2 g/dL (12.0-15.0); Immature Granulocyte Absolute 0.12 K/mm3 (0.00-0.031); Immature Granulocyte Percent A 0.9 % (0-0.5); Lymphocytes Absolute Auto 0.29 K/mm3 (0.9-3.2); Lymphocytes Percent Auto 2.1 % (18.3-44.2); Mean Corpuscular HGB Conc 33.6 g/dl (32-36); Mean Corpuscular Hemoglobin 35.3 pg (26-34); Mean Corpuscular Volume 105.2 fl (80-100); Mean Platelet Volume 10.6 fl (7.4-10.4); Monocytes Absolute Auto 0.4 K/mm3 (0.1-0.6); Monocytes Percent Auto 3.2 % (2.6-8.5); Neutrophils Percent Auto 93.7 % (45.5-73.1); Nucleated Red Blood Cells Absolute Auto 0.1 K/mm3 (0.0-0.012); Nucleated Red Blood Cells Perc 0.7 % (0.0-0.2); Platelet Count Result 283 k/mm3 (150-375); Red Blood Count 2.89 M/mm3 (4.2-5.4); Red Cell Distribution Width 12.5 % (11.5-14.5); White Blood Count 13.8 K/mm3 (4.5-10.0)
[2021-09-09 06:45] LABS: Alanine Aminotransferase 30 U/L (4-35); Albumin Level 4.1 g/dL (3.5-5.1); Alkaline Phosphatase 104 U/L (38-126); Anion Gap 11 mmol/L (8-16); Aspartate Amino Transferase 38 U/L (14-36); Bilirubin,Total 0.7 mg/dL (0.2-1.3); Blood Urea Nitrogen 93 mg/dL (7-17); Calcium 8.9 mg/dL (8.4-10.2); Carbon Dioxide 24 mmol/L (22-30); Chloride 94 mmol/L (98-107); Estimated CRCL calculation 19 ml/min; Estimated Glomerular Filt Rate 18; Glucose 369 mg/dL (65-110); Magnesium 1.8 mg/dL (1.6-2.3); Sodium 129 mmol/L (137-145)
[2021-09-09 06:54] LABS: INR 3.5; Prothrombin Time 34.3 Seconds (11.1-14.7)
[2021-09-09 07:46] LABS: Large Platelets Present; Macrocytosis 1+ (NORMAL); Platelet Estimate Adequate (Adequate)
[2021-09-09] MEDS: INSULIN ASPART (*BKC) 100 UNITS/ML 8 UNITS SUB-Q (07:49)
[2021-09-09] MEDS: INSULIN ASPART (*BKC) 100 UNITS/ML SUB-Q ×3 (07:49→16:27)
[2021-09-09 07:50] LABS: Glucose Point of Care 369 mg/dl (65-105)
[2021-09-09] MEDS: INSULIN GLARGINE (*BKC) 100 UNITS/ML 25 UNITS SUB-Q (07:50)
[2021-09-09] MEDS: CYANOCOBALAMIN 1,000 MCG TABLET 1000 MCG PO (07:54)
[2021-09-09] MEDS: FEBUXOSTAT 40 MG TABLET PO (07:54)
[2021-09-09] MEDS: METOPROLOL TARTRATE 25 MG TABLET PO ×2 (07:54→20:23)
[2021-09-09] MEDS: dilTIAZem HCL CD 180 MG CAP.ER.24H PO (07:54)
[2021-09-09] MEDS: MUPIROCIN 2% OINT 22 GM TUBE 1 APPLIC TOPICAL (07:55)
[2021-09-09] MEDS: TIMOLOL MALEATE 0.5% OP SOLN 5 ML BOTTLE 1 DROP EACH EYE (07:55)
[2021-09-09] MEDS: CHOLECALCIFEROL 1,000 UNITS TABLET 1000 UNITS PO (07:55)
[2021-09-09] MEDS: PRAVASTATIN SODIUM 10 MG TABLET PO (07:55)
[2021-09-09] MEDS: SPIRONOLACTONE 25 MG TABLET PO (09:29)
[2021-09-09] MEDS: FUROSEMIDE INJ 40 MG/4 ML VIAL IV PUSH (09:29)
[2021-09-09] MEDS: methylPREDNISolone SOD SUCC 40 MG VIAL 20 MG IV PUSH ×2 (09:29→20:23)
--- NOTE | 2021-09-09 10:30 | PM.IMPN ---
Progress Note: A&P Assessment and Plan (1) Acute exacerbation of congestive heart failure: Qualifiers: Heart failure type: unspecified Qualified Code(s): I50.9 - Heart failure, unspecified Code(s): I50.9 - Heart failure, unspecified Status: Acute Assessment and Plan: Probably in acute diastolic exacerbation of heart failure She states compliance with her medications and diet Patient stated that she drinks 25oz of water a day and eats ice throughout the day. BNP 3110 upon admission Chest xray: Cardiomegaly with mild edema and small pleural effusions Echo from Oct: normal systolic with EF of 55-60% Repeat echo shows EF of 55-60% with undetermined diastolic dysfunction with moderate to severe aortic stenosis IV Lasix 40 mg b.i.d, increased to 60mg IV BID See Dr. Mahan for cardiology, consulted cards thank you for your help Trend urine output Trend labs (2) Chronic kidney disease, stage 4 (severe): Code(s): N18.4 - Chronic kidney disease, stage 4 (severe) Status: Chronic Assessment and Plan: Stable on review of previous labs Trend labs while diuresis Current BUN/Cr 93/2.60 GFR 24 Baseline BUN/Cr seems to be 70-80/2.00-2.24 (3) Chronic anemia: Code(s): D64.9 - Anemia, unspecified Status: Acute Assessment and Plan: Current H/H 10.2/30.4, MCV 105.2 Stable at this time Run anemia labs in the am Continue B-12 from home Supplement if indicated (4) Insulin dependent type 2 diabetes mellitus: Code(s): E11.9 - Type 2 diabetes mellitus without complications; Z79.4 - roasterman (current) use of insulin Status: Acute Assessment and Plan: Uncontrolled consulted mat gauger about changing diabetes therapy Current glucose 369 Lantus 25 unit daily hemoglobin A1c 7.5 Initiate sliding scale insulin Accu-Cheks hypoglycemic protocol Add aspart 8 units with meals, increase to 15 units (5) Current use of correction anticoagulation: Code(s): Z79.01 - roasterman (current) use of anticoagulants Status: Acute Assessment and Plan: Current INR 3.5 Trend INR Hold warfarin 5mg PO at 1700 Adjust therapy to keep INR in a therapeutic range (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 R/O infection Wound culture staphylococcus aureus Started on Primaxin and Vanc to cover for cellulitis Elbow xray shows bursitis without osteomyelitis (7) Hypothyroidism, unspecified: Qualifiers: Hypothyroidism type: unspecified Qualified Code(s): E03.9 - Hypothyroidism, unspecified Code(s): E03.9 - Hypothyroidism, unspecified Status: Acute Assessment and Plan: Continue levothyroxine TSH 2.790 (8) Atrial fibrillation: Code(s): I48.91 - Unspecified atrial fibrillation Status: Acute Assessment and Plan: Continue diltiazem 180mg daily Pacemaker present (9) Obstructive sleep apnea on CPAP: Code(s): G47.33 - Obstructive sleep apnea (adult) (pediatric); Z99.89 - Dependence on other enabling machines and devices Status: Acute Assessment and Plan: home trilogy unit (10) Lower extremity edema: Code(s): R60.0 - Localized edema Status: Acute Assessment and Plan: A chronic finding but much worse over the last couple of weeks DVT unlikely as she is on warfarin Wound nurse consulted given shallow ulcerations Anshu fu Subjective Date/time seen: 09/09/21 1030 Interval history: Date/Time: 09/06/21 16:30 Narrativ
--- NOTE | 2021-09-09 10:30 | P.PNIM_ITS ---
Progress Note: A&P Assessment and Plan (1) Acute exacerbation of congestive heart failure: Qualifiers: Heart failure type: unspecified Qualified Code(s): I50.9 - Heart failure, unspecified Code(s): I50.9 - Heart failure, unspecified Status: Acute Assessment and Plan: * Probably in acute diastolic exacerbation of heart failure * She states compliance with her medications and diet * Patient stated that she drinks 25oz of water a day and eats ice throughout the day. * BNP 3110 upon admission * Chest xray: Cardiomegaly with mild edema and small pleural effusions * Echo from Oct: normal systolic with EF of 55-60% * Repeat echo shows EF of 55-60% with undetermined diastolic dysfunction with moderate to severe aortic stenosis * IV Lasix 40 mg b.i.d, increased to 60mg IV BID * See Dr. Mahan for cardiology, consulted cards thank you for your help * Trend urine output * Trend labs (2) Chronic kidney disease, stage 4 (severe): Code(s): N18.4 - Chronic kidney disease, stage 4 (severe) Status: Chronic Assessment and Plan: * Stable on review of previous labs * Trend labs while diuresis * Current BUN/Cr 93/2.60 * GFR 24 * Baseline BUN/Cr seems to be 70-80/2.00-2.24 (3) Chronic anemia: Code(s): D64.9 - Anemia, unspecified Status: Acute Assessment and Plan: * Current H/H 10.2/30.4, MCV 105.2 * Stable at this time * Run anemia labs in the am * Continue B-12 from home * Supplement if indicated (4) Insulin dependent type 2 diabetes mellitus: Code(s): E11.9 - Type 2 diabetes mellitus without complications; Z79.4 - intermediate manager (current) use of insulin Status: Acute Assessment and Plan: * Uncontrolled * consulted consumer educator about changing diabetes therapy * Current glucose 369 * Lantus 25 unit daily * hemoglobin A1c 7.5 * Initiate sliding scale insulin * Accu-Cheks * hypoglycemic protocol * Add aspart 8 units with meals, increase to 15 units (5) Current use of half-way anticoagulation: Code(s): Z79.01 - intermediate manager (current) use of anticoagulants Status: Acute Assessment and Plan: * Current INR 3.5 * Trend INR * Hold warfarin 5mg PO at 1700 * Adjust therapy to keep INR in a therapeutic range (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 * R/O infection * Wound culture staphylococcus aureus * Started on Primaxin and Vanc to cover for cellulitis * Elbow xray shows bursitis without osteomyelitis (7) Hypothyroidism, unspecified: Qualifiers: Hypothyroidism type: unspecified Qualified Code(s): E03.9 - Hypothyroidism, unspecified Code(s): E03.9 - Hypothyroidism, unspecified Status: Acute Assessment and Plan: * Continue levothyroxine * TSH 2.790 (8) Atrial fibrillation: Code(s): I48.91 - Unspecified atrial fibrillation Status: Acute Assessment and Plan: * Continue diltiazem 180mg daily * Pacemaker present (9) Obstructive sleep apnea on CPAP: Code(s): G47.33 - Obstructive sleep apnea (adult) (pediatric)
[2021-09-09] MEDS: ACETAMINOPHEN 325 MG TABLET 650 MG PO (11:27)
[2021-09-09 11:44] LABS: Glucose Point of Care 407 mg/dl (65-105)
[2021-09-09] MEDS: INSULIN ASPART (*BKC) 100 UNITS/ML 10 UNITS SUB-Q (12:21)
--- NOTE | 2021-09-09 13:31 | PM.PNNEP ---
Progress Note: A&P Assessment and Plan (1) Chronic kidney disease, stage 4 (severe): Code(s): N18.4 - Chronic kidney disease, stage 4 (severe) Status: Chronic Assessment and Plan: baseline creatinine runs around 1.7 - 2.2mg/dl due to HTN, DM, vascular disease, and age (2) Acute on chronic diastolic heart failure: Code(s): I50.33 - Acute on chronic diastolic (congestive) heart failure Status: Acute Assessment and Plan: Cardiology following agree with IV diuresis leg elevation as tolerated fluid restriction and daily weights follow I/Os no respiratory issues noted at this time (3) Bilateral lower extremity edema: Code(s): R60.0 - Localized edema Status: Acute Assessment and Plan: presumably related to #2 and possibly #4 however, suspect a component of venous insufficiency/vascular disease playing a role continue ongoing care (4) Gout flare: Code(s): M10.9 - Gout, unspecified Status: Acute Assessment and Plan: localized to left elbow, right hand, left index finger, bilateral heels continue uloric on steroids as well wound culture from left elbow with Staph - on antibiotics (5) Hypertension: Code(s): I10 - Essential (primary) hypertension Status: Chronic Assessment and Plan: well controlled at this time follow trend of hemodynamics (6) Anemia: Code(s): D64.9 - Anemia, unspecified Status: Chronic Assessment and Plan: chronic issues partly related to her CKD no need for ESAs at this time follow H/H (7) Type 2 diabetes mellitus: Qualifiers: Diabetes mellitus adjunct faculty for medical terminology insulin use: with fdc use Diabetes mellitus complication status: with other specified complication Qualified Code(s): E11.69 - Type 2 diabetes mellitus with other specified complication; Z79.4 - longterm (current) use of insulin Code(s): E11.9 - Type 2 diabetes mellitus without complications Status: Chronic Assessment and Plan: follow acchecks suspect more fluctuations with steroid use glycemic control Will continue to follow. Subjective Date/time seen: 09/09/21 13:31 Some improvement in overall swelling in LEs but edema persists/remains; no other acute issues or problems to report at the time of my visit; no issues/events overnight or earlier this AM. Exam Narrative: General: WD/WN female in NAD Heart: normal S1 and S2; no rub Lungs: decreased at bases Abdomen: soft, nontender, nondistended, positive bowel sounds Extremities: no cyanosis or clubbing; 2+ edema Skin: warm and dry Objective Data Vital Signs Vital Signs: Vital Signs Temp Pulse Resp BP Pulse Ox 09/09/21 07:54 70 09/09/21 06:29 36.4 C L 70 17 112/48 L 97 09/09/21 00:56 77 98 09/08/21 21:05 36.4 C 71 18 102/66 98 09/08/21 20:12 80 09/08/21 20:00 71 18 98 Intake/Output Intake/Output: Intake & Output 09/06/21 09/07/21 09/08/21 09/09/21 23:59 23:59 23:59 23:59 Intake Total 1040 1760 660 Output Total 1500 1350 700 Balance -460 410 -40 Meds/Results Medications: Active Medications Generic Name Dose Route Start Last Admin Trade Name Freq PRN Reason Stop Dose Admin Acetaminophen 650 mg 09/09/21 10:54 09/09/21 11:27 Acetaminophen 325 Mg Tablet PO 650 mg Q4H PRN Administration Mild Pain (1-3) or Fever Albuterol 2.5 mg 09/06/21 21:31 Albuterol Sulfate Neb 2.5 Mg/0.5 Ml Inh INHALATION Q4HRT PRN Shortness Of Breath Cyanocobalamin 1,000 mcg 09/07/21 09:00 09/09/21 07:54 Cyanocobalamin 1,000 Mcg Tablet PO 1,000 mcg DAILY RAEANN Administration Dextrose 12.5 gm 09/07/21 12:05 Dextrose 50% 25 Gm/50 Ml Syringe IV PUSH PRN PRN Hypoglycemia Protocol Diltiazem HCl 180 mg 09/07/21 09:00 09/09/21 07:54 Diltiazem Hcl Cd 180 Mg Cap.Er.24h PO 180 mg DAILY RAEANN Administra
--- NOTE | 2021-09-09 13:31 | P.PNNP_ITS ---
Progress Note: A&P Assessment and Plan (1) Chronic kidney disease, stage 4 (severe): Code(s): N18.4 - Chronic kidney disease, stage 4 (severe) Status: Chronic Assessment and Plan: * baseline creatinine runs around 1.7 - 2.2mg/dl * due to HTN, DM, vascular disease, and age (2) Acute on chronic diastolic heart failure: Code(s): I50.33 - Acute on chronic diastolic (congestive) heart failure Status: Acute Assessment and Plan: * Cardiology following * agree with IV diuresis * leg elevation as tolerated * fluid restriction and daily weights * follow I/Os * no respiratory issues noted at this time (3) Bilateral lower extremity edema: Code(s): R60.0 - Localized edema Status: Acute Assessment and Plan: * presumably related to #2 and possibly #4 * however, suspect a component of venous insufficiency/vascular disease playing a role * continue ongoing care (4) Gout flare: Code(s): M10.9 - Gout, unspecified Status: Acute Assessment and Plan: * localized to left elbow, right hand, left index finger, bilateral heels * continue uloric * on steroids as well * wound culture from left elbow with Staph - on antibiotics (5) Hypertension: Code(s): I10 - Essential (primary) hypertension Status: Chronic Assessment and Plan: * well controlled at this time * follow trend of hemodynamics (6) Anemia: Code(s): D64.9 - Anemia, unspecified Status: Chronic Assessment and Plan: * chronic issues * partly related to her CKD * no need for ESAs at this time * follow H/H (7) Type 2 diabetes mellitus: Qualifiers: Diabetes mellitus 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 Subjective Date/time seen: 09/09/21 13:31 Some improvement in overall swelling in LEs but edema persists/remains; no other acute issues or problems to report at the time of my visit; no issues/events overnight or earlier this AM. Exam Narrative: General: WD/WN female in NAD Heart: normal S1 and S2; no rub Lungs: decreased at bases Abdomen: soft, nontender, nondistended, positive bowel sounds Extremities: no cyanosis or clubbing; 2+ edema Skin: warm and dry Objective Data Vital Signs Vital Signs: Vital Signs Temp Pulse Resp BP Pulse Ox 09/09/21 07:54 70 09/09/21 06:29 36.4 C L 70 17 112/48 L 97 09/09/21 00:56 77 98 09/08/21 21:05 36.4 C 71 18 102/66 98 09/08/21 20:12 80 09/08/21 20:00 71 18 98 Intake/Output Intake/Output: Intake & Output 09/06/21 09/07/21 09/08/21 09/09/21 23:59 23:59 23:59 23:59 Intake Total 1040 1760 660 Output Total 1500 1350 700 Balance -460 410 -40 Meds/Results Medications: Active Medications Generic Name Dose Route Start Last A
--- NOTE | 2021-09-09 13:53 | PM.PNCARD ---
Progress Note: A&P Assessment and Plan (1) Acute on chronic diastolic heart failure: Code(s): I50.33 - Acute on chronic diastolic (congestive) heart failure <MARY Fletcher - Last Filed: 09/09/21 14:37> Status: Acute <MARY Fletcher - Last Filed: 09/09/21 14:37> Assessment and Plan: She has a history of diastolic heart failure. Echo from June 2020 shows normal LVEF 55-60%, mild aortic stenosis, moderate biatrial dilation. Has been relatively stable until the past few weeks when she began to develop worsening LE edema, now with some weeping. Some mild pulmonary edema, small pleural effusions on chest xray. LE edema has improved some since admission Continue furosemide 60mg IV b.i.d and metolazone 2.5 mg. Monitor renal function very closely (BUN/Cr 96/2.6 today). 2L fluid restriction Daily weights Monitor renal function and electrolytes with daily BMP. Nephrology has been consulted. Appreciate their input. Compression stockings when able to tolerate with LLE weeping Echo has been ordered. Further recommendations to follow review of echo. <MARY Fletcher - Last Filed: 09/09/21 14:37> (2) Lower extremity edema: Code(s): R60.0 - Localized edema <MARY Fletcher - Last Filed: 09/09/21 14:37> Status: Acute <MARY Fletcher - Last Filed: 09/09/21 14:37> Assessment and Plan: Secondary to acute on chronic CHF but mostly right-sided heart failure symptoms. Possible that some of her swelling/erythema related to gout - steroids have been started. LE venous dopplers negative for DVT. <MARY Fletcher - Last Filed: 09/09/21 14:37> (3) Persistent atrial fibrillation: Code(s): I48.19 - Other persistent atrial fibrillation <MARY Fletcher - Last Filed: 09/09/21 14:37> Status: Acute <MARY Fletcher - Last Filed: 09/09/21 14:37> Assessment and Plan: Rate controlled on diltiazem and metoprolol. She has a permanent pacemaker in place. Anticoagulated with coumadin. INR 3.5 today. Monitor INR daily. <MARY Fletcher - Last Filed: 09/09/21 14:37> (4) Current use of group home anticoagulation: Code(s): Z79.01 - longterm (current) use of anticoagulants <MARY Fletcher - Last Filed: 09/09/21 14:37> Status: Acute <MARY Fletcher - Last Filed: 09/09/21 14:37> Assessment and Plan: On warfarin for persistent atrial fibrillation. INR today 3.5. Daily INR. <MARY Fletcher - Last Filed: 09/09/21 14:37> (5) History of permanent cardiac pacemaker placement: Code(s): Z95.0 - Presence of cardiac pacemaker <MARY Fletcher - Last Filed: 09/09/21 14:37> Status: Acute <MARY Fletcher - Last Filed: 09/09/21 14:37> Assessment and Plan: [employer] PPM. Most recently interrogated on June of 2021. This interrogation showed normal device function battery function with 6 years remaining battery life to JAMI. Appropriate lead measurements. Presenting rhythm Aflutter - V paced. AF burden 100%. No ventricular high rate episodes noted. <MARY Fletcher - Last Filed: 09/09/21 14:37> (6) Chronic kidney disease, stage 4 (severe): Code(s): N18.4 - Chronic kidney disease, stage 4 (severe) <MARY Fletcher - Last Filed: 09/09/21 14:37> Status: Chronic <MARY Fletcher - Last Filed: 09/09/21 14:37> Assessment and Plan: Nephrology c/s. <MARY Fletcher - Last Filed: 09/09/21 14:37> Additional Plan Attending Addendum: I personally seen and examined this patient at bedside. I agree with the above documentation and plan of care as outlined. -patient overall feels about the same but admits her legs feel a little bit better, a little less tight with less weeping overall. She feels her urine output has increased a little b
[2021-09-09] MEDS: GABAPENTIN 100 MG CAPSULE PO (16:19)
[2021-09-09] MEDS: INSULIN ASPART (*BKC) 100 UNITS/ML 15 UNITS SUB-Q (16:26)
[2021-09-09 16:33] LABS: Glucose Point of Care 350 mg/dl (65-105)
[2021-09-09] MEDS: FUROSEMIDE INJ 40 MG/4 ML VIAL 60 MG IV PUSH (17:18)
[2021-09-09] MEDS: LATANOPROST 0.005% OP SOLN 2.5 ML BTL 1 DROP EACH EYE (20:23)
[2021-09-09 20:38] LABS: Glucose Point of Care 359 mg/dl (65-105)
[2021-09-10 05:59] LABS: Basophils Percent Auto 0.1 % (0.2-1.2); Hematocrit 34.1 % (37.0-47.0); Hemoglobin 11.5 g/dL (12.0-15.0); Immature Granulocyte Absolute 0.08 K/mm3 (0.00-0.031); Immature Granulocyte Percent A 0.7 % (0-0.5); Lymphocytes Absolute Auto 0.35 K/mm3 (0.9-3.2); Lymphocytes Percent Auto 3.2 % (18.3-44.2); Mean Corpuscular HGB Conc 33.7 g/dl (32-36); Mean Corpuscular Hemoglobin 35.6 pg (26-34); Mean Corpuscular Volume 105.6 fl (80-100); Mean Platelet Volume 10.9 fl (7.4-10.4); Monocytes Absolute Auto 0.5 K/mm3 (0.1-0.6); Monocytes Percent Auto 4.9 % (2.6-8.5); Neutrophils Absolute Auto 9.8 K/mm3 (1.3-6.7); Neutrophils Percent Auto 91.1 % (45.5-73.1); Nucleated Red Blood Cells Absolute Auto 0.1 K/mm3 (0.0-0.012); Nucleated Red Blood Cells Perc 0.6 % (0.0-0.2); Platelet Count Result 274 k/mm3 (150-375); Red Blood Count 3.23 M/mm3 (4.2-5.4); Red Cell Distribution Width 12.5 % (11.5-14.5); White Blood Count 10.8 K/mm3 (4.5-10.0)
[2021-09-10 06:00] VITALS: BP 112/76; PULSE 70; RESP 18; TEMP 36.4; O2SAT 95
[2021-09-10 06:04] LABS: INR 3.9; Prothrombin Time 36.8 Seconds (11.1-14.7)
[2021-09-10 06:14] LABS: Anion Gap 13 mmol/L (8-16); Blood Urea Nitrogen 106 mg/dL (7-17); Calcium 8.6 mg/dL (8.4-10.2); Carbon Dioxide 25 mmol/L (22-30); Chloride 88 mmol/L (98-107); Estimated CRCL calculation 21 ml/min; Estimated Glomerular Filt Rate 20; Glucose 404 mg/dL (65-110); Magnesium 1.8 mg/dL (1.6-2.3); Potassium 4.1 mmol/L (3.4-5.0); Sodium 126 mmol/L (137-145)
[2021-09-10] MEDS: LEVOTHYROXINE SODIUM 100 MCG TABLET 200 MCG PO (06:26)
[2021-09-10 06:40] LABS: Macrocytosis 1+ (NORMAL); Platelet Estimate Adequate (Adequate)
[2021-09-10 07:38] LABS: Glucose Point of Care 368 mg/dl (65-105)
[2021-09-10] MEDS: INSULIN ASPART (*BKC) 100 UNITS/ML 15 UNITS SUB-Q ×2 (07:49→11:50)
[2021-09-10] MEDS: INSULIN ASPART (*BKC) 100 UNITS/ML SUB-Q ×4 (07:50→20:42)
[2021-09-10 08:39] VITALS: PULSE 70
[2021-09-10] MEDS: CHOLECALCIFEROL 1,000 UNITS TABLET 1000 UNITS PO (08:39)
[2021-09-10] MEDS: dilTIAZem HCL CD 180 MG CAP.ER.24H PO (08:39)
[2021-09-10] MEDS: GABAPENTIN 100 MG CAPSULE PO ×3 (08:39→16:34)
[2021-09-10] MEDS: MUPIROCIN 2% OINT 22 GM TUBE 1 APPLIC TOPICAL (08:39)
[2021-09-10] MEDS: FEBUXOSTAT 40 MG TABLET PO (08:39)
[2021-09-10] MEDS: SPIRONOLACTONE 25 MG TABLET PO (08:39)
[2021-09-10] MEDS: METOPROLOL TARTRATE 25 MG TABLET PO ×2 (08:39→20:43)
[2021-09-10] MEDS: CYANOCOBALAMIN 1,000 MCG TABLET 1000 MCG PO (08:39)
[2021-09-10] MEDS: PRAVASTATIN SODIUM 10 MG TABLET PO (08:39)
[2021-09-10] MEDS: methylPREDNISolone SOD SUCC 40 MG VIAL 20 MG IV PUSH ×2 (08:40→20:41)
[2021-09-10] MEDS: FUROSEMIDE INJ 40 MG/4 ML VIAL 60 MG IV PUSH ×2 (08:40→16:52)
[2021-09-10] MEDS: TIMOLOL MALEATE 0.5% OP SOLN 5 ML BOTTLE 1 DROP EACH EYE (08:40)
[2021-09-10] MEDS: INSULIN GLARGINE (*BKC) 100 UNITS/ML 25 UNITS SUB-Q (08:45)
[2021-09-10 11:59] LABS: Glucose Point of Care 352 mg/dl (65-105)
--- NOTE | 2021-09-10 12:36 | PM.PNCARD ---
Progress Note: A&P Assessment and Plan (1) Acute on chronic diastolic heart failure: Code(s): I50.33 - Acute on chronic diastolic (congestive) heart failure <MARY Fletcher - Last Filed: 09/10/21 17:37> Status: Acute <MARY Fletcher - Last Filed: 09/10/21 17:37> Assessment and Plan: She has a history of diastolic heart failure. Echo from June 2020 shows normal LVEF 55-60%, mild aortic stenosis, moderate biatrial dilation. Has been relatively stable until the past few weeks when she began to develop worsening LE edema, now with some weeping. Some mild pulmonary edema, small pleural effusions on chest xray. LE edema has improved some since admission Continue furosemide 60mg IV b.i.d for today, shift to oral tomorrow. Monitor renal function very closely 2L fluid restriction Daily weights Monitor renal function and electrolytes with daily BMP. Nephrology has been consulted. Appreciate their input. Compression stockings when able to tolerate with LLE weeping Echo showed EF 55-60%. Mod-severe <MARY Fletcher - Last Filed: 09/10/21 17:37> (2) Lower extremity edema: Code(s): R60.0 - Localized edema <MARY Fletcher - Last Filed: 09/10/21 17:37> Status: Acute <MARY Fletcher - Last Filed: 09/10/21 17:37> Assessment and Plan: Secondary to acute on chronic CHF but mostly right-sided heart failure symptoms. Possible that some of her swelling/erythema related to gout - steroids have been started. LE venous dopplers negative for DVT. <MARY Fletcher - Last Filed: 09/10/21 17:37> (3) Persistent atrial fibrillation: Code(s): I48.19 - Other persistent atrial fibrillation <MARY Fletcher - Last Filed: 09/10/21 17:37> Status: Acute <MARY Fletcher - Last Filed: 09/10/21 17:37> Assessment and Plan: Rate controlled on diltiazem and metoprolol. She has a permanent pacemaker in place. Anticoagulated with coumadin. INR 3.9 today. Monitor INR daily. 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 INR today 3.9. Daily INR. <MARY Fletcher - Last Filed: 09/10/21 17:37> (5) History of permanent cardiac pacemaker placement: Code(s): Z95.0 - Presence of cardiac pacemaker <MARY Fletcher - Last Filed: 09/10/21 17:37> Status: Acute <MARY Fletcher - Last Filed: 09/10/21 17:37> Assessment and Plan: [employer] PPM. Most recently interrogated on June of 2021. This interrogation showed normal device function battery function with 6 years remaining battery life to [employer]AM[employer]. Appropriate lead measurements. Presenting rhythm Aflutter - V paced. AF burden 100%. No ventricular high rate episodes noted. <MARY Fletcher - Last Filed: 09/10/21 17:37> (6) Chronic kidney disease, stage 4 (severe): Code(s): N18.4 - Chronic kidney disease, stage 4 (severe) <MARY Fletcher - Last Filed: 09/10/21 17:37> Status: Chronic <MARY Fletcher - Last Filed: 09/10/21 17:37> Assessment and Plan: Nephrology c/s. <MARY Fletcher - Last Filed: 09/10/21 17:37> Additional Plan Attending Addendum: I personally seen and examined this patient at bedside. I agree with the above documentation and plan of care as outlined. -patient states she is actually feeling significantly better with no pain in lower extremities no shortness of breath. Swelling has improved. Urine output has also picked up. Exam: Very pleasant elderly white female NAD,
--- NOTE | 2021-09-10 13:05 | PM.PNNEP ---
Progress Note: A&P Assessment and Plan (1) Chronic kidney disease, stage 4 (severe): Code(s): N18.4 - Chronic kidney disease, stage 4 (severe) Status: Chronic Assessment and Plan: stable baseline creatinine runs around 1.7 - 2.2mg/dl due to HTN, DM, vascular disease, and age (2) Acute on chronic diastolic heart failure: Code(s): I50.33 - Acute on chronic diastolic (congestive) heart failure Status: Acute Assessment and Plan: Cardiology following improvement noted with IV diuresis - switch to oral diuretis on discharge leg elevation as tolerated fluid restriction and daily weights follow I/Os no respiratory issues noted at this time (3) Bilateral lower extremity edema: Code(s): R60.0 - Localized edema Status: Acute Assessment and Plan: presumably related to #2 and possibly #4 however, suspect a component of venous insufficiency/vascular disease playing a role continue ongoing care (4) Gout flare: Code(s): M10.9 - Gout, unspecified Status: Acute Assessment and Plan: localized to left elbow, right hand, left index finger, bilateral heels continue uloric on steroids as well wound culture from left elbow with Staph - on antibiotics (5) Hypertension: Code(s): I10 - Essential (primary) hypertension Status: Chronic Assessment and Plan: well controlled at this time follow trend of hemodynamics (6) Anemia: Code(s): D64.9 - Anemia, unspecified Status: Chronic Assessment and Plan: chronic issues partly related to her CKD no need for ESAs at this time follow H/H (7) Type 2 diabetes mellitus: Qualifiers: Diabetes mellitus [facility] insulin use: with terminal block assembler use Diabetes mellitus complication status: with other specified complication Qualified Code(s): E11.69 - Type 2 diabetes mellitus with other specified complication; 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 Subjective Date/time seen: 09/10/21 13:05 Seems to be doing reasonably well at the time of my visit; swelling/edema seem better with current therapies (IV diuretics, compression stockins, leg elevation...etc); tolerating antibiotics; noted plans for possible discharge tomorrow. Exam Narrative: General: WD/WN female in NAD Heart: normal S1 and S2; no rub Lungs: decreased at bases Abdomen: soft, nontender, nondistended, positive bowel sounds Extremities: no cyanosis or clubbing; 1+ edema Skin: warm and dry Objective Data Vital Signs Vital Signs: Vital Signs Temp Pulse Resp BP Pulse Ox 09/10/21 08:39 70 09/10/21 06:00 36.4 C 70 18 112/76 95 09/09/21 21:10 36.6 C 70 18 120/54 L 98 09/09/21 20:23 75 09/09/21 20:00 75 18 97 Intake/Output Intake/Output: Intake & Output 09/07/21 09/08/21 09/09/21 09/10/21 23:59 23:59 23:59 23:59 Intake Total 1040 1760 1100 1580 Output Total 1500 1350 1500 2100 Balance -460 410 -400 -520 Meds/Results Medications: Active Medications Generic Name Dose Route Start Last Admin Trade Name Joeq PRN Reason Stop Dose Admin Acetaminophen 650 mg 09/09/21 10:54 09/09/21 11:27 Acetaminophen 325 Mg Tablet PO 650 mg Q4H PRN Administration Mild Pain (1-3) or Fever Albuterol 2.5 mg 09/06/21 21:31 Albuterol Sulfate Neb 2.5 Mg/0.5 Ml Inh INHALATION Q4HRT PRN Shortness Of Breath Cyanocobalamin 1,000 mcg 09/07/21 09:00 09/10/21 08:39 Cyanocobalamin 1,000 Mcg Tablet PO 1,000 mcg DAILY RAEANN Administration Dextrose 12.5 gm 09/07/21 12:05 Dextrose 50% 25 Gm/50 Ml Syringe IV PUSH PRN PRN Hypoglycemia Protocol Diltiazem HCl 180 mg 09/07/21 09:0
--- NOTE | 2021-09-10 13:05 | P.PNNP_ITS ---
Progress Note: A&P Assessment and Plan (1) Chronic kidney disease, stage 4 (severe): Code(s): N18.4 - Chronic kidney disease, stage 4 (severe) Status: Chronic Assessment and Plan: * stable * baseline creatinine runs around 1.7 - 2.2mg/dl * due to HTN, DM, vascular disease, and age (2) Acute on chronic diastolic heart failure: Code(s): I50.33 - Acute on chronic diastolic (congestive) heart failure Status: Acute Assessment and Plan: * Cardiology following * improvement noted with IV diuresis - switch to oral diuretis on discharge * leg elevation as tolerated * fluid restriction and daily weights * follow I/Os * no respiratory issues noted at this time (3) Bilateral lower extremity edema: Code(s): R60.0 - Localized edema Status: Acute Assessment and Plan: * presumably related to #2 and possibly #4 * however, suspect a component of venous insufficiency/vascular disease playing a role * continue ongoing care (4) Gout flare: Code(s): M10.9 - Gout, unspecified Status: Acute Assessment and Plan: * localized to left elbow, right hand, left index finger, bilateral heels * continue uloric * on steroids as well * wound culture from left elbow with Staph - on antibiotics (5) Hypertension: Code(s): I10 - Essential (primary) hypertension Status: Chronic Assessment and Plan: * well controlled at this time * follow trend of hemodynamics (6) Anemia: Code(s): D64.9 - Anemia, unspecified Status: Chronic Assessment and Plan: * chronic issues * partly related to her CKD * no need for ESAs at this time * follow H/H (7) Type 2 diabetes mellitus: Qualifiers: Diabetes mellitus custodial insulin use: with manager intermediate use Diabetes mellitus complication status: with other specified complication Qualified Code(s): E11.69 - Type 2 diabetes mellitus with other specified complication; Z79.4 - skilled nursing (current) use of insulin Code(s): E11.9 - Type 2 diabetes mellitus without complications Status: Chronic Assessment and Plan: * follow acchecks * suspect more fluctuations with steroid use * glycemic control Will continue to follow. Subjective Date/time seen: 09/10/21 13:05 Seems to be doing reasonably well at the time of my visit; swelling/edema seem better with current therapies (IV diuretics, compression stockins, leg elevation...etc); tolerating antibiotics; noted plans for possible discharge tomorrow. Exam Narrative: General: WD/WN female in NAD Heart: normal S1 and S2; no rub Lungs: decreased at bases Abdomen: soft, nontender, nondistended, positive bowel sounds Extremities: no cyanosis or clubbing; 1+ edema Skin: warm and dry Objective Data Vital Signs Vital Signs: Vital Signs Temp Pulse Resp BP Pulse Ox 09/10/21 08:39 70 09/10/21 06:00 36.4 C 70 18 112/76 95 09/09/21 21:10 36.6 C 70 18 120/54 L 98 09/09/21 20:23 75 09/09/21 20:00 75 18 97 Intake/Output Intake/Output: Intake & Output 09/07/21 09/08/21 09/09/21 09/10/21 23:59 23:59 23:59 23:59 Intake Total 1040 1760 1100 1580 Output Total 1500 1350 1500 2100 Balance -460 410 -400 -520 Meds/Results Medications:
--- NOTE | 2021-09-10 14:15 | P.PNIM_ITS ---
Progress Note: A&P Assessment and Plan (1) Acute exacerbation of congestive heart failure: Qualifiers: Heart failure type: unspecified Qualified Code(s): I50.9 - Heart failure, unspecified Code(s): I50.9 - Heart failure, unspecified Status: Acute Assessment and Plan: * Probably in acute diastolic exacerbation of heart failure * She states compliance with her medications and diet * Patient stated that she drinks 25oz of water a day and eats ice throughout the day. * BNP 3110 upon admission * Chest xray: Cardiomegaly with mild edema and small pleural effusions * Echo from Oct: normal systolic with EF of 55-60% * Repeat echo shows EF of 55-60% with undetermined diastolic dysfunction with moderate to severe aortic stenosis * Lasix 40mg pO BID per cards * See Dr. Mahan for cardiology, consulted cards thank you for your help * Trend urine output * Trend labs (2) Chronic kidney disease, stage 4 (severe): Code(s): N18.4 - Chronic kidney disease, stage 4 (severe) Status: Chronic Assessment and Plan: * Stable on review of previous labs * Trend labs while diuresis * Current BUN/Cr 106/230 * GFR 24 * Baseline BUN/Cr seems to be 70-80/2.00-2.24 (3) Chronic anemia: Code(s): D64.9 - Anemia, unspecified Status: Acute Assessment and Plan: * Current H/H 11.5/34.1, MCV 105.6 * Stable at this time * Run anemia labs in the am * Continue B-12 from home * Supplement if indicated (4) Insulin dependent type 2 diabetes mellitus: Code(s): E11.9 - Type 2 diabetes mellitus without complications; Z79.4 - assisted (current) use of insulin Status: Acute Assessment and Plan: * Uncontrolled * consulted art educator about changing diabetes therapy * Current glucose 404 * Lantus 35 unit daily, 31 units at bedtime * hemoglobin A1c 7.5 * Initiate sliding scale insulin, increased * Accu-Cheks * hypoglycemic protocol * Add aspart 8 units with meals, increase to 17 units (5) Current use of fdc anticoagulation: Code(s): Z79.01 - intermediate manager (current) use of anticoagulants Status: Acute Assessment and Plan: * Current INR 3.9 * Trend INR * Hold warfarin 5mg PO at 1700 * Adjust therapy to keep INR in a therapeutic range (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 * R/O infection * Wound culture staphylococcus aureus * Continue vanc DC Primaxin * Elbow xray shows bursitis without osteomyelitis (7) Hypothyroidism, unspecified: Qualifiers: Hypothyroidism type: unspecified Qualified Code(s): E03.9 - Hypothyroidism, unspecified Code(s): E03.9 - Hypothyroidism, unspecified Status: Acute Assessment and Plan: * Continue levothyroxine * TSH 2.790 (8) Atrial fibrillation: Code(s): I48.91 - Unspecified atrial fibrillation Status: Acute Assessment and Plan: * Continue diltiazem 180mg daily * Pacemaker present (9) Obstructive sleep apnea on CPAP: Code(s): G47.33 - Obstructive sleep apnea (adult) (pediatric); Z99.89 - D
--- NOTE | 2021-09-10 14:15 | PM.IMPN ---
Progress Note: A&P Assessment and Plan (1) Acute exacerbation of congestive heart failure: Qualifiers: Heart failure type: unspecified Qualified Code(s): I50.9 - Heart failure, unspecified Code(s): I50.9 - Heart failure, unspecified Status: Acute Assessment and Plan: Probably in acute diastolic exacerbation of heart failure She states compliance with her medications and diet Patient stated that she drinks 25oz of water a day and eats ice throughout the day. BNP 3110 upon admission Chest xray: Cardiomegaly with mild edema and small pleural effusions Echo from Oct: normal systolic with EF of 55-60% Repeat echo shows EF of 55-60% with undetermined diastolic dysfunction with moderate to severe aortic stenosis Lasix 40mg pO BID per cards See Dr. Mahan for cardiology, consulted cards thank you for your help Trend urine output Trend labs (2) Chronic kidney disease, stage 4 (severe): Code(s): N18.4 - Chronic kidney disease, stage 4 (severe) Status: Chronic Assessment and Plan: Stable on review of previous labs Trend labs while diuresis Current BUN/Cr 106/230 GFR 24 Baseline BUN/Cr seems to be 70-80/2.00-2.24 (3) Chronic anemia: Code(s): D64.9 - Anemia, unspecified Status: Acute Assessment and Plan: Current H/H 11.5/34.1, MCV 105.6 Stable at this time Run anemia labs in the am Continue B-12 from home Supplement if indicated (4) Insulin dependent type 2 diabetes mellitus: Code(s): E11.9 - Type 2 diabetes mellitus without complications; Z79.4 - intermediate teacher (current) use of insulin Status: Acute Assessment and Plan: Uncontrolled consulted critical care educator about changing diabetes therapy Current glucose 404 Lantus 35 unit daily, 31 units at bedtime hemoglobin A1c 7.5 Initiate sliding scale insulin, increased Accu-Cheks hypoglycemic protocol Add aspart 8 units with meals, increase to 17 units (5) Current use of snf anticoagulation: Code(s): Z79.01 - intermediate teacher (current) use of anticoagulants Status: Acute Assessment and Plan: Current INR 3.9 Trend INR Hold warfarin 5mg PO at 1700 Adjust therapy to keep INR in a therapeutic range (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 R/O infection Wound culture staphylococcus aureus Continue vanc DC Primaxin Elbow xray shows bursitis without osteomyelitis (7) Hypothyroidism, unspecified: Qualifiers: Hypothyroidism type: unspecified Qualified Code(s): E03.9 - Hypothyroidism, unspecified Code(s): E03.9 - Hypothyroidism, unspecified Status: Acute Assessment and Plan: Continue levothyroxine TSH 2.790 (8) Atrial fibrillation: Code(s): I48.91 - Unspecified atrial fibrillation Status: Acute Assessment and Plan: Continue diltiazem 180mg daily Pacemaker present (9) Obstructive sleep apnea on CPAP: Code(s): G47.33 - Obstructive sleep apnea (adult) (pediatric); Z99.89 - Dependence on other enabling machines and devices Status: Acute Assessment and Plan: home trilogy unit (10) Lower extremity edema: Code(s): R60.0 - Localized edema Status: Acute Assessment and Plan: A chronic finding but much worse over the last couple of weeks DVT unlikely as she is on warfarin Wound nurse consulted given shallow ulcerations Anshu fu (11) Peripheral neuropathy: Code(s): G62.9 - Polyneuropathy, unspecified Status: Acute Assess
[2021-09-10 14:46] VITALS: BP 98/55; PULSE 70; RESP 18; TEMP 36.6; O2SAT 95
[2021-09-10 16:30] LABS: Glucose Point of Care 391 mg/dl (65-105)
[2021-09-10] MEDS: INSULIN ASPART (*BKC) 100 UNITS/ML 17 UNITS SUB-Q (16:35)
[2021-09-10 20:00] VITALS: PULSE 70; RESP 18; O2SAT 95
[2021-09-10] MEDS: INSULIN GLARGINE (*BKC) 100 UNITS/ML 31 UNITS SUB-Q (20:42)
[2021-09-10] MEDS: LATANOPROST 0.005% OP SOLN 2.5 ML BTL 1 DROP EACH EYE (20:42)
[2021-09-10 20:43] VITALS: PULSE 70
[2021-09-10 21:02] LABS: Glucose Point of Care 367 mg/dl (65-105)
[2021-09-10] MEDS: ACETAMINOPHEN 325 MG TABLET 650 MG PO (21:03)
[2021-09-10 22:00] VITALS: BP 104/66; PULSE 70; RESP 20; TEMP 36.4; O2SAT 98
[2021-09-11 06:00] VITALS: BP 112/54; PULSE 69; RESP 18; TEMP 36.4; O2SAT 94
[2021-09-11] MEDS: ACETAMINOPHEN 325 MG TABLET 650 MG PO (06:27)
[2021-09-11] MEDS: LEVOTHYROXINE SODIUM 100 MCG TABLET 200 MCG PO (06:27)
[2021-09-11 06:36] LABS: Basophils Percent Auto 0.1 % (0.2-1.2); Hematocrit 32.3 % (37.0-47.0); Hemoglobin 11.4 g/dL (12.0-15.0); Immature Granulocyte Percent A 1.5 % (0-0.5); Lymphocytes Absolute Auto 0.37 K/mm3 (0.9-3.2); Lymphocytes Percent Auto 2.8 % (18.3-44.2); Mean Corpuscular HGB Conc 35.3 g/dl (32-36); Mean Corpuscular Hemoglobin 35.6 pg (26-34); Mean Corpuscular Volume 100.9 fl (80-100); Mean Platelet Volume 10.8 fl (7.4-10.4); Monocytes Absolute Auto 0.7 K/mm3 (0.1-0.6); Monocytes Percent Auto 5.6 % (2.6-8.5); Neutrophils Absolute Auto 11.7 K/mm3 (1.3-6.7); Nucleated Red Blood Cells Absolute Auto 0.1 K/mm3 (0.0-0.012); Nucleated Red Blood Cells Perc 0.6 % (0.0-0.2); Platelet Count Result 294 k/mm3 (150-375); Red Cell Distribution Width 12.1 % (11.5-14.5); White Blood Count 13.1 K/mm3 (4.5-10.0)
[2021-09-11 06:44] LABS: Anion Gap 13 mmol/L (8-16); Blood Urea Nitrogen 110 mg/dL (7-17); Calcium 9.1 mg/dL (8.4-10.2); Carbon Dioxide 30 mmol/L (22-30); Chloride 89 mmol/L (98-107); Estimated CRCL calculation 22 ml/min; Estimated Glomerular Filt Rate 22; Glucose 154 mg/dL (65-110); Lactate Dehydrogenase 614 U/L (313-618); Magnesium 1.7 mg/dL (1.6-2.3); Potassium 3.7 mmol/L (3.4-5.0); Sodium 132 mmol/L (137-145)
[2021-09-11 06:54] LABS: INR 3.8; Prothrombin Time 36.1 Seconds (11.1-14.7)
[2021-09-11 06:57] LABS: Transferrin 181 mg/dL (206-381)
[2021-09-11 08:54] LABS: Glucose Point of Care 186 mg/dl (65-105)
--- NOTE | 2021-09-11 09:30 | PM.DS ---
DS: Admitting Diagnosis Discharge Date Date of Service 09/11/21929 Admitting Diagnosis CHF exacerbation Gout flare up DS: Discharge Diagnosis Discharge Diagnosis (1) Acute exacerbation of congestive heart failure: Qualifiers: Heart failure type: unspecified Qualified Code(s): I50.9 - Heart failure, unspecified Code(s): I50.9 - Heart failure, unspecified Status: Acute Assessment and Plan: Probably in acute diastolic exacerbation of heart failure She states compliance with her medications and diet Patient stated that she drinks 25oz of water a day and eats ice throughout the day. BNP 3110 upon admission Chest xray: Cardiomegaly with mild edema and small pleural effusions Echo from Oct: normal systolic with EF of 55-60% Repeat echo shows EF of 55-60% with undetermined diastolic dysfunction with moderate to severe aortic stenosis Lasix 40mg pO BID per cards See Dr. Mahan for cardiology, consulted cards thank you for your help Trend urine output Trend labs (2) Chronic kidney disease, stage 4 (severe): Code(s): N18.4 - Chronic kidney disease, stage 4 (severe) Status: Chronic Assessment and Plan: Stable on review of previous labs Trend labs while diuresis Current BUN/Cr 110/2.20 GFR 24 Baseline BUN/Cr seems to be 70-80/2.00-2.24 (3) Chronic anemia: Code(s): D64.9 - Anemia, unspecified Status: Acute Assessment and Plan: Current H/H 11.5/34.1, MCV 105.6 Stable at this time Run anemia labs in the am Continue B-12 from home Supplement if indicated (4) Insulin dependent type 2 diabetes mellitus: Code(s): E11.9 - Type 2 diabetes mellitus without complications; Z79.4 - [facility] (current) use of insulin Status: Acute Assessment and Plan: Uncontrolled consulted instructional technology coordinator about changing diabetes therapy Current glucose 154 Lantus 35 unit daily, 31 units at bedtime hemoglobin A1c 7.5 Initiate sliding scale insulin, increased Accu-Cheks hypoglycemic protocol Add aspart 8 units with meals, increase to 17 units (5) Current use of detention anticoagulation: Code(s): Z79.01 - [facility] (current) use of anticoagulants Status: Acute Assessment and Plan: Current INR 3.9 Trend INR Hold warfarin 5mg PO at 1700 Adjust therapy to keep INR in a therapeutic range (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 R/O infection Wound culture staphylococcus aureus Continue vanc DC Primaxin Elbow xray shows bursitis without osteomyelitis (7) Hypothyroidism, unspecified: Qualifiers: Hypothyroidism type: unspecified Qualified Code(s): E03.9 - Hypothyroidism, unspecified Code(s): E03.9 - Hypothyroidism, unspecified Status: Acute Assessment and Plan: Continue levothyroxine TSH 2.790 (8) Atrial fibrillation: Code(s): I48.91 - Unspecified atrial fibrillation Status: Acute Assessment and Plan: Continue diltiazem 180mg daily Pacemaker present (9) Obstructive sleep apnea on CPAP: Code(s): G47.33 - Obstructive sleep apnea (adult) (pediatric); Z99.89 - Dependence on other enabling machines and devices Status: Acute Assessment and Plan: home trilogy unit (10) Lower extremity edema: Code(s): R60.0 - Localized edema Status: Acute Assessment and Plan: A chronic finding but much worse over the last couple of weeks DVT unlikely as she is on warfarin Wound nurse consulted given shallow ulcerations
--- NOTE | 2021-09-11 09:30 | P.DS_ITS ---
DS: Admitting Diagnosis Discharge Date Date of Service 09/11/21 09 Admitting Diagnosis CHF exacerbation Gout flare up DS: Discharge Diagnosis Discharge Diagnosis (1) Acute exacerbation of congestive heart failure: Qualifiers: Heart failure type: unspecified Qualified Code(s): I50.9 - Heart failure, unspecified Code(s): I50.9 - Heart failure, unspecified Status: Acute Assessment and Plan: * Probably in acute diastolic exacerbation of heart failure * She states compliance with her medications and diet * Patient stated that she drinks 25oz of water a day and eats ice throughout the day. * BNP 3110 upon admission * Chest xray: Cardiomegaly with mild edema and small pleural effusions * Echo from Oct: normal systolic with EF of 55-60% * Repeat echo shows EF of 55-60% with undetermined diastolic dysfunction with moderate to severe aortic stenosis * Lasix 40mg pO BID per cards * See Dr. Mahan for cardiology, consulted cards thank you for your help * Trend urine output * Trend labs (2) Chronic kidney disease, stage 4 (severe): Code(s): N18.4 - Chronic kidney disease, stage 4 (severe) Status: Chronic Assessment and Plan: * Stable on review of previous labs * Trend labs while diuresis * Current BUN/Cr 110/2.20 * GFR 24 * Baseline BUN/Cr seems to be 70-80/2.00-2.24 (3) Chronic anemia: Code(s): D64.9 - Anemia, unspecified Status: Acute Assessment and Plan: * Current H/H 11.5/34.1, MCV 105.6 * Stable at this time * Run anemia labs in the am * Continue B-12 from home * Supplement if indicated (4) Insulin dependent type 2 diabetes mellitus: Code(s): E11.9 - Type 2 diabetes mellitus without complications; Z79.4 - [facility] ([facility]) use of insulin Status: Acute Assessment and Plan: * Uncontrolled * consulted clinical systems educator about changing diabetes therapy * Current glucose 154 * Lantus 35 unit daily, 31 units at bedtime * hemoglobin A1c 7.5 * Initiate sliding scale insulin, increased * Accu-Cheks * hypoglycemic protocol * Add aspart 8 units with meals, increase to 17 units (5) Current use of alf anticoagulation: Code(s): 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 * R/O infection * Wound culture staphylococcus aureus * Continue vanc DC Primaxin * Elbow xray shows bursitis without osteomyelitis (7) Hypothyroidism, unspecified: Qualifiers: Hypothyroidism type: unspecified Qualified Code(s): E03.9 - Hypothyroidism, unspecified Code(s): E03.9 - Hypothyroidism, unspecified Status: Acute Assessment and Plan: * Continue levothyroxine * TSH 2.790 (8) Atrial fibrillation: Code(s): I48.91 - Unspecified atrial fibrillation Status: Acute Assessment and Plan: * Continue diltiazem 180mg daily * P
[2021-09-11] MEDS: PRAVASTATIN SODIUM 10 MG TABLET PO (09:46)
[2021-09-11] MEDS: SPIRONOLACTONE 25 MG TABLET PO (09:46)
[2021-09-11] MEDS: dilTIAZem HCL CD 180 MG CAP.ER.24H PO (09:46)
[2021-09-11] MEDS: CYANOCOBALAMIN 1,000 MCG TABLET 1000 MCG PO (09:46)
[2021-09-11] MEDS: METOPROLOL TARTRATE 25 MG TABLET PO (09:46)
[2021-09-11] MEDS: CHOLECALCIFEROL 1,000 UNITS TABLET 1000 UNITS PO (09:46)
[2021-09-11] MEDS: GABAPENTIN 100 MG CAPSULE PO ×2 (09:46→12:04)
[2021-09-11] MEDS: FEBUXOSTAT 40 MG TABLET PO (09:46)
[2021-09-11] MEDS: INSULIN ASPART (*BKC) 100 UNITS/ML 17 UNITS SUB-Q ×2 (09:47→12:02)
[2021-09-11] MEDS: methylPREDNISolone SOD SUCC 40 MG VIAL 20 MG IV PUSH (09:47)
[2021-09-11] MEDS: MUPIROCIN 2% OINT 22 GM TUBE 1 APPLIC TOPICAL (09:48)
[2021-09-11] MEDS: TIMOLOL MALEATE 0.5% OP SOLN 5 ML BOTTLE 1 DROP EACH EYE (09:48)
[2021-09-11] MEDS: INSULIN GLARGINE (*BKC) 100 UNITS/ML 35 UNITS SUB-Q (09:49)
[2021-09-11] MEDS: FUROSEMIDE 40 MG TABLET PO (09:51)
[2021-09-11 09:54] LABS: Iron 158 ug/dL (37-170); Percent Iron Saturation 56 % (20-50)
[2021-09-11 10:36] LABS: Alanine Aminotransferase 76 U/L (4-35); Albumin Level 3.7 g/dL (3.5-5.1); Alkaline Phosphatase 100 U/L (38-126); Aspartate Amino Transferase 70 U/L (14-36); Bilirubin,Total 0.8 mg/dL (0.2-1.3)
[2021-09-11 11:42] LABS: Folic Acid 9.4 ng/mL (2.76->20); Vitamin B12 > 1000.0 pg/mL (239-931)
[2021-09-11 11:51] LABS: Glucose Point of Care 380 mg/dl (65-105)
[2021-09-11] MEDS: INSULIN ASPART (*BKC) 100 UNITS/ML SUB-Q (12:03)
== END 2021-09-11 14:32 | disposition home or self-care (01) | DRG 291 ==
PROVIDERS: Nurse Practitioner; Physician Assistant; Admitting Provider Family Medicine; PCP Family Medicine; Visit Provider Nurse Practitioner
DX: I13.0 Hypertensive heart and chronic kidney disease with heart failure and stage 1 through stage 4 chronic kidney disease, or unspecified chronic kidney disease (principal); I50.33 Acute on chronic diastolic (congestive) heart failure; N18.4 Chronic kidney disease, stage 4 (severe); I48.19 Other persistent atrial fibrillation; E11.22 Type 2 diabetes mellitus with diabetic chronic kidney disease; B95.61 Methicillin susceptible Staphylococcus aureus infection as the cause of diseases classified elsewhere; J44.9 Chronic obstructive pulmonary disease, unspecified; D64.9 Anemia, unspecified; E11.42 Type 2 diabetes mellitus with diabetic polyneuropathy; E11.319 Type 2 diabetes mellitus with unspecified diabetic retinopathy without macular edema; K58.9 Irritable bowel syndrome, unspecified; G47.33 Obstructive sleep apnea (adult) (pediatric); E78.2 Mixed hyperlipidemia; H35.30 Unspecified macular degeneration; E89.0 Postprocedural hypothyroidism; M1A.9XX1 Chronic gout, unspecified, with tophus (tophi); M70.22 Olecranon bursitis, left elbow; I35.0 Nonrheumatic aortic (valve) stenosis; E66.9 Obesity, unspecified; Z68.39 Body mass index [BMI] 39.0-39.9, adult; Z79.01 Long term (current) use of anticoagulants; Z98.42 Cataract extraction status, left eye; Z98.41 Cataract extraction status, right eye; Z90.49 Acquired absence of other specified parts of digestive tract; Z95.0 Presence of cardiac pacemaker; Z87.891 Personal history of nicotine dependence; Z79.4 Long term (current) use of insulin
CPT/HCPCS: 36415; 71045; 73080; 80048; 80053; 82607; 82728; 82746; 82948; 83036; 83540; 83550; 83615; 83735; 83880; 84443; 84466; 84550; 85025; 85027; 85610; 86140; 87070; 87147; 87186; 87205; 93306; 93970; 96365; 96366; 96375; 96376; A9270; G0378; J0743; J1815; J1940; J2920; J3370

== ENCOUNTER 2021-10-08 10:54 | Outpatient (CLI) | payer MEDICARE, SELFPAY ==
--- NOTE | ~2021-10-08 | XR_ITS ---
EXAMINATION: XR chest 2V DATE: 10/08/2021 11:25 INDICATION: Acute or chronic diastolic congestive heart failure. Shortness of breath. TECHNIQUE: Frontal and lateral views of the chest were obtained. COMPARISON: Chest single view 09/06/2021, CT abdomen 04/03/2016 FINDINGS: There are small pleural effusions. There are airspace opacities in right mid and lower lung zones and left lower lung zone. A calcified right lung nodule and calcified right hilar and mediasti nal lymph nodes are consistent with old granulomatous disease. No pneumothorax. Cardiomegaly is noted . There is a left chest wall pacer with leads in the right atrium and right ventricle. IMPRESSION: 1. Small pleural effusions. 2. Airspace opacities in right mid and lower lung zones and left lower lung zone, consistent with ate lectasis versus pneumonia. 3. Cardiomegaly. Reviewed, dictated and finalized at location B. HEAD CLEANER IMPRESSION: 1. Small pleural effusions. 2. Airspace opacities in right mid and lower lung zones and left lower lung zon e, consistent with atelectasis versus pneumonia. 3. Cardiomegaly.
[2021-10-08 11:23] LABS: Hematocrit 34.7 % (37.0-47.0); Hemoglobin 11.4 g/dL (12.0-15.0); Mean Corpuscular HGB Conc 32.9 g/dl (32-36); Mean Corpuscular Hemoglobin 36.3 pg (26-34); Mean Corpuscular Volume 110.5 fl (80-100); Mean Platelet Volume 10.3 fl (7.4-10.4); Platelet Count Result 313 k/mm3 (150-375); Red Blood Count 3.14 M/mm3 (4.2-5.4); Red Cell Distribution Width 13.9 % (11.5-14.5); White Blood Count 11.9 K/mm3 (4.5-10.0)
[2021-10-08 11:36] LABS: Anion Gap 13 mmol/L (8-16); Blood Urea Nitrogen 91 mg/dL (7-17); Calcium 7.4 mg/dL (8.4-10.2); Carbon Dioxide 28 mmol/L (22-30); Chloride 92 mmol/L (98-107); Estimated Glomerular Filt Rate 17; Glucose 155 mg/dL (65-110); Potassium 3.6 mmol/L (3.4-5.0); Sodium 133 mmol/L (137-145)
[2021-10-08 11:45] LABS: NT Pro B Type Natriuretic Pept 4710 pg/mL (5-100)
== END 2021-10-08 10:55 | disposition home or self-care (01) ==
LOC: ANHLAB 10:58
PROVIDERS: PCP Family Medicine; Visit Provider Nurse Practitioner Adult Health
DX: I50.33 Acute on chronic diastolic (congestive) heart failure (principal); J90 Pleural effusion, not elsewhere classified; R91.8 Other nonspecific abnormal finding of lung field; I51.7 Cardiomegaly
CPT/HCPCS: 36415; 71046; 80048; 83880; 85027

== ENCOUNTER 2021-11-07 09:48 | Inpatient (IN) | payer MEDICARE, SELFPAY ==
[2021-11-07] VITALS (17 sets, daily range): BP systolic 100–142; BP diastolic 39–86; PULSE 65–90; RESP 18–32; TEMP 35.7–37.2; O2SAT 92–100; BMI 39.4
--- NOTE | ~2021-11-07 | XR_ITS ---
EXAMINATION: [id number] DATE: 11/13/2021 15:09 INDICATION: Pleural effusion post left thoracentesis TECHNIQUE: frontal view of the chest was obtained. COMPARISON: Chest radiograph dated 11/13/2021 at 10:52 AM FINDINGS: Improved aeration in the previously completely opacified left hemithorax with near complete resolutio n of the previously small to moderate-sized left pleural effusion. There are now relatively symmetric opacities in the bilateral mid and lower lung zones. No pneumothorax. Cardiomegaly. Dual lead pacema ker seen with leads projecting over the expected locations of the right atrium and right ventricle. IMPRESSION: 1. Opacities in the bilateral lower lung zones which could represent small bilateral pleural effusion s, atelectasis, pneumonia or some combination thereof. 2. Cardiomegaly. Reviewed, dictated and finalized at location A. SERVICE OBSERVER IMPRESSION: 1. Opacities in the bilateral lower lung zones which could represent small bila teral pleural effusions, atelectasis, pneumonia or some combination thereof. 2. Cardiomegaly.
--- NOTE | ~2021-11-07 | XR_ITS ---
EXAMINATION: XR chest 1V portable EXAM DATE: 11/20/2021 13:48 INDICATION: Dyspnea. TECHNIQUE: Portable AP frontal chest x-ray was obtained. Comparison is made to prior examination from 11/19/2021, 11/17. FINDINGS: There is a dual lead pacemaker/AICD seen with leads projecting over the expected locations of the right atrial appendage and right ventricle. The cardiac silhouette is enlarged. There is pulmo nary vascular congestion. Small left pleural blunting. Subsegmental basilar edema or pneumonia. IMPRESSION: Findings consistent with mild CHF exacerbation unchanged. Reviewed, dictated and finalized at location A. ENGINEER
--- NOTE | ~2021-11-07 | US_ITS ---
EXAMINATION: US thoracentesis DATE: 11/13/2021 15:12 INDICATION: Left pleural effusion TECHNIQUE: The procedure and its risks and benefits were discussed with the patient. Potential risks discussed included bleeding, infection, and pneumothorax. The patient understood the risks and agreed to proceed. The skin was prepped and draped in sterile fashion. 1% lidocaine was used for local anes thesia. Under ultrasound guidance, a 5 Fr catheter with trochar was advanced into the left pleural ef fusion. Fluid was aspirated. The catheter was removed, and a dressing was applied. There were no imme diate complications. FINDINGS: Ultrasound images demonstrate a small to moderate left pleural effusion and the catheter within the f luid. IMPRESSION: 1. Successful ultrasound-guided thoracentesis yielding 650 mL of ishmael-colored fluid. Reviewed, dictated and finalized at location A. DDED SOFTWARE MANAGER
--- NOTE | ~2021-11-07 | XR_ITS ---
EXAMINATION: XR chest 1V portable INDICATION: Shortness of breath TECHNIQUE: Portable AP chest at 1021 hours COMPARISON: 11/09/2021 FINDINGS: Small pleural effusions persist with slight increase on the left. Cardiomegaly is noted. Th ere is no pneumothorax. Airspace opacities of the lower lung zones are unchanged. A dual-lead cardiac pacemaker of the left chest wall ends with leads in expected locations. IMPRESSION: 1. Small pleural effusions with slight increase on the left. 2. Stable bibasilar airspace opacities, consistent with atelectasis versus pneumonia. 3. Cardiomegaly. Reviewed, dictated and finalized at location A. CAL STRING MAKER IMPRESSION: 1. Small pleural effusions with slight increase on the left. 2. Stable bibasilar airspace opacities, consistent with atelectasis versus pneu monia. 3. Cardiomegaly.
--- NOTE | ~2021-11-07 | XR_ITS ---
EXAMINATION: XR chest 2V DATE: 11/17/2021 08:12 INDICATION: Congestive heart failure. Pleural effusion. TECHNIQUE: frontal and lateral views of the chest were obtained. COMPARISON: Chest radiograph dated 11/13/2021 FINDINGS: Persistent opacities in the bilateral lower lung zones, left greater than right consistent with small bilateral pleural effusions and associated basilar atelectasis and/or pneumonia. No pneumothorax. Ca rdiomegaly. Dual lead pacemaker seen with leads projecting over the expected locations of the right a trium and right ventricle. Calcified right hilar and mediastinal lymph nodes consistent with old gran ulomatous disease. Cholecystectomy clips the upper abdomen. IMPRESSION: 1. No significant change in small bilateral pleural effusions, left greater than right, and bibasilar atelectasis and/or pneumonia. 2. Cardiomegaly. Reviewed, dictated and finalized at location A. INUOUS DRIER HELPER IMPRESSION: 1. No significant change in small bilateral pleural effusions, left greater cari n right, and bibasilar atelectasis and/or pneumonia. 2. Cardiomegaly.
--- NOTE | ~2021-11-07 | CT_ITS ---
EXAMINATION: CT chest abdomen pelvis wo con DATE: 11/12/2021 10:45 INDICATION: Shortness of breath, elevated liver enzymes TECHNIQUE: Transaxial computed tomographic images of the chest, abdomen, and pelvis were obtained wit hout intravenous contrast. The dose-length product (DLP) was 1768.69 mGy-cm. Automated exposure contr ol and iterative reconstruction technique were employed. COMPARISON: 04/03/2016 FINDINGS: CHEST CT: There are moderate-sized left and small right pleural effusions. Cardiomegaly is noted. There is a mo derate amount of atelectasis in the left lower lobe. Patchy groundglass opacities are present through out the aerated lungs. There is no pneumothorax. No pathologically enlarged thoracic lymph nodes are identified. A dual-lead cardiac pacemaker of the left chest wall ends with leads in expected location s. There is moderate thoracic spondylosis. ABDOMEN/PELVIS CT: The gallbladder is surgically absent. A small amount of pneumobilia is noted. Punctate calcifications in an otherwise normal spleen likely represent healed granulomatous disease. There is a 1.9 cm cysti c lesion in the body of the pancreas which is slightly increased in size from 1.5 cm on the compariso n examination. The adrenal glands are unremarkable. Cysts of the kidneys measure up to 2.3 cm on the left. No pathologically enlarged abdominal or pelvic lymph nodes are identified. There is calcified a therosclerosis of the aorta and many of the other arteries. There is no free intraperitoneal gas or e vidence of bowel obstruction. Diffuse anasarca is noted. There is a midline infraumbilical hernia con taining a short segment of nonobstructed small bowel. The bladder is decompressed by Molina catheter. There is severe lumbar spondylosis. IMPRESSION: 1. Moderate-sized left and small right pleural effusions. 2. Patchy groundglass opacities of the lungs, consistent with pneumonia and/or mild pulmonary edema. 3. Cardiomegaly. 4. Infraumbilical ventral hernia containing nonobstructed small bowel. 5. 1.9 cm cystic lesion of the pancreatic body. The differential diagnosis includes pseudocyst, intra ductal papillary mucinous neoplasm (IPMN), mucinous cystic neoplasm (MCN), and the less common serous cystadenoma and neuroendocrine tumor. Correlate for history of pancreatitis. Recommend follow-up [facility] protocol CT or MRI without and with contrast in two years. Reviewed, dictated and finalized at location A. GENCY PLANNER IMPRESSION: 1. Moderate-sized left and small right pleural effusions. 2. Patchy groundglass opacities of the lungs, consistent with pneumonia and/or mild pulmonary edema. 3. Cardiomegaly. 4. Infraumbilical ventral hernia containing nonobstructed small bowel. 5. 1.9 cm cystic lesion of the pancreatic body. The differential diagnosis incl udes pseudocyst, intraductal papillary mucinous neoplasm (IPMN), mucinous cysti c neoplasm (MCN), and the less common serous cystadenoma and neuroendocrine wilfredo or. Correlate for history of pancreatitis. Recommend follow-up pancreas protoco l CT or MRI without and with contrast in two years.
--- NOTE | ~2021-11-07 | US_ITS ---
US abdomen limited DATE: 11/12/2021 10:56 INDICATION: Elevated liver enzymes TECHNIQUE: Real-time imaging of liver, pancreas, gallbladder fossa COMPARISON: November 12, 2021 CT chest abdomen pelvis FINDINGS: There are numerous focal hyper echogenicities scattered throughout the liver consistent wit h numerous hepatic calcifications. Normal hepatopedal portal venous flow direction. The gallbladder surgically absent. The common bile duct measures 5.1 mm, within normal limits. The pancreas is not optimally demonstrated. IMPRESSION: Status post cholecystectomy; no bile duct dilatation Numerous hepatic calcifications consistent with old granulomatous disease The pancreas is not well demonstrated Reviewed, dictated and finalized at Location A. Reviewed, dictated and finalized at location B. CTOR OF CURRICULUM
--- NOTE | ~2021-11-07 | CT_ITS ---
EXAMINATION: CT brain wo con INDICATION: Acute onset confusion COMPARISON: 07/02/2020 TECHNIQUE: Standard unenhanced head CT. The dose-length product (DLP) was 605.33 mGy-cm. The mA was a djusted according to patient size. Iterative reconstruction technique was employed. FINDINGS: There is no acute intraparenchymal hemorrhage. No evidence of mass lesion. No evidence of a cute infarction. There is moderate periventricular and subcortical hypodensity probably related to sm all vessel ischemic disease. There is moderate prominence of the sulci and ventricles related to cere bral atrophy. Intracranial calcified cerebral atherosclerosis is noted. There are no extra-axial emily ections. There is no mass effect or midline shift. Changes in the globes are likely from ocular lens surgery. There is mild mucosal thickening of the paranasal sinuses. IMPRESSION: 1. No acute intracranial abnormality. 2. Age related findings. Reviewed, dictated and finalized at location F. EMIC AFFAIRS ASSISTANT
--- NOTE | ~2021-11-07 | US_ITS ---
EXAMINATION: US renal BI DATE: 11/12/2021 13:41 INDICATION: Elevated creatinine TECHNIQUE: Multiple ultrasound grayscale images of the kidneys were obtained. COMPARISON: None. FINDINGS: The right kidney measures 8.9 x 5.3 x 4.7 cm. The left kidney measures 9.8 x 6.0 x 5.5 cm. There is i ncreased renal cortical echogenicity consistent with medical renal disease. 2.4 similar anechoic left renal cyst. There is no hydronephrosis in either kidney. No stones identified. The bladder is decom pressed which limits evaluation with a Molina catheter reportedly in place. IMPRESSION: 1. Increased renal cortical echogenicity consistent with medical renal disease. No hydronephrosis. Reviewed, dictated and finalized at location A. SCOUT IMPRESSION: 1. Increased renal cortical echogenicity consistent with medical renal disease . No hydronephrosis.
--- NOTE | ~2021-11-07 | XR_ITS ---
EXAMINATION: XR chest 1V portable INDICATION: Shortness of breath TECHNIQUE: Portable AP chest at 1754 hours COMPARISON: 11/17/2021 FINDINGS: Cardiomegaly is noted. There are small pleural effusions. Minimal airspace opacities of the lung bases persist without significant change. There is no pneumothorax. A dual-lead cardiac pacemak er of the left chest wall ends with leads in expected locations. IMPRESSION: 1. Cardiomegaly. 2. Small pleural effusions, stable. 3. Bibasilar airspace opacities, consistent with atelectasis versus pneumonia. Reviewed, dictated and finalized at location F. PATTERNMAKER
--- NOTE | ~2021-11-07 | XR_ITS ---
XR chest 2V 11/13/2021 10:57 Indication: Shortness of breath Procedure: AP portable chest Comparison: Comparison to multiple prior studies sequentially, with oldest reviewed study dated 08/25. Findings: Cardiomegaly. Pacemaker leads in expected position. There is bibasilar airspace disease. Th ere are bilateral pleural effusions, left greater than right. Impression: 1: Bibasilar airspace disease may represent pneumonia, atelectasis or resolving edema. 2: Bilateral pleural effusions, left greater than right. 3: Cardiomegaly. Reviewed, dictated and finalized at location A. R PIPE INSTALLER Impression: 1: Bibasilar airspace disease may represent pneumonia, atelectasis or resolving edema. 2: Bilateral pleural effusions, left greater than right. 3: Cardiomegaly.
--- NOTE | ~2021-11-07 | XR_ITS ---
EXAMINATION: XR chest 2V DATE: 11/07/2021 10:30 INDICATION: Shortness of breath. TECHNIQUE: Frontal and lateral views of the chest were obtained. COMPARISON: Chest 2 views 10/08/2021, CT abdomen 04/03/2016 FINDINGS: There are small pleural effusions. There are airspace opacities in the lower lung zones. No pneumothorax. Cardiomegaly is noted. There is a left chest wall pacer with leads in the right atrium and right ventricle. Calcified mediastinal lymph nodes are consistent with old granulomatous disease . IMPRESSION: 1. Stable small pleural effusions. 2. Stable airspace opacities in the lower lung zones, consistent with atelectasis versus pneumonia. 3. Cardiomegaly. Reviewed, dictated and finalized at location A. IT NEGOTIATOR IMPRESSION: 1. Stable small pleural effusions. 2. Stable airspace opacities in the lower lung zones, consistent with atelectas is versus pneumonia. 3. Cardiomegaly.
--- NOTE | ~2021-11-07 | US_ITS ---
EXAMINATION: US venous doppler [facility] DATE: 11/08/2021 08:52 INDICATION: Lower limb edema. TECHNIQUE: Grayscale ultrasound images without and with compression and Doppler ultrasound images of the bilateral lower extremity veins were obtained. COMPARISON: Ultrasound 09/08/2021 FINDINGS: The visualized portions of right common femoral vein, profunda (deep) femoral vein, femoral vein, pop liteal vein, peroneal veins, posterior tibial veins, and greater saphenous vein outflow are patent. The visualized portions of left common femoral vein, profunda femoral vein, femoral vein, popliteal v ein, peroneal veins, posterior tibial veins, and greater saphenous vein outflow are patent. IMPRESSION: 1. No deep venous thrombosis. Reviewed, dictated and finalized at location A. UNICATION ANALYST
--- NOTE | 2021-11-07 09:57 | ECG_ITS ---
Measurements Intervals [place] Rate: 70 P: PA: 0 QRS: -74 QRSD: 181 T: 96 QT: 469 QTc: 506 Interpretive Statements ELECTRONIC VENTRICULAR PACEMAKER WITH INHIBITION PROBABLY UNDERLYING ATRIAL FIBRILLATION BASELINE ARTIFACT- I, AVR, V1-V3, V6 NO FURTHER INTERPRETATION IS POSSIBLE ABNORMAL ECG Electronically Signed On 11-07-2021 15:29:35 DONKEY DOCTOR by Con Singh D.O.
[2021-11-07 10:15] LABS: Basophils Absolute Auto 0.1 K/mm3 (0.0-0.1); Basophils Percent Auto 0.7 % (0.2-1.2); Eosinophils Absolute Auto 0.1 K/mm3 (0-0.3); Eosinophils Percent Auto 0.4 % (0-4.4); Hematocrit 36.1 % (37.0-47.0); Hemoglobin 11.7 g/dL (12.0-15.0); Immature Granulocyte Absolute 0.18 K/mm3 (0.00-0.031); Immature Granulocyte Percent A 1.2 % (0-0.5); Lymphocytes Absolute Auto 0.51 K/mm3 (0.9-3.2); Lymphocytes Percent Auto 3.4 % (18.3-44.2); Mean Corpuscular HGB Conc 32.4 g/dl (32-36); Mean Corpuscular Hemoglobin 36.1 pg (26-34); Mean Corpuscular Volume 111.4 fl (80-100); Mean Platelet Volume 10.8 fl (7.4-10.4); Monocytes Absolute Auto 1.2 K/mm3 (0.1-0.6); Monocytes Percent Auto 7.7 % (2.6-8.5); Neutrophils Absolute Auto 13.1 K/mm3 (1.3-6.7); Neutrophils Percent Auto 86.6 % (45.5-73.1); Nucleated Red Blood Cells Absolute Auto 0.2 K/mm3 (0.0-0.012); Nucleated Red Blood Cells Perc 1.3 % (0.0-0.2); Platelet Count Result 321 k/mm3 (150-375); Red Blood Count 3.24 M/mm3 (4.2-5.4); Red Cell Distribution Width 15.9 % (11.5-14.5); White Blood Count 15.1 K/mm3 (4.5-10.0)
[2021-11-07 10:25] LABS: INR 2.2
[2021-11-07 10:26] LABS: Alanine Aminotransferase 35 U/L (4-35); Albumin Level 4.2 g/dL (3.5-5.1); Alkaline Phosphatase 190 U/L (38-126); Anion Gap 14 mmol/L (8-16); Aspartate Amino Transferase 47 U/L (14-36); Bilirubin,Total 0.9 mg/dL (0.2-1.3); Blood Urea Nitrogen 87 mg/dL (7-17); Calcium 8.5 mg/dL (8.4-10.2); Carbon Dioxide 28 mmol/L (22-30); Chloride 97 mmol/L (98-107); Estimated CRCL calculation 18 ml/min; Estimated Glomerular Filt Rate 18; Glucose 297 mg/dL (65-110); Partial Thromboplastin Time 34.9 SECONDS (22.3-36.8); Potassium 3.8 mmol/L (3.4-5.0); Sodium 139 mmol/L (137-145)
[2021-11-07 10:38] LABS: Macrocytosis 1+ (NORMAL); NT Pro B Type Natriuretic Pept 4490 pg/mL (5-100); Platelet Estimate Adequate (Adequate); Troponin I 0.019 ng/mL (0.000-0.034)
--- NOTE | 2021-11-07 12:12 | ED.GENADULT ---
HPI - General Adult General Chief complaint: Shortness of Breath/Dyspnea Stated complaint: difficulty breathing Time Seen by Provider: 11/07/21 10:52 Source: patient Mode of arrival: ambulatory Limitations: no limitations History of Present Illness HPI narrative: Patient presents for evaluation of shortness of breath. She indicates she has chronic shortness of breath but symptoms were worse this morning when she was walking in the hallway at home. She states she has an underlying history of COPD, DM, CHF, atrial fibrillation, gout, hypothyroidism, hyperlipidemia, and has oxygen ordered at home. She uses this intermittently. She checked her oxygen saturations while at home and they were in the 70's. She put O2 on at 1.5L per [place] and reading was 88%. Her brought her in here by private vehicle for further evaluation. She reports some chest congestion. She denies any fever, chills, nausea, vomiting, chest pain. She has chronic lower extremity swelling, not worse as of late. She was admitted here in August of last year. At that time her chest x-ray showed cardiomegaly with mild edema and small pleural effusion. Cardiology was consulted and repeat echo showed an EF of 55-60% with indeterminate diastolic dysfunction with moderate to severe aortic stenosis. patient was treated for acute CHF exacerbation with 60 mg IV Lasix b.i.d. She was found to have a gout flare. Left elbow was cultured and showed to be growing Staph aureus. Patient was treated with IV vancomycin and IV steroids. She is currently on bactrim for her left elbow. She has been compliant with 25 units of levemir daily at home, as well as novolin 25 units TID. She is a former smoker. No personal hx of COVID. No known COVID exposures. She has been vaccinated and boosted for COVID. Related Data Home Medications Medication Instructions Recorded Confirmed ipratropium 0.5 mg-albuterol 3 mg 3 ml INHALATION Q4H PRN 08/05/19 09/30/21 (2.5 mg base)/3 mL nebulization soln metoprolol tartrate 25 mg tablet 25 mg PO Q12H 08/05/19 09/30/21 cholecalciferol (vitamin D3) 25 1,000 unit PO DAILY cap 08/21/19 09/30/21 mcg (1,000 unit) capsule cyanocobalamin (vitamin B-12) 1,000 mcg PO DAILY 06/26/20 09/30/21 levothyroxine 200 mcg PO DAILY 01/05/21 09/30/21 metolazone 2.5 mg PO TID 09/06/21 09/30/21 amiodarone 100 mg PO DAILY 11/07/21 finasteride 5 mg PO DAILY 11/07/21 gabapentin 300 mg PO BID 11/07/21 simvastatin 10 mg PO HS 11/07/21 Allergies Allergy/AdvReac Type Severity Reaction Status Date / Time succinylcholine Allergy Severe unknown Verified 09/28/21 13:41 Review of Systems Review of Systems: CONSTITUTIONAL: Denies fever, chills, or sweats. EYES: Denies visual changes, redness, or discharge. ENT: Denies rhinorrhea, congestion, sore throat, or otalgia. CARDIOVASCULAR: Reports BLE edema which is chronic and unchanged. Denies chest pain or palpitations RESPIRATORY: Reports shortness of breath and nonproductive cough GASTROINTESTINAL: Denies abdominal pain, nausea, vomiting, or diarrhea. GENITOURINARY: Denies dysuria or hematuria. SKIN: Denies rash or itching. MUSCULOSKELETAL: Denies back pain, joint pain, or myalgia. NEUROLOGIC: Denies headache, numbness, dizziness, or weakness. PSYCHIATRIC: Denies anxiety or depression. [facility] Past Medical History Medical History Benign hypertension Chronic anemia Chronic macrocytic anemia. Chronic kidney disease, stage 4 (severe) Chronic obstructive pulmonary disease, unspecified Current use of fdc anticoagulation Diabetic peripheral neuropathy Diabetic retinopathy Diastolic congestive heart failure Gouty tophi Graves disease Status post radioactive iodine therapy x4 without much success, now status post thyroidectomy. Insulin dependent type 2 diabetes mellitus Irritable bowel syndrome Macular degeneration Mixed hyperlipidemia Obstructive sleep apnea on CPA
[2021-11-07] MEDS: IPRATROPIUM BR 0.02% INH SOLN 0.5 MG/2.5 ML VIAL INHALATION (12:21)
[2021-11-07] MEDS: ALBUTEROL SULFATE NEB 2.5 MG/3 ML INH INHALATION (12:22)
[2021-11-07] MEDS: methylPREDNISolone SOD SUCC 125 MG VIAL IV PUSH (12:42)
[2021-11-07 13:25] LABS: SARS-CoV-2 RNA PCR Negative
--- NOTE | 2021-11-07 14:00 | PM.IMHP ---
H&P: HPI History of Present Illness Date/Time: 11/07/21 14:00 this is a 81-year-old female patient who has a history of congestive heart failure as well as COPD. The patient has chronic hypoxia and is typically on oxygen at 1.5 L. however the patient has been feeling short of breath and was bumped up by 2 L per nasal cannula per her . The patient has a history of having a tracheostomy in the past. Her is at the bedside assisting with answering questions although he is very hard of hearing and she is only slightly hard of hearing. The patient arrived to the emergency she was placed on oxygen at 3 L per nasal cannula. The patient's breathing was worse this morning and the decided to bring her into the emergency room via private vehicle for further evaluation. She reports that she does have some chest congestion but no fever chills. No nausea vomiting or chest pain. She does have chronic lower extremity edema. Patient is currently on Bactrim for left elbow infection that she was showing some Staph aureus. The patient has not been exposed to any known COVID positive contacts. The vaccinated. Her white count 15.1. HD some 0.7 36.1. BUN 87 and creatinine 2.6. GFR is 18 this appears to be her baseline. Her blood sugar is 297. Lactic is 2.0. Chest x-ray was read as1. Stable small pleural effusions. 2. Stable airspace opacities in the lower lung zones, consistent with atelectasis versus pneumonia. 3. Cardiomegaly. The patient was started on Rocephin and azithromycin. She was also given nebulizer treatments and Solu-Medrol. The patient is being admitted to observation status on the date of service of 11/07/2021. Chief Complaint: sob and edema Review of Systems Review of Systems: All systems reviewed & are unremarkable except as noted in HPI and below Constitutional: Constitutional: Reports as per HPI and Reports no additional constitutional complaints Eyes: Eyes: Reports as per HPI and Reports no additional eye complaints ENT: Reports system reviewed and no additional complaints, except as documented and Reports Normal hearing present Cardiovascular: Cardiovascular: Reports no additional cardiovascular complaints Respiratory: Respiratory: Reports no additional respiratory complaints and Reports no additional respiratory complaints Gastrointestinal: Gastrointestinal: Reports as per HPI and Reports no additional gastrointestinal complaints Musculoskeletal: Musculoskeletal: Reports no additional musculoskeletal complaints Integumentary/Breasts: Skin/Breast: Reports system reviewed and no additional complaints, except as docu and Reports as per HPI Neurologic: Reports system reviewed and no additional complaints, except as documented, Reports as per HPI and Reports Normal hearing present Psychiatric: Psychiatric: Reports no additional psychiatric complaints and Reports as per HPI Endocrine: Endocrine: Reports no additional endocrine complaints Hematologic/Lymphatic: Hematologic/Lymphatic: Reports no additional hematologic/lymphatic complaints Allergic/Immunologic: Allergic/Immunologic: Reports no additional allergic/immunologic complaints [facility] Past Medical History Medical History Benign hypertension Chronic anemia Chronic macrocytic anemia. 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 Insulin dependent type 2 diabetes mellitus Irritable bowel syndrome Macular degeneration Mixed hyperlipidemia Obstructive sleep apnea on CPAP Patient uses a trilogy. Persistent atrial fibrillation On long-term anticoagulation with warfarin. Postsurgical hypothyroidism Chris
[2021-11-07 14:04] LABS: Troponin I 0.019 ng/mL (0.000-0.034)
--- NOTE | 2021-11-07 15:45 | ADMGEN ---
This patient, Shelli Albrecht, was admitted to Medical Room 340-01. Patient/family oriented to hospital policies and general routines including ID bracelet, bed and alarms, visiting hours, pain management, procedures, bathroom and other care routines, personal items, smoking policy, room service/diet, and visiting hours. Information on how to activate the Rapid Response Team has been discussed. Patient/Family are encouraged to report perceived risks to care and to ask questions if they do not understand what they are told or what they should do.
[2021-11-07 16:45] LABS: Glucose Point of Care 244 mg/dl (65-105)
[2021-11-07] MEDS: INSULIN ASPART (*BKC) 100 UNITS/ML SUB-Q (17:23)
[2021-11-07] MEDS: methylPREDNISolone SOD SUCC 125 MG VIAL 60 MG IV PUSH (17:23)
[2021-11-07 21:42] LABS: Glucose Point of Care 261 mg/dl (65-105)
[2021-11-07] MEDS: SIMVASTATIN 10 MG TABLET PO (22:02)
[2021-11-07] MEDS: METOPROLOL TARTRATE 25 MG TABLET PO (22:02)
[2021-11-08] VITALS (17 sets, daily range): BP systolic 111–136; BP diastolic 40–81; PULSE 70–97; RESP 16–24; TEMP 36.6–36.7; O2SAT 93–97
[2021-11-08] MEDS: methylPREDNISolone SOD SUCC 125 MG VIAL 60 MG IV PUSH ×4 (00:29→17:24)
[2021-11-08] MEDS: LEVOTHYROXINE SODIUM 100 MCG TABLET 200 MCG PO (06:01)
[2021-11-08 06:17] LABS: Basophils Percent Auto 0.2 % (0.2-1.2); Hemoglobin 10.5 g/dL (12.0-15.0); Immature Granulocyte Absolute 0.07 K/mm3 (0.00-0.031); Immature Granulocyte Percent A 1.1 % (0-0.5); Lymphocytes Absolute Auto 0.16 K/mm3 (0.9-3.2); Lymphocytes Percent Auto 2.6 % (18.3-44.2); Mean Corpuscular HGB Conc 32.8 g/dl (32-36); Mean Corpuscular Volume 109.6 fl (80-100); Mean Platelet Volume 10.8 fl (7.4-10.4); Monocytes Absolute Auto 0.1 K/mm3 (0.1-0.6); Monocytes Percent Auto 2.1 % (2.6-8.5); Neutrophils Absolute Auto 5.9 K/mm3 (1.3-6.7); Nucleated Red Blood Cells Absolute Auto 0.3 K/mm3 (0.0-0.012); Platelet Count Result 250 k/mm3 (150-375); Red Blood Count 2.92 M/mm3 (4.2-5.4); Red Cell Distribution Width 15.3 % (11.5-14.5); White Blood Count 6.2 K/mm3 (4.5-10.0)
[2021-11-08 06:30] LABS: Anion Gap 13 mmol/L (8-16); Blood Urea Nitrogen 91 mg/dL (7-17); CRP 1.8 mg/dL (<1.0); Calcium 8.3 mg/dL (8.4-10.2); Carbon Dioxide 29 mmol/L (22-30); Chloride 93 mmol/L (98-107); Estimated CRCL calculation 19 ml/min; Estimated Glomerular Filt Rate 18; Glucose 258 mg/dL (65-110); Lactate Dehydrogenase 635 U/L (313-618); Lactic Acid Reflex 1.4 mmol/L (0.7-2.1); Potassium 4.6 mmol/L (3.4-5.0); Sodium 135 mmol/L (137-145)
[2021-11-08 06:33] LABS: D Dimer 1.08 ug/mL (<0.48)
[2021-11-08 07:10] LABS: Thyroid Stimulating Hormone Reflex 0.379 uIU/mL (0.465-4.68)
[2021-11-08 07:30] LABS: Glucose Point of Care 254 mg/dl (65-105)
[2021-11-08] MEDS: INSULIN ASPART (*BKC) 100 UNITS/ML SUB-Q ×3 (07:41→16:41)
[2021-11-08 07:45] LABS: Free T4 Free Thyroxine Reflex 1.45 ng/dL (0.78-2.19)
[2021-11-08 08:41] LABS: Total Triiodothyronine (T3) 0.61 NG/ML (0.97-1.69)
[2021-11-08 08:46] LABS: Platelet Estimate Adequate (Adequate)
[2021-11-08 08:47] LABS: Anisocytosis 1+ (NORMAL); Hypochromasia 1+ (NORMAL)
[2021-11-08] MEDS: CYANOCOBALAMIN 1,000 MCG TABLET 1000 MCG PO (09:00)
[2021-11-08] MEDS: FINASTERIDE 5 MG TABLET PO (09:00)
[2021-11-08] MEDS: FEBUXOSTAT 40 MG TABLET PO (09:00)
[2021-11-08] MEDS: AMIODARONE HCL 100 MG TABLET PO (09:00)
[2021-11-08] MEDS: CHOLECALCIFEROL 1,000 UNITS TABLET 1000 UNITS PO (09:00)
[2021-11-08] MEDS: FUROSEMIDE INJ 40 MG/4 ML VIAL IV PUSH ×2 (09:01→17:24)
[2021-11-08] MEDS: METOPROLOL TARTRATE 25 MG TABLET PO ×2 (09:01→21:05)
[2021-11-08] MEDS: metOLazone 2.5 MG TABLET PO ×3 (09:01→17:24)
[2021-11-08] MEDS: GABAPENTIN 300 MG CAPSULE PO ×2 (09:01→17:24)
--- NOTE | 2021-11-08 10:30 | PM.IMPN ---
Progress Note: A&P Assessment and Plan (1) Community acquired pneumonia: Qualifiers: Laterality: unspecified laterality Qualified Code(s): J18.9 - Pneumonia, unspecified organism Code(s): J18.9 - Pneumonia, unspecified organism Status: Acute Assessment and Plan: White blood cell count was 15.1 upon admission is 6.2 today. Chest xray Stable small pleural effusions, Stable airspace opacities in the lower lung zones, consistent with atelectasis versus pneumonia, Cardiomegaly. Continue Rocephin and azithromycin Sputum culture and blood cultures are pending Continue trend labs (2) CHF exacerbation: Qualifiers: Heart failure type: unspecified Qualified Code(s): I50.9 - Heart failure, unspecified Code(s): I50.9 - Heart failure, unspecified Status: Acute Assessment and Plan: Continue metolazone and Lasix Continue with metoprolol Trend urine output Daily weights BNP 4490 Furosemide 40mg IV BID Echo from August shows EF of 55-60% with undetermined diastolic dysfunction with moderate to severe aortic stenosis (3) COPD exacerbation: Code(s): J44.1 - Chronic obstructive pulmonary disease with (acute) exacerbation Status: Acute Assessment and Plan: Continue with inhalers from home and nebulizers. Continue with Solu-Medrol Supplemental oxygen, wean to maintain saturations Azithromycin and ceftriaxone on board Increase in sputum, oxygen, and wheeze (4) Acute hypoxemic respiratory failure: Code(s): J96.01 - Acute respiratory failure with hypoxia Status: Acute Assessment and Plan: oxygen at 1.5 L and is up to 3 L at home Currently on 2L Continue to trend titrate as indicated (5) Staphylococcal arthritis, left elbow: Code(s): M00.022 - Staphylococcal arthritis, left elbow Status: Acute Assessment and Plan: The patient had been on Bactrim for her left elbow Currently on Rocephin Culture from September for staph Current antibiotics should cover the gout Wound consult (6) Anemia: Code(s): D64.9 - Anemia, unspecified Status: Chronic Assessment and Plan: Patient is at her baseline continue to monitor. (7) Hypertension: Code(s): I10 - Essential (primary) hypertension Status: Chronic Assessment and Plan: Current BP is 119/52 Continue with metoprolol Trend BP Adjust therapy as indicated (8) Bilateral lower extremity edema: Code(s): R60.0 - Localized edema Status: Acute Assessment and Plan: Venous Dopplers Negative continue with diuretics Continue long-term anticoagulation and is therapeutic (9) Vitamin D deficiency, unspecified: Code(s): E55.9 - Vitamin D deficiency, unspecified Status: Acute Assessment and Plan: Continue with supplement. (10) Acute renal insufficiency: Code(s): N28.9 - Disorder of kidney and ureter, unspecified Status: Acute Assessment and Plan: Current BUN/Cr 91/2.60 The patient is at her baseline See [facility] outpatient Will need to trend labs while on diuretics (11) Type 2 diabetes mellitus with hyperglycemia, with long-term current use of insulin: Code(s): E11.65 - Type 2 diabetes mellitus with hyperglycemia; Z79.4 - group home (current) use of insulin Status: Acute Assessment and Plan: Current glucose is 258 Accu-Cheks AC and HS with sliding scale insulin Will need to adjust to cover for the steroids trend glucose (12) Obstructive sleep apnea on CPAP: Code(s): G47.33 - Obstructive sleep apnea (adult) (pediatric); Z99.89 - Dependence on other enabling machines and devices Status: Acute Assessment and Plan: CPAP with auto titration (13) Aortic stenosis: Code(s): I35.0 - Nonrheumatic aortic (valve) stenosis Status: Acute Assessment and Plan:
--- NOTE | 2021-11-08 10:30 | P.PNIM_ITS ---
Progress Note: A&P Assessment and Plan (1) Community acquired pneumonia: Qualifiers: Laterality: unspecified laterality Qualified Code(s): J18.9 - Pneumonia, unspecified organism Code(s): J18.9 - Pneumonia, unspecified organism Status: Acute Assessment and Plan: * White blood cell count was 15.1 upon admission is 6.2 today. * Chest xray Stable small pleural effusions, Stable airspace opacities in the lower lung zones, consistent with atelectasis versus pneumonia, Cardiomegaly. * Continue Rocephin and azithromycin * Sputum culture and blood cultures are pending * Continue trend labs (2) CHF exacerbation: Qualifiers: Heart failure type: unspecified Qualified Code(s): I50.9 - Heart failure, unspecified Code(s): I50.9 - Heart failure, unspecified Status: Acute Assessment and Plan: * Continue metolazone and Lasix * Continue with metoprolol * Trend urine output * Daily weights * BNP 4490 * Furosemide 40mg IV BID * Echo from August shows EF of 55-60% with undetermined diastolic dysfunction with moderate to severe aortic stenosis (3) COPD exacerbation: Code(s): J44.1 - Chronic obstructive pulmonary disease with (acute) exacerbation Status: Acute Assessment and Plan: * Continue with inhalers from home and nebulizers. * Continue with Solu-Medrol * Supplemental oxygen, wean to maintain saturations * Azithromycin and ceftriaxone on board * Increase in sputum, oxygen, and wheeze (4) Acute hypoxemic respiratory failure: Code(s): J96.01 - Acute respiratory failure with hypoxia Status: Acute Assessment and Plan: * oxygen at 1.5 L and is up to 3 L at home * Currently on 2L * Continue to trend * titrate as indicated (5) Staphylococcal arthritis, left elbow: Code(s): M00.022 - Staphylococcal arthritis, left elbow Status: Acute Assessment and Plan: * The patient had been on Bactrim for her left elbow * Currently on Rocephin * Culture from September for staph * Current antibiotics should cover the gout * Wound consult (6) Anemia: Code(s): D64.9 - Anemia, unspecified Status: Chronic Assessment and Plan: Patient is at her baseline continue to monitor. (7) Hypertension: Code(s): I10 - Essential (primary) hypertension Status: Chronic Assessment and Plan: * Current BP is 119/52 * Continue with metoprolol * Trend BP * Adjust therapy as indicated (8) Bilateral lower extremity edema: Code(s): R60.0 - Localized edema Status: Acute Assessment and Plan: * Venous Dopplers Negative * continue with diuretics * Continue long-term anticoagulation and is therapeutic (9) Vitamin D deficiency, unspecified: Code(s): E55.9 - Vitamin D deficiency, unspecified Status: Acute Assessment and Plan: Continue with supplement. (10) Acute renal insufficiency: Code(s): N28.9 - Disorder of kidney and ureter, unspecified Status: Acute Assessment and Plan: Current BUN/Cr 91/2.60 The patient is at her baseline See [facility] outpatient Will need to trend labs while on diuretics (11) Type 2 diabetes mellitus with hyperglycemia, with long-term current use of insulin: Code(s): E11.65 - Type 2 diabetes mellitus with hyperglycemia; Z79.4 - [facility] (current) use of insulin
[2021-11-08 11:36] LABS: Glucose Point of Care 348 mg/dl (65-105)
--- NOTE | 2021-11-08 12:06 | PCCCNOTE ---
On 11/08/21, the student, [ Queta Wells ], provided care and [facility]. I have reviewed the student's documentation and agree with the findings.
[2021-11-08] MEDS: SILVERGEL (ELTA) 45 ML 1 APPLIC TOPICAL (15:21)
[2021-11-08 16:33] LABS: Glucose Point of Care 382 mg/dl (65-105)
[2021-11-08] MEDS: WARFARIN (*PBKC) 5 MG TABLET PO (17:24)
[2021-11-08 20:31] LABS: Glucose Point of Care 432 mg/dl (65-105)
[2021-11-08] MEDS: SIMVASTATIN 10 MG TABLET PO (21:05)
[2021-11-08] MEDS: INSULIN ASPART (*BKC) 100 UNITS/ML 10 UNITS SUB-Q (21:58)
[2021-11-09] VITALS (17 sets, daily range): BP systolic 102–124; BP diastolic 46–59; PULSE 69–95; RESP 18–24; TEMP 36.3–37.4; O2SAT 92–97
[2021-11-09] MEDS: methylPREDNISolone SOD SUCC 125 MG VIAL 60 MG IV PUSH ×4 (00:20→17:46)
[2021-11-09 00:57] LABS: Glucose Point of Care 362 mg/dl (65-105)
[2021-11-09 06:01] LABS: Hematocrit 31.4 % (37.0-47.0); Hemoglobin 10.2 g/dL (12.0-15.0); Mean Corpuscular HGB Conc 32.5 g/dl (32-36); Mean Corpuscular Hemoglobin 35.7 pg (26-34); Mean Corpuscular Volume 109.8 fl (80-100); Mean Platelet Volume 11.1 fl (7.4-10.4); Platelet Count Result 239 k/mm3 (150-375); Red Blood Count 2.86 M/mm3 (4.2-5.4); Red Cell Distribution Width 15.3 % (11.5-14.5); White Blood Count 7.5 K/mm3 (4.5-10.0)
[2021-11-09] MEDS: LEVOTHYROXINE SODIUM 100 MCG TABLET 200 MCG PO (06:12)
[2021-11-09 06:56] LABS: Alanine Aminotransferase 56 U/L (4-35); Albumin Level 3.6 g/dL (3.5-5.1); Alkaline Phosphatase 159 U/L (38-126); Anion Gap 12 mmol/L (8-16); Aspartate Amino Transferase 49 U/L (14-36); Bilirubin,Total 0.6 mg/dL (0.2-1.3); Blood Urea Nitrogen 98 mg/dL (7-17); Calcium 7.4 mg/dL (8.4-10.2); Carbon Dioxide 25 mmol/L (22-30); Chloride 92 mmol/L (98-107); Estimated CRCL calculation 17 ml/min; Estimated Glomerular Filt Rate 16; Glucose 322 mg/dL (65-110); Magnesium 2.4 mg/dL (1.6-2.3); Potassium 4.6 mmol/L (3.4-5.0); Sodium 129 mmol/L (137-145)
[2021-11-09 07:10] LABS: Band Neutrophils Percent 1 % (0-6); Lymphocytes Absolute Manual 0.07 K/mm3 (1.1-4.5); Monocytes Absolute Manual 0.07 K/mm3 (0.1-0.90); Monocytes Percent Manual 1 % (3-9); Neutrophils Absolute Manual 7.35 K/mm3 (1.7-7.2); Neutrophils Percent Manual 97 % (46-73); Nucleated Red Blood Cells 3 %; Platelet Estimate Adequate (Adequate); Total Cells Counted 100
[2021-11-09 08:05] LABS: Glucose Point of Care 335 mg/dl (65-105)
[2021-11-09] MEDS: metOLazone 2.5 MG TABLET PO ×3 (08:22→17:48)
[2021-11-09] MEDS: CYANOCOBALAMIN 1,000 MCG TABLET 1000 MCG PO (08:22)
[2021-11-09] MEDS: METOPROLOL TARTRATE 25 MG TABLET PO ×2 (08:23→20:30)
[2021-11-09] MEDS: FINASTERIDE 5 MG TABLET PO (08:23)
[2021-11-09] MEDS: FEBUXOSTAT 40 MG TABLET PO (08:23)
[2021-11-09] MEDS: FUROSEMIDE INJ 40 MG/4 ML VIAL IV PUSH (08:23)
[2021-11-09] MEDS: SILVERGEL (ELTA) 45 ML 1 APPLIC TOPICAL (08:23)
[2021-11-09] MEDS: CHOLECALCIFEROL 1,000 UNITS TABLET 1000 UNITS PO (08:23)
[2021-11-09] MEDS: AMIODARONE HCL 100 MG TABLET PO (08:23)
[2021-11-09] MEDS: INSULIN ASPART (*BKC) 100 UNITS/ML SUB-Q ×2 (08:24→12:43)
[2021-11-09 10:57] LABS: INR 2.7; Prothrombin Time 27.8 Seconds (11.1-14.7)
--- NOTE | 2021-11-09 11:30 | PM.IMPN ---
Progress Note: A&P Assessment and Plan (1) Community acquired pneumonia: Qualifiers: Laterality: unspecified laterality Qualified Code(s): J18.9 - Pneumonia, unspecified organism Code(s): J18.9 - Pneumonia, unspecified organism Status: Acute Assessment and Plan: White blood cell count was 15.1 upon admission is 7.5 today. Chest xray Stable small pleural effusions, Stable airspace opacities in the lower lung zones, consistent with atelectasis versus pneumonia, Cardiomegaly. Continue Rocephin and azithromycin Sputum culture and blood cultures are pending Continue trend labs (2) CHF exacerbation: Qualifiers: Heart failure type: unspecified Qualified Code(s): I50.9 - Heart failure, unspecified Code(s): I50.9 - Heart failure, unspecified Status: Acute Assessment and Plan: Continue metolazone and Lasix Continue with metoprolol Trend urine output Daily weights BNP 4490 urinary catheter for accurate I&Os Furosemide 40mg IV BID Echo from August shows EF of 55-60% with undetermined diastolic dysfunction with moderate to severe aortic stenosis (3) COPD exacerbation: Code(s): J44.1 - Chronic obstructive pulmonary disease with (acute) exacerbation Status: Acute Assessment and Plan: Continue with inhalers from home and nebulizers. Continue with Solu-Medrol Supplemental oxygen, wean to maintain saturations Azithromycin and ceftriaxone on board Increase in sputum, oxygen, and wheeze (4) Acute hypoxemic respiratory failure: Code(s): J96.01 - Acute respiratory failure with hypoxia Status: Acute Assessment and Plan: oxygen at 1.5 L and is up to 3 L at home Currently on 2L Continue to trend titrate as indicated (5) Staphylococcal arthritis, left elbow: Code(s): M00.022 - Staphylococcal arthritis, left elbow Status: Acute Assessment and Plan: The patient had been on Bactrim for her left elbow Currently on Rocephin Culture from September for staph Current antibiotics should cover the supposed infection Wound consult (6) Anemia: Code(s): D64.9 - Anemia, unspecified Status: Chronic Assessment and Plan: Patient is at her baseline continue to monitor. (7) Hypertension: Code(s): I10 - Essential (primary) hypertension Status: Chronic Assessment and Plan: Current BP is 116/51 Continue with metoprolol Trend BP Adjust therapy as indicated (8) Bilateral lower extremity edema: Code(s): R60.0 - Localized edema Status: Acute Assessment and Plan: Venous Dopplers Negative continue with diuretics Continue long-term anticoagulation and is therapeutic (9) Vitamin D deficiency, unspecified: Code(s): E55.9 - Vitamin D deficiency, unspecified Status: Acute Assessment and Plan: Continue with supplement. (10) Acute renal insufficiency: Code(s): N28.9 - Disorder of kidney and ureter, unspecified Status: Acute Assessment and Plan: Current BUN/Cr 98/2.90 The patient is at her baseline See [facility] outpatient Will need to trend labs while on diuretics Decrease diuretics to daily (11) Type 2 diabetes mellitus with hyperglycemia, with long-term current use of insulin: Code(s): E11.65 - Type 2 diabetes mellitus with hyperglycemia; Z79.4 - staff physical therapy assistant (current) use of insulin Status: Acute Assessment and Plan: Current glucose is 258 Accu-Cheks AC and HS with sliding scale insulin Will need to adjust to cover for the steroids trend glucose (12) Obstructive sleep apnea on CPAP: Code(s): G47.33 - Obstructive sleep apnea (adult) (pediatric); Z99.89 - Dependence on other enabling machines and devices Status: Acute Assessment and Plan: CPAP with auto titration (13) Aortic stenosis: Code(s): I35.0 - Nonrh
--- NOTE | 2021-11-09 11:30 | P.PNIM_ITS ---
Progress Note: A&P Assessment and Plan (1) Community acquired pneumonia: Qualifiers: Laterality: unspecified laterality Qualified Code(s): J18.9 - Pneumonia, unspecified organism Code(s): J18.9 - Pneumonia, unspecified organism Status: Acute Assessment and Plan: * White blood cell count was 15.1 upon admission is 7.5 today. * Chest xray Stable small pleural effusions, Stable airspace opacities in the lower lung zones, consistent with atelectasis versus pneumonia, Cardiomegaly. * Continue Rocephin and azithromycin * Sputum culture and blood cultures are pending * Continue trend labs (2) CHF exacerbation: Qualifiers: Heart failure type: unspecified Qualified Code(s): I50.9 - Heart failure, unspecified Code(s): I50.9 - Heart failure, unspecified Status: Acute Assessment and Plan: * Continue metolazone and Lasix * Continue with metoprolol * Trend urine output * Daily weights * BNP 4490 * urinary catheter for accurate I&Os * Furosemide 40mg IV BID * Echo from August shows EF of 55-60% with undetermined diastolic dysfunction with moderate to severe aortic stenosis (3) COPD exacerbation: Code(s): J44.1 - Chronic obstructive pulmonary disease with (acute) exacerbation Status: Acute Assessment and Plan: * Continue with inhalers from home and nebulizers. * Continue with Solu-Medrol * Supplemental oxygen, wean to maintain saturations * Azithromycin and ceftriaxone on board * Increase in sputum, oxygen, and wheeze (4) Acute hypoxemic respiratory failure: Code(s): J96.01 - Acute respiratory failure with hypoxia Status: Acute Assessment and Plan: * oxygen at 1.5 L and is up to 3 L at home * Currently on 2L * Continue to trend * titrate as indicated (5) Staphylococcal arthritis, left elbow: Code(s): M00.022 - Staphylococcal arthritis, left elbow Status: Acute Assessment and Plan: * The patient had been on Bactrim for her left elbow * Currently on Rocephin * Culture from September for staph * Current antibiotics should cover the supposed infection * Wound consult (6) Anemia: Code(s): D64.9 - Anemia, unspecified Status: Chronic Assessment and Plan: Patient is at her baseline continue to monitor. (7) Hypertension: Code(s): I10 - Essential (primary) hypertension Status: Chronic Assessment and Plan: * Current BP is 116/51 * Continue with metoprolol * Trend BP * Adjust therapy as indicated (8) Bilateral lower extremity edema: Code(s): R60.0 - Localized edema Status: Acute Assessment and Plan: * Venous Dopplers Negative * continue with diuretics * Continue long-term anticoagulation and is therapeutic (9) Vitamin D deficiency, unspecified: Code(s): E55.9 - Vitamin D deficiency, unspecified Status: Acute Assessment and Plan: Continue with supplement. (10) Acute renal insufficiency: Code(s): N28.9 - Disorder of kidney and ureter, unspecified Status: Acute Assessment and Plan: Current BUN/Cr 98/2.90 The patient is at her baseline [facility] Will need to trend labs while on diuretics Decrease diuretics to daily (11) Type 2 diabetes mellitus with hyperglycemia, with long-term current use of insulin: Code(s): E11.65 - Type
[2021-11-09 11:33] LABS: Glucose Point of Care 405 mg/dl (65-105)
--- NOTE | 2021-11-09 14:10 | PC.NURSE ---
On 11/09/21, the student, Clifford Sauer, provided care and completed [facility] documentation on this patient. I have reviewed the student's documentation and agree with the findings.
[2021-11-09 16:17] LABS: Glucose Point of Care 422 mg/dl (65-105)
[2021-11-09] MEDS: GABAPENTIN 300 MG CAPSULE PO (17:03)
[2021-11-09] MEDS: INSULIN HUMAN NPH (*BKC) 100 UNITS/ML 15 UNITS SUB-Q (17:45)
[2021-11-09] MEDS: INSULIN ASPART (*BKC) 100 UNITS/ML 20 UNITS SUB-Q (17:46)
[2021-11-09] MEDS: WARFARIN (*PBKC) 5 MG TABLET PO (17:48)
[2021-11-09] MEDS: SODIUM CHLORIDE 0.9% IV 250 ML 125 ML IV CONT (17:49)
[2021-11-09 20:12] LABS: Glucose Point of Care 425 mg/dl (65-105)
[2021-11-09] MEDS: INSULIN ASPART (*BKC) 100 UNITS/ML 6 UNITS SUB-Q ×2 (20:27→23:53)
[2021-11-09] MEDS: SIMVASTATIN 10 MG TABLET PO (20:29)
[2021-11-09] MEDS: ALBUTEROL SULFATE NEB 2.5 MG/0.5 ML INH INHALATION (21:01)
[2021-11-09] MEDS: IPRATROPIUM BR 0.02% INH SOLN 0.5 MG/2.5 ML VIAL INHALATION (21:01)
[2021-11-09 23:58] LABS: Glucose Point of Care 376 mg/dl (65-105)
[2021-11-10] VITALS (14 sets, daily range): BP systolic 115–144; BP diastolic 47–60; PULSE 67–77; RESP 17–22; TEMP 36.1–36.7; O2SAT 90–95
[2021-11-10] MEDS: LEVOTHYROXINE SODIUM 100 MCG TABLET 200 MCG PO (05:36)
[2021-11-10 05:50] LABS: Hematocrit 32.2 % (37.0-47.0); Hemoglobin 10.4 g/dL (12.0-15.0); Mean Corpuscular HGB Conc 32.3 g/dl (32-36); Mean Corpuscular Hemoglobin 36.2 pg (26-34); Mean Corpuscular Volume 112.2 fl (80-100); Platelet Count Result 213 k/mm3 (150-375); Red Blood Count 2.87 M/mm3 (4.2-5.4); Red Cell Distribution Width 15.1 % (11.5-14.5); White Blood Count 6.9 K/mm3 (4.5-10.0)
[2021-11-10 05:53] LABS: INR 3.2; Prothrombin Time 31.7 Seconds (11.1-14.7)
[2021-11-10 05:57] LABS: Alanine Aminotransferase 186 U/L (4-35); Albumin Level 3.7 g/dL (3.5-5.1); Alkaline Phosphatase 152 U/L (38-126); Anion Gap 15 mmol/L (8-16); Aspartate Amino Transferase 136 U/L (14-36); Bilirubin,Total 0.6 mg/dL (0.2-1.3); Blood Urea Nitrogen 112 mg/dL (7-17); Calcium 7.4 mg/dL (8.4-10.2); Carbon Dioxide 25 mmol/L (22-30); Chloride 86 mmol/L (98-107); Estimated CRCL calculation 15 ml/min; Estimated Glomerular Filt Rate 14; Glucose 299 mg/dL (65-110); Magnesium 2.3 mg/dL (1.6-2.3); Potassium 4.3 mmol/L (3.4-5.0); Sodium 126 mmol/L (137-145)
[2021-11-10] MEDS: methylPREDNISolone SOD SUCC 125 MG VIAL 60 MG IV PUSH ×4 (06:10→17:34)
[2021-11-10 06:26] LABS: Glucose Point of Care 299 mg/dl (65-105)
[2021-11-10 07:16] LABS: Band Neutrophils Percent 3 % (0-6); Monocytes Absolute Manual 0.06 K/mm3 (0.1-0.90); Monocytes Percent Manual 1 % (3-9); Neutrophils Absolute Manual 6.62 K/mm3 (1.7-7.2); Neutrophils Percent Manual 93 % (46-73); Nucleated Red Blood Cells 8 %; Platelet Estimate Adequate (Adequate); Total Cells Counted 100
[2021-11-10 07:17] LABS: Atypical Lymphocytes Present
[2021-11-10 07:58] LABS: Glucose Point of Care 295 mg/dl (65-105)
--- NOTE | 2021-11-10 09:00 | PM.IMPN ---
Progress Note: A&P Assessment and Plan (1) Community acquired pneumonia: Qualifiers: Laterality: unspecified laterality Qualified Code(s): J18.9 - Pneumonia, unspecified organism Code(s): J18.9 - Pneumonia, unspecified organism Status: Acute Assessment and Plan: White blood cell count was 15.1 upon admission is 6.9 today. Chest xray Stable small pleural effusions, Stable airspace opacities in the lower lung zones, consistent with atelectasis versus pneumonia, Cardiomegaly. Continue Rocephin and azithromycin Sputum culture and blood cultures NGTD Continue trend labs (2) CHF exacerbation: Qualifiers: Heart failure type: unspecified Qualified Code(s): I50.9 - Heart failure, unspecified Code(s): I50.9 - Heart failure, unspecified Status: Acute Assessment and Plan: Continue metolazone and Lasix Continue with metoprolol Trend urine output Daily weights BNP 4490 urinary catheter for accurate I&Os Furosemide 40mg IV changed to daily Echo from August shows EF of 55-60% with undetermined diastolic dysfunction with moderate to severe aortic stenosis (3) COPD exacerbation: Code(s): J44.1 - Chronic obstructive pulmonary disease with (acute) exacerbation Status: Acute Assessment and Plan: Continue with inhalers from home and nebulizers. Continue with Solu-Medrol Supplemental oxygen, wean to maintain saturations Azithromycin and ceftriaxone on board Increase in sputum, oxygen, and wheeze (4) Acute hypoxemic respiratory failure: Code(s): J96.01 - Acute respiratory failure with hypoxia Status: Acute Assessment and Plan: oxygen at 1.5 L and is up to 3 L at home Currently on 2L Continue to trend titrate as indicated Cxray ordered ABG ordered (5) Staphylococcal arthritis, left elbow: Code(s): M00.022 - Staphylococcal arthritis, left elbow Status: Acute Assessment and Plan: The patient had been on Bactrim for her left elbow Currently on Rocephin Culture from September for staph Current antibiotics should cover the supposed infection Wound consult (6) Anemia: Code(s): D64.9 - Anemia, unspecified Status: Chronic Assessment and Plan: Patient is at her baseline continue to monitor. (7) Hypertension: Code(s): I10 - Essential (primary) hypertension Status: Chronic Assessment and Plan: Current BP is 144/60 Continue with metoprolol Trend BP Adjust therapy as indicated (8) Bilateral lower extremity edema: Code(s): R60.0 - Localized edema Status: Acute Assessment and Plan: Venous Dopplers Negative continue with diuretics Continue long-term anticoagulation and is therapeutic (9) Vitamin D deficiency, unspecified: Code(s): E55.9 - Vitamin D deficiency, unspecified Status: Acute Assessment and Plan: Continue with supplement. 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
--- NOTE | 2021-11-10 09:00 | P.PNIM_ITS ---
Progress Note: A&P Assessment and Plan (1) Community acquired pneumonia: Qualifiers: Laterality: unspecified laterality Qualified Code(s): J18.9 - Pneumonia, unspecified organism Code(s): J18.9 - Pneumonia, unspecified organism Status: Acute Assessment and Plan: * White blood cell count was 15.1 upon admission is 6.9 today. * Chest xray Stable small pleural effusions, Stable airspace opacities in the lower lung zones, consistent with atelectasis versus pneumonia, Cardiomegaly. * Continue Rocephin and azithromycin * Sputum culture and blood cultures NGTD * Continue trend labs (2) CHF exacerbation: Qualifiers: Heart failure type: unspecified Qualified Code(s): I50.9 - Heart failure, unspecified Code(s): I50.9 - Heart failure, unspecified Status: Acute Assessment and Plan: * Continue metolazone and Lasix * Continue with metoprolol * Trend urine output * Daily weights * BNP 4490 * urinary catheter for accurate I&Os * Furosemide 40mg IV changed to daily * Echo from August shows EF of 55-60% with undetermined diastolic dysfunction with moderate to severe aortic stenosis (3) COPD exacerbation: Code(s): J44.1 - Chronic obstructive pulmonary disease with (acute) exacerbation Status: Acute Assessment and Plan: * Continue with inhalers from home and nebulizers. * Continue with Solu-Medrol * Supplemental oxygen, wean to maintain saturations * Azithromycin and ceftriaxone on board * Increase in sputum, oxygen, and wheeze (4) Acute hypoxemic respiratory failure: Code(s): J96.01 - Acute respiratory failure with hypoxia Status: Acute Assessment and Plan: * oxygen at 1.5 L and is up to 3 L at home * Currently on 2L * Continue to trend * titrate as indicated * Cxray ordered * ABG ordered (5) Staphylococcal arthritis, left elbow: Code(s): M00.022 - Staphylococcal arthritis, left elbow Status: Acute Assessment and Plan: * The patient had been on Bactrim for her left elbow * Currently on Rocephin * Culture from September for staph * Current antibiotics should cover the supposed infection * Wound consult (6) Anemia: Code(s): D64.9 - Anemia, unspecified Status: Chronic Assessment and Plan: Patient is at her baseline continue to monitor. (7) Hypertension: Code(s): I10 - Essential (primary) hypertension Status: Chronic Assessment and Plan: * Current BP is 144/60 * Continue with metoprolol * Trend BP * Adjust therapy as indicated (8) Bilateral lower extremity edema: Code(s): R60.0 - Localized edema Status: Acute Assessment and Plan: * Venous Dopplers Negative * continue with diuretics * Continue long-term anticoagulation and is therapeutic (9) Vitamin D deficiency, unspecified: Code(s): E55.9 - Vitamin D deficiency, unspecified Status: Acute Assessment and Plan: Continue with supplement. (10) Acute renal insufficiency: Code(s): N28.9 - Disorder of kidney and ureter, unspecified Status: Acute Assessment and Plan: Current BUN/Cr 112/3.20 The patient is at her baseline See [facility] outpatient Will need to trend labs while on diuretics Decrease diuretics to daily (11) Type 2 diabetes mellitus with hyperglycemia, with long-term current use of in
[2021-11-10] MEDS: FEBUXOSTAT 40 MG TABLET PO (09:09)
[2021-11-10] MEDS: FINASTERIDE 5 MG TABLET PO (09:09)
[2021-11-10] MEDS: CHOLECALCIFEROL 1,000 UNITS TABLET 1000 UNITS PO (09:09)
[2021-11-10] MEDS: CYANOCOBALAMIN 1,000 MCG TABLET 1000 MCG PO (09:10)
[2021-11-10] MEDS: AMIODARONE HCL 100 MG TABLET PO (09:10)
[2021-11-10] MEDS: INSULIN ASPART (*BKC) 100 UNITS/ML SUB-Q ×4 (09:10→22:16)
[2021-11-10] MEDS: metOLazone 2.5 MG TABLET PO ×3 (09:10→17:34)
[2021-11-10] MEDS: METOPROLOL TARTRATE 25 MG TABLET PO ×2 (09:11→20:27)
[2021-11-10] MEDS: FUROSEMIDE INJ 40 MG/4 ML VIAL IV PUSH (09:11)
[2021-11-10] MEDS: SILVERGEL (ELTA) 45 ML 1 APPLIC TOPICAL (09:18)
--- NOTE | 2021-11-10 11:51 | PCOTNOTE ---
Attempted OT evaluation, family declined OT at this time, requested we attempt later. Will follow, RN notified
[2021-11-10 11:59] LABS: Glucose Point of Care 340 mg/dl (65-105)
[2021-11-10 17:12] LABS: Glucose Point of Care 418 mg/dl (65-105)
[2021-11-10] MEDS: INSULIN ASPART (*BKC) 100 UNITS/ML 10 UNITS SUB-Q (18:07)
[2021-11-10] MEDS: SIMVASTATIN 10 MG TABLET PO (20:27)
[2021-11-10 20:57] LABS: Glucose Point of Care 373 mg/dl (65-105)
[2021-11-10 22:12] LABS: Alveolar/Arterial O2 Gradient 53.9 mmHg; Base Excess ABG -2.3 mEq/l (+/-2.0); Carboxyhemoglobin 0.1 % THb (0-2.0); Fractional Inspired Oxygen 28 %; HCO3 ABG 26.8 mEq/l (22.0-26.0); Methemoglobin ABG 0.2 %THb (0-1.5); Oxygen Content ABG 15.3 %vol (16.0-22.0); Oxyhemoglobin 88.5 % THb (90.0-100.0); PO2 ABG 65.1 mmHg (80.0-100.0); PO2 FiO2 Ratio Arterial Blood 2.33 %; Reduced Hemoglobin 11.2 %THb (0-5.0); Total Hemoglobin 12.3 g/dL (12.0-18.0)
[2021-11-10 22:16] LABS: pH ABG 7.211 (7.350-7.450)
[2021-11-10 22:17] LABS: Oxygen Saturation ABG 87.6 % (95.0-100.0); PCO2 ABG 68.3 mmHg (35.0-45.0)
[2021-11-10 22:18] LABS: Device NASAL CANNULA; Site Drawn RIGHT FEMORAL
[2021-11-10 22:49] LABS: Glucose Point of Care 341 mg/dl (65-105)
[2021-11-11] VITALS (17 sets, daily range): BP systolic 126–139; BP diastolic 57–60; PULSE 69–84; RESP 16–24; TEMP 35.9–36.7; O2SAT 92–98
[2021-11-11] MEDS: methylPREDNISolone SOD SUCC 125 MG VIAL 60 MG IV PUSH ×3 (00:04→12:42)
[2021-11-11] MEDS: LEVOTHYROXINE SODIUM 100 MCG TABLET 200 MCG PO (05:26)
[2021-11-11 06:24] LABS: Alanine Aminotransferase 283 U/L (4-35); Albumin Level 3.8 g/dL (3.5-5.1); Alkaline Phosphatase 199 U/L (38-126); Anion Gap 13 mmol/L (8-16); Aspartate Amino Transferase 178 U/L (14-36); Bilirubin,Total 0.8 mg/dL (0.2-1.3); Calcium 7.5 mg/dL (8.4-10.2); Carbon Dioxide 26 mmol/L (22-30); Chloride 87 mmol/L (98-107); Estimated CRCL calculation 15 ml/min; Estimated Glomerular Filt Rate 14; Glucose 266 mg/dL (65-110); Magnesium 2.4 mg/dL (1.6-2.3); Potassium 4.4 mmol/L (3.4-5.0); Sodium 126 mmol/L (137-145)
[2021-11-11 07:08] LABS: Blood Urea Nitrogen 123 mg/dL (7-17)
[2021-11-11 07:50] LABS: Glucose Point of Care 273 mg/dl (65-105)
[2021-11-11] MEDS: FEBUXOSTAT 40 MG TABLET PO (09:52)
[2021-11-11] MEDS: FINASTERIDE 5 MG TABLET PO (09:52)
[2021-11-11] MEDS: AMIODARONE HCL 100 MG TABLET PO (09:52)
[2021-11-11] MEDS: metOLazone 2.5 MG TABLET PO ×3 (09:52→18:06)
[2021-11-11] MEDS: CYANOCOBALAMIN 1,000 MCG TABLET 1000 MCG PO (09:52)
[2021-11-11] MEDS: INSULIN ASPART (*BKC) 100 UNITS/ML SUB-Q ×4 (09:53→20:51)
[2021-11-11] MEDS: GABAPENTIN 100 MG CAPSULE PO (09:53)
[2021-11-11] MEDS: SILVERGEL (ELTA) 45 ML 1 APPLIC TOPICAL (09:53)
[2021-11-11] MEDS: METOPROLOL TARTRATE 25 MG TABLET PO ×2 (09:53→20:49)
[2021-11-11] MEDS: FUROSEMIDE INJ 40 MG/4 ML VIAL IV PUSH (09:53)
[2021-11-11] MEDS: CHOLECALCIFEROL 1,000 UNITS TABLET 1000 UNITS PO (09:53)
[2021-11-11 11:30] LABS: Glucose Point of Care 354 mg/dl (65-105)
--- NOTE | 2021-11-11 11:30 | PM.IMPN ---
Progress Note: A&P Assessment and Plan (1) Community acquired pneumonia: Qualifiers: Laterality: unspecified laterality Qualified Code(s): J18.9 - Pneumonia, unspecified organism Code(s): J18.9 - Pneumonia, unspecified organism Status: Acute Assessment and Plan: White blood cell count was 15.1 upon admission is 8.1 today. Chest xray Stable small pleural effusions, Stable airspace opacities in the lower lung zones, consistent with atelectasis versus pneumonia, Cardiomegaly. Continue Rocephin and azithromycin Sputum culture and blood cultures NGTD Continue trend labs (2) CHF exacerbation: Qualifiers: Heart failure type: unspecified Qualified Code(s): I50.9 - Heart failure, unspecified Code(s): I50.9 - Heart failure, unspecified Status: Acute Assessment and Plan: Continue metolazone and Lasix Continue with metoprolol Trend urine output Daily weights BNP 4490 urinary catheter for accurate I&Os Furosemide 40mg IV changed to daily Echo from August shows EF of 55-60% with undetermined diastolic dysfunction with moderate to severe aortic stenosis Consulted pulmonology and cardiology for further help (3) COPD exacerbation: Code(s): J44.1 - Chronic obstructive pulmonary disease with (acute) exacerbation Status: Acute Assessment and Plan: Continue with inhalers from home and nebulizers. Continue with Solu-Medrol Supplemental oxygen, wean to maintain saturations Azithromycin and ceftriaxone on board Increase in sputum, oxygen, and wheeze (4) Acute hypoxemic respiratory failure: Code(s): J96.01 - Acute respiratory failure with hypoxia Status: Acute Assessment and Plan: oxygen at 1.5 L and is up to 3 L at home Currently on 2L Continue to trend titrate as indicated Cxray ordered ABG showed resp acidosis with elevated CO2, and pH7.211 (5) Staphylococcal arthritis, left elbow: Code(s): M00.022 - Staphylococcal arthritis, left elbow Status: Acute Assessment and Plan: The patient had been on Bactrim for her left elbow Currently on Rocephin Culture from September for staph Current antibiotics should cover the supposed infection Wound consult (6) Anemia: Code(s): D64.9 - Anemia, unspecified Status: Chronic Assessment and Plan: Patient is at her baseline continue to monitor. (7) Hypertension: Code(s): I10 - Essential (primary) hypertension Status: Chronic Assessment and Plan: Current BP is 126/57 Continue with metoprolol Trend BP Adjust therapy as indicated (8) Bilateral lower extremity edema: Code(s): R60.0 - Localized edema Status: Acute Assessment and Plan: Venous Dopplers Negative continue with diuretics Continue long-term anticoagulation and is therapeutic (9) Vitamin D deficiency, unspecified: Code(s): E55.9 - Vitamin D deficiency, unspecified Status: Acute Assessment and Plan: Continue with supplement. (10) Acute renal insufficiency: Code(s): N28.9 - Disorder of kidney and ureter, unspecified Status: Acute Assessment and Plan: Current BUN/Cr 123/3.20 The patient is at her baseline See [facility] outpatient Will need to trend labs while on diuretics Decrease diuretics to daily (11) Type 2 diabetes mellitus with hyperglycemia, with long-term current use of insulin: Code(s): E11.65 - Type 2 diabetes mellitus with hyperglycemia; Z79.4 - alf (current) use of insulin Status: Acute Assessment and Plan: Current glucose is 266 Accu-Cheks AC and HS with sliding scale insulin Will need to adjust to cover for the steroids Add Lantus 45 units add aspart 15 units before meals trend glucose 250ml bolus for hyperglycemia, trending down (12) Obstructive sleep apnea on CPAP: Code(s):
--- NOTE | 2021-11-11 11:30 | P.PNIM_ITS ---
Progress Note: A&P Assessment and Plan (1) Community acquired pneumonia: Qualifiers: Laterality: unspecified laterality Qualified Code(s): J18.9 - Pneumonia, unspecified organism Code(s): J18.9 - Pneumonia, unspecified organism Status: Acute Assessment and Plan: * White blood cell count was 15.1 upon admission is 8.1 today. * Chest xray Stable small pleural effusions, Stable airspace opacities in the lower lung zones, consistent with atelectasis versus pneumonia, Cardiomegaly. * Continue Rocephin and azithromycin * Sputum culture and blood cultures NGTD * Continue trend labs (2) CHF exacerbation: Qualifiers: Heart failure type: unspecified Qualified Code(s): I50.9 - Heart failure, unspecified Code(s): I50.9 - Heart failure, unspecified Status: Acute Assessment and Plan: * Continue metolazone and Lasix * Continue with metoprolol * Trend urine output * Daily weights * BNP 4490 * urinary catheter for accurate I&Os * Furosemide 40mg IV changed to daily * Echo from August shows EF of 55-60% with undetermined diastolic dysfunction with moderate to severe aortic stenosis * Consulted pulmonology and cardiology for further help (3) COPD exacerbation: Code(s): J44.1 - Chronic obstructive pulmonary disease with (acute) exacerbation Status: Acute Assessment and Plan: * Continue with inhalers from home and nebulizers. * Continue with Solu-Medrol * Supplemental oxygen, wean to maintain saturations * Azithromycin and ceftriaxone on board * Increase in sputum, oxygen, and wheeze (4) Acute hypoxemic respiratory failure: Code(s): J96.01 - Acute respiratory failure with hypoxia Status: Acute Assessment and Plan: * oxygen at 1.5 L and is up to 3 L at home * Currently on 2L * Continue to trend * titrate as indicated * Cxray ordered * ABG showed resp acidosis with elevated CO2, and pH7.211 (5) Staphylococcal arthritis, left elbow: Code(s): M00.022 - Staphylococcal arthritis, left elbow Status: Acute Assessment and Plan: * The patient had been on Bactrim for her left elbow * Currently on Rocephin * Culture from September for staph * Current antibiotics should cover the supposed infection * Wound consult (6) Anemia: Code(s): D64.9 - Anemia, unspecified Status: Chronic Assessment and Plan: Patient is at her baseline continue to monitor. (7) Hypertension: Code(s): I10 - Essential (primary) hypertension Status: Chronic Assessment and Plan: * Current BP is 126/57 * Continue with metoprolol * Trend BP * Adjust therapy as indicated (8) Bilateral lower extremity edema: Code(s): R60.0 - Localized edema Status: Acute Assessment and Plan: * Venous Dopplers Negative * continue with diuretics * Continue long-term anticoagulation and is therapeutic (9) Vitamin D deficiency, unspecified: Code(s): E55.9 - Vitamin D deficiency, unspecified Status: Acute Assessment and Plan: Continue with supplement. (10) Acute renal insufficiency: Code(s): N28.9 - Disorder of kidney and ureter, unspecified Status: Acute Assessment and Plan: Current BUN/Cr 123/3.20 The patient is at her baseline See [facility] outpatient Will need to trend labs while on diuretics Decrease diuretics to daily
[2021-11-11 13:18] LABS: Hematocrit 34.4 % (37.0-47.0); Hemoglobin 11.2 g/dL (12.0-15.0); Mean Corpuscular HGB Conc 32.6 g/dl (32-36); Mean Corpuscular Hemoglobin 36.1 pg (26-34); Mean Platelet Volume 11.5 fl (7.4-10.4); Platelet Count Result 210 k/mm3 (150-375); Red Cell Distribution Width 15.2 % (11.5-14.5); White Blood Count 8.1 K/mm3 (4.5-10.0)
[2021-11-11] MEDS: IPRATROPIUM BR 0.02% INH SOLN 0.5 MG/2.5 ML VIAL INHALATION (13:24)
[2021-11-11] MEDS: ALBUTEROL SULFATE NEB 2.5 MG/0.5 ML INH INHALATION (13:24)
[2021-11-11 16:00] LABS: NT Pro B Type Natriuretic Pept 14700 pg/mL (5-100)
--- NOTE | 2021-11-11 16:36 | PM.CNPUL ---
Assessment and Plan Assessment and plan (1) CHF exacerbation: Qualifiers: Heart failure type: unspecified Qualified Code(s): I50.9 - Heart failure, unspecified Code(s): I50.9 - Heart failure, unspecified Status: Acute (2) Acute hypoxemic respiratory failure: Code(s): J96.01 - Acute respiratory failure with hypoxia Status: Acute Assessment and Plan: patient presented with acute on chronic hypercapnic respiratory failure and has been on treatment for COPD exacerbation possible respiratory infection. the patient has history of obesity hypoventilation and current symptoms are related to congestive heart failure rather than COPD exacerbation. Patient has improved since admission into the hospital. No previous pulmonary function testing is available and no previous chest CT to see whether the patient has radiographic emphysema. At this point I would discontinue IV steroids and obtain arterial blood gases and chest CT. I would continue with nebulized short-acting bronchodilators on a p.r.n. basis. Patient should remain on the home ventilator at night. Will measure nocturnal oximetry prior to discharging her home. (3) Bilateral lower extremity edema: Code(s): R60.0 - Localized edema Status: Acute (4) Chronic kidney disease, stage 4 (severe): Code(s): N18.4 - Chronic kidney disease, stage 4 (severe) Status: Chronic (5) History of permanent cardiac pacemaker placement: Code(s): Z95.0 - Presence of cardiac pacemaker Status: Acute (6) Obstructive sleep apnea on CPAP: Code(s): G47.33 - Obstructive sleep apnea (adult) (pediatric); Z99.89 - Dependence on other enabling machines and devices Status: Acute (7) Atrial fibrillation: Code(s): I48.91 - Unspecified atrial fibrillation Status: Acute (8) Diastolic dysfunction: Code(s): I51.89 - Other ill-defined heart diseases Status: Acute History of Present Illness History of Present Illness Consult date: 11/11/21 Chief complaint: Community Aquired Pneumonia, COPD/CHF Exacerbation Narrative: This 81-year-old female was admitted into the hospital with a 2 week history of increasing shortness of breath. The patient has a complex medical history. She has had history of congestive heart failure, hypertension, diabetes mellitus, obstructive sleep apnea, chronic kidney disease atrial fibrillation chronically on anticoagulation, pacemaker implantation. Patient denied having cough sputum production fever chills. She has had chronic lower extremity edema. She denied having orthopnea.The patient has had multiple hospitalizations for acute on chronic hypercapnic respiratory failure. She carries the diagnosis of COPD and has been using nebulized short-acting bronchodilators. No previous pulmonary function testing is available. Patient smoked 1 pack per day ofr approximately 10-12 years but quit many years ago. Most hospitalizations were triggered by congestive heart failure rather than COPD. She has obesity hypoventilation and most recently was placed on trilogy home ventilator, after she was switched from a CPAP device. She stated that trilogy seems to work better than CPAP. on admission, a chest x-ray showed cardiomegaly bilateral pleural effusions as well as lung congestion. The patient has been treated with IV steroids antibiotics and diuretics. Review of Systems Review of Systems: All systems reviewed & are unremarkable except as noted in HPI and below PMFSH Past Medical History Medical History Benign hypertension Chronic anemia Chronic macrocytic anemia. 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
[2021-11-11 17:07] LABS: Glucose Point of Care 321 mg/dl (65-105)
[2021-11-11 19:34] LABS: Glucose Point of Care 368 mg/dl (65-105)
[2021-11-11 20:48] LABS: Glucose Point of Care 349 mg/dl (65-105)
[2021-11-11] MEDS: SIMVASTATIN 10 MG TABLET PO (20:49)
[2021-11-12] VITALS (20 sets, daily range): BP systolic 123–151; BP diastolic 52–62; PULSE 70–80; RESP 16–28; TEMP 35.6–37.8; O2SAT 92–98
[2021-11-12] MEDS: LEVOTHYROXINE SODIUM 100 MCG TABLET 200 MCG PO (05:32)
[2021-11-12 07:12] LABS: INR 3.9; Prothrombin Time 36.8 Seconds (11.1-14.7)
[2021-11-12 07:36] LABS: Alanine Aminotransferase 356 U/L (4-35); Albumin Level 3.7 g/dL (3.5-5.1); Alkaline Phosphatase 210 U/L (38-126); Anion Gap 12 mmol/L (8-16); Aspartate Amino Transferase 190 U/L (14-36); Calcium 7.2 mg/dL (8.4-10.2); Carbon Dioxide 29 mmol/L (22-30); Chloride 88 mmol/L (98-107); Estimated CRCL calculation 18 ml/min; Estimated Glomerular Filt Rate 17; Glucose 245 mg/dL (65-110); Magnesium 2.4 mg/dL (1.6-2.3); Potassium 4.3 mmol/L (3.4-5.0); Sodium 129 mmol/L (137-145)
[2021-11-12 07:37] LABS: Glucose Point of Care 261 mg/dl (65-105)
[2021-11-12 07:45] LABS: Blood Urea Nitrogen 132 mg/dL (7-17)
[2021-11-12 08:07] LABS: Hepatitis B Surface Antigen Negative (Negative)
[2021-11-12 08:13] LABS: HAV RESULT Negative (Negative); Hepatitis B Core IgM Result Negative (Negative)
[2021-11-12 08:24] LABS: Hepatitis C Virus Antibody Negative (Negative)
[2021-11-12] MEDS: FEBUXOSTAT 40 MG TABLET PO (08:35)
[2021-11-12] MEDS: METOPROLOL TARTRATE 25 MG TABLET PO ×2 (08:35→20:09)
[2021-11-12] MEDS: CHOLECALCIFEROL 1,000 UNITS TABLET 1000 UNITS PO (08:35)
[2021-11-12] MEDS: metOLazone 2.5 MG TABLET PO ×2 (08:36→12:18)
[2021-11-12] MEDS: CYANOCOBALAMIN 1,000 MCG TABLET 1000 MCG PO (08:36)
[2021-11-12] MEDS: FUROSEMIDE INJ 40 MG/4 ML VIAL IV PUSH ×2 (08:36→16:59)
[2021-11-12] MEDS: FINASTERIDE 5 MG TABLET PO (08:36)
[2021-11-12] MEDS: INSULIN ASPART (*BKC) 100 UNITS/ML SUB-Q ×4 (08:36→20:10)
[2021-11-12] MEDS: SILVERGEL (ELTA) 45 ML 1 APPLIC TOPICAL (08:36)
[2021-11-12] MEDS: GABAPENTIN 100 MG CAPSULE PO ×2 (08:36→16:59)
[2021-11-12 09:07] LABS: Alveolar/Arterial O2 Gradient 102.9 mmHg; Base Excess ABG 0.9 mEq/l (+/-2.0); Fractional Inspired Oxygen 31 %; Oxygen Content ABG 16.9 %vol (16.0-22.0); Oxygen Saturation ABG 90.3 % (95.0-100.0); Oxyhemoglobin 88.8 % THb (90.0-100.0); PCO2 ABG 48.8 mmHg (35.0-45.0); PO2 ABG 60.9 mmHg (80.0-100.0); PO2 FiO2 Ratio Arterial Blood 1.96 %; Site Drawn RIGHT RADIAL; Total Hemoglobin 13.5 g/dL (12.0-18.0); pH ABG 7.361 (7.350-7.450)
[2021-11-12 09:08] LABS: Device NASAL CANNULA; Modified Allen's Test Pass
--- NOTE | 2021-11-12 10:34 | PCOTNOTE ---
Attempted to see patient this am, however patient off floor at this time for testing.
[2021-11-12 10:50] LABS: Basophils Percent Auto 0.2 % (0.2-1.2); Hematocrit 35.4 % (37.0-47.0); Hemoglobin 11.9 g/dL (12.0-15.0); Immature Granulocyte Absolute 0.15 K/mm3 (0.00-0.031); Immature Granulocyte Percent A 1.8 % (0-0.5); Lymphocytes Absolute Auto 0.09 K/mm3 (0.9-3.2); Lymphocytes Percent Auto 1.1 % (18.3-44.2); Mean Corpuscular HGB Conc 33.6 g/dl (32-36); Mean Corpuscular Hemoglobin 36.6 pg (26-34); Mean Corpuscular Volume 108.9 fl (80-100); Mean Platelet Volume 11.7 fl (7.4-10.4); Monocytes Absolute Auto 0.7 K/mm3 (0.1-0.6); Monocytes Percent Auto 8.5 % (2.6-8.5); Neutrophils Absolute Auto 7.5 K/mm3 (1.3-6.7); Neutrophils Percent Auto 88.4 % (45.5-73.1); Nucleated Red Blood Cells Absolute Auto 0.2 K/mm3 (0.0-0.012); Nucleated Red Blood Cells Perc 2.8 % (0.0-0.2); Platelet Count Result 206 k/mm3 (150-375); Red Blood Count 3.25 M/mm3 (4.2-5.4); White Blood Count 8.4 K/mm3 (4.5-10.0)
[2021-11-12 10:58] LABS: NT Pro B Type Natriuretic Pept 15300 pg/mL (5-100)
--- NOTE | 2021-11-12 11:00 | P.PNIM_ITS ---
Progress Note: A&P Assessment and Plan (1) Pleural effusion: Code(s): J90 - Pleural effusion, not elsewhere classified Status: Acute Assessment and Plan: * CT showed Moderate left sided pleural effusion * Thoracentesis ordered * Awaiting INR to be 1.5 or less * Vitamin K given * Recheck in 12 hours * Could be better in the am * diagnostics ordered (2) Community acquired pneumonia: Qualifiers: Laterality: unspecified laterality Qualified Code(s): J18.9 - Pneumonia, unspecified organism Code(s): J18.9 - Pneumonia, unspecified organism Status: Acute Assessment and Plan: * White blood cell count was 15.1 upon admission is 8.4 today. * Chest xray Stable small pleural effusions, Stable airspace opacities in the lower lung zones, consistent with atelectasis versus pneumonia, Cardiomegaly. * Continue Rocephin and azithromycin * Sputum culture and blood cultures NGTD * Continue trend labs (3) CHF exacerbation: Qualifiers: Heart failure type: unspecified Qualified Code(s): I50.9 - Heart failure, unspecified Code(s): I50.9 - Heart failure, unspecified Status: Acute Assessment and Plan: * She is in an acute diastolic heart failure exacerbation * Continue metolazone and Lasix * Continue with metoprolol * Trend urine output * Daily weights * [place] [address] * urinary catheter for accurate I&Os * Furosemide 40mg IV changed to daily, await for cardiology or nephrology to adjust * Echo from August shows EF of 55-60% with undetermined diastolic dysfunction with moderate to severe aortic stenosis * Consulted pulmonology and cardiology for further help (4) COPD exacerbation: Code(s): J44.1 - Chronic obstructive pulmonary disease with (acute) exacerbation Status: Acute Assessment and Plan: * Continue with inhalers from home and nebulizers. * Solu-Medrol, dc per pulmonology * Supplemental oxygen, wean to maintain saturations * Azithromycin and ceftriaxone on board, change to vanco and cefepime * Increase in sputum, oxygen, and wheeze (5) Acute hypoxemic respiratory failure: Code(s): J96.01 - Acute respiratory failure with hypoxia Status: Acute Assessment and Plan: * oxygen at 1.5 L and is up to 3 L at home * Currently on 2L * Continue to trend * titrate as indicated * Cxray (11/10/21) pleural effusions worse on the left, stable bibasilar airspace opacities * CT Moderate-sized left and small right pleural effusions, Patchy groundglass opacities of the lungs, consistent with pneumonia and/or mild pulmonary edema, Cardiomegaly. * Continue with current diuesis * ABG pH 7.361, CO2 48.8, O2 60.9, HCO3 27.0, Saturation 90.3 (6) Staphylococcal arthritis, left elbow: Code(s): M00.022 - Staphylococcal arthritis, left elbow Status: Acute Assessment and Plan: * The patient had been on Bactrim for her left elbow * Currently on Rocephin * Culture from September for staph * Current antibiotics should cover the supposed infection * Wound consult (7) Anemia: Code(s): D64.9 - Anemia, unspecified Status: Chronic Assessment and Plan: Patient is at her baseline continue to monitor. (8) Hypertension: Code(s): I10 - Essential (primary) hypertension Status: Chronic Assessment and Plan: * Current BP is 123/52 * Continue with metoprolol * Trend BP * Adju
--- NOTE | 2021-11-12 11:00 | PM.IMPN ---
Progress Note: A&P Assessment and Plan (1) Pleural effusion: Code(s): J90 - Pleural effusion, not elsewhere classified Status: Acute Assessment and Plan: CT showed Moderate left sided pleural effusion Thoracentesis ordered Awaiting INR to be 1.5 or less Vitamin K given Recheck in 12 hours Could be better in the am diagnostics ordered (2) Community acquired pneumonia: Qualifiers: Laterality: unspecified laterality Qualified Code(s): J18.9 - Pneumonia, unspecified organism Code(s): J18.9 - Pneumonia, unspecified organism Status: Acute Assessment and Plan: White blood cell count was 15.1 upon admission is 8.4 today. Chest xray Stable small pleural effusions, Stable airspace opacities in the lower lung zones, consistent with atelectasis versus pneumonia, Cardiomegaly. Continue Rocephin and azithromycin Sputum culture and blood cultures NGTD Continue trend labs (3) CHF exacerbation: Qualifiers: Heart failure type: unspecified Qualified Code(s): I50.9 - Heart failure, unspecified Code(s): I50.9 - Heart failure, unspecified Status: Acute Assessment and Plan: She is in an acute diastolic heart failure exacerbation Continue metolazone and Lasix Continue with metoprolol T[place] [address] urinary catheter for accurate I&Os Furosemide 40mg IV changed to daily, await for cardiology or nephrology to adjust Echo from August shows EF of 55-60% with undetermined diastolic dysfunction with moderate to severe aortic stenosis Consulted pulmonology and cardiology for further help (4) COPD exacerbation: Code(s): J44.1 - Chronic obstructive pulmonary disease with (acute) exacerbation Status: Acute Assessment and Plan: Continue with inhalers from home and nebulizers. Jayneu-Medapril donahue per pulmonology Supplemental oxygen, wean to maintain saturations Azithromycin and ceftriaxone on board, change to vanco and cefepime Increase in sputum, oxygen, and wheeze (5) Acute hypoxemic respiratory failure: Code(s): J96.01 - Acute respiratory failure with hypoxia Status: Acute Assessment and Plan: oxygen at 1.5 L and is up to 3 L at home Currently on 2L Continue to trend titrate as indicated Cxray (11/10/21) pleural effusions worse on the left, stable bibasilar airspace opacities CT Moderate-sized left and small right pleural effusions, Patchy groundglass opacities of the lungs, consistent with pneumonia and/or mild pulmonary edema, Cardiomegaly. Continue with current diuesis ABG pH 7.361, CO2 48.8, O2 60.9, HCO3 27.0, Saturation 90.3 (6) Staphylococcal arthritis, left elbow: Code(s): M00.022 - Staphylococcal arthritis, left elbow Status: Acute Assessment and Plan: The patient had been on Bactrim for her left elbow Currently on Rocephin Culture from September for staph Current antibiotics should cover the supposed infection Wound consult (7) Anemia: Code(s): D64.9 - Anemia, unspecified Status: Chronic Assessment and Plan: Patient is at her baseline continue to monitor. (8) Hypertension: Code(s): I10 - Essential (primary) hypertension Status: Chronic Assessment and Plan: Current BP is 123/52 Continue with metoprolol Trend BP Adjust therapy as indicated (9) Bilateral lower extremity edema: Code(s): R60.0 - Localized edema Status: Acute Assessment and Plan: Venous Dopplers Negative continue with diuretics Continue long-term anticoagulation and is therapeutic (10) Vitamin D deficiency, unspecified: Code(s): E55.9 - Vitamin D deficiency, unspecified Status: Acute Assessment and Plan: Continue with supplement. (11) Acute renal insufficiency: Code(s): N28.9 - Disorder of kidney and u
--- NOTE | 2021-11-12 11:19 | PCPTNOTE ---
Patient refused treatment this session due to wanting to rest at this time, patient reported maybe later.
[2021-11-12 11:34] LABS: Glucose Point of Care 355 mg/dl (65-105)
[2021-11-12 12:06] LABS: Amylase 120 U/L (30-110); Cholesterol 130 mg/dL (0-200); Triglycerides 111 mg/dL (<150)
--- NOTE | 2021-11-12 12:37 | PM.CNNEP ---
Assessment and Plan Assessment and plan (1) Chronic kidney disease, stage 4 (severe): Code(s): N18.4 - Chronic kidney disease, stage 4 (severe) Status: Chronic Assessment and Plan: The patient has chronic kidney disease. Her baseline creatinine is around 2.1 but in the last few months it has been higher. Chronic kidney disease is due to diabetes and hypertension. Vascular disease may be playing a role as well. (2) Acute kidney injury: Code(s): N17.9 - Acute kidney failure, unspecified Status: Acute Assessment and Plan: the patient has acute kidney injury. Her baseline creatinine is around 2-2.1. Her creatinine has been around 2.6 or 2.7 since mid September. she does have an infection in her left elbow and she was getting Bactrim for this. It is possible that the infection had an effect on the kidneys whether acute or possibly bring about a little bit of progression of disease. Another possibility is that she an elevated creatinine because of the renal effects of the Trimethoprim. this decreases tubular secretion and so serum creatinine can rise somewhat dramatically in someone who has already got an elevated creatinine. The Trimethoprim was discontinued early in the hospital stay but the creatinine mike even more after that. The patient has pneumonia and so could have some affects of that on her kidneys as well. In addition the patient received diuretics early in the hospital stay which might have led to some pre renal azotemia. In addition the patient does have moderately to severe aortic stenosis and severe pulmonary hypertension which does limit ejection fraction and therefore may cause some chronic pre renal azotemia. will get urine electrolytes. Will get a renal ultrasound. Will get a CPK. 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 (8) Obstructive sleep apnea on CPAP: Code(s): G47.33 - Obstructive sleep apnea (adult) (pediatric); Z99.89 - Dependence on other enabling machines and devices Status: Acute Assessment and Plan: She uses a CPAP machine religiously (9) Type 2 diabetes mellitus with hyperglycemia, with long-term current use of insulin: Code(s): E11.65 - Type 2 diabetes mellitus with hyperglycemia; Z79.4 - gas plant specialist (current) use of insulin Status: Acute Assessment and Plan: she is on Accu-Cheks and sliding-scale insulin History of Present Illness Reason for Consult Consult date: 11/12/21 Chief Complaint Chief complaint: Community Aquired Pneumonia, COPD/CHF Exacerbation History of Present Illness Narrative: Shelli is a very pleasant 81-year-old lady who has chronic kidney disease with a baseline creatinine of 2-2.[address] Nguyen in the clinic. This is caused by diabetes and hypertension as well as possible vascular disease. The patient also has anemia, COPD, obesity, Graves disease wit
[2021-11-12] MEDS: PHYTONADIONE ADULT INJ 10 MG in DEXTROSE 5% IN WATER 50 ML 100 MG IVPB (13:03)
[2021-11-12 13:10] LABS: Lactate Dehydrogenase 1138 U/L (313-618)
--- NOTE | 2021-11-12 13:20 | PM.PNPUL ---
Progress Note: A&P Assessment and Plan (1) CHF exacerbation: Qualifiers: Heart failure type: unspecified Qualified Code(s): I50.9 - Heart failure, unspecified Code(s): I50.9 - Heart failure, unspecified Status: Acute (2) Acute hypoxemic respiratory failure: Code(s): J96.01 - Acute respiratory failure with hypoxia Status: Acute Assessment and Plan: 81-year-old female with history of chronic hypercapnic hypoxemic respiratory failure related to obesity hypoventilation, history of congestive heart failure, atrial fibrillation, chronic kidney disease, chronically on home ventilatory support via trilogy ventilator, presented with increasing shortness of breath. the chest CT done earlier today showed moderate-sized left and small right pleural effusions.Patchy groundglass opacities of the lungs, cardiomegaly. these findings suggest exacerbation of congestive heart failure as the cause of increasing shortness of breath. Patient has been on antibiotics but has had no signs and symptoms to suggest a lower respiratory tract infection. Plan is as follows I would continue with treatment for congestive heart failure, will do left thoracentesis to drain the effusion and also confirm the transudative nature of the effusion. She will continue with a trilogy ventilatory support at night. We will measure nocturnal oximetry following thoracentesis prior to discharging the patient home. The case was discussed with the hospitalist. (3) Bilateral lower extremity edema: Code(s): R60.0 - Localized edema Status: Acute (4) Chronic kidney disease, stage 4 (severe): Code(s): N18.4 - Chronic kidney disease, stage 4 (severe) Status: Chronic (5) Atrial fibrillation: Code(s): I48.91 - Unspecified atrial fibrillation Status: Acute (6) Pleural effusion: Code(s): J90 - Pleural effusion, not elsewhere classified Status: Acute (7) Obstructive sleep apnea on CPAP: Code(s): G47.33 - Obstructive sleep apnea (adult) (pediatric); Z99.89 - Dependence on other enabling machines and devices Status: Acute Subjective Date/time seen: 11/12/21 13:20 Respiratory status stable over the last 24 hours. The patient used trilogy ventilator last night. She has had no new respiratory symptoms. Underwent chest CT without contrast earlier today. Review of Systems Review of Systems: All systems reviewed & are unremarkable except as noted in HPI and below Exam Narrative: GENERAL APPEARANCE: Well developed, well nourished, morbidly obese, alert and cooperative, sitting in a chair,and appears to be in mild respiratory distress while on supplemental oxygen SKIN: Inspection of the skin reveals no rashes, ulcerations or petechiae. HEENT: Sclerae anicteric and conjunctivae pink and moist. Extraocular movements were intact and pupils were equal, round. The oral mucosa, hard and soft palate, tongue and posterior pharynx were normal. NECK: Supple. There was no thyroid enlargement, and no tenderness, or masses were felt.. LUNGS: diffuse crackles at bases posteriorly, no wheezing. CARDIAC: There was a regular rate and rhythm without any murmurs ABDOMEN: Soft and nontender with normal bowel sounds. There was no organomegaly. LYMPH NODES: No lymphadenopathy was appreciated in the neck. EXTREMITIES: No cyanosis, clubbing. 2+ edema in lower extremities. NEUROLOGIC: Alert and oriented x 3. Normal affect. Objective Data Vital Signs Vital Signs: Vital Signs - 24 hr 11/11/21 13:24 11/11/21 14:13 11/11/21 16:00 Temperature 36.7 C Pulse Rate 74 75 70 Respiratory Rate 18 16 Blood Pressure 126/57 L Pulse Oximetry 95 11/11/21 20:00 11/11/21 20:42 11/11/21 20:49 Temperature Pulse Rate 71 70 Respiratory Rate Blood Pressure Pulse Oximetry 95 98 11/11/21 21:04 11/11/21 21:09 11/11/21 22:45 Temperature 35.9 C L Pulse Rate 70 77 70 Respiratory Rate
--- NOTE | 2021-11-12 13:41 | PCOTNOTE ---
Attempted to see patient this pm, however patient was off floor for testing.
[2021-11-12 14:43] LABS: Creatine Kinase 38 U/L (30-135)
--- NOTE | 2021-11-12 14:55 | PM.CNCAR ---
Assessment and Plan Assessment and plan (1) Heart failure with preserved ejection fraction: Code(s): I50.30 - Unspecified diastolic (congestive) heart failure Status: Acute Assessment and Plan: Clinically, patient is a very complicated and her shortness of breath is multifactorial. She has chronic hypoxic and hypercapnic respiratory failure along with obesity and YUDELKA on home trilogy unit, permanent atrial fibrillation, heart failure with preserved ejection fraction, and moderate to severe aortic stenosis along with severe pulmonary hypertension. This is also complicated by acute on chronic renal failure. Furthermore, she has a moderate left size pleural effusion EF and with evidence of pulmonary vascular congestion. As an outpatient she was on metolazone 2.5 mg 3 times weekly in addition to Lasix 40 mg p.o. b.i.d. this hospitalization she was started on metolazone 3 times daily with 40 mg IV Lasix daily. I would recommend reduction in metolazone to 2.5 mg daily and increase Lasix to 40 mg b.i.d.. Continue to be cautious given severity of her aortic stenosis avoid significant hypotension and or intravascular volume depletion. I agree with plans for thoracentesis which is underway. - under renal function very closely. - On the last echo was in August 2021 I will order repeat study to reassess aortic stenosis, LV function and pulmonary hypertension given her deterioration over time. overall, patient has a fairly poor prognosis given her multiple comorbidities and multiorgan system dysfunction. (2) Acute and chronic respiratory failure with hypoxia: Code(s): J96.21 - Acute and chronic respiratory failure with hypoxia Status: Acute Assessment and Plan: Per primary service and pulmonology. Continue supportive therapy with bronchodilator, trilogy, O2 supplementation and impending thoracentesis. INR reversal underway. (3) Aortic stenosis: Code(s): I35.0 - Nonrheumatic aortic (valve) stenosis Status: Acute Assessment and Plan: Moderate to severe by most recent echocardiogram. Given repeat hospitalization in CHF will repeat 2D echocardiogram. I would not attempt a transesophageal echocardiogram must absolutely necessary as she is at high risk for decompensation likely resulting in the need for mechanical ventilatory support. (4) Persistent atrial fibrillation: Code(s): I48.19 - Other persistent atrial fibrillation Status: Acute Assessment and Plan: Longstanding persistent atrial fibrillation. Patient has a pacemaker. Anticoagulation goal INR 2-3. Reversal noted for thoracentesis. Anticoagulation and or DVT prophylaxis at a minimum subtherapeutic. (5) Obstructive sleep apnea on CPAP: Code(s): G47.33 - Obstructive sleep apnea (adult) (pediatric); Z99.89 - Dependence on other enabling machines and devices Status: Acute Assessment and Plan: As above, trilogy support. 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 (7) Transaminitis: Code(s): R74.01 - Elevation of levels of liver transaminase levels Status: Acute Assessment and Plan: workup underway, negative hepatitis panel elevated LDH, CT revealed cystic lesions pancreatic body. Abdominal ultrasound post cholecystectomy no bile duct dilatation old granulomatous disease. Defer further management to primary service. History of Present Illness History of Present Illness Consult date/time: Date of service:11/12/21 14:55 Cardiology consultation at the request of Jed Loyd of the [facility] for our opinion regarding CHF Requesting physician: Richard Loyd APN-C Consult reason: congestive heart failure Reason For Visit: Community Aquired Pneumonia, COPD/CHF Exacerbation Narrative: patient is a very pleasant yet complicated 81-year-old fem
[2021-11-12 16:45] LABS: Glucose Point of Care 340 mg/dl (65-105)
[2021-11-12 17:21] LABS: Sodium Urine Random 53 meq/L
[2021-11-12 17:22] LABS: Creatinine Urine 23.4 mg/dL; Total Protein Urine Random 19 mg/dL; Ur Ttl Prot Creatinine Ratio 0.81 mg/mg (0-0.20)
[2021-11-12] MEDS: SIMVASTATIN 10 MG TABLET PO (20:09)
[2021-11-12] MEDS: ACETAMINOPHEN 325 MG TABLET 650 MG PO (20:11)
[2021-11-12] MEDS: ALBUTEROL SULFATE NEB 2.5 MG/0.5 ML INH INHALATION (20:28)
[2021-11-12] MEDS: IPRATROPIUM BR 0.02% INH SOLN 0.5 MG/2.5 ML VIAL INHALATION (20:28)
[2021-11-12 20:48] LABS: Glucose Point of Care 383 mg/dl (65-105)
[2021-11-13] VITALS (13 sets, daily range): BP systolic 139–173; BP diastolic 58–80; PULSE 70–90; RESP 17–24; TEMP 35.5–37.3; O2SAT 97–100
[2021-11-13 02:55] LABS: INR 1.5; Partial Thromboplastin Time 26.1 SECONDS (22.3-36.8); Prothrombin Time 17.4 Seconds (11.1-14.7)
[2021-11-13] MEDS: LEVOTHYROXINE SODIUM 100 MCG TABLET 200 MCG PO (05:53)
[2021-11-13 05:58] LABS: Basophils Percent Auto 0.3 % (0.2-1.2); Hematocrit 34.2 % (37.0-47.0); Hemoglobin 11.5 g/dL (12.0-15.0); Immature Granulocyte Absolute 0.29 K/mm3 (0.00-0.031); Immature Granulocyte Percent A 2.2 % (0-0.5); Lymphocytes Absolute Auto 0.17 K/mm3 (0.9-3.2); Lymphocytes Percent Auto 1.3 % (18.3-44.2); Mean Corpuscular HGB Conc 33.6 g/dl (32-36); Mean Corpuscular Hemoglobin 35.4 pg (26-34); Mean Corpuscular Volume 105.2 fl (80-100); Mean Platelet Volume 11.8 fl (7.4-10.4); Monocytes Absolute Auto 1.6 K/mm3 (0.1-0.6); Monocytes Percent Auto 12.6 % (2.6-8.5); Neutrophils Absolute Auto 10.8 K/mm3 (1.3-6.7); Neutrophils Percent Auto 83.6 % (45.5-73.1); Nucleated Red Blood Cells Absolute Auto 0.3 K/mm3 (0.0-0.012); Nucleated Red Blood Cells Perc 2.2 % (0.0-0.2); Platelet Count Result 205 k/mm3 (150-375); Red Blood Count 3.25 M/mm3 (4.2-5.4); Red Cell Distribution Width 14.8 % (11.5-14.5); White Blood Count 12.9 K/mm3 (4.5-10.0)
[2021-11-13 06:07] LABS: INR 1.4; Prothrombin Time 16.6 Seconds (11.1-14.7)
[2021-11-13 06:27] LABS: Alanine Aminotransferase 534 U/L (4-35); Albumin Level 3.4 g/dL (3.5-5.1); Alkaline Phosphatase 210 U/L (38-126); Anion Gap 14 mmol/L (8-16); Aspartate Amino Transferase 273 U/L (14-36); Calcium 6.9 mg/dL (8.4-10.2); Carbon Dioxide 28 mmol/L (22-30); Chloride 86 mmol/L (98-107); Estimated CRCL calculation 19 ml/min; Estimated Glomerular Filt Rate 18; Glucose 243 mg/dL (65-110); Magnesium 2.3 mg/dL (1.6-2.3); Phosphorus 5.5 mg/dL (2.5-4.5); Potassium 3.8 mmol/L (3.4-5.0); Sodium 128 mmol/L (137-145)
[2021-11-13] MEDS: PERFLUTREN LIPID MICROSPHERES 1.5 ML VIAL DILUTED TO 10 ML TOTAL VOLUME IV PUSH (07:18)
[2021-11-13 07:20] LABS: Blood Urea Nitrogen 131 mg/dL (7-17)
[2021-11-13 08:11] LABS: Glucose Point of Care 224 mg/dl (65-105)
[2021-11-13] MEDS: FEBUXOSTAT 40 MG TABLET PO (09:02)
[2021-11-13] MEDS: METOPROLOL TARTRATE 25 MG TABLET PO ×3 (09:02→21:32)
[2021-11-13] MEDS: metOLazone 2.5 MG TABLET PO (09:02)
[2021-11-13] MEDS: CYANOCOBALAMIN 1,000 MCG TABLET 1000 MCG PO (09:03)
[2021-11-13] MEDS: FINASTERIDE 5 MG TABLET PO (09:03)
[2021-11-13] MEDS: SILVERGEL (ELTA) 45 ML 1 APPLIC TOPICAL (09:03)
[2021-11-13] MEDS: CHOLECALCIFEROL 1,000 UNITS TABLET 1000 UNITS PO (09:03)
[2021-11-13] MEDS: GABAPENTIN 100 MG CAPSULE PO ×2 (09:03→16:15)
[2021-11-13] MEDS: INSULIN ASPART (*BKC) 100 UNITS/ML SUB-Q ×4 (09:04→21:27)
[2021-11-13] MEDS: FUROSEMIDE INJ 40 MG/4 ML VIAL IV PUSH (09:37)
--- NOTE | 2021-11-13 09:41 | PM.PNCARD ---
Progress Note: A&P Assessment and Plan (1) Heart failure with preserved ejection fraction: Code(s): I50.30 - Unspecified diastolic (congestive) heart failure Status: Acute Assessment and Plan: Clinically, patient is a very complicated and her shortness of breath is multifactorial. She has chronic hypoxic and hypercapnic respiratory failure along with obesity and YUDELKA on home trilogy unit, permanent atrial fibrillation, heart failure with preserved ejection fraction, and moderate to severe aortic stenosis along with severe pulmonary hypertension. Continue current diuretic regimen. It appears she is making good urine at this point. She was negative a couple of L yesterday. Continue to be cautious given severity of her aortic stenosis avoid significant hypotension and or intravascular volume depletion. I agree with plans for thoracentesis which is underway. Will increase her metoprolol tartrate to 25 mg p.o. t.i.d. - under renal function very closely. Echo pending (2) Acute and chronic respiratory failure with hypoxia: Code(s): J96.21 - Acute and chronic respiratory failure with hypoxia Status: Acute Assessment and Plan: Per primary service and pulmonology. Continue supportive therapy with bronchodilator, trilogy, O2 supplementation and impending thoracentesis. Resume anticoagulation after thoracentesis (3) Aortic stenosis: Code(s): I35.0 - Nonrheumatic aortic (valve) stenosis Status: Acute Assessment and Plan: Moderate to severe by most recent echocardiogram. Echo pending I would not attempt a transesophageal echocardiogram must absolutely necessary as she is at high risk for decompensation likely resulting in the need for mechanical ventilatory support. (4) Persistent atrial fibrillation: Code(s): I48.19 - Other persistent atrial fibrillation Status: Acute Assessment and Plan: Longstanding persistent atrial fibrillation. Patient has a pacemaker. Anticoagulation goal INR 2-3. Reversal noted for thoracentesis. Anticoagulation and or DVT prophylaxis at a minimum subtherapeutic. Resume anticoagulation after thoracentesis. (5) Obstructive sleep apnea on CPAP: Code(s): G47.33 - Obstructive sleep apnea (adult) (pediatric); Z99.89 - Dependence on other enabling machines and devices Status: Acute Assessment and Plan: As above, trilogy support. (6) Chronic anticoagulation: Code(s): Z79.01 - intermediate card tender (current) use of anticoagulants Status: Acute Assessment and Plan: as above. (7) Transaminitis: Code(s): R74.01 - Elevation of levels of liver transaminase levels Status: Acute Assessment and Plan: workup underway, negative hepatitis panel elevated LDH, CT revealed cystic lesions pancreatic body. Abdominal ultrasound post cholecystectomy no bile duct dilatation old granulomatous disease. Defer further management to primary service. Subjective Date/time seen: 11/13/21 09:41 Interval history: 81-year-old female with a past medical history significant for moderate to severe aortic stenosis, severe pulmonary hypertension RVSP 61 mm Hg, heart failure with preserved ejection fraction, COPD, chronic hypoxic and hypercapnic respiratory failure on home O2 1.5 L and trilogy unit, history of tracheostomy, permanent atrial fibrillation, sick sinus syndrome status post [place] [employer] pacemaker on anticoagulation with warfarin, chronic kidney disease stage 4, hypertension, type 2 diabetes mellitus who presented to the emergency department complaints of progressive shortness of breath Date of service 11/13/2021: She feels about the same. No significant improvement. Admits to shortness of breath swelling. She has no chest pain though. Overall simply feels poorly Review of Systems Review of Systems: All systems reviewed & are unremarkable except as noted in HPI and below Constitutional: Constitution
--- NOTE | 2021-11-13 10:14 | PM.PNNEP ---
Progress Note: A&P Assessment and Plan (1) Chronic kidney disease, stage 4 (severe): Code(s): N18.4 - Chronic kidney disease, stage 4 (severe) Status: Chronic Assessment and Plan: The patient has chronic kidney disease. Her baseline creatinine is around 2.1 but in the last few months it has been higher. Chronic kidney disease is due to diabetes and hypertension. Vascular disease may be playing a role as well. (2) Acute kidney injury: Code(s): N17.9 - Acute kidney failure, unspecified Status: Acute Assessment and Plan: the patient has acute kidney injury. Her baseline creatinine is around 2-2.1. Her creatinine Peaked at 3.2 but is now down to 2.6. Ultrasound shows chronic kidney disease. CT of the chest shows pleural effusions and ground-glass opacities of the lungs. Urine electrolytes are non pre renal. She has urine protein if 810. Blood cultures are negative so far The rising creatinine was partially due to infection (pneumonia and elbow joint space), partially due to Bactrim, and possibly related to diuretics early in the hospital course. Notably she was COVID negative. In addition the patient does have moderately to severe aortic stenosis and severe pulmonary hypertension which does limit ejection fraction and therefore may cause some chronic pre renal azotemia. will check another chest x-ray today. Try couple of doses of diuretics just to see if we can get her feeling better. 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 (8) Obstructive sleep apnea on CPAP: Code(s): G47.33 - Obstructive sleep apnea (adult) (pediatric); Z99.89 - Dependence on other enabling machines and devices Status: Acute Assessment and Plan: She uses a CPAP machine religiously (9) Type 2 diabetes mellitus with hyperglycemia, with long-term current use of insulin: Code(s): E11.65 - Type 2 diabetes mellitus with hyperglycemia; Z79.4 - manager terminal (current) use of insulin Status: Acute Assessment and Plan: she is on Accu-Cheks and sliding-scale insulin Subjective Date/time seen: 11/13/21 10:14 Interval history: Patient is alert. She feels short of breath still. Lying in some he follows position on oxygen. Review of Systems Cardiovascular: Cardiovascular: Reports no additional cardiovascular complaints Respiratory: Respiratory: Reports no additional respiratory complaints Gastrointestinal: Gastrointestinal: Reports no additional gastrointestinal complaints Genitourinary: Genitourinary: Reports no additional female genitourinary complaints Exam Narrative: WDWN in NAD skin no rash head ncat lungs Decreased breath sounds at the bases. cor reg no rub abd BS+ nontender and soft ext no edema. Objective Data Vital Signs Vital Signs: Vital Signs - 24 hr 11/12/21 10:18 11/12/21 12:00 11/12/21 13:56 Tem
[2021-11-13 12:05] LABS: Glucose Point of Care 296 mg/dl (65-105)
--- NOTE | 2021-11-13 12:52 | P.PNIM_ITS ---
Progress Note: A&P Assessment and Plan (1) Pleural effusion: Code(s): J90 - Pleural effusion, not elsewhere classified Status: Acute Assessment and Plan: * CT showed Moderate left sided pleural effusion * Thoracentesis ordered * Awaiting INR to be 1.5 or less * Vitamin K given * Recheck in 12 hours * Could be better in the am * diagnostics ordered 11/13/2021 interval history: patient is 81-year-old female with shortness of breath seen by cardiology suspect congestive heart failure patient does preserved LV function patient is being diuresed however the symptoms are not significantly improving, patient urine output is adequate patient seen by Nephrology and also seen by relays draftsperson recommended thoracentesis which may also improved her breathing, patient is scheduled for a thoracentesis will follow-up and monitor. (2) Community acquired pneumonia: Qualifiers: Laterality: unspecified laterality Qualified Code(s): J18.9 - Pneumonia, unspecified organism Code(s): J18.9 - Pneumonia, unspecified organism Status: Acute Assessment and Plan: * White blood cell count was 15.1 upon admission is 8.4 today. * Chest xray Stable small pleural effusions, Stable airspace opacities in the lower lung zones, consistent with atelectasis versus pneumonia, Cardiomegaly. * Continue Rocephin and azithromycin * Sputum culture and blood cultures NGTD * Continue trend labs (3) CHF exacerbation: Qualifiers: Heart failure type: unspecified Qualified Code(s): I50.9 - Heart failure, unspecified Code(s): I50.9 - Heart failure, unspecified Status: Acute Assessment and Plan: * She is in an acute diastolic heart failure exacerbation * Continue metolazone and Lasix * Continue with metoprolol * Trend urine output * [place] * [place] [address] * urinary catheter for accurate I&Os * Furosemide 40mg IV changed to daily, await for cardiology or nephrology to adj ust * Echo from August shows EF of 55-60% with undetermined diastolic dysfunction with moderate to severe aortic stenosis * Consulted pulmonology and cardiology for further help (4) COPD exacerbation: Code(s): J44.1 - Chronic obstructive pulmonary disease with (acute) exacerbation Status: Acute Assessment and Plan: * Continue with inhalers from home and nebulizers. * Solu-Medrol, dc per pulmonology * Supplemental oxygen, wean to maintain saturations * Azithromycin and ceftriaxone on board, change to vanco and cefepime * Increase in sputum, oxygen, and wheeze (5) Acute hypoxemic respiratory failure: Code(s): J96.01 - Acute respiratory failure with hypoxia Status: Acute Assessment and Plan: * oxygen at 1.5 L and is up to 3 L at home * Currently on 2L * Continue to trend * titrate as indicated * Cxray (11/10/21) pleural effusions worse on the left, stable bibasilar airspace opacities * CT Moderate-sized left and small right pleural effusions, Patchy groundglass opacities of the lungs, consistent with pneumonia and/or mild pulmonary edema, Cardiomegaly. * Continue with current diuesis * ABG pH 7.361, CO2 48.8, O2 60.9, HCO3 27.0, Saturation 90.3 (6) Staphylococcal arthritis, left elbow: Code(s): M00.022 - Staphylococcal arthritis, left elbow Status: Acute Assessment and Plan: * The patient had been on Bactrim for her left elbow * Currently on Rocephin * Culture from September for staph * Current antibiotics s
--- NOTE | 2021-11-13 12:52 | PM.IMPN ---
Progress Note: A&P Assessment and Plan (1) Pleural effusion: Code(s): J90 - Pleural effusion, not elsewhere classified Status: Acute Assessment and Plan: CT showed Moderate left sided pleural effusion Thoracentesis ordered Awaiting INR to be 1.5 or less Vitamin K given Recheck in 12 hours Could be better in the am diagnostics ordered 11/13/2021 interval history: patient is 81-year-old female with shortness of breath seen by cardiology suspect congestive heart failure patient does preserved LV function patient is being diuresed however the symptoms are not significantly improving, patient urine output is adequate patient seen by Nephrology and also seen by welder repair recommended thoracentesis which may also improved her breathing, patient is scheduled for a thoracentesis will follow-up and monitor. (2) Community acquired pneumonia: Qualifiers: Laterality: unspecified laterality Qualified Code(s): J18.9 - Pneumonia, unspecified organism Code(s): J18.9 - Pneumonia, unspecified organism Status: Acute Assessment and Plan: White blood cell count was 15.1 upon admission is 8.4 today. Chest xray Stable small pleural effusions, Stable airspace opacities in the lower lung zones, consistent with atelectasis versus pneumonia, Cardiomegaly. Continue Rocephin and azithromycin Sputum culture and blood cultures NGTD Continue trend labs (3) CHF exacerbation: Qualifiers: Heart failure type: unspecified Qualified Code(s): I50.9 - Heart failure, unspecified Code(s): I50.9 - Heart failure, unspecified Status: Acute Assessment and Plan: She is in an acute diastolic heart failure exacerbation Continue metolazone and Lasix Continue with metoprolol Trend urine output [place] [address] urinary catheter for accurate I&Os Furosemide 40mg IV changed to daily, await for cardiology or nephrology to adjust Echo from August shows EF of 55-60% with undetermined diastolic dysfunction with moderate to severe aortic stenosis Consulted pulmonology and cardiology for further help (4) COPD exacerbation: Code(s): J44.1 - Chronic obstructive pulmonary disease with (acute) exacerbation Status: Acute Assessment and Plan: Continue with inhalers from home and nebulizers. Jayneu-Medapril donahue per pulmonology Supplemental oxygen, wean to maintain saturations Azithromycin and ceftriaxone on board, change to vanco and cefepime Increase in sputum, oxygen, and wheeze (5) Acute hypoxemic respiratory failure: Code(s): J96.01 - Acute respiratory failure with hypoxia Status: Acute Assessment and Plan: oxygen at 1.5 L and is up to 3 L at home Currently on 2L Continue to trend titrate as indicated Cxray (11/10/21) pleural effusions worse on the left, stable bibasilar airspace opacities CT Moderate-sized left and small right pleural effusions, Patchy groundglass opacities of the lungs, consistent with pneumonia and/or mild pulmonary edema, Cardiomegaly. Continue with current diuesis ABG pH 7.361, CO2 48.8, O2 60.9, HCO3 27.0, Saturation 90.3 (6) Staphylococcal arthritis, left elbow: Code(s): M00.022 - Staphylococcal arthritis, left elbow Status: Acute Assessment and Plan: The patient had been on Bactrim for her left elbow Currently on Rocephin Culture from September for staph Current antibiotics should cover the supposed infection Wound consult (7) Anemia: Code(s): D64.9 - Anemia, unspecified Status: Chronic Assessment and Plan: Patient is at her baseline continue to monitor. (8) Hypertension: Code(s): I10 - Essential (primary) hypertension Status: Chronic Assessment and Plan: Current BP is 123/52 Continue with metoprolol Trend BP Adjust therapy as indicated (9) Bilateral lower extremity
[2021-11-13 15:16] LABS: pH Pleural Fluid 7.447 (7.210-7.500)
--- NOTE | 2021-11-13 15:54 | ECHO_ITS ---
Patient Info Name: Shelli Albrecht Age: 81 years : 1940 Gender: Female Ht: 64 in Wt: 230 lbs BSA: 2.22 m2 HR: 78 bpm BP: 119 / 52 mmHg Heart Rhythm: Paced Technical Quality: Fair Exam Date: 11/13/2021 7:14 AM Exam Location: [facility] Patient Status: Inpatient Admit Date: 11/08/2021 Staff Ordering Physician: John Paredes MD Securities Adviser: MYRNA Attending Provider: Jose Almaraz MD Referring Physician: Reggie THORNTON; Exam Type: CA echo dop color flow w con Study Info Indications I50.42 - Chronic combined systolic (congestive) and diastolic (congestive) heart failure Complete two-dimensional, color flow and Doppler transthoracic echocardiogram is performed with contrast to opacify the left ventricle and to improve the deliniation of the left ventricle endocardial borders. Contrast/Agitated Saline Contrast/Ag. Saline: Definity Amount: 4.00 ml Summary 1. Left ventricular chamber dimension is normal. 2. Left ventricular systolic function is normal, estimated at 65-70%. 3. There is mildly increased left ventricular wall thickness. 4. The left ventricular diastolic function is grade III diastolic dysfunction. 5. Left atrial chamber dimension is severely enlarged. 6. Right atrial chamber dimension is mildly enlarged. 7. There is severe aortic valve stenosis with a peak velocity of 261.53 cm/s, mean gradient of 9 mmHg, and aortic valve area of 0.63 cm2. 8. There is moderate aortic valve regurgitation. 9. There is severe aortic valve calcification. 10. There is severe mitral valve regurgitation. 11. The mitral valve has thickened leaflets and calcified leaflets. 12. There is moderate tricuspid valve regurgitation. 13. Moderate pulmonary hypertension, estimated pulmonary arterial systolic pressure is 59 mmHg. 14. There is mild pulmonic regurgitation. Left Ventricle Left ventricular chamber dimension is normal. Left ventricular systolic function is normal, estimated at 65-70%. There is mildly increased left ventricular wall thickness. The left ventricular diastolic function is grade III diastolic dysfunction. Right Ventricle Right ventricular chamber dimension is normal. Right ventricular systolic function is normal. Left Atria Left atrial chamber dimension is severely enlarged. Right Atria Right atrial chamber dimension is mildly enlarged. Atrial Septum Intact interatrial septum visualized by color flow imaging. Aortic Valve The aortic valve is trileaflet. There is severe aortic valve stenosis with a peak velocity of 261.53 cm/s, mean gradient of 9 mmHg, and aortic valve area of 0.63 cm2. There is moderate aortic valve regurgitation. There is severe aortic valve calcification. Pulmonic Valve The pulmonic valve is normal. There is no pulmonic valve stenosis. There is mild pulmonic regurgitation. Mitral Valve The mitral valve has thickened leaflets and calcified leaflets. There is no mitral valve stenosis. There is severe mitral valve regurgitation. Tricuspid Valve The tricuspid valve leaflets are normal. There is no significant tricuspid valve stenosis. There is moderate tricuspid valve regurgitation. Moderate pulmonary hypertension, estimated pulmonary arterial systolic pressure is 59 mmHg. Pericardium/Pleural The pericardium appears normal. There is trivial pericardial effusion. Inferior Vena Cava Normal inferior vena cava with <50% collapse upon inspiration consist
[2021-11-13] MEDS: BUMETANIDE INJ 1 MG/4 ML VIAL IV PUSH (16:15)
[2021-11-13 16:29] LABS: Glucose Point of Care 319 mg/dl (65-105)
[2021-11-13 17:40] LABS: Appearance Pleural Fluid Bloody (Clear); Pleural fluid source Pleural fluid
[2021-11-13 17:41] LABS: Color Pleural Fluid Red (Colorless)
[2021-11-13 17:43] LABS: Lymphocytes Pleural Fluid 76 %; Macrophages Pleural Fluid 5 %; Monocytes Pleural Fluid 8 %; Neutrophils Pleural Fluid 11 % (0-25)
[2021-11-13 20:31] LABS: Glucose Point of Care 256 mg/dl (65-105)
--- NOTE | 2021-11-13 20:40 | PM.PNPUL ---
Progress Note: A&P Assessment and Plan (1) CHF exacerbation: Qualifiers: Heart failure type: unspecified Qualified Code(s): I50.9 - Heart failure, unspecified Code(s): I50.9 - Heart failure, unspecified Status: Acute (2) Acute hypoxemic respiratory failure: Code(s): J96.01 - Acute respiratory failure with hypoxia Status: Acute Assessment and Plan: 81-year-old female with history of chronic hypercapnic hypoxemic respiratory failure related to obesity hypoventilation, history of congestive heart failure, atrial fibrillation, chronic kidney disease, chronically on home ventilatory support via trilogy ventilator, presented with increasing shortness of breath. Chest CT done on admission showed moderate-sized left and small right pleural effusions with patchy groundglass opacities of the lungs, cardiomegaly. These findings suggest exacerbation of congestive heart failure as the cause of increasing shortness of breath. Patient has been on antibiotics but has had no signs and symptoms to suggest a lower respiratory tract infection. Plan : Continue with treatment for congestive heart failure, evaluate the fluid removed today which so far has normal pH, suggesting transudate. Continue with a trilogy ventilatory support at night. We will measure nocturnal oximetry before discharging the patient home. (3) Bilateral lower extremity edema: Code(s): R60.0 - Localized edema Status: Acute (4) Chronic kidney disease, stage 4 (severe): Code(s): N18.4 - Chronic kidney disease, stage 4 (severe) Status: Chronic (5) Atrial fibrillation: Code(s): I48.91 - Unspecified atrial fibrillation Status: Acute (6) Pleural effusion: Code(s): J90 - Pleural effusion, not elsewhere classified Status: Acute (7) Obstructive sleep apnea on CPAP: Code(s): G47.33 - Obstructive sleep apnea (adult) (pediatric); Z99.89 - Dependence on other enabling machines and devices Status: Acute Subjective Date/time seen: 11/13/21 20:40 81 year old female with acute hypoxemic respiratory failure due to CHF. She had a left thoracentesis today with improved aeration of the left lung with 650 ml of pleural fluid removed. She has been on empiric antibiotics for infiltrates with possible community acquired pneumonia. Her initial WBC was elevated on Oct 13, 15.1k, decreased 6K to 8K for several days, then increased to 12.9K. She was admitted on 2 L/min, required increased in O2 flow on Oct 17 between 4-6 L/min, now back down to 2.5 L/min. She feels better after the thoracentesis. The pH is within the normal range 7.447 however no cell counts could be obtained due to the specimen clotting. THe other labs are are going to take longer, as these are sent out. The pleural fluid with a normal pH does not suggest an exudate however clotting indicates that it had increased number of RBC. She is less short of breath and has no cough or sputum. Review of Systems Review of Systems: All systems reviewed & are unremarkable except as noted in HPI and below Exam Narrative: GENERAL APPEARANCE: Well developed, well nourished, morbidly obese, alert and cooperative, sitting upright in the bed, no respiratory distress while on supplemental oxygen HEENT: Sclerae anicteric and conjunctivae pink and moist. Extraocular movements were intact and pupils were equal, round. LUNGS: decreased breath sounds both bases with few crackles higher in the lung rodarte, no wheezing. CARDIAC: There was a regular rate and rhythm without any murmurs ABDOMEN: Soft and nontender with normal bowel sounds. There was no organomegaly. EXTREMITIES: No cyanosis, clubbing. 2+ pitting edema in lower extremities. NEUROLOGIC: Alert and oriented x 3. Normal affect. Objective Data Vital Signs Vital Signs: Vital Signs - 24 hr 11/12/21 21:11 11/12/21 23:08 11/13/21
[2021-11-13] MEDS: SIMVASTATIN 10 MG TABLET PO (21:33)
[2021-11-14] VITALS (14 sets, daily range): BP systolic 120–135; BP diastolic 48–64; PULSE 72–86; RESP 18–22; TEMP 35.8–36.6; O2SAT 94–100
[2021-11-14] MEDS: LEVOTHYROXINE SODIUM 100 MCG TABLET 200 MCG PO (06:05)
[2021-11-14] MEDS: METOPROLOL TARTRATE 25 MG TABLET PO ×3 (06:06→21:20)
[2021-11-14 06:31] LABS: Albumin Level 3.3 g/dL (3.5-5.1); Anion Gap 9 mmol/L (8-16); Calcium 6.8 mg/dL (8.4-10.2); Carbon Dioxide 35 mmol/L (22-30); Chloride 87 mmol/L (98-107); Estimated CRCL calculation 23 ml/min; Estimated Glomerular Filt Rate 23; Glucose 189 mg/dL (65-110); Phosphorus 4.8 mg/dL (2.5-4.5); Potassium 3.6 mmol/L (3.4-5.0); Sodium 131 mmol/L (137-145)
[2021-11-14 07:16] LABS: Blood Urea Nitrogen 140 mg/dL (7-17)
[2021-11-14] MEDS: BUMETANIDE INJ 1 MG/4 ML VIAL IV PUSH ×2 (08:04→16:48)
[2021-11-14] MEDS: metOLazone 2.5 MG TABLET PO (08:05)
[2021-11-14] MEDS: CHOLECALCIFEROL 1,000 UNITS TABLET 1000 UNITS PO (08:05)
[2021-11-14 08:06] LABS: Glucose Point of Care 243 mg/dl (65-105)
[2021-11-14] MEDS: GABAPENTIN 100 MG CAPSULE PO ×2 (08:06→16:49)
[2021-11-14] MEDS: FINASTERIDE 5 MG TABLET PO (08:06)
[2021-11-14] MEDS: CYANOCOBALAMIN 1,000 MCG TABLET 1000 MCG PO (08:06)
[2021-11-14] MEDS: SILVERGEL (ELTA) 45 ML 1 APPLIC TOPICAL (08:07)
[2021-11-14] MEDS: INSULIN ASPART (*BKC) 100 UNITS/ML SUB-Q ×4 (08:09→20:54)
--- NOTE | 2021-11-14 08:12 | PM.PNNEP ---
Progress Note: A&P Assessment and Plan (1) Chronic kidney disease, stage 4 (severe): Code(s): N18.4 - Chronic kidney disease, stage 4 (severe) Status: Chronic Assessment and Plan: The patient has chronic kidney disease. Her baseline creatinine is around 2.1 but in the last few months it has been higher. Chronic kidney disease is due to diabetes and hypertension. Vascular disease may be playing a role as well. (2) Acute kidney injury: Code(s): N17.9 - Acute kidney failure, unspecified Status: Acute Assessment and Plan: the patient has acute kidney injury. Her baseline creatinine is around 2-2.1. Her creatinine Peaked at 3.2 but is now down to 2.6. Ultrasound shows chronic kidney disease. CT of the chest shows pleural effusions and ground-glass opacities of the lungs. Urine electrolytes are non pre renal. She has urine protein if 810. Blood cultures are negative so far The rising creatinine was partially due to infection (pneumonia and elbow joint space), and partially due to Bactrim. Notably she was COVID negative. In addition the patient does have moderately to severe aortic stenosis and severe pulmonary hypertension which does limit ejection fraction and therefore may cause some chronic pre renal azotemia. Patient does have some volume overload. Diuretics were increased yesterday. She responded well with 4L. Her creatinine, interestingly, came down to 2.1. 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 (8) Obstructive sleep apnea on CPAP: Code(s): G47.33 - Obstructive sleep apnea (adult) (pediatric); Z99.89 - Dependence on other enabling machines and devices Status: Acute Assessment and Plan: She uses a CPAP machine religiously (9) Type 2 diabetes mellitus with hyperglycemia, with long-term current use of insulin: Code(s): E11.65 - Type 2 diabetes mellitus with hyperglycemia; Z79.4 - long term care phlebotomist (current) use of insulin Status: Acute Assessment and Plan: she is on Accu-Cheks and sliding-scale insulin Subjective Date/time seen: 11/14/21 08:12 Interval history: Patient is alert. Breathing is better. She responded well to diuretics yesterday. She made about 4L of urine. Lying in some he follows position on oxygen. Exam Narrative: WDWN in NAD skin no rash or subQ nodules head ncat lungs Decreased breath sounds at the bases. cor reg no rub or gallop abd BS+ nontender and soft ext 1+ bilateral edema. Objective Data Vital Signs Vital Signs: Vital Signs - 24 hr 11/13/21 12:00 11/13/21 13:04 11/13/21 14:00 Temperature 35.5 C L Pulse Rate 81 70 81 Respiratory Rate 20 Blood Pressure 146/59 H Pulse Oximetry 100 11/13/21 15:11 11/13/21 16:00 11/13/21 20:00 Temperature Pulse Rate 80 75 87 Respiratory Rate 24 H 18 Blood Pressure 139/80 Pulse Oximetry 100
[2021-11-14] MEDS: FEBUXOSTAT 40 MG TABLET PO (08:28)
[2021-11-14 09:32] LABS: INR 1.2; Prothrombin Time 14.9 Seconds (11.1-14.7)
--- NOTE | 2021-11-14 10:01 | PM.PNCARD ---
Progress Note: A&P Assessment and Plan (1) Heart failure with preserved ejection fraction: Code(s): I50.30 - Unspecified diastolic (congestive) heart failure Status: Acute Assessment and Plan: Clinically, patient is a very complicated and her shortness of breath is multifactorial. She has chronic hypoxic and hypercapnic respiratory failure along with obesity and [place]KA on home trilogy unit, permanent atrial fibrillation, heart failure with preserved ejection fraction, and moderate to severe aortic stenosis along with severe pulmonary hypertension. Continue current diuretic regimen. It appears she is making good urine at this point. She was negative a couple of L yesterday. Continue to be cautious given severity of her aortic stenosis avoid significant hypotension and or intravascular volume depletion. She has significant valvular heart disease. His aortic stenosis, mitral regurgitation and tricuspid regurgitation. (2) Acute and chronic respiratory failure with hypoxia: Code(s): J96.21 - Acute and chronic respiratory failure with hypoxia Status: Acute Assessment and Plan: Per primary service and pulmonology. Continue supportive therapy with bronchodilator, trilogy, O2 supplementation and impending thoracentesis. Resume anticoagulation after thoracentesis (3) Aortic stenosis: Code(s): I35.0 - Nonrheumatic aortic (valve) stenosis Status: Acute Assessment and Plan: Severe (4) Persistent atrial fibrillation: Code(s): I48.19 - Other persistent atrial fibrillation Status: Acute Assessment and Plan: Longstanding persistent atrial fibrillation. Patient has a pacemaker. Anticoagulation goal INR 2-3. (5) Obstructive sleep apnea on CPAP: Code(s): G47.33 - Obstructive sleep apnea (adult) (pediatric); Z99.89 - Dependence on other enabling machines and devices Status: Acute Assessment and Plan: As above, trilogy support. (6) Chronic anticoagulation: Code(s): Z79.01 - senior care (current) use of anticoagulants Status: Acute Assessment and Plan: I will start warfarin 5 mg daily (7) Transaminitis: Code(s): R74.01 - Elevation of levels of liver transaminase levels Status: Acute Assessment and Plan: workup underway, negative hepatitis panel elevated LDH, CT revealed cystic lesions pancreatic body. Abdominal ultrasound post cholecystectomy no bile duct dilatation old granulomatous disease. Defer further management to primary service. Subjective Date/time seen: 11/14/21 10:01 Interval history: 81-year-old female with a past medical history significant for moderate to severe aortic stenosis, severe pulmonary hypertension RVSP 61 mm Hg, heart failure with preserved ejection fraction, COPD, chronic hypoxic and hypercapnic respiratory failure on home O2 1.5 L and trilogy unit, history of tracheostomy, permanent atrial fibrillation, sick sinus syndrome status post [employer] pacemaker on anticoagulation with warfarin, chronic kidney disease stage 4, hypertension, type 2 diabetes mellitus who presented to the emergency department complaints of progressive shortness of breath Date of service 11/13/2021: She feels about the same. No significant improvement. Admits to shortness of breath swelling. She has no chest pain though. Overall simply feels poorly Date of service 11/14/2021: She feels better today. She is less short of breath. Her edema has markedly improved. No Chest pain Review of Systems Review of Systems: All systems reviewed & are unremarkable except as noted in HPI and below Constitutional: Constitutional: Reports as per HPI, Reports no additional constitutional complaints, Reports fatigue and Reports lethargy Eyes: Eyes: Reports as per HPI and Reports no additional eye complaints ENT: Reports system reviewed and no additional complaints, except as documented and Reports as per HPI
--- NOTE | 2021-11-14 11:16 | PCOTNOTE ---
Attempted to see patient this AM for skilled OT session. Patient asleep in bed upon entry, easily arouse with LINDER's introduction and start of conversation with the pt and pt's present in room. Patient presents with increased grogginess and fatigue. Patient and pt's agreed with declining therapy this date. Patient began falling asleep and pt's reports, they are getting the fluid out of her lungs and just needs rest. OT session not completed this date, will continue per OT POC acccordingly.
[2021-11-14 12:17] LABS: Glucose Point of Care 435 mg/dl (65-105)
--- NOTE | 2021-11-14 12:23 | P.PNIM_ITS ---
Progress Note: A&P Assessment and Plan (1) Pleural effusion: Code(s): J90 - Pleural effusion, not elsewhere classified Status: Acute Assessment and Plan: * CT showed Moderate left sided pleural effusion * Thoracentesis ordered * Awaiting INR to be 1.5 or less * Vitamin K given * Recheck in 12 hours * Could be better in the am * diagnostics ordered 11/13/2021 interval history: patient is 81-year-old female with shortness of breath seen by cardiology suspect congestive heart failure patient does preserved LV function patient is being diuresed however the symptoms are not significantly improving, patient urine output is adequate patient seen by Nephrology and also seen by cyber policy and strategy planner recommended thoracentesis which may also improved her breathing, patient is scheduled for a thoracentesis will follow-up and monitor. 11/14/2021 interval history: patient is 81-year-old female with shortness of breath seen by cardiology suspect congestive heart failure patient does preserved LV function patient is being diuresed however the symptoms are not significantly improving, patient urine output is adequate patient seen by Nephrology and also seen by cyber policy and strategy planner recommended thoracentesis and had the procedure on 11/14 removed 650 ml of ishmael colored fluids, and it is growing gram positive cocci, patient is on Cefepime and vanco, will monitor, After thor acentesis patient states feels little better, will follow-up and monitor. patient blood sugars are trending of will give the patient Lantus 20 units daily and monitor with a sliding scale, (2) Community acquired pneumonia: Qualifiers: Laterality: unspecified laterality Qualified Code(s): J18.9 - Pneumonia, unspecified organism Code(s): J18.9 - Pneumonia, unspecified organism Status: Acute Assessment and Plan: * White blood cell count was 15.1 upon admission is 8.4 today. * Chest xray Stable small pleural effusions, Stable airspace opacities in the lower lung zones, consistent with atelectasis versus pneumonia, Cardiomegaly. * Continue Rocephin and azithromycin * Sputum culture and blood cultures NGTD * Continue trend labs (3) CHF exacerbation: Qualifiers: Heart failure type: unspecified Qualified Code(s): I50.9 - Heart failure, unspecified Code(s): I50.9 - Heart failure, unspecified Status: Acute Assessment and Plan: * She is in an acute diastolic heart failure exacerbation * Continue metolazone and Lasix * Continue with metoprolol * Trend urine output * [place] * [place] [id number] * urinary catheter for accurate I&Os * Furosemide 40mg IV changed to daily, await for cardiology or nephrology to adjust * Echo from August shows EF of 55-60% with undetermined diastolic dysfunction with moderate to severe aortic stenosis * Consulted pulmonology and cardiology for further help (4) COPD exacerbation: Code(s): J44.1 - Chronic obstructive pulmonary disease with (acute) exacerbation Status: Acute Assessment and Plan: * Continue with inhalers from home and nebulizers. * Solu-Medrol, dc per pulmonology * Supplemental oxygen, wean to maintain saturations * Azithromycin and ceftriaxone on board, change to vanco and cefepime * Increase in sputum, oxygen, and wheeze (5) Acute hypoxemic respiratory failure: Code(s): J96.01 - Acute respiratory failure with hypoxia Status: Acute Assessment and Plan: * oxygen at 1.5 L and is up to 3 L at home * Currently on 2L * Continue to trend *
--- NOTE | 2021-11-14 12:23 | PM.IMPN ---
Progress Note: A&P Assessment and Plan (1) Pleural effusion: Code(s): J90 - Pleural effusion, not elsewhere classified Status: Acute Assessment and Plan: CT showed Moderate left sided pleural effusion Thoracentesis ordered Awaiting INR to be 1.5 or less Vitamin K given Recheck in 12 hours Could be better in the am diagnostics ordered 11/13/2021 interval history: patient is 81-year-old female with shortness of breath seen by cardiology suspect congestive heart failure patient does preserved LV function patient is being diuresed however the symptoms are not significantly improving, patient urine output is adequate patient seen by Nephrology and also seen by senior software analyst recommended thoracentesis which may also improved her breathing, patient is scheduled for a thoracentesis will follow-up and monitor. 11/14/2021 interval history: patient is 81-year-old female with shortness of breath seen by cardiology suspect congestive heart failure patient does preserved LV function patient is being diuresed however the symptoms are not significantly improving, patient urine output is adequate patient seen by Nephrology and also seen by senior software analyst recommended thoracentesis and had the procedure on 11/14 removed 650 ml of ishmael colored fluids, and it is growing gram positive cocci, patient is on Cefepime and vanco, will monitor, After thoracentesis patient states feels little better, will follow-up and monitor. patient blood sugars are trending of will give the patient Lantus 20 units daily and monitor with a sliding scale, (2) Community acquired pneumonia: Qualifiers: Laterality: unspecified laterality Qualified Code(s): J18.9 - Pneumonia, unspecified organism Code(s): J18.9 - Pneumonia, unspecified organism Status: Acute Assessment and Plan: White blood cell count was 15.1 upon admission is 8.4 today. Chest xray Stable small pleural effusions, Stable airspace opacities in the lower lung zones, consistent with atelectasis versus pneumonia, Cardiomegaly. Continue Rocephin and azithromycin Sputum culture and blood cultures NGTD Continue trend labs (3) CHF exacerbation: Qualifiers: Heart failure type: unspecified Qualified Code(s): I50.9 - Heart failure, unspecified Code(s): I50.9 - Heart failure, unspecified Status: Acute Assessment and Plan: She is in an acute diastolic heart failure exacerbation Continue metolazone and Lasix Continue with metoprolol Trend urine output [place] [address] urinary catheter for accurate I&Os Furosemide 40mg IV changed to daily, await for cardiology or nephrology to adjust Echo from August shows EF of 55-60% with undetermined diastolic dysfunction with moderate to severe aortic stenosis Consulted pulmonology and cardiology for further help (4) COPD exacerbation: Code(s): J44.1 - Chronic obstructive pulmonary disease with (acute) exacerbation Status: Acute Assessment and Plan: Continue with inhalers from home and nebulizers. Solu-Medrol, dc per pulmonology Supplemental oxygen, wean to maintain saturations Azithromycin and ceftriaxone on board, change to vanco and cefepime Increase in sputum, oxygen, and wheeze (5) Acute hypoxemic respiratory failure: Code(s): J96.01 - Acute respiratory failure with hypoxia Status: Acute Assessment and Plan: oxygen at 1.5 L and is up to 3 L at home Currently on 2L Continue to trend titrate as indicated Cxray (11/10/21) pleural effusions worse on the left, stable bibasilar airspace opacities CT Moderate-sized left and small right pleural effusions, Patchy groundglass opacities of the lungs, consistent with pneumonia and/or mild pulmonary edema, Cardiomegaly. Continue with current diuesis ABG pH 7.361, CO2 48.8, O2 60.9, HCO3 27.0, Saturation 90.3 (6) Staphylococcal arthritis, lef
[2021-11-14] MEDS: INSULIN GLARGINE (*BKC) 100 UNITS/ML 25 UNITS SUB-Q (12:43)
--- NOTE | 2021-11-14 14:14 | PCPTNOTE ---
Attempted to see pt twice today for physical therapy. Pts was present and he and pt declined therapy due to pts extreme fatigue this date.
[2021-11-14] MEDS: WARFARIN (*PBKC) 5 MG TABLET PO (16:50)
[2021-11-14 16:58] LABS: Glucose Point of Care 317 mg/dl (65-105)
[2021-11-14 20:17] LABS: Glucose Point of Care 244 mg/dl (65-105)
[2021-11-14] MEDS: SIMVASTATIN 10 MG TABLET PO (20:51)
[2021-11-15] VITALS (13 sets, daily range): BP systolic 125–144; BP diastolic 44–83; PULSE 74–88; RESP 18–21; TEMP 35.6–36.4; O2SAT 97–100
[2021-11-15 05:45] LABS: INR 1.2; Prothrombin Time 14.8 Seconds (11.1-14.7)
[2021-11-15 05:55] LABS: Calcium 6.8 mg/dL (8.4-10.2); Carbon Dioxide > 40 mmol/L (22-30); Chloride 85 mmol/L (98-107); Estimated CRCL calculation 26 ml/min; Estimated Glomerular Filt Rate 26; Glucose 141 mg/dL (65-110); Phosphorus 4.1 mg/dL (2.5-4.5); Potassium 3.2 mmol/L (3.4-5.0); Sodium 131 mmol/L (137-145)
[2021-11-15] MEDS: LEVOTHYROXINE SODIUM 100 MCG TABLET 200 MCG PO (06:02)
[2021-11-15] MEDS: METOPROLOL TARTRATE 25 MG TABLET PO ×3 (06:02→20:22)
[2021-11-15 06:07] LABS: Blood Urea Nitrogen 127 mg/dL (7-17)
[2021-11-15 07:12] LABS: Hematocrit 34.7 % (37.0-47.0); Hemoglobin 11.8 g/dL (12.0-15.0); Mean Corpuscular Hemoglobin 35.3 pg (26-34); Mean Corpuscular Volume 103.9 fl (80-100); Mean Platelet Volume 12.1 fl (7.4-10.4); Platelet Count Result 180 k/mm3 (150-375); Red Blood Count 3.34 M/mm3 (4.2-5.4); Red Cell Distribution Width 14.9 % (11.5-14.5); White Blood Count 19.2 K/mm3 (4.5-10.0)
[2021-11-15 07:56] LABS: Glucose Point of Care 161 mg/dl (65-105)
--- NOTE | 2021-11-15 08:00 | P.PNIM_ITS ---
Progress Note: A&P Assessment and Plan (1) Pleural effusion: Code(s): J90 - Pleural effusion, not elsewhere classified Status: Acute Assessment and Plan: * CT showed Moderate left sided pleural effusion * Thoracentesis removed 650ml * Gram positive cocci in the anaerobic culture from the pleural effusion * Continue Vanc and cefepime * diagnostics still pending (2) Community acquired pneumonia: Qualifiers: Laterality: unspecified laterality Qualified Code(s): J18.9 - Pneumonia, unspecified organism Code(s): J18.9 - Pneumonia, unspecified organism Status: Acute Assessment and Plan: * White blood cell count was 15.1 upon admission is 19.2 today. * Chest xray (11-13-21) Opacities in the bilateral lower lung zones which could represent small bilateral pleural effusions, atelectasis, pneumonia or some combination thereof. Cardiomegaly. * Continue vanco and cefepime * Sputum culture and blood cultures NGTD * Pleural labs does look to be growing gram positive cocci in clusters * Continue trend labs (3) CHF exacerbation: Qualifiers: Heart failure type: unspecified Qualified Code(s): I50.9 - Heart failure, unspecified Code(s): I50.9 - Heart failure, unspecified Status: Acute Assessment and Plan: * She is in an acute diastolic heart failure exacerbation * Continue metolazone 2.5mg PO daily and bumex 1mg IV BID * Continue with metoprolol * Trend urine output * Daily weights * urinary catheter for accurate I&Os * Echo 55-60% moderate to severe aortic valve stenosis, moderate right and severe left atrial chamber enlargement, and an indeterminate diastolic dysfunction * Consulted pulmonology and cardiology for further help (4) COPD exacerbation: Code(s): J44.1 - Chronic obstructive pulmonary disease with (acute) exacerbation Status: Acute Assessment and Plan: * Continue with inhalers from home and nebulizers. * Supplemental oxygen, wean to maintain saturations * Continue vanco and cefepime * Increase in sputum, oxygen, and wheeze (5) Acute hypoxemic respiratory failure: Code(s): J96.01 - Acute respiratory failure with hypoxia Status: Acute Assessment and Plan: * oxygen at 1.5 L and is up to 3 L at home * Currently on 2L * Continue to trend * titrate as indicated * Cxray (11-13-21) Opacities in the bilateral lower lung zones which could represent small bilateral pleural effusions, atelectasis, pneumonia or some combination thereof. Cardiomegaly. * CT (11-12-21) Moderate-sized left and small right pleural effusions, Patchy groundglass opacities of the lungs, consistent with pneumonia and/or mild pulmonary edema, Cardiomegaly. * Diuresis per cards and nephrology * ABG pH 7.361, CO2 48.8, O2 60.9, HCO3 27.0, Saturation 90.3 (6) Staphylococcal arthritis, left elbow: Code(s): M00.022 - Staphylococcal arthritis, left elbow Status: Acute Assessment and Plan: * The patient had been on Bactrim for her left elbow * Currently on Rocephin * Culture from September for staph * Current antibiotics should cover the supposed infection * Wound consult (7) Anemia: Code(s): D64.9 - Anemia, unspecified Status: Chronic Assessment and Plan: Patient is at her baseline continue to monitor. (8) Hypertension: Code(s): I10 - Essential (primary) hypertension Status: Chronic Assessment a
--- NOTE | 2021-11-15 08:00 | PM.IMPN ---
Progress Note: A&P Assessment and Plan (1) Pleural effusion: Code(s): J90 - Pleural effusion, not elsewhere classified Status: Acute Assessment and Plan: CT showed Moderate left sided pleural effusion Thoracentesis removed 650ml Gram positive cocci in the anaerobic culture from the pleural effusion Continue Vanc and cefepime diagnostics still pending (2) Community acquired pneumonia: Qualifiers: Laterality: unspecified laterality Qualified Code(s): J18.9 - Pneumonia, unspecified organism Code(s): J18.9 - Pneumonia, unspecified organism Status: Acute Assessment and Plan: White blood cell count was 15.1 upon admission is 19.2 today. Chest xray (11-13-21) Opacities in the bilateral lower lung zones which could represent small bilateral pleural effusions, atelectasis, pneumonia or some combination thereof. Cardiomegaly. Continue vanco and cefepime Sputum culture and blood cultures NGTD Pleural labs does look to be growing gram positive cocci in clusters Continue trend labs (3) CHF exacerbation: Qualifiers: Heart failure type: unspecified Qualified Code(s): I50.9 - Heart failure, unspecified Code(s): I50.9 - Heart failure, unspecified Status: Acute Assessment and Plan: She is in an acute diastolic heart failure exacerbation Continue metolazone 2.5mg PO daily and bumex 1mg IV BID Continue with metoprolol Trend urine output Daily weights urinary catheter for accurate I&Os Echo 55-60% moderate to severe aortic valve stenosis, moderate right and severe left atrial chamber enlargement, and an indeterminate diastolic dysfunction Consulted pulmonology and cardiology for further help (4) COPD exacerbation: Code(s): J44.1 - Chronic obstructive pulmonary disease with (acute) exacerbation Status: Acute Assessment and Plan: Continue with inhalers from home and nebulizers. Supplemental oxygen, wean to maintain saturations Continue vanco and cefepime Increase in sputum, oxygen, and wheeze (5) Acute hypoxemic respiratory failure: Code(s): J96.01 - Acute respiratory failure with hypoxia Status: Acute Assessment and Plan: oxygen at 1.5 L and is up to 3 L at home Currently on 2L Continue to trend titrate as indicated Cxray (11-13-21) Opacities in the bilateral lower lung zones which could represent small bilateral pleural effusions, atelectasis, pneumonia or some combination thereof. Cardiomegaly. CT (11-12-21) Moderate-sized left and small right pleural effusions, Patchy groundglass opacities of the lungs, consistent with pneumonia and/or mild pulmonary edema, Cardiomegaly. Diuresis per cards and nephrology ABG pH 7.361, CO2 48.8, O2 60.9, HCO3 27.0, Saturation 90.3 (6) Staphylococcal arthritis, left elbow: Code(s): M00.022 - Staphylococcal arthritis, left elbow Status: Acute Assessment and Plan: The patient had been on Bactrim for her left elbow Currently on Rocephin Culture from September for staph Current antibiotics should cover the supposed infection Wound consult (7) Anemia: Code(s): D64.9 - Anemia, unspecified Status: Chronic Assessment and Plan: Patient is at her baseline continue to monitor. (8) Hypertension: Code(s): I10 - Essential (primary) hypertension Status: Chronic Assessment and Plan: Current BP is 125/83 Continue with metoprolol Trend BP Adjust therapy as indicated (9) Bilateral lower extremity edema: Code(s): R60.0 - Localized edema Status: Acute Assessment and Plan: Venous Dopplers Negative continue with diuretics Continue long-term anticoagulation and is therapeutic (10) Vitamin D deficiency, unspecified: Code(s): E55.9 - Vitamin D deficiency, unspecified Status: Acute Assessment and Plan: Continue w
[2021-11-15 08:04] LABS: Band Neutrophils Percent 2 % (0-6); Lymphocytes Absolute Manual 0.38 K/mm3 (1.1-4.5); Monocytes Absolute Manual 0.38 K/mm3 (0.1-0.90); Monocytes Percent Manual 2 % (3-9); Neutrophils Absolute Manual 18.43 K/mm3 (1.7-7.2); Neutrophils Percent Manual 94 % (46-73); Total Cells Counted 100
[2021-11-15 08:07] LABS: Hypochromasia 1+ (NORMAL); Platelet Estimate Adequate (Adequate); Target Cells 1+ (NORMAL)
[2021-11-15 08:08] LABS: Anisocytosis 1+ (NORMAL)
[2021-11-15] MEDS: CHOLECALCIFEROL 1,000 UNITS TABLET 1000 UNITS PO (08:22)
[2021-11-15] MEDS: BUMETANIDE INJ 1 MG/4 ML VIAL IV PUSH ×2 (08:22→16:59)
[2021-11-15] MEDS: FEBUXOSTAT 40 MG TABLET PO (08:22)
[2021-11-15] MEDS: metOLazone 2.5 MG TABLET PO (08:22)
[2021-11-15] MEDS: GABAPENTIN 100 MG CAPSULE PO ×2 (08:23→17:00)
[2021-11-15] MEDS: CYANOCOBALAMIN 1,000 MCG TABLET 1000 MCG PO (08:23)
[2021-11-15] MEDS: FINASTERIDE 5 MG TABLET PO (08:23)
[2021-11-15] MEDS: SILVERGEL (ELTA) 45 ML 1 APPLIC TOPICAL (08:24)
[2021-11-15] MEDS: INSULIN ASPART (*BKC) 100 UNITS/ML SUB-Q ×4 (08:33→20:28)
[2021-11-15] MEDS: INSULIN GLARGINE (*BKC) 100 UNITS/ML 20 UNITS SUB-Q (08:33)
--- NOTE | 2021-11-15 09:10 | PCNWS ---
Weekly nutritional screen. Patient is tolerating current diet with adequate intake. No weight loss reported. No nutritional needs at this time.
--- NOTE | 2021-11-15 10:25 | PM.PNCARD ---
Progress Note: A&P Assessment and Plan (1) Heart failure with preserved ejection fraction: Code(s): I50.30 - Unspecified diastolic (congestive) heart failure Status: Acute Assessment and Plan: Clinically, patient is a very complicated and her shortness of breath is multifactorial. She has chronic hypoxic and hypercapnic respiratory failure along with obesity and [place] on home trilogy unit, permanent atrial fibrillation, heart failure with preserved ejection fraction, and moderate to severe aortic stenosis along with severe pulmonary hypertension. She has had good response to her current diuretic regimen, but not making as much urine today. She is fluid balance positive today. Continue with current diuretic regimen, will probably transition her to p.o. Bumex tomorrow Continue to be cautious given severity of her aortic stenosis avoid significant hypotension and or intravascular volume depletion. Renal function is stable today. She has significant valvular heart disease. His aortic stenosis, mitral regurgitation and tricuspid regurgitation. (2) Acute and chronic respiratory failure with hypoxia: Code(s): J96.21 - Acute and chronic respiratory failure with hypoxia Status: Acute Assessment and Plan: Per primary service and pulmonology. Continue supportive therapy with bronchodilator, trilogy, O2 supplementation and impending thoracentesis. Resume anticoagulation after thoracentesis (3) Aortic stenosis: Code(s): I35.0 - Nonrheumatic aortic (valve) stenosis Status: Acute Assessment and Plan: Severe (4) Persistent atrial fibrillation: Code(s): I48.19 - Other persistent atrial fibrillation Status: Acute Assessment and Plan: Longstanding persistent atrial fibrillation. Patient has a pacemaker. Anticoagulation goal INR 2-3. (5) Obstructive sleep apnea on CPAP: Code(s): G47.33 - Obstructive sleep apnea (adult) (pediatric); Z99.89 - Dependence on other enabling machines and devices Status: Acute Assessment and Plan: As above, trilogy support. 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 Abdominal ultrasound post cholecystectomy no bile duct dilatation old granulomatous disease. Defer further management to primary service. Subjective Date/time seen: 11/15/21 10:25 Interval history: 81-year-old female with a past medical history significant for moderate to severe aortic stenosis, severe pulmonary hypertension RVSP 61 mm Hg, heart failure with preserved ejection fraction, COPD, chronic hypoxic and hypercapnic respiratory failure on home O2 1.5 L and trilogy unit, history of tracheostomy, permanent atrial fibrillation, sick sinus syndrome status post [place] scientific pacemaker on anticoagulation with warfarin, chronic kidney disease stage 4, hypertension, type 2 diabetes mellitus who presented to the emergency department complaints of progressive shortness of breath Date of service 11/13/2021: She feels about the same. No significant improvement. Admits to shortness of breath swelling. She has no chest pain though. Overall simply feels poorly Date of service 11/14/2021: She feels better today. She is less short of breath. Her edema has markedly improved. No Chest pain Date of service 11/15/2021: Continues to improve. Her swelling is better. Still has some shortness of breath is also improving. Denies any chest pain, palpitations. No complaints today. Review of Systems Review of Systems: All systems reviewed & are unremarkable except as noted in HPI and
--- NOTE | 2021-11-15 10:26 | PM.PNPUL ---
Progress Note: A&P Assessment and Plan (1) CHF exacerbation: Qualifiers: Heart failure type: unspecified Qualified Code(s): I50.9 - Heart failure, unspecified Code(s): I50.9 - Heart failure, unspecified Status: Acute (2) Acute hypoxemic respiratory failure: Code(s): J96.01 - Acute respiratory failure with hypoxia Status: Acute Assessment and Plan: 81-year-old female with history of chronic hypercapnic hypoxemic respiratory failure related to obesity hypoventilation, history of congestive heart failure, atrial fibrillation, chronic kidney disease, chronically on home ventilatory support via trilogy ventilator, presented with increasing shortness of breath. Chest CT done on admission showed moderate-sized left and small right pleural effusions with patchy groundglass opacities of the lungs, cardiomegaly. Patient has been on diuresis with clinical improvement of shortness of breath and also lower extremity edema. Patient using home ventilator at night. She sleeps well on trilogy ventilator. White cell count elevated for unclear reason. Has been on antibiotics. Pleural fluid analysis showed absence of empyema as pH is normal. Remainder pleural fluid analysis pending. Will proceed with measurement of nocturnal oximetry on current settings. (3) Bilateral lower extremity edema: Code(s): R60.0 - Localized edema Status: Acute (4) Chronic kidney disease, stage 4 (severe): Code(s): N18.4 - Chronic kidney disease, stage 4 (severe) Status: Chronic (5) Atrial fibrillation: Code(s): I48.91 - Unspecified atrial fibrillation Status: Acute (6) Pleural effusion: Code(s): J90 - Pleural effusion, not elsewhere classified Status: Acute (7) Obstructive sleep apnea on CPAP: Code(s): G47.33 - Obstructive sleep apnea (adult) (pediatric); Z99.89 - Dependence on other enabling machines and devices Status: Acute Subjective Date/time seen: 11/15/21 10:26 Patient stated that her breathing is getting better. Has undergone a left thoracentesis. Using home ventilator at night. WBC elevated. She came in with a normal white cell count. She was briefly treated with IV steroids for possible COPD exacerbation. Has been on antibiotics for unknown infection. Lower extremity edema significantly less. Also shortness of breath much improved. pleural fluid data pending. Review of Systems Review of Systems: All systems reviewed & are unremarkable except as noted in HPI and below Exam Narrative: GENERAL APPEARANCE: Well developed, well nourished, morbidly obese, alert and cooperative, sitting upright in the bed, no respiratory distress while on supplemental oxygen HEENT: Sclerae anicteric and conjunctivae pink and moist. Extraocular movements were intact and pupils were equal, round. LUNGS: decreased breath sounds both bases with few crackles higher in the lung rodarte, no wheezing. CARDIAC: There was a regular rate and rhythm without any murmurs ABDOMEN: Soft and nontender with normal bowel sounds. There was no organomegaly. EXTREMITIES: No cyanosis, clubbing. 1+ edema in lower extremities. NEUROLOGIC: Alert and oriented x 3. Normal affect. Objective Data Vital Signs Vital Signs: Vital Signs - 24 hr 11/14/21 12:00 11/14/21 16:00 11/14/21 20:00 Temperature 35.8 C L Pulse Rate 72 83 78 Respiratory Rate 20 20 Blood Pressure 120/48 L Pulse Oximetry 100 100 11/14/21 21:20 11/14/21 22:00 11/14/21 22:08 Temperature 36.1 C L Pulse Rate 78 81 Respiratory Rate 22 H 18 Blood Pressure 135/58 L Pulse Oximetry 96 100 11/15/21 00:00 11/15/21 04:00 11/15/21 06:02 Temperature Pulse Rate 79 79 78 Respiratory Rate Blood Pressure Pulse Oximetry 11/15/21 06:20 11/15/21 07:36 Temperature 36.4 C Pulse Rate 86 86 Respiratory Rate 18 18 Blood Pressure 125/83 Pulse Oximetry 100 100 Intake/Output I
[2021-11-15 11:12] LABS: Glucose Point of Care 201 mg/dl (65-105)
--- NOTE | 2021-11-15 15:28 | P.PNNP_ITS ---
Progress Note: A&P Assessment and Plan (1) Acute kidney injury: Code(s): N17.9 - Acute kidney failure, unspecified Status: Acute Assessment and Plan: * due to a combination of infection and possibly use of Bactrim * likely has a component of chronic prerenal azotemia from her aortic stenosis + pulmonary HTN * may possibly also have a component of renal venous HTN as creatinine has improved with diuretic therapy * creatinine peaked at 3.2mg/dl * evaluation to date: * renal ultrasound with CKD * urine electrolytes are non-prerenal * mild proteinuria of ~ 800mg * follow trend of repeat labs and UOP (2) Chronic kidney disease, stage 4 (severe): Code(s): N18.4 - Chronic kidney disease, stage 4 (severe) Status: Chronic Assessment and Plan: * baseline creatinine runs around 1.7 - 2.2mg/dl (although has been higher in the last few months) * due to HTN, DM, vascular disease, and age (3) Benign hypertension: Code(s): I10 - Essential (primary) hypertension Status: Chronic Assessment and Plan: * reasonable control at this time * follow trend of hemodynamics (4) Community acquired pneumonia: Qualifiers: Laterality: unspecified laterality Qualified Code(s): J18.9 - Pneumonia, unspecified organism Code(s): J18.9 - Pneumonia, unspecified organism Status: Acute Assessment and Plan: * appears to be clinically improving * on antibiotic therapy (5) Staphylococcal arthritis, left elbow: Code(s): M00.022 - Staphylococcal arthritis, left elbow Status: Acute Assessment and Plan: * continue supportive therapy * on antibiotics (6) Gouty tophi of joint: Code(s): M1A.9XX1 - Chronic gout, unspecified, with tophus (tophi) Status: Chronic Assessment and Plan: * on uloric (7) Type 2 diabetes mellitus with hyperglycemia, with long-term current use of insulin: Code(s): E11.65 - Type 2 diabetes mellitus with hyperglycemia; Z79.4 - watermelon inspector (current) use of insulin Status: Chronic Assessment and Plan: * follow Accu-Cheks * on sliding-scale insulin Will continue to follow Subjective Date/time seen: 11/15/21 15:28 Chart reviewed - assuming care from Dr. Mclaughlin; no acute complaints other than profound fatigue/weakness; states she mentally exhausted at the time of my visit; at bedside and we discussed the situation; no acute issues/events overnight or earlier this AM. Exam Narrative: General: elderly female in NAD Heart: normal S1 and S2; no rub Lungs: decreased at bases Abdomen: soft, nontender, nondistended, positive bowel sounds Extremities: no cyanosis or clubbing; 1+ edema Skin: warm and dry Objective Data Vital Signs Vital Signs: Vital Signs Temp Pulse Resp BP Pulse Ox 11/15/21 13:55 35.6 C L 82 21 H 144/61 H 100 11/15/21 12:00 86 11/15/21 07:36 86 18 100 11/15/21 06:20 36.4 C 86 18 125/83 100 11/15/21 06:02 78 11/15/21 04:00 79 11/15/21 00:00 79 11/14/21 22:08 36.1 C L 81 18 135/58 L 100 11/14/21 22:00 22 H 96 11/14/21 21:20 78 11/14/21 20:00 78 20 100 Intake/Output Intake/Output: Intake & Output 11/12/21 11/13/2110/27
--- NOTE | 2021-11-15 15:28 | PM.PNNEP ---
Progress Note: A&P Assessment and Plan (1) Acute kidney injury: Code(s): N17.9 - Acute kidney failure, unspecified Status: Acute Assessment and Plan: due to a combination of infection and possibly use of Bactrim likely has a component of chronic prerenal azotemia from her aortic stenosis + pulmonary HTN may possibly also have a component of renal venous HTN as creatinine has improved with diuretic therapy creatinine peaked at 3.2mg/dl evaluation to date: renal ultrasound with CKD urine electrolytes are non-prerenal mild proteinuria of ~ 800mg follow trend of repeat labs and UOP (2) Chronic kidney disease, stage 4 (severe): Code(s): N18.4 - Chronic kidney disease, stage 4 (severe) Status: Chronic Assessment and Plan: baseline creatinine runs around 1.7 - 2.2mg/dl (although has been higher in the last few months) due to HTN, DM, vascular disease, and age (3) Benign hypertension: Code(s): I10 - Essential (primary) hypertension Status: Chronic Assessment and Plan: reasonable control at this time follow trend of hemodynamics (4) Community acquired pneumonia: Qualifiers: Laterality: unspecified laterality Qualified Code(s): J18.9 - Pneumonia, unspecified organism Code(s): J18.9 - Pneumonia, unspecified organism Status: Acute Assessment and Plan: appears to be clinically improving on antibiotic therapy (5) Staphylococcal arthritis, left elbow: Code(s): M00.022 - Staphylococcal arthritis, left elbow Status: Acute Assessment and Plan: continue supportive therapy on antibiotics (6) Gouty tophi of joint: Code(s): M1A.9XX1 - Chronic gout, unspecified, with tophus (tophi) Status: Chronic Assessment and Plan: on uloric (7) Type 2 diabetes mellitus with hyperglycemia, with long-term current use of insulin: Code(s): E11.65 - Type 2 diabetes mellitus with hyperglycemia; Z79.4 - predatory animal 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 Mclaughlin; no acute complaints other than profound fatigue/weakness; states she mentally exhausted at the time of my visit; at bedside and we discussed the situation; no acute issues/events overnight or earlier this AM. Exam Narrative: General: elderly female in NAD Heart: normal S1 and S2; no rub Lungs: decreased at bases Abdomen: soft, nontender, nondistended, positive bowel sounds Extremities: no cyanosis or clubbing; 1+ edema Skin: warm and dry Objective Data Vital Signs Vital Signs: Vital Signs Temp Pulse Resp BP Pulse Ox 11/15/21 13:55 35.6 C L 82 21 H 144/61 H 100 11/15/21 12:00 86 11/15/21 07:36 86 18 100 11/15/21 06:20 36.4 C 86 18 125/83 100 11/15/21 06:02 78 11/15/21 04:00 79 11/15/21 00:00 79 11/14/21 22:08 36.1 C L 81 18 135/58 L 100 11/14/21 22:00 22 H 96 11/14/21 21:20 78 11/14/21 20:00 78 20 100 Intake/Output Intake/Output: Intake & Output 11/12/21 11/13/21 11/14/21 11/15/21 23:59 23:59 23:59 23:59 Intake Total 700 1530 1390 1000 Output Total 3700 4850 3250 1800 Balance -3000 -3320 -1860 -800 Meds/Results Medications: Active Medications Generic Name Dose Route Start Last Admin Trade Name Freq PRN Reason Stop Dose Admin Acetaminophen 650 mg 11/07/21 14:20 11/12/21 20:11 Acetaminophen 325 Mg Tablet PO 650 mg Q4H PRN Administration Mild Pain (1-3) or Fever Hydrocodone Bitart/Acetaminophen 1 tab 11/07/21 14:20 Hydrocodone/Acetaminophen (*Crx) 5-325 Mg Tablet PO Q4H PRN Pain Rated 4-6 Albuterol 2.5 mg 11/07/21 21:45 11/12/21 20:28 Albuterol Sulfate Neb 2.5 Mg/0.5 Ml Inh INHALATION
[2021-11-15 16:20] LABS: Glucose Point of Care 237 mg/dl (65-105)
[2021-11-15] MEDS: WARFARIN (*PBKC) 5 MG TABLET PO (17:00)
[2021-11-15 19:53] LABS: Vancomycin Trough 14.8 ug/mL (10.0-20.0)
[2021-11-15] MEDS: SIMVASTATIN 10 MG TABLET PO (20:22)
[2021-11-15 21:02] LABS: Glucose Point of Care 253 mg/dl (65-105)
[2021-11-16] VITALS (15 sets, daily range): BP systolic 110–126; BP diastolic 44–64; PULSE 70–90; RESP 15–17; TEMP 36.4–36.6; O2SAT 96–100
[2021-11-16 05:39] LABS: Basophils Percent Auto 0.1 % (0.2-1.2); Eosinophils Absolute Auto 0.1 K/mm3 (0-0.3); Eosinophils Percent Auto 0.3 % (0-4.4); Hematocrit 33.5 % (37.0-47.0); Hemoglobin 11.3 g/dL (12.0-15.0); Immature Granulocyte Absolute 0.28 K/mm3 (0.00-0.031); Immature Granulocyte Percent A 1.8 % (0-0.5); Lymphocytes Absolute Auto 0.46 K/mm3 (0.9-3.2); Lymphocytes Percent Auto 2.9 % (18.3-44.2); Mean Corpuscular HGB Conc 33.7 g/dl (32-36); Mean Corpuscular Volume 106.7 fl (80-100); Mean Platelet Volume 12.4 fl (7.4-10.4); Monocytes Absolute Auto 1.8 K/mm3 (0.1-0.6); Monocytes Percent Auto 11.5 % (2.6-8.5); Neutrophils Absolute Auto 13.3 K/mm3 (1.3-6.7); Neutrophils Percent Auto 83.4 % (45.5-73.1); Nucleated Red Blood Cells Absolute Auto 0.1 K/mm3 (0.0-0.012); Nucleated Red Blood Cells Perc 0.8 % (0.0-0.2); Platelet Count Result 165 k/mm3 (150-375); Red Blood Count 3.14 M/mm3 (4.2-5.4); Red Cell Distribution Width 15.3 % (11.5-14.5)
[2021-11-16 05:48] LABS: INR 1.3; Prothrombin Time 15.7 Seconds (11.1-14.7)
[2021-11-16 05:58] LABS: Alanine Aminotransferase 341 U/L (4-35); Alkaline Phosphatase 256 U/L (38-126); Aspartate Amino Transferase 170 U/L (14-36); Bilirubin,Total 1.4 mg/dL (0.2-1.3); Calcium 6.5 mg/dL (8.4-10.2); Carbon Dioxide > 40 mmol/L (22-30); Chloride 80 mmol/L (98-107); Estimated CRCL calculation 29 ml/min; Estimated Glomerular Filt Rate 29; Glucose 162 mg/dL (65-110); Magnesium 1.6 mg/dL (1.6-2.3); Phosphorus 3.7 mg/dL (2.5-4.5); Potassium 2.8 mmol/L (3.4-5.0); Sodium 129 mmol/L (137-145)
[2021-11-16 05:59] LABS: Blood Urea Nitrogen 124 mg/dL (7-17)
[2021-11-16] MEDS: METOPROLOL TARTRATE 25 MG TABLET PO ×3 (06:23→20:02)
[2021-11-16] MEDS: POTASSIUM CHLORIDE 20 MEQ TABLET 40 MEQ PO ×2 (06:24→15:18)
[2021-11-16] MEDS: LEVOTHYROXINE SODIUM 100 MCG TABLET 200 MCG PO (06:24)
[2021-11-16 07:40] LABS: Glucose Point of Care 189 mg/dl (65-105)
[2021-11-16] MEDS: INSULIN GLARGINE (*BKC) 100 UNITS/ML 20 UNITS SUB-Q (08:09)
[2021-11-16] MEDS: FEBUXOSTAT 40 MG TABLET PO (08:12)
[2021-11-16] MEDS: metOLazone 2.5 MG TABLET PO (08:12)
[2021-11-16] MEDS: GABAPENTIN 100 MG CAPSULE PO ×2 (08:12→17:25)
[2021-11-16] MEDS: BUMETANIDE INJ 1 MG/4 ML VIAL IV PUSH (08:12)
[2021-11-16] MEDS: CYANOCOBALAMIN 1,000 MCG TABLET 1000 MCG PO (08:13)
[2021-11-16] MEDS: FINASTERIDE 5 MG TABLET PO (08:13)
[2021-11-16] MEDS: CHOLECALCIFEROL 1,000 UNITS TABLET 1000 UNITS PO (08:13)
[2021-11-16] MEDS: SILVERGEL (ELTA) 45 ML 1 APPLIC TOPICAL (08:15)
--- NOTE | 2021-11-16 08:45 | PM.PNCARD ---
Progress Note: A&P Assessment and Plan (1) Heart failure with preserved ejection fraction: Code(s): I50.30 - Unspecified diastolic (congestive) heart failure Status: Acute Assessment and Plan: Clinically, patient is a very complicated and her shortness of breath is multifactorial. She has chronic hypoxic and hypercapnic respiratory failure along with obesity and [place] on home trilogy unit, permanent atrial fibrillation, heart failure with preserved ejection fraction, and moderate to severe aortic stenosis along with severe pulmonary hypertension. She has had good response to her current diuretic regimen. Shortness of breath improving and LE edema markedly improved. Will shift her to oral bumex today. Continue to be cautious given severity of her aortic stenosis avoid significant hypotension and or intravascular volume depletion. Renal function is stable today. She has significant valvular heart disease. His aortic stenosis, mitral regurgitation and tricuspid regurgitation. (2) Acute and chronic respiratory failure with hypoxia: Code(s): J96.21 - Acute and chronic respiratory failure with hypoxia Status: Acute Assessment and Plan: Per primary service and pulmonology. Continue supportive therapy with bronchodilator, trilogy, O2 supplementation and impending thoracentesis. Resume anticoagulation after thoracentesis (3) Aortic stenosis: Code(s): I35.0 - Nonrheumatic aortic (valve) stenosis Status: Acute Assessment and Plan: Severe (4) Persistent atrial fibrillation: Code(s): I48.19 - Other persistent atrial fibrillation Status: Acute Assessment and Plan: Longstanding persistent atrial fibrillation. Patient has a pacemaker. Anticoagulation goal INR 2-3. (5) Obstructive sleep apnea on CPAP: Code(s): G47.33 - Obstructive sleep apnea (adult) (pediatric); Z99.89 - Dependence on other enabling machines and devices Status: Acute Assessment and Plan: As above, trilogy support. (6) Chronic anticoagulation: Code(s): Z79.01 - [facility] (current) use of anticoagulants Status: Acute Assessment and Plan: On warfarin. INR 1.3 today. (7) Transaminitis: Code(s): R74.01 - Elevation of levels of liver transaminase levels Status: Acute Assessment and Plan: workup underway, negative hepatitis panel elevated LDH, CT revealed cystic lesions pancreatic body. Abdominal ultrasound post cholecystectomy no bile duct dilatation old granulomatous disease. Defer further management to primary service. Subjective Date/time seen: 11/16/21 08:45 Interval history: 81-year-old female with a past medical history significant for moderate to severe aortic stenosis, severe pulmonary hypertension RVSP 61 mm Hg, heart failure with preserved ejection fraction, COPD, chronic hypoxic and hypercapnic respiratory failure on home O2 1.5 L and trilogy unit, history of tracheostomy, permanent atrial fibrillation, sick sinus syndrome status post [place] scientific pacemaker on anticoagulation with warfarin, chronic kidney disease stage 4, hypertension, type 2 diabetes mellitus who presented to the emergency department complaints of progressive shortness of breath Date of service 11/13/2021: She feels about the same. No significant improvement. Admits to shortness of breath swelling. She has no chest pain though. Overall simply feels poorly Date of service 11/14/2021: She feels better today. She is less short of breath. Her edema has markedly improved. No Chest pain Date of service 11/15/2021: Continues to improve. Her swelling is better. Still has some shortness of breath is also improving. Denies any chest pain, palpitations. No complaints today. Date of service 11/16/2021: Breathing is better today. Still has some mild swelling but this is improved. Review of Systems Review of Systems: All systems reviewed &
--- NOTE | 2021-11-16 10:32 | P.PNNP_ITS ---
Progress Note: A&P Assessment and Plan (1) Acute kidney injury: Code(s): N17.9 - Acute kidney failure, unspecified Status: Acute Assessment and Plan: * due to a combination of infection and possibly use of Bactrim * likely has a component of chronic prerenal azotemia from her aortic stenosis + pulmonary HTN * suspect also has a component of renal venous HTN as creatinine has improved with diuretic therapy * creatinine peaked at 3.2mg/dl * evaluation to date: * renal ultrasound with CKD * urine electrolytes are non-prerenal * mild proteinuria of ~ 800mg * follow trend of repeat labs and UOP (2) Chronic kidney disease, stage 4 (severe): Code(s): N18.4 - Chronic kidney disease, stage 4 (severe) Status: Chronic Assessment and Plan: * baseline creatinine runs around 1.7 - 2.2mg/dl (although has been higher in the last few months) * due to HTN, DM, vascular disease, and age (3) Benign hypertension: Code(s): I10 - Essential (primary) hypertension Status: Chronic Assessment and Plan: * reasonable control at this time * follow trend of hemodynamics (4) Community acquired pneumonia: Qualifiers: Laterality: unspecified laterality Qualified Code(s): J18.9 - Pneumonia, unspecified organism Code(s): J18.9 - Pneumonia, unspecified organism Status: Acute Assessment and Plan: * appears to be clinically improving * on antibiotic therapy (5) Staphylococcal arthritis, left elbow: Code(s): M00.022 - Staphylococcal arthritis, left elbow Status: Acute Assessment and Plan: * continue supportive therapy * on antibiotics (6) Gouty tophi of joint: Code(s): M1A.9XX1 - Chronic gout, unspecified, with tophus (tophi) Status: Chronic Assessment and Plan: * on uloric (7) Type 2 diabetes mellitus with hyperglycemia, with long-term current use of insulin: Code(s): E11.65 - Type 2 diabetes mellitus with hyperglycemia; Z79.4 - 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 Exam Narrative: General: elderly female in NAD Heart: normal S1 and S2; no rub Lungs: decreased at bases Abdomen: soft, nontender, nondistended, positive bowel sounds Extremities: no cyanosis or clubbing; 1+ edema Skin: warm and intact Objective Data Vital Signs Vital Signs: Vital Signs Temp Pulse Resp BP Pulse Ox 11/16/21 07:54 70 17 99 11/16/21 06:23 70 11/16/21 06:12 36.4 C L 89 17 126/63 99 11/16/21 05:29 36.6 C 89 17 126/63 99 11/16/21 04:00 80 11/16/21 00:00 83 11/15/21 23:38 97 11/15/21 23:36 81 20 97 11/15/21 21:39 36.3 C L 83 20 128/44 L 99 11/15/21 20:22 74 11/15/21 20:00 74 21 H 100 11/15/21 16:00 78 11/15/21 13:55 35.6 C L 82 21 H 144/61 H 100
--- NOTE | 2021-11-16 10:32 | PM.PNNEP ---
Progress Note: A&P Assessment and Plan (1) Acute kidney injury: Code(s): N17.9 - Acute kidney failure, unspecified Status: Acute Assessment and Plan: due to a combination of infection and possibly use of Bactrim likely has a component of chronic prerenal azotemia from her aortic stenosis + pulmonary HTN suspect also has a component of renal venous HTN as creatinine has improved with diuretic therapy creatinine peaked at 3.2mg/dl evaluation to date: renal ultrasound with CKD urine electrolytes are non-prerenal mild proteinuria of ~ 800mg follow trend of repeat labs and UOP (2) Chronic kidney disease, stage 4 (severe): Code(s): N18.4 - Chronic kidney disease, stage 4 (severe) Status: Chronic Assessment and Plan: baseline creatinine runs around 1.7 - 2.2mg/dl (although has been higher in the last few months) due to HTN, DM, vascular disease, and age (3) Benign hypertension: Code(s): I10 - Essential (primary) hypertension Status: Chronic Assessment and Plan: reasonable control at this time follow trend of hemodynamics (4) Community acquired pneumonia: Qualifiers: Laterality: unspecified laterality Qualified Code(s): J18.9 - Pneumonia, unspecified organism Code(s): J18.9 - Pneumonia, unspecified organism Status: Acute Assessment and Plan: appears to be clinically improving on antibiotic therapy (5) Staphylococcal arthritis, left elbow: Code(s): M00.022 - Staphylococcal arthritis, left elbow Status: Acute Assessment and Plan: continue supportive therapy on antibiotics (6) Gouty tophi of joint: Code(s): M1A.9XX1 - Chronic gout, unspecified, with tophus (tophi) Status: Chronic Assessment and Plan: on uloric (7) Type 2 diabetes mellitus with hyperglycemia, with long-term current use of insulin: Code(s): E11.65 - Type 2 diabetes mellitus with hyperglycemia; Z79.4 - public health inspector (current) use of insulin Status: Chronic Assessment and Plan: follow Accu-Cheks on sliding-scale insulin Will continue to follow Subjective Date/time seen: 11/16/21 10:32 No acute complaints voiced at the time of my visit; states breathing/respiratory status seems stable if not better currently; no other acute complaints voiced; no reported issues/events overnight or earlier this morning; low K+ noted by AM labs -- repleted this AM and repeat labs ordered for later today. Exam Narrative: General: elderly female in NAD Heart: normal S1 and S2; no rub Lungs: decreased at bases Abdomen: soft, nontender, nondistended, positive bowel sounds Extremities: no cyanosis or clubbing; 1+ edema Skin: warm and intact Objective Data Vital Signs Vital Signs: Vital Signs Temp Pulse Resp BP Pulse Ox 11/16/21 07:54 70 17 99 11/16/21 06:23 70 11/16/21 06:12 36.4 C L 89 17 126/63 99 11/16/21 05:29 36.6 C 89 17 126/63 99 11/16/21 04:00 80 11/16/21 00:00 83 11/15/21 23:38 97 11/15/21 23:36 81 20 97 11/15/21 21:39 36.3 C L 83 20 128/44 L 99 11/15/21 20:22 74 11/15/21 20:00 74 21 H 100 11/15/21 16:00 78 11/15/21 13:55 35.6 C L 82 21 H 144/61 H 100 11/15/21 12:00 86 Intake/Output Intake/Output: Intake & Output 11/13/21 11/14/21 11/15/21 11/16/21 23:59 23:59 23:59 23:59 Intake Total 1530 1890 1900 315 Output Total 4850 3250 1800 1000 Balance -3320 -1360 100 -685 Meds/Results Medications: Active Medications Generic Name Dose Route Start Last Admin Trade Name Marissa PRN Reason Stop Dose Admin Acetaminophen 650 mg 11/07/21 14:20 11/12/21 20:11 Acetaminophen 325 Mg Tablet PO 650 mg Q4H PRN Administration Mild Pain (1-3) or Fever Hydrocodone Bitart/Acetaminophen 1 tab 11/07/21 14:20 Hydrocodone/Acetaminophen (*Crx) 5-325 Mg Tablet PO Q4H PRN
[2021-11-16 12:01] LABS: Glucose Point of Care 375 mg/dl (65-105)
[2021-11-16] MEDS: INSULIN ASPART (*BKC) 100 UNITS/ML SUB-Q ×3 (12:20→20:01)
[2021-11-16 12:28] LABS: Calcium 6.4 mg/dL (8.4-10.2); Carbon Dioxide > 40 mmol/L (22-30); Chloride 80 mmol/L (98-107); Estimated CRCL calculation 27 ml/min; Estimated Glomerular Filt Rate 27; Glucose 352 mg/dL (65-110); Potassium 3.3 mmol/L (3.4-5.0); Sodium 129 mmol/L (137-145)
[2021-11-16 12:32] LABS: Magnesium 1.7 mg/dL (1.6-2.3)
[2021-11-16 12:45] LABS: Blood Urea Nitrogen 119 mg/dL (7-17)
--- NOTE | 2021-11-16 12:52 | PM.PNPUL ---
Progress Note: A&P Assessment and Plan (1) CHF exacerbation: Qualifiers: Heart failure type: unspecified Qualified Code(s): I50.9 - Heart failure, unspecified Code(s): I50.9 - Heart failure, unspecified Status: Acute (2) Acute hypoxemic respiratory failure: Code(s): J96.01 - Acute respiratory failure with hypoxia Status: Acute Assessment and Plan: 81-year-old female with history of chronic hypercapnic hypoxemic respiratory failure related to obesity hypoventilation, history of congestive heart failure, atrial fibrillation, chronic kidney disease, chronically on home ventilatory support via trilogy ventilator, presented with increasing shortness of breath. Chest CT done on admission showed moderate-sized left and small right pleural effusions with patchy groundglass opacities of the lungs, cardiomegaly. Patient has been on diuresis with clinical improvement of shortness of breath and also lower extremity edema. Patient using home ventilator at night. She sleeps well on trilogy ventilator. Apnea link measured last night showed no evidence of oxyhemoglobin desaturation on current settings. Pleural fluid analysis showed absence of empyema as pH is normal. Remainder pleural fluid analysis pending. will get two view chest x-ray in a.m. (3) Bilateral lower extremity edema: Code(s): R60.0 - Localized edema Status: Acute (4) Chronic kidney disease, stage 4 (severe): Code(s): N18.4 - Chronic kidney disease, stage 4 (severe) Status: Chronic (5) Atrial fibrillation: Code(s): I48.91 - Unspecified atrial fibrillation Status: Acute (6) Pleural effusion: Code(s): J90 - Pleural effusion, not elsewhere classified Status: Acute (7) Obstructive sleep apnea on CPAP: Code(s): G47.33 - Obstructive sleep apnea (adult) (pediatric); Z99.89 - Dependence on other enabling machines and devices Status: Acute Subjective Date/time seen: 11/16/21 12:52 patient without new respiratory symptoms. She stated her breathing is better. Using noninvasive ventilatory support at night. Remains on supplemental oxygen but at a lower FiO2. Pleural fluid analysis pending. Review of Systems Review of Systems: All systems reviewed & are unremarkable except as noted in HPI and below Exam Narrative: GENERAL APPEARANCE: Well developed, well nourished, morbidly obese, alert and cooperative, sitting upright in the bed, no respiratory distress while on supplemental oxygen HEENT: Sclerae anicteric and conjunctivae pink and moist. Extraocular movements were intact and pupils were equal, round. LUNGS: decreased breath sounds both bases with few crackles higher in the lung rodarte, no wheezing. CARDIAC: There was a regular rate and rhythm without any murmurs ABDOMEN: Soft and nontender with normal bowel sounds. There was no organomegaly. EXTREMITIES: No cyanosis, clubbing. 1+ edema in lower extremities. NEUROLOGIC: Alert and oriented x 3. Normal affect. Objective Data Vital Signs Vital Signs: Vital Signs - 24 hr 11/15/21 13:55 11/15/21 16:00 11/15/21 20:00 Temperature 35.6 C L Pulse Rate 82 78 74 Respiratory Rate 21 H 21 H Blood Pressure 144/61 H Pulse Oximetry 100 100 11/15/21 20:22 11/15/21 21:39 11/15/21 23:36 Temperature 36.3 C L Pulse Rate 74 83 81 Respiratory Rate 20 20 Blood Pressure 128/44 L Pulse Oximetry 99 97 11/15/21 23:38 11/16/21 00:00 11/16/21 04:00 Temperature Pulse Rate 83 80 Respiratory Rate Blood Pressure Pulse Oximetry 97 11/16/21 05:29 11/16/21 06:12 11/16/21 06:23 Temperature 36.6 C 36.4 C L Pulse Rate 89 89 70 Respiratory Rate 17 17 Blood Pressure 126/63 126/63 Pulse Oximetry 99 99 11/16/21 07:54 11/16/21 08:00 Temperature Pulse Rate 70 70 Respiratory Rate 17 Blood Pressure Pulse Oximetry 99 Intake/Output Intake/Output: Intake & Output 11/13/21 0
[2021-11-16] MEDS: MAGNESIUM SULF 2 GM/WATER 50ML 2 GM/50 ML BAG IVPB (15:18)
[2021-11-16 16:58] LABS: Glucose Point of Care 269 mg/dl (65-105)
[2021-11-16] MEDS: INSULIN HUMAN NPH (*BKC) 100 UNITS/ML 20 UNITS SUB-Q (17:24)
[2021-11-16] MEDS: INSULIN ASPART (*BKC) 100 UNITS/ML 10 UNITS SUB-Q (17:24)
[2021-11-16] MEDS: BUMETANIDE 1 MG TABLET PO (17:25)
[2021-11-16] MEDS: WARFARIN (*PBKC) 5 MG TABLET PO (17:25)
[2021-11-16] MEDS: SIMVASTATIN 10 MG TABLET PO (20:01)
[2021-11-16 20:05] LABS: Glucose Pleural Fluid 306 mg/dL; LDH Pleural Fluid 61 U/L; Total Protein Pleural Fluid <3.0 g/dL
[2021-11-16 20:08] LABS: Glucose Point of Care 224 mg/dl (65-105)
[2021-11-17] VITALS (18 sets, daily range): BP systolic 119–137; BP diastolic 49–73; PULSE 68–91; RESP 16–20; TEMP 36.1–36.7; O2SAT 94–100
[2021-11-17 05:48] LABS: Basophils Percent Auto 0.2 % (0.2-1.2); Hematocrit 35.8 % (37.0-47.0); Hemoglobin 12.2 g/dL (12.0-15.0); Immature Granulocyte Absolute 0.44 K/mm3 (0.00-0.031); Lymphocytes Absolute Auto 0.17 K/mm3 (0.9-3.2); Lymphocytes Percent Auto 0.8 % (18.3-44.2); Mean Corpuscular HGB Conc 34.1 g/dl (32-36); Mean Corpuscular Hemoglobin 36.5 pg (26-34); Mean Corpuscular Volume 107.2 fl (80-100); Mean Platelet Volume 11.5 fl (7.4-10.4); Monocytes Absolute Auto 1.5 K/mm3 (0.1-0.6); Monocytes Percent Auto 6.9 % (2.6-8.5); Neutrophils Absolute Auto 19.7 K/mm3 (1.3-6.7); Neutrophils Percent Auto 90.1 % (45.5-73.1); Nucleated Red Blood Cells Absolute Auto 0.1 K/mm3 (0.0-0.012); Nucleated Red Blood Cells Perc 0.4 % (0.0-0.2); Platelet Count Result 157 k/mm3 (150-375); Red Blood Count 3.34 M/mm3 (4.2-5.4); Red Cell Distribution Width 15.4 % (11.5-14.5); White Blood Count 21.9 K/mm3 (4.5-10.0)
[2021-11-17 06:02] LABS: INR 1.5; Prothrombin Time 17.2 Seconds (11.1-14.7)
[2021-11-17 06:10] LABS: Uric Acid 8.7 mg/dL (2.5-7.5)
[2021-11-17] MEDS: LEVOTHYROXINE SODIUM 100 MCG TABLET 200 MCG PO (06:10)
[2021-11-17] MEDS: METOPROLOL TARTRATE 25 MG TABLET PO ×3 (06:13→21:28)
[2021-11-17 06:18] LABS: Alanine Aminotransferase 287 U/L (4-35); Albumin Level 3.4 g/dL (3.5-5.1); Alkaline Phosphatase 273 U/L (38-126); Aspartate Amino Transferase 136 U/L (14-36); Bilirubin,Total 1.3 mg/dL (0.2-1.3); Blood Urea Nitrogen 116 mg/dL (7-17); Calcium 6.4 mg/dL (8.4-10.2); Carbon Dioxide > 40 mmol/L (22-30); Chloride 81 mmol/L (98-107); Estimated CRCL calculation 27 ml/min; Estimated Glomerular Filt Rate 27; Glucose 47 mg/dL (65-110); Potassium 3.1 mmol/L (3.4-5.0); Sodium 132 mmol/L (137-145)
[2021-11-17 06:41] LABS: Glucose Point of Care 56 mg/dl (65-105)
[2021-11-17] MEDS: GLUCOSE ORAL GEL 15 GM OF GLUCSE IN 37.5 GM TUBE PO (06:41)
[2021-11-17 07:10] LABS: Glucose Point of Care 124 mg/dl (65-105)
[2021-11-17 07:29] LABS: Glucose Point of Care 130 mg/dl (65-105)
[2021-11-17] MEDS: INSULIN GLARGINE (*BKC) 100 UNITS/ML 30 UNITS SUB-Q (08:30)
--- NOTE | 2021-11-17 08:38 | PM.PNCARD ---
Progress Note: A&P Assessment and Plan (1) Heart failure with preserved ejection fraction: Code(s): I50.30 - Unspecified diastolic (congestive) heart failure Status: Acute Assessment and Plan: Clinically, patient is a very complicated and her shortness of breath is multifactorial. She has chronic hypoxic and hypercapnic respiratory failure along with obesity and YUDELKA on home trilogy unit, permanent atrial fibrillation, heart failure with preserved ejection fraction, and moderate to severe aortic stenosis along with severe pulmonary hypertension. She has had good response to her current diuretic regimen. Shortness of breath improving and LE edema markedly improved. Continue Bumex 1mg p.o. b.i.d. Continue to be cautious given severity of her aortic stenosis avoid significant hypotension and or intravascular volume depletion. Renal function is stable today. Monitor BMP daily and replace electrolytes as necessary. Started KCL 20 mEq b.i.d. today. She has significant valvular heart disease. His aortic stenosis, mitral regurgitation and tricuspid regurgitation. (2) Acute and chronic respiratory failure with hypoxia: Code(s): J96.21 - Acute and chronic respiratory failure with hypoxia Status: Acute Assessment and Plan: Per primary service and pulmonology. Continue supportive therapy with bronchodilator, trilogy, O2 supplementation and impending thoracentesis. Anticoagulation has been resumed at this point. (3) Aortic stenosis: Code(s): I35.0 - Nonrheumatic aortic (valve) stenosis Status: Acute Assessment and Plan: Severe. Patient to have short interval follow up with Dr. Mahan after discharge. (4) Persistent atrial fibrillation: Code(s): I48.19 - Other persistent atrial fibrillation Status: Acute Assessment and Plan: Longstanding persistent atrial fibrillation. Patient has a pacemaker. Anticoagulation goal INR 2-3. (5) Obstructive sleep apnea on CPAP: Code(s): G47.33 - Obstructive sleep apnea (adult) (pediatric); Z99.89 - Dependence on other enabling machines and devices Status: Acute Assessment and Plan: As above, trilogy support. (6) Chronic anticoagulation: Code(s): Z79.01 - santa[employer] helper (current) use of anticoagulants Status: Acute Assessment and Plan: On warfarin. INR 1.5 today. (7) Transaminitis: Code(s): R74.01 - Elevation of levels of liver transaminase levels Status: Acute Assessment and Plan: workup underway, negative hepatitis panel elevated LDH, CT revealed cystic lesions pancreatic body. Abdominal ultrasound post cholecystectomy no bile duct dilatation old granulomatous disease. Defer further management to primary service. Subjective Date/time seen: 11/17/21 08:38 Interval history: 81-year-old female with a past medical history significant for moderate to severe aortic stenosis, severe pulmonary hypertension RVSP 61 mm Hg, heart failure with preserved ejection fraction, COPD, chronic hypoxic and hypercapnic respiratory failure on home O2 1.5 L and trilogy unit, history of tracheostomy, permanent atrial fibrillation, sick sinus syndrome status post [employer] pacemaker on anticoagulation with warfarin, chronic kidney disease stage 4, hypertension, type 2 diabetes mellitus who presented to the emergency department complaints of progressive shortness of breath Date of service 11/13/2021: She feels about the same. No significant improvement. Admits to shortness of breath swelling. She has no chest pain though. Overall simply feels poorly Date of service 11/14/2021: She feels better today. She is less short of breath. Her edema has markedly improved. No Chest pain Date of service 11/15/2021: Continues to improve. Her swelling is better. Still has some shortness of breath is also improving. Denies any chest pain, palpitations. No complaints today.
[2021-11-17] MEDS: CYANOCOBALAMIN 1,000 MCG TABLET 1000 MCG PO (08:43)
[2021-11-17] MEDS: BUMETANIDE 1 MG TABLET PO ×2 (08:43→17:39)
[2021-11-17] MEDS: metOLazone 2.5 MG TABLET PO (08:43)
[2021-11-17] MEDS: CHOLECALCIFEROL 1,000 UNITS TABLET 1000 UNITS PO (08:43)
[2021-11-17] MEDS: FEBUXOSTAT 40 MG TABLET PO (08:43)
[2021-11-17] MEDS: GABAPENTIN 100 MG CAPSULE PO ×2 (08:43→17:38)
[2021-11-17] MEDS: FINASTERIDE 5 MG TABLET PO (08:43)
[2021-11-17] MEDS: SILVERGEL (ELTA) 45 ML 1 APPLIC TOPICAL (08:44)
--- NOTE | 2021-11-17 10:45 | P.PNIM_ITS ---
Progress Note: A&P Assessment and Plan (1) Pleural effusion: Code(s): J90 - Pleural effusion, not elsewhere classified Status: Acute Assessment and Plan: * CT showed Moderate left sided pleural effusion * Thoracentesis removed 650ml * Gram positive cocci in the anaerobic culture from the pleural effusion * Continue Vanc and cefepime * diagnostics still NGTD except anaerobic culture for gram positive cocci, oliva gaston, is rare (2) Community acquired pneumonia: Qualifiers: Laterality: unspecified laterality Qualified Code(s): J18.9 - Pneumonia, unspecified organism Code(s): J18.9 - Pneumonia, unspecified organism Status: Acute Assessment and Plan: * White blood cell count was 15.1 upon admission is 19.2 today. * Chest xray (11-17-21) Has no changes noted * Continue vanco and cefepime * Sputum culture and blood cultures NGTD * Pleural labs does look to be growing gram positive cocci in clusters * Continue trend labs (3) CHF exacerbation: Qualifiers: Heart failure type: unspecified Qualified Code(s): I50.9 - Heart failure, unspecified Code(s): I50.9 - Heart failure, unspecified Status: Acute Assessment and Plan: * She is in an acute diastolic heart failure exacerbation * Continue metolazone 2.5mg PO daily and bumex 1mg IV BID * Continue with metoprolol * Trend urine output * Daily weights * urinary catheter for accurate I&Os * Echo 55-60% moderate to severe aortic valve stenosis, moderate right and severe left atrial chamber enlargement, and an indeterminate diastolic dy sfunction * Consulted pulmonology and cardiology for further help (4) COPD exacerbation: Code(s): J44.1 - Chronic obstructive pulmonary disease with (acute) exacerbation Status: Acute Assessment and Plan: * Continue with inhalers from home and nebulizers. * Supplemental oxygen, wean to maintain saturations * Continue vanco and cefepime * Increase in sputum, oxygen, and wheeze (5) Acute hypoxemic respiratory failure: Code(s): J96.01 - Acute respiratory failure with hypoxia Status: Acute Assessment and Plan: * oxygen at 1.5 L and is up to 3 L at home * Currently on 2L * Continue to trend * titrate as indicated * Cxray (11-17-21) No changes to PNA * CT (11-12-21) Moderate-sized left and small right pleural effusions, Patchy groundglass opacities of the lungs, consistent with pneumonia and/or mild pulmonary edema, Cardiomegaly. * Diuresis per cards and nephrology * ABG pH 7.361, CO2 48.8, O2 60.9, HCO3 27.0, Saturation 90.3 (6) Staphylococcal arthritis, left elbow: Code(s): M00.022 - Staphylococcal arthritis, left elbow Status: Acute Assessment and Plan: * The patient had been on Bactrim for her left elbow * Currently on Rocephin * Culture from September for staph * Current antibiotics should cover the supposed infection * Wound consult (7) Anemia: Code(s): D64.9 - Anemia, unspecified Status: Chronic Assessment and Plan: Patient is at her baseline continue to monitor. (8) Hypertension: Code(s): I10 - Essential (primary) hypertension Status: Chronic Assessment and Plan: * Current BP is 119/57 * Continue with metoprolol * Trend BP * Adjust therapy as indicated (9) Bilateral lower extremity edema: Code(s): R60.0 - Localized edema Status:
--- NOTE | 2021-11-17 10:45 | PM.IMPN ---
Progress Note: A&P Assessment and Plan (1) Pleural effusion: Code(s): J90 - Pleural effusion, not elsewhere classified Status: Acute Assessment and Plan: CT showed Moderate left sided pleural effusion Thoracentesis removed 650ml Gram positive cocci in the anaerobic culture from the pleural effusion Continue Vanc and cefepime diagnostics still NGTD except anaerobic culture for gram positive cocci, however, is rare (2) Community acquired pneumonia: Qualifiers: Laterality: unspecified laterality Qualified Code(s): J18.9 - Pneumonia, unspecified organism Code(s): J18.9 - Pneumonia, unspecified organism Status: Acute Assessment and Plan: White blood cell count was 15.1 upon admission is 19.2 today. Chest xray (11-17-21) Has no changes noted Continue vanco and cefepime Sputum culture and blood cultures NGTD Pleural labs does look to be growing gram positive cocci in clusters Continue trend labs (3) CHF exacerbation: Qualifiers: Heart failure type: unspecified Qualified Code(s): I50.9 - Heart failure, unspecified Code(s): I50.9 - Heart failure, unspecified Status: Acute Assessment and Plan: She is in an acute diastolic heart failure exacerbation Continue metolazone 2.5mg PO daily and bumex 1mg IV BID Continue with metoprolol Trend urine output Daily weights urinary catheter for accurate I&Os Echo 55-60% moderate to severe aortic valve stenosis, moderate right and severe left atrial chamber enlargement, and an indeterminate diastolic dysfunction Consulted pulmonology and cardiology for further help (4) COPD exacerbation: Code(s): J44.1 - Chronic obstructive pulmonary disease with (acute) exacerbation Status: Acute Assessment and Plan: Continue with inhalers from home and nebulizers. Supplemental oxygen, wean to maintain saturations Continue vanco and cefepime Increase in sputum, oxygen, and wheeze (5) Acute hypoxemic respiratory failure: Code(s): J96.01 - Acute respiratory failure with hypoxia Status: Acute Assessment and Plan: oxygen at 1.5 L and is up to 3 L at home Currently on 2L Continue to trend titrate as indicated Cxray (11-17-21) No changes to PNA CT (11-12-21) Moderate-sized left and small right pleural effusions, Patchy groundglass opacities of the lungs, consistent with pneumonia and/or mild pulmonary edema, Cardiomegaly. Diuresis per cards and nephrology ABG pH 7.361, CO2 48.8, O2 60.9, HCO3 27.0, Saturation 90.3 (6) Staphylococcal arthritis, left elbow: Code(s): M00.022 - Staphylococcal arthritis, left elbow Status: Acute Assessment and Plan: The patient had been on Bactrim for her left elbow Currently on Rocephin Culture from September for staph Current antibiotics should cover the supposed infection Wound consult (7) Anemia: Code(s): D64.9 - Anemia, unspecified Status: Chronic Assessment and Plan: Patient is at her baseline continue to monitor. (8) Hypertension: Code(s): I10 - Essential (primary) hypertension Status: Chronic Assessment and Plan: Current BP is 119/57 Continue with metoprolol Trend BP Adjust therapy as indicated (9) Bilateral lower extremity edema: Code(s): R60.0 - Localized edema Status: Acute Assessment and Plan: Venous Dopplers Negative continue with diuretics Continue long-term anticoagulation and is therapeutic Seems to be getting better (10) Vitamin D deficiency, unspecified: Code(s): E55.9 - Vitamin D deficiency, unspecified Status: Acute Assessment and Plan: Continue with supplement. (11) Acute renal insufficiency: Code(s): N28.9 - Disorder of kidney and ureter, unspecified Status: Acute Assessment and Plan: Current BUN/Cr 116/1.80 See ulises
[2021-11-17 11:55] LABS: Glucose Point of Care 360 mg/dl (65-105)
--- NOTE | 2021-11-17 12:19 | P.PNNP_ITS ---
Progress Note: A&P Assessment and Plan (1) Acute kidney injury: Code(s): N17.9 - Acute kidney failure, unspecified Status: Acute Assessment and Plan: * resolving/resolved * due to a combination of infection and possibly use of Bactrim * likely has a component of chronic prerenal azotemia from her aortic stenosis + pulmonary HTN * suspect also has a component of renal venous HTN as creatinine has improved with diuretic therapy * creatinine peaked at 3.2mg/dl * evaluation to date: * renal ultrasound with CKD * urine electrolytes are non-prerenal * mild proteinuria of ~ 800mg * replete K+ as needed * follow trend of repeat labs and UOP (2) Chronic kidney disease, stage 4 (severe): Code(s): N18.4 - Chronic kidney disease, stage 4 (severe) Status: Chronic Assessment and Plan: * baseline creatinine runs around 1.7 - 2.2mg/dl (although has been higher in the last few months) * due to HTN, DM, vascular disease, and age (3) Acute hypoxemic respiratory failure: Code(s): J96.01 - Acute respiratory failure with hypoxia Status: Acute Assessment and Plan: * several issues playing a role: * CHF * COPD * YUDELKA * pneumonia * pleural effusion * continue ongoing therapy as outlined (4) Hyponatremia: Code(s): E87.1 - Hypo-osmolality and hyponatremia Status: Acute Assessment and Plan: * presumably from fluctuating fluid status, use of thiazide diuretics (metolazone), and underlying lung issues (see #3) * consider holding/stopping metolazone * follow trend (5) Benign hypertension: Code(s): I10 - Essential (primary) hypertension Status: Chronic Assessment and Plan: * reasonable control at this time * follow trend of hemodynamics (6) Community acquired pneumonia: Qualifiers: Laterality: unspecified laterality Qualified Code(s): J18.9 - Pneumonia, unspecified organism Code(s): J18.9 - Pneumonia, unspecified organism Status: Acute Assessment and Plan: * appears to be clinically improving * on antibiotic therapy (7) Staphylococcal arthritis, left elbow: Code(s): M00.022 - Staphylococcal arthritis, left elbow Status: Acute Assessment and Plan: * continue supportive therapy * on antibiotics (8) Type 2 diabetes mellitus with hyperglycemia, with long-term current use of insulin: Code(s): E11.65 - Type 2 diabetes mellitus with hyperglycemia; Z79.4 - USP (current) use of insulin Status: Chronic Assessment and Plan: * follow Accu-Cheks * on sliding-scale insulin Will continue to follow Subjective Date/time seen: 11/17/21 12:19 Overall, states that her she feels better and her breathing continues to improve; major complaint is that of fatigue and generalized weakness -- she feels she is not bouncing back like she has in the past; no other acute issues/concerns to report; no evets/issues overnight or earlier this AM. Exam Narrative: General: elderly female in NAD Heart: normal S1 and S2; no rub Lungs: decreased at bases Abdomen: soft, nontender, nondistended, positive bowel sounds Extremities: no cyanosis or clubbing; 1+ edema Skin: no rash Objective Data Vital Signs Vital Signs: Vital Signs 11/17/21 04:00 11/17/21 06:00 11/17/21 06:13 Tem
--- NOTE | 2021-11-17 12:19 | PM.PNNEP ---
Progress Note: A&P Assessment and Plan (1) Acute kidney injury: Code(s): N17.9 - Acute kidney failure, unspecified Status: Acute Assessment and Plan: resolving/resolved due to a combination of infection and possibly use of Bactrim likely has a component of chronic prerenal azotemia from her aortic stenosis + pulmonary HTN suspect also has a component of renal venous HTN as creatinine has improved with diuretic therapy creatinine peaked at 3.2mg/dl evaluation to date: renal ultrasound with CKD urine electrolytes are non-prerenal mild proteinuria of ~ 800mg replete K+ as needed follow trend of repeat labs and UOP (2) Chronic kidney disease, stage 4 (severe): Code(s): N18.4 - Chronic kidney disease, stage 4 (severe) Status: Chronic Assessment and Plan: baseline creatinine runs around 1.7 - 2.2mg/dl (although has been higher in the last few months) due to HTN, DM, vascular disease, and age (3) Acute hypoxemic respiratory failure: Code(s): J96.01 - Acute respiratory failure with hypoxia Status: Acute Assessment and Plan: several issues playing a role: CHF COPD YUDELKA pneumonia pleural effusion continue ongoing therapy as outlined (4) Hyponatremia: Code(s): E87.1 - Hypo-osmolality and hyponatremia Status: Acute Assessment and Plan: presumably from fluctuating fluid status, use of thiazide diuretics (metolazone), and underlying lung issues (see #3) consider holding/stopping metolazone follow trend (5) Benign hypertension: Code(s): I10 - Essential (primary) hypertension Status: Chronic Assessment and Plan: reasonable control at this time follow trend of hemodynamics (6) Community acquired pneumonia: Qualifiers: Laterality: unspecified laterality Qualified Code(s): J18.9 - Pneumonia, unspecified organism Code(s): J18.9 - Pneumonia, unspecified organism Status: Acute Assessment and Plan: appears to be clinically improving on antibiotic therapy (7) Staphylococcal arthritis, left elbow: Code(s): M00.022 - Staphylococcal arthritis, left elbow Status: Acute Assessment and Plan: continue supportive therapy on antibiotics (8) Type 2 diabetes mellitus with hyperglycemia, with long-term current use of insulin: Code(s): E11.65 - Type 2 diabetes mellitus with hyperglycemia; Z79.4 - assisted (current) use of insulin Status: Chronic Assessment and Plan: follow Accu-Cheks on sliding-scale insulin Will continue to follow Subjective Date/time seen: 11/17/21 12:19 Overall, states that her she feels better and her breathing continues to improve; major complaint is that of fatigue and generalized weakness -- she feels she is not bouncing back like she has in the past; no other acute issues/concerns to report; no evets/issues overnight or earlier this AM. Exam Narrative: General: elderly female in NAD Heart: normal S1 and S2; no rub Lungs: decreased at bases Abdomen: soft, nontender, nondistended, positive bowel sounds Extremities: no cyanosis or clubbing; 1+ edema Skin: no rash Objective Data Vital Signs Vital Signs: Vital Signs 11/17/21 04:00 11/17/21 06:00 11/17/21 06:13 Temperature 36.4 C L Pulse Rate 69 71 70 Respiratory Rate 20 Blood Pressure 119/57 L Pulse Oximetry 100 11/17/21 07:35 11/17/21 08:00 11/17/21 08:17 Temperature Pulse Rate 70 71 Respiratory Rate 20 Blood Pressure Pulse Oximetry 100 99 11/17/21 12:00 Temperature Pulse Rate 73 Respiratory Rate Blood Pressure Pulse Oximetry Intake/Output Intake/Output: Intake & Output 11/14/21 11/15/21 11/16/21 11/17/21 23:59 23:59 23:59 23:59 Intake Total 1890 1950 945 315 Output Total 3250 1800 2800 1650 Balance -1360 798 -1756 -6331 Meds/Results Medications: Active Medications
[2021-11-17] MEDS: INSULIN ASPART (*BKC) 100 UNITS/ML SUB-Q ×3 (12:36→21:28)
[2021-11-17] MEDS: INSULIN ASPART (*BKC) 100 UNITS/ML 10 UNITS SUB-Q ×2 (12:37→17:41)
[2021-11-17 13:17] LABS: Add Urine Microscopic? YES; Appearance Urine Cloudy (Clear); Bacteria Urine Trace /hpf; Bilirubin Urine Negative (Negative); Blood Urine 1+ (Negative); Budding Yeast Urine Present /hpf; Color Urine Straw (Yellow); Glucose Urine UA 3+ mg/dL (Negative); Ketones Urine Negative (Negative); Leukocyte Esterase Ur 2+ LEU/UL (Negative); Mucus Urine Rare /lpf; Nitrate Urine Negative (Negative); Protein Urine Negative (Negative); RBC Urine >75 /hpf (0-2); Specific Grav Ur 1.006 (1.001-1.035); Squamous Epithelial Cell Urine Occasional /hpf (Few); Urobilinogen Urine Negative mg/dL (<2.0); WBC Urine 31-50 /hpf
--- NOTE | 2021-11-17 15:26 | PCOTNOTE ---
The OT treatment was unable to be completed 11/17/21. Will continue plan of care 11/18/21.
[2021-11-17 16:56] LABS: Glucose Point of Care 298 mg/dl (65-105)
[2021-11-17] MEDS: POTASSIUM CHLORIDE 20 MEQ TABLET.ER PO (17:38)
[2021-11-17] MEDS: WARFARIN (*PBKC) 5 MG TABLET PO (17:39)
[2021-11-17 19:41] LABS: Albumin Pleural Fluid 0.7 g/dL
[2021-11-17 21:06] LABS: Glucose Point of Care 280 mg/dl (65-105)
[2021-11-17] MEDS: SIMVASTATIN 10 MG TABLET PO (21:28)
[2021-11-18] VITALS (16 sets, daily range): BP systolic 98–147; BP diastolic 43–83; PULSE 71–98; RESP 16–22; TEMP 35.8–36.4; O2SAT 96–100
[2021-11-18 00:54] LABS: Glucose Point of Care 33 mg/dl (65-105)
[2021-11-18] MEDS: GLUCOSE ORAL GEL 15 GM OF GLUCSE IN 37.5 GM TUBE PO (00:56)
--- NOTE | 2021-11-18 01:07 | PC.NURSE ---
pt is given 8U of novolog for a b/g of 280 this pm. Pt had a low reading this morning and this RN was concerned about pt getting too low after dose so b/g is checked. Pt has a b/g of 33 and is treated per protocol with physician informed. Pt has a sliding scale insulin that is due at 2100 based on her hs b/g level, pt has had low blood glucose x2 for the past 2 days after this dose. Dr. Buckner is informed and states that 2100 dose needs to be discontinued and that pt's daytime team will need to address this problem as well. Oncoming nurse will be informed.
[2021-11-18 01:27] LABS: Glucose Point of Care 69 mg/dl (65-105)
[2021-11-18 01:55] LABS: Glucose Point of Care 117 mg/dl (65-105)
[2021-11-18 06:05] LABS: Basophils Percent Auto 0.2 % (0.2-1.2); Eosinophils Percent Auto 0.1 % (0-4.4); Hematocrit 35.2 % (37.0-47.0); Hemoglobin 11.7 g/dL (12.0-15.0); Immature Granulocyte Absolute 0.23 K/mm3 (0.00-0.031); Immature Granulocyte Percent A 1.3 % (0-0.5); Lymphocytes Absolute Auto 0.28 K/mm3 (0.9-3.2); Lymphocytes Percent Auto 1.5 % (18.3-44.2); Mean Corpuscular HGB Conc 33.2 g/dl (32-36); Mean Corpuscular Hemoglobin 36.1 pg (26-34); Mean Corpuscular Volume 108.6 fl (80-100); Mean Platelet Volume 12.6 fl (7.4-10.4); Monocytes Absolute Auto 1.8 K/mm3 (0.1-0.6); Monocytes Percent Auto 9.6 % (2.6-8.5); Neutrophils Percent Auto 87.3 % (45.5-73.1); Nucleated Red Blood Cells Absolute Auto 0.1 K/mm3 (0.0-0.012); Nucleated Red Blood Cells Perc 0.3 % (0.0-0.2); Platelet Count Result 152 k/mm3 (150-375); Red Blood Count 3.24 M/mm3 (4.2-5.4); Red Cell Distribution Width 15.5 % (11.5-14.5); White Blood Count 18.4 K/mm3 (4.5-10.0)
[2021-11-18 06:12] LABS: INR 1.9; Prothrombin Time 21.2 Seconds (11.1-14.7)
[2021-11-18] MEDS: LEVOTHYROXINE SODIUM 100 MCG TABLET 200 MCG PO (06:20)
[2021-11-18] MEDS: METOPROLOL TARTRATE 25 MG TABLET PO ×3 (06:20→21:29)
[2021-11-18 06:22] LABS: Alanine Aminotransferase 216 U/L (4-35); Albumin Level 3.4 g/dL (3.5-5.1); Alkaline Phosphatase 274 U/L (38-126); Aspartate Amino Transferase 99 U/L (14-36); Blood Urea Nitrogen 114 mg/dL (7-17); Calcium 6.3 mg/dL (8.4-10.2); Carbon Dioxide > 40 mmol/L (22-30); Chloride 77 mmol/L (98-107); Estimated CRCL calculation 29 ml/min; Estimated Glomerular Filt Rate 29; Glucose 140 mg/dL (65-110); Magnesium 1.8 mg/dL (1.6-2.3); Potassium 3.2 mmol/L (3.4-5.0); Sodium 128 mmol/L (137-145)
[2021-11-18 07:54] LABS: Glucose Point of Care 126 mg/dl (65-105)
--- NOTE | 2021-11-18 09:00 | PM.IMPN ---
Progress Note: A&P Assessment and Plan (1) Pleural effusion: Code(s): J90 - Pleural effusion, not elsewhere classified Status: Acute Assessment and Plan: CT showed Moderate left sided pleural effusion 11/12/21 Thoracentesis removed 650ml Gram positive cocci in the anaerobic culture from the pleural effusion continue to pend at this time Continue Vanc and cefepime diagnostics still NGTD except anaerobic culture for gram positive cocci, however, is rare (2) Community acquired pneumonia: Qualifiers: Laterality: unspecified laterality Qualified Code(s): J18.9 - Pneumonia, unspecified organism Code(s): J18.9 - Pneumonia, unspecified organism Status: Acute Assessment and Plan: White blood cell count was 15.1 upon admission is 18.4 today. Chest xray (11-17-21) Has no changes noted Continue vanco and cefepime, DC vanco per pulmonology day 7 Sputum culture and blood cultures NGTD Pleural labs does look to be growing gram positive cocci in clusters Continue trend labs (3) CHF exacerbation: Qualifiers: Heart failure type: unspecified Qualified Code(s): I50.9 - Heart failure, unspecified Code(s): I50.9 - Heart failure, unspecified Status: Acute Assessment and Plan: She is in an acute diastolic heart failure exacerbation Continue metolazone 2.5mg PO daily and bumex 1mg IV BID Continue with metoprolol Trend urine output Daily weights urinary catheter for accurate I&Os Echo 55-60% moderate to severe aortic valve stenosis, moderate right and severe left atrial chamber enlargement, and an indeterminate diastolic dysfunction Consulted pulmonology and cardiology for further help Give one dose of Diamox since CO2 seems to be consistently >40 (4) COPD exacerbation: Code(s): J44.1 - Chronic obstructive pulmonary disease with (acute) exacerbation Status: Acute Assessment and Plan: Continue with inhalers from home and nebulizers. Supplemental oxygen, wean to maintain saturations Continue cefepime, dc vanc at this time Increase in sputum, oxygen, and wheeze (5) Acute hypoxemic respiratory failure: Code(s): J96.01 - Acute respiratory failure with hypoxia Status: Acute Assessment and Plan: oxygen at 1.5 L and is up to 3 L at home Currently on 2L Continue to trend titrate as indicated Cxray (11-17-21) No changes to PNA CT (11-12-21) Moderate-sized left and small right pleural effusions, Patchy groundglass opacities of the lungs, consistent with pneumonia and/or mild pulmonary edema, Cardiomegaly. Diuresis per cards and nephrology ABG pH 7.361, CO2 48.8, O2 60.9, HCO3 27.0, Saturation 90.3 (6) Staphylococcal arthritis, left elbow: Code(s): M00.022 - Staphylococcal arthritis, left elbow Status: Acute Assessment and Plan: The patient had been on Bactrim for her left elbow Currently on Rocephin Culture from September for staph Current antibiotics should cover the supposed infection Wound consult (7) Anemia: Code(s): D64.9 - Anemia, unspecified Status: Chronic Assessment and Plan: Patient is at her baseline continue to monitor. (8) Hypertension: Code(s): I10 - Essential (primary) hypertension Status: Chronic Assessment and Plan: Current BP is 147/83 Continue with metoprolol Trend BP Adjust therapy as indicated (9) Bilateral lower extremity edema: Code(s): R60.0 - Localized edema Status: Acute Assessment and Plan: Venous Dopplers Negative continue with diuretics Continue long-term anticoagulation and is therapeutic Seems to be getting better (10) Vitamin D deficiency, unspecified: Code(s): E55.9 - Vitamin D deficiency, unspecified Status: Acute Assessment and Plan: Continue with supplement. (11) Acute renal insufficiency:
--- NOTE | 2021-11-18 09:00 | P.PNIM_ITS ---
Progress Note: A&P Assessment and Plan (1) Pleural effusion: Code(s): J90 - Pleural effusion, not elsewhere classified Status: Acute Assessment and Plan: * CT showed Moderate left sided pleural effusion 11/12/21 * Thoracentesis removed 650ml * Gram positive cocci in the anaerobic culture from the pleural effusion continue to pend at this time * Continue Vanc and cefepime * diagnostics still NGTD except anaerobic culture for gram positive cocci, however, is rare (2) Community acquired pneumonia: Qualifiers: Laterality: unspecified laterality Qualified Code(s): J18.9 - Pneumonia, unspecified organism Code(s): J18.9 - Pneumonia, unspecified organism Status: Acute Assessment and Plan: * White blood cell count was 15.1 upon admission is 18.4 today. * Chest xray (11-17-21) Has no changes noted * Continue vanco and cefepime, DC vanco per pulmonology day 7 * Sputum culture and blood cultures NGTD * Pleural labs does look to be growing gram positive cocci in clusters * Continue trend labs (3) CHF exacerbation: Qualifiers: Heart failure type: unspecified Qualified Code(s): I50.9 - Heart failure, unspecified Code(s): I50.9 - Heart failure, unspecified Status: Acute Assessment and Plan: * She is in an acute diastolic heart failure exacerbation * Continue metolazone 2.5mg PO daily and bumex 1mg IV BID * Continue with metoprolol * Trend urine output * Daily weights * urinary catheter for accurate I&Os * Echo 55-60% moderate to severe aortic valve stenosis, moderate right and sev ere left atrial chamber enlargement, and an indeterminate diastolic dysfunction * Consulted pulmonology and cardiology for further help * Give one dose of Diamox since CO2 seems to be consistently >40 (4) COPD exacerbation: Code(s): J44.1 - Chronic obstructive pulmonary disease with (acute) exacerbation Status: Acute Assessment and Plan: * Continue with inhalers from home and nebulizers. * Supplemental oxygen, wean to maintain saturations * Continue cefepime, dc vanc at this time * Increase in sputum, oxygen, and wheeze (5) Acute hypoxemic respiratory failure: Code(s): J96.01 - Acute respiratory failure with hypoxia Status: Acute Assessment and Plan: * oxygen at 1.5 L and is up to 3 L at home * Currently on 2L * Continue to trend * titrate as indicated * Cxray (11-17-21) No changes to PNA * CT (11-12-21) Moderate-sized left and small right pleural effusions, Patchy groundglass opacities of the lungs, consistent with pneumonia and/or mild pulmonary edema, Cardiomegaly. * Diuresis per cards and nephrology * ABG pH 7.361, CO2 48.8, O2 60.9, HCO3 27.0, Saturation 90.3 (6) Staphylococcal arthritis, left elbow: Code(s): M00.022 - Staphylococcal arthritis, left elbow Status: Acute Assessment and Plan: * The patient had been on Bactrim for her left elbow * Currently on Rocephin * Culture from September for staph * Current antibiotics should cover the supposed infection * Wound consult (7) Anemia: Code(s): D64.9 - Anemia, unspecified Status: Chronic Assessment and Plan: Patient is at her baseline continue to monitor. (8) Hypertension: Code(s): I10 - Essential (primary) hypertension Status: Chronic Assessment and Plan: * Current BP is 147/83 * Continue with metoprolol * Trend BP
[2021-11-18] MEDS: POTASSIUM CHLORIDE 20 MEQ TABLET.ER PO ×2 (09:10→17:40)
[2021-11-18] MEDS: FEBUXOSTAT 40 MG TABLET PO (09:10)
[2021-11-18] MEDS: metOLazone 2.5 MG TABLET PO (09:10)
[2021-11-18] MEDS: BUMETANIDE 1 MG TABLET PO ×2 (09:10→17:40)
[2021-11-18] MEDS: FINASTERIDE 5 MG TABLET PO (09:10)
[2021-11-18] MEDS: GABAPENTIN 100 MG CAPSULE PO ×2 (09:10→17:39)
[2021-11-18] MEDS: CYANOCOBALAMIN 1,000 MCG TABLET 1000 MCG PO (09:10)
[2021-11-18] MEDS: CHOLECALCIFEROL 1,000 UNITS TABLET 1000 UNITS PO (09:10)
[2021-11-18] MEDS: SILVERGEL (ELTA) 45 ML 1 APPLIC TOPICAL (09:11)
[2021-11-18] MEDS: INSULIN GLARGINE (*BKC) 100 UNITS/ML 30 UNITS SUB-Q (09:28)
[2021-11-18 11:44] LABS: Glucose Point of Care 238 mg/dl (65-105)
--- NOTE | 2021-11-18 12:01 | PM.PNCARD ---
Progress Note: A&P Assessment and Plan (1) Heart failure with preserved ejection fraction: Code(s): I50.30 - Unspecified diastolic (congestive) heart failure Status: Acute Assessment and Plan: Clinically, patient is a very complicated and her shortness of breath is multifactorial. She has chronic hypoxic and hypercapnic respiratory failure along with obesity and YUDELKA on home trilogy unit, permanent atrial fibrillation, heart failure with preserved ejection fraction, and moderate to severe aortic stenosis along with severe pulmonary hypertension. She has had good response to her current diuretic regimen. Shortness of breath improving and LE edema markedly improved. Continue Bumex 1mg p.o. b.i.d. Continue to be cautious given severity of her aortic stenosis avoid significant hypotension and or intravascular volume depletion. Renal function is stable today. Monitor BMP daily and replace electrolytes as necessary. Started KCL 20 mEq b.i.d. today. She has significant valvular heart disease. His aortic stenosis, mitral regurgitation and tricuspid regurgitation. (2) Acute and chronic respiratory failure with hypoxia: Code(s): J96.21 - Acute and chronic respiratory failure with hypoxia Status: Acute Assessment and Plan: Per primary service and pulmonology. Continue supportive therapy with bronchodilator, trilogy, O2 supplementation and impending thoracentesis. Anticoagulation has been resumed at this point. (3) Aortic stenosis: Code(s): I35.0 - Nonrheumatic aortic (valve) stenosis Status: Acute Assessment and Plan: Severe. Patient to have short interval follow up with Dr. Mahan after discharge. (4) Persistent atrial fibrillation: Code(s): I48.19 - Other persistent atrial fibrillation Status: Acute Assessment and Plan: Longstanding persistent atrial fibrillation. Patient has a pacemaker. Anticoagulation goal INR 2-3. (5) Obstructive sleep apnea on CPAP: Code(s): G47.33 - Obstructive sleep apnea (adult) (pediatric); Z99.89 - Dependence on other enabling machines and devices Status: Acute Assessment and Plan: As above, trilogy support. 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 INR 1.9 today. (7) Transaminitis: Code(s): R74.01 - Elevation of levels of liver transaminase levels Status: Acute Assessment and Plan: workup underway, negative hepatitis panel elevated LDH, CT revealed cystic lesions pancreatic body. Abdominal ultrasound post cholecystectomy no bile duct dilatation old granulomatous disease. Defer further management to primary service. Subjective Date/time seen: Date of service 11/18/21 12:01 11/18-resting comfortably in bed. Shortness of breath improved. Does not have lower extremity edema. Review of Systems Review of Systems: All systems reviewed & are unremarkable except as noted in HPI and below Constitutional: Constitutional: Reports as per HPI, Reports no additional constitutional complaints, Reports fatigue and Reports lethargy Eyes: Eyes: Reports as per HPI and Reports no additional eye complaints ENT: Reports system reviewed and no additional complaints, except as documented and Reports as per HPI Cardiovascular: Cardiovascular: Reports as per HPI, Reports no additional cardiovascular complaints, Denies chest pain, Denies irregular heart rhythm, Reports leg ulcers, Reports leg edema, Denies palpitations, Reports dyspnea, Reports dyspnea on exertion and Reports orthopnea Respiratory: Respiratory: Reports as per HPI, Reports no additional respiratory complaints, Reports cough, Reports dyspnea and Reports dyspnea on exertion Gastrointestinal: Gastrointestinal: Reports as per HPI and Reports no additional gastrointestinal complaints Genitourinary: Genitourinary:
--- NOTE | 2021-11-18 12:15 | PM.PNPUL ---
Progress Note: A&P Assessment and Plan (1) CHF exacerbation: Qualifiers: Heart failure type: unspecified Qualified Code(s): I50.9 - Heart failure, unspecified Code(s): I50.9 - Heart failure, unspecified Status: Acute (2) Acute hypoxemic respiratory failure: Code(s): J96.01 - Acute respiratory failure with hypoxia Status: Acute Assessment and Plan: 81-year-old female with history of chronic hypercapnic hypoxemic respiratory failure related to obesity hypoventilation, history of congestive heart failure, atrial fibrillation, chronic kidney disease, chronically on home ventilatory support via trilogy ventilator, presented with increasing shortness of breath. Chest CT done on admission showed moderate-sized left and small right pleural effusions with patchy groundglass opacities of the lungs, cardiomegaly. Patient has been on diuresis with clinical improvement of shortness of breath and also lower extremity edema. Patient using home ventilator at night. She sleeps well on trilogy ventilator. Apnea link measured showed no evidence of oxyhemoglobin desaturation on current settings. Pleural fluid analysis showed absence of empyema as pH is normal. Pleural fluid analysis showed low albumin and low LDH most likely related to chronic transudate. On last chest x-ray there was significant decrease in size of pleural effusions. Leukocytosis persists. Could be related to urinary tract infection. Discussed leukocytosis with the hospitalist. Would discontinue urinary catheter. (3) Bilateral lower extremity edema: Code(s): R60.0 - Localized edema Status: Acute (4) Chronic kidney disease, stage 4 (severe): Code(s): N18.4 - Chronic kidney disease, stage 4 (severe) Status: Chronic (5) Atrial fibrillation: Code(s): I48.91 - Unspecified atrial fibrillation Status: Acute (6) Pleural effusion: Code(s): J90 - Pleural effusion, not elsewhere classified Status: Acute (7) Obstructive sleep apnea on CPAP: Code(s): G47.33 - Obstructive sleep apnea (adult) (pediatric); Z99.89 - Dependence on other enabling machines and devices Status: Acute Subjective Date/time seen: 11/18/21 12:15 patient has no new respiratory symptoms. Using noninvasive ventilatory support at night. Respiratory status overall significantly improved. WBC trending up. Patient has no fever chills or any respiratory symptoms to suggest lower respiratory tract infection. Review of Systems Review of Systems: All systems reviewed & are unremarkable except as noted in HPI and below Exam Narrative: GENERAL APPEARANCE: Well developed, well nourished, morbidly obese, alert and cooperative, sitting upright in the bed, no respiratory distress while on supplemental oxygen HEENT: Sclerae anicteric and conjunctivae pink and moist. Extraocular movements were intact and pupils were equal, round. LUNGS: decreased breath sounds both bases with few crackles higher in the lung rodarte, no wheezing. CARDIAC: There was a regular rate and rhythm without any murmurs ABDOMEN: Soft and nontender with normal bowel sounds. There was no organomegaly. EXTREMITIES: No cyanosis, clubbing. 1+ edema in lower extremities. NEUROLOGIC: Alert and oriented x 3. Normal affect. Objective Data Vital Signs Vital Signs: Vital Signs - 24 hr 11/17/21 14:24 11/17/21 15:10 11/17/21 16:00 Temperature 36.1 C L Pulse Rate 68 68 73 Respiratory Rate 16 Blood Pressure 137/49 L Pulse Oximetry 100 11/17/21 20:00 11/17/21 20:44 11/17/21 21:28 Temperature Pulse Rate 91 81 85 Respiratory Rate Blood Pressure Pulse Oximetry 94 11/17/21 21:45 11/17/21 21:53 11/17/21 21:54 Temperature 36.7 C 36.7 C Pulse Rate 69 81 81 Respiratory Rate 19 18 18 Blood Pressure 133/73 133/73 Pulse Oximetry 96 100 100 11/17/21 22:05 11/18/21 00:00 11/18/21 02:00 Temperature 36.7 C
--- NOTE | 2021-11-18 12:28 | P.PNNP_ITS ---
Progress Note: A&P Assessment and Plan (1) Acute kidney injury: Code(s): N17.9 - Acute kidney failure, unspecified Status: Acute Assessment and Plan: * resolving/resolved * due to a combination of infection and possibly use of Bactrim * likely has a component of chronic prerenal azotemia from her aortic stenosis + pulmonary HTN * suspect also has a component of renal venous HTN as creatinine has improved with diuretic therapy * creatinine peaked at 3.2mg/dl * evaluation to date: * renal ultrasound with CKD * urine electrolytes are non-prerenal * mild proteinuria of ~ 800mg * on scheduled potassium * follow trend of repeat labs and UOP (2) Chronic kidney disease, stage 4 (severe): Code(s): N18.4 - Chronic kidney disease, stage 4 (severe) Status: Chronic Assessment and Plan: * baseline creatinine runs around 1.7 - 2.2mg/dl (although has been higher in the last few months) * due to HTN, DM, vascular disease, and age (3) Acute hypoxemic respiratory failure: Code(s): J96.01 - Acute respiratory failure with hypoxia Status: Acute Assessment and Plan: * several issues playing a role: * CHF * COPD * YUDELKA * pneumonia * pleural effusion * continue ongoing therapy as outlined * seems reasonable to try IV diamox - consider scheduled oral dosing (4) Hyponatremia: Code(s): E87.1 - Hypo-osmolality and hyponatremia Status: Acute Assessment and Plan: * presumably from fluctuating fluid status, use of thiazide diuretics (metolazone), and underlying lung issues (see #3) * consider holding/stopping metolazone down the road * follow trend (5) Benign hypertension: Code(s): I10 - Essential (primary) hypertension Status: Chronic Assessment and Plan: * reasonable control at this time * follow trend of hemodynamics (6) Community acquired pneumonia: Qualifiers: Laterality: unspecified laterality Qualified Code(s): J18.9 - Pneumonia, unspecified organism Code(s): J18.9 - Pneumonia, unspecified organism Status: Acute Assessment and Plan: * appears to be clinically improving * on antibiotic therapy (7) Staphylococcal arthritis, left elbow: Code(s): M00.022 - Staphylococcal arthritis, left elbow Status: Acute Assessment and Plan: * continue supportive therapy * on antibiotics (8) Type 2 diabetes mellitus with hyperglycemia, with long-term current use of insulin: Code(s): E11.65 - Type 2 diabetes mellitus with hyperglycemia; Z79.4 - care home (current) use of insulin Status: Chronic Assessment and Plan: * follow Accu-Cheks * on sliding-scale insulin Will continue to follow Subjective Date/time seen: 11/18/21 12:28 Respiratory status seems stable at the time of my visit; still reporting significant fatigue/weakness but also seems about the same as yesterday; no other acute issues/complaints voiced; no acute issues/events overnight or earlier this AM. Exam Narrative: General: elderly female in NAD Heart: normal S1 and S2; no rub Lungs: decreased at bases Abdomen: soft, nontender, nondistended, positive bowel sounds Extremities: no cyanosis or clubbing; 1+ edema Skin: no nodules Objective Data Vital Signs Vital Signs: Vital Signs Temp Pulse Resp BP Pulse Ox 11/18/21 12:00 92
--- NOTE | 2021-11-18 12:28 | PM.PNNEP ---
Progress Note: A&P Assessment and Plan (1) Acute kidney injury: Code(s): N17.9 - Acute kidney failure, unspecified Status: Acute Assessment and Plan: resolving/resolved due to a combination of infection and possibly use of Bactrim likely has a component of chronic prerenal azotemia from her aortic stenosis + pulmonary HTN suspect also has a component of renal venous HTN as creatinine has improved with diuretic therapy creatinine peaked at 3.2mg/dl evaluation to date: renal ultrasound with CKD urine electrolytes are non-prerenal mild proteinuria of ~ 800mg on scheduled potassium follow trend of repeat labs and UOP (2) Chronic kidney disease, stage 4 (severe): Code(s): N18.4 - Chronic kidney disease, stage 4 (severe) Status: Chronic Assessment and Plan: baseline creatinine runs around 1.7 - 2.2mg/dl (although has been higher in the last few months) due to HTN, DM, vascular disease, and age (3) Acute hypoxemic respiratory failure: Code(s): J96.01 - Acute respiratory failure with hypoxia Status: Acute Assessment and Plan: several issues playing a role: CHF COPD YUDELKA pneumonia pleural effusion continue ongoing therapy as outlined seems reasonable to try IV diamox - consider scheduled oral dosing (4) Hyponatremia: Code(s): E87.1 - Hypo-osmolality and hyponatremia Status: Acute Assessment and Plan: presumably from fluctuating fluid status, use of thiazide diuretics (metolazone), and underlying lung issues (see #3) consider holding/stopping metolazone down the road follow trend (5) Benign hypertension: Code(s): I10 - Essential (primary) hypertension Status: Chronic Assessment and Plan: reasonable control at this time follow trend of hemodynamics (6) Community acquired pneumonia: Qualifiers: Laterality: unspecified laterality Qualified Code(s): J18.9 - Pneumonia, unspecified organism Code(s): J18.9 - Pneumonia, unspecified organism Status: Acute Assessment and Plan: appears to be clinically improving on antibiotic therapy (7) Staphylococcal arthritis, left elbow: Code(s): M00.022 - Staphylococcal arthritis, left elbow Status: Acute Assessment and Plan: continue supportive therapy on antibiotics (8) Type 2 diabetes mellitus with hyperglycemia, with long-term current use of insulin: Code(s): E11.65 - Type 2 diabetes mellitus with hyperglycemia; 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 Exam Narrative: General: elderly female in NAD Heart: normal S1 and S2; no rub Lungs: decreased at bases Abdomen: soft, nontender, nondistended, positive bowel sounds Extremities: no cyanosis or clubbing; 1+ edema Skin: no nodules Objective Data Vital Signs Vital Signs: Vital Signs Temp Pulse Resp BP Pulse Ox 11/18/21 12:00 92 11/18/21 09:14 80 96 11/18/21 08:00 86 96 11/18/21 06:20 72 11/18/21 06:09 36.4 C 75 18 147/83 H 99 11/18/21 04:45 71 20 98 11/18/21 04:00 78 11/18/21 02:00 77 20 100 11/18/21 00:00 72 11/17/21 22:05 36.7 C 81 18 133/73 100 11/17/21 21:54 36.7 C 81 18 133/73 100 11/17/21 21:53 36.7 C 81 18 133/73 100 11/17/21 21:45 69 19 96 11/17/21 21:28 85 11/17/21 20:44 81 94 11/17/21 20:00 91 11/17/21 16:00 73 11/17/21 15:10 68 Intake/Output Intake/Output: Intake & Output 11/15/21 0
[2021-11-18] MEDS: INSULIN ASPART (*BKC) 100 UNITS/ML 10 UNITS SUB-Q ×2 (12:40→17:40)
[2021-11-18] MEDS: POTASSIUM CHLORIDE 20 MEQ TABLET 40 MEQ PO (12:41)
[2021-11-18] MEDS: INSULIN ASPART (*BKC) 100 UNITS/ML SUB-Q ×2 (12:41→17:40)
[2021-11-18] MEDS: acetaZOLAMIDE SODIUM FOR INJ 500 MG VIAL IV PUSH (12:41)
[2021-11-18 16:38] LABS: Glucose Point of Care 249 mg/dl (65-105)
[2021-11-18] MEDS: WARFARIN (*PBKC) 5 MG TABLET PO (17:39)
[2021-11-18 19:43] LABS: Glucose Point of Care 222 mg/dl (65-105)
[2021-11-18 20:17] LABS: Vancomycin Trough 22.6 ug/mL (10.0-20.0)
[2021-11-18] MEDS: SIMVASTATIN 10 MG TABLET PO (21:29)
[2021-11-19] VITALS (15 sets, daily range): BP systolic 110–124; BP diastolic 44–52; PULSE 64–92; RESP 16–18; TEMP 35.9–36.6; O2SAT 98–100
[2021-11-19 06:01] LABS: Basophils Percent Auto 0.2 % (0.2-1.2); Eosinophils Percent Auto 0.2 % (0-4.4); Hematocrit 37.8 % (37.0-47.0); Hemoglobin 12.5 g/dL (12.0-15.0); Immature Granulocyte Absolute 0.19 K/mm3 (0.00-0.031); Lymphocytes Absolute Auto 0.49 K/mm3 (0.9-3.2); Lymphocytes Percent Auto 2.7 % (18.3-44.2); Mean Corpuscular HGB Conc 33.1 g/dl (32-36); Mean Corpuscular Hemoglobin 36.3 pg (26-34); Mean Corpuscular Volume 109.9 fl (80-100); Mean Platelet Volume 12.3 fl (7.4-10.4); Monocytes Absolute Auto 2.2 K/mm3 (0.1-0.6); Monocytes Percent Auto 11.9 % (2.6-8.5); Neutrophils Absolute Auto 15.4 K/mm3 (1.3-6.7); Nucleated Red Blood Cells Absolute Auto 0.1 K/mm3 (0.0-0.012); Nucleated Red Blood Cells Perc 0.3 % (0.0-0.2); Platelet Count Result 161 k/mm3 (150-375); Red Blood Count 3.44 M/mm3 (4.2-5.4); Red Cell Distribution Width 15.9 % (11.5-14.5); White Blood Count 18.4 K/mm3 (4.5-10.0)
[2021-11-19 06:08] LABS: INR 2.2; Prothrombin Time 23.4 Seconds (11.1-14.7)
[2021-11-19] MEDS: LEVOTHYROXINE SODIUM 100 MCG TABLET 200 MCG PO (06:16)
[2021-11-19] MEDS: METOPROLOL TARTRATE 25 MG TABLET PO ×3 (06:16→20:26)
[2021-11-19 06:28] LABS: Alanine Aminotransferase 195 U/L (4-35); Albumin Level 3.6 g/dL (3.5-5.1); Alkaline Phosphatase 291 U/L (38-126); Aspartate Amino Transferase 89 U/L (14-36); Bilirubin,Total 1.3 mg/dL (0.2-1.3); Blood Urea Nitrogen 99 mg/dL (7-17); Calcium 6.4 mg/dL (8.4-10.2); Carbon Dioxide > 40 mmol/L (22-30); Chloride 78 mmol/L (98-107); Estimated CRCL calculation 27 ml/min; Estimated Glomerular Filt Rate 27; Glucose 95 mg/dL (65-110); Magnesium 1.8 mg/dL (1.6-2.3); Potassium 3.4 mmol/L (3.4-5.0); Sodium 131 mmol/L (137-145)
[2021-11-19 07:36] LABS: Glucose Point of Care 115 mg/dl (65-105)
[2021-11-19 07:45] LABS: Vancomycin Random 20.9 ug/mL (10-20)
[2021-11-19] MEDS: GABAPENTIN 100 MG CAPSULE PO ×2 (08:38→17:39)
[2021-11-19] MEDS: acetaZOLAMIDE SODIUM FOR INJ 500 MG VIAL IV PUSH (08:39)
[2021-11-19] MEDS: CHOLECALCIFEROL 1,000 UNITS TABLET 1000 UNITS PO (08:39)
[2021-11-19] MEDS: INSULIN ASPART (*BKC) 100 UNITS/ML 10 UNITS SUB-Q ×3 (08:39→18:13)
[2021-11-19] MEDS: POTASSIUM CHLORIDE 20 MEQ TABLET.ER PO ×2 (08:39→17:39)
[2021-11-19] MEDS: BUMETANIDE 1 MG TABLET PO ×2 (08:39→17:43)
[2021-11-19] MEDS: FEBUXOSTAT 40 MG TABLET PO (08:39)
[2021-11-19] MEDS: FINASTERIDE 5 MG TABLET PO (08:39)
[2021-11-19] MEDS: metOLazone 2.5 MG TABLET PO (08:39)
[2021-11-19] MEDS: CYANOCOBALAMIN 1,000 MCG TABLET 1000 MCG PO (08:39)
[2021-11-19] MEDS: SILVERGEL (ELTA) 45 ML 1 APPLIC TOPICAL (08:40)
[2021-11-19] MEDS: INSULIN GLARGINE (*BKC) 100 UNITS/ML 30 UNITS SUB-Q (08:41)
--- NOTE | 2021-11-19 09:15 | PM.IMPN ---
Progress Note: A&P Assessment and Plan (1) Pleural effusion: Code(s): J90 - Pleural effusion, not elsewhere classified Status: Acute Assessment and Plan: CT showed Moderate left sided pleural effusion 11/12/21 Thoracentesis removed 650ml Gram positive cocci in the anaerobic culture from the pleural effusion continue to pend at this time Continue cefepime, dc antibiotics at this time as patient has had a full course treatment diagnostics still NGTD except anaerobic culture for gram positive cocci, however, is rare (2) Community acquired pneumonia: Qualifiers: Laterality: unspecified laterality Qualified Code(s): J18.9 - Pneumonia, unspecified organism Code(s): J18.9 - Pneumonia, unspecified organism Status: Acute Assessment and Plan: White blood cell count was 15.1 upon admission is 18.4 today. Chest xray (11-17-21) Has no changes noted Continue vanco and cefepime, DC vanco per pulmonology day 7, DC cefepime at this time Received full course Sputum culture and blood cultures NGTD Pleural labs does look to be growing gram positive cocci in clusters Continue trend labs (3) CHF exacerbation: Qualifiers: Heart failure type: unspecified Qualified Code(s): I50.9 - Heart failure, unspecified Code(s): I50.9 - Heart failure, unspecified Status: Acute Assessment and Plan: She is in an acute diastolic heart failure exacerbation Continue metolazone 2.5mg PO daily and bumex 1mg IV BID Continue with metoprolol Trend urine output Daily weights urinary catheter for accurate I&Os Echo 55-60% moderate to severe aortic valve stenosis, moderate right and severe left atrial chamber enlargement, and an indeterminate diastolic dysfunction Consulted pulmonology and cardiology for further help Give one dose of Diamox since CO2 seems to be consistently >40, repeat one more, consider changing to PO (4) COPD exacerbation: Code(s): J44.1 - Chronic obstructive pulmonary disease with (acute) exacerbation Status: Acute Assessment and Plan: Continue with inhalers from home and nebulizers. Supplemental oxygen, wean to maintain saturations Continue cefepime, dc vanc at this time Increase in sputum, oxygen, and wheeze (5) Acute hypoxemic respiratory failure: Code(s): J96.01 - Acute respiratory failure with hypoxia Status: Acute Assessment and Plan: oxygen at 1.5 L and is up to 3 L at home Currently on 2L Continue to trend titrate as indicated Cxray (11-17-21) No changes to PNA CT (11-12-21) Moderate-sized left and small right pleural effusions, Patchy ground glass opacities of the lungs, consistent with pneumonia and/or mild pulmonary edema, Cardiomegaly. Diuresis per cards and nephrology ABG pH 7.361, CO2 48.8, O2 60.9, HCO3 27.0, Saturation 90.3 Repeat chest xray (6) Staphylococcal arthritis, left elbow: Code(s): M00.022 - Staphylococcal arthritis, left elbow Status: Acute Assessment and Plan: The patient had been on Bactrim for her left elbow Currently on Rocephin Culture from September for staph Current antibiotics should cover the supposed infection Wound consult (7) Anemia: Code(s): D64.9 - Anemia, unspecified Status: Chronic Assessment and Plan: Patient is at her baseline continue to monitor. (8) Hypertension: Code(s): I10 - Essential (primary) hypertension Status: Chronic Assessment and Plan: Current BP is 114/52 Continue with metoprolol Trend BP Adjust therapy as indicated (9) Bilateral lower extremity edema: Code(s): R60.0 - Localized edema Status: Acute Assessment and Plan: Venous Dopplers Negative continue with diuretics Continue long-term anticoagulation and is therapeutic Seems to be getting better (10) Vitamin D deficiency, unspecified:
--- NOTE | 2021-11-19 09:15 | P.PNIM_ITS ---
Progress Note: A&P Assessment and Plan (1) Pleural effusion: Code(s): J90 - Pleural effusion, not elsewhere classified Status: Acute Assessment and Plan: * CT showed Moderate left sided pleural effusion 11/12/21 * Thoracentesis removed 650ml * Gram positive cocci in the anaerobic culture from the pleural effusion continue to pend at this time * Continue cefepime, dc antibiotics at this time as patient has had a full course treatment * diagnostics still NGTD except anaerobic culture for gram positive cocci, however, is rare (2) Community acquired pneumonia: Qualifiers: Laterality: unspecified laterality Qualified Code(s): J18.9 - Pneumonia, unspecified organism Code(s): J18.9 - Pneumonia, unspecified organism Status: Acute Assessment and Plan: * White blood cell count was 15.1 upon admission is 18.4 today. * Chest xray (11-17-21) Has no changes noted * Continue vanco and cefepime, DC vanco per pulmonology day 7, DC cefepime at this time * Received full course * Sputum culture and blood cultures NGTD * Pleural labs does look to be growing gram positive cocci in clusters * Continue trend labs (3) CHF exacerbation: Qualifiers: Heart failure type: unspecified Qualified Code(s): I50.9 - Heart failure, unspecified Code(s): I50.9 - Heart failure, unspecified Status: Acute Assessment and Plan: * She is in an acute diastolic heart failure exacerbation * Continue metolazone 2.5mg PO daily and bumex 1mg IV BID * Continue with metoprolol * Trend urine output * Daily weights * urinary catheter for accurate I&Os * Echo 55-60% moderate to severe aortic valve stenosis, moderate right and severe left atrial chamber enlargement, and an indeterminate diastolic dysfunction * Consulted pulmonology and cardiology for further help * Give one dose of Diamox since CO2 seems to be consistently >40, repeat one more, consider changing to PO (4) COPD exacerbation: Code(s): J44.1 - Chronic obstructive pulmonary disease with (acute) exacerbation Status: Acute Assessment and Plan: * Continue with inhalers from home and nebulizers. * Supplemental oxygen, wean to maintain saturations * Continue cefepime, dc vanc at this time * Increase in sputum, oxygen, and wheeze (5) Acute hypoxemic respiratory failure: Code(s): J96.01 - Acute respiratory failure with hypoxia Status: Acute Assessment and Plan: * oxygen at 1.5 L and is up to 3 L at home * Currently on 2L * Continue to trend * titrate as indicated * Cxray (11-17-21) No changes to PNA * CT (11-12-21) Moderate-sized left and small right pleural effusions, Patchy ground glass opacities of the lungs, consistent with pneumonia and/or mild pulmonary edema, Cardiomegaly. * Diuresis per cards and nephrology * ABG pH 7.361, CO2 48.8, O2 60.9, HCO3 27.0, Saturation 90.3 * Repeat chest xray (6) Staphylococcal arthritis, left elbow: Code(s): M00.022 - Staphylococcal arthritis, left elbow Status: Acute Assessment and Plan: * The patient had been on Bactrim for her left elbow * Currently on Rocephin * Culture from September for staph * Current antibiotics should cover the supposed infection * Wound consult (7) Anemia: Code(s): D64.9 - Anemia, unspecified Status: Chronic Assessment and Plan: Patient is at her baseline continue to monitor. (8) Hypertension:
--- NOTE | 2021-11-19 11:24 | P.PNNP_ITS ---
Progress Note: A&P Assessment and Plan (1) Acute kidney injury: Code(s): N17.9 - Acute kidney failure, unspecified Status: Acute Assessment and Plan: * resolving/resolved * due to a combination of infection and possibly use of Bactrim * likely has a component of chronic prerenal azotemia from her aortic stenosis + pulmonary HTN * suspect also has a component of renal venous HTN as creatinine has improved with diuretic therapy * creatinine peaked at 3.2mg/dl * evaluation to date: * renal ultrasound with CKD * urine electrolytes are non-prerenal * mild proteinuria of ~ 800mg * on scheduled potassium * follow trend of repeat labs and UOP (2) Chronic kidney disease, stage 4 (severe): Code(s): N18.4 - Chronic kidney disease, stage 4 (severe) Status: Chronic Assessment and Plan: * baseline creatinine runs around 1.7 - 2.2mg/dl (although has been higher in the last few months) * due to HTN, DM, vascular disease, and age (3) Acute hypoxemic respiratory failure: Code(s): J96.01 - Acute respiratory failure with hypoxia Status: Acute Assessment and Plan: * several issues playing a role: * CHF * COPD * YUDELKA * pneumonia * pleural effusion * continue ongoing therapy as outlined * seems reasonable to try IV diamox - consider scheduled oral dosing (4) Hyponatremia: Code(s): E87.1 - Hypo-osmolality and hyponatremia Status: Acute Assessment and Plan: * presumably from fluctuating fluid status, use of thiazide diuretics (metolazone), and underlying lung issues (see #3) * follow trend (5) Benign hypertension: Code(s): I10 - Essential (primary) hypertension Status: Chronic Assessment and Plan: * reasonable control at this time * follow trend of hemodynamics (6) Community acquired pneumonia: Qualifiers: Laterality: unspecified laterality Qualified Code(s): J18.9 - Pneumonia, unspecified organism Code(s): J18.9 - Pneumonia, unspecified organism Status: Acute Assessment and Plan: * appears to be clinically improving * on antibiotic therapy (7) Staphylococcal arthritis, left elbow: Code(s): M00.022 - Staphylococcal arthritis, left elbow Status: Acute Assessment and Plan: * continue supportive therapy * on antibiotics (8) Type 2 diabetes mellitus with hyperglycemia, with long-term current use of insulin: Code(s): E11.65 - Type 2 diabetes mellitus with hyperglycemia; Z79.4 - intermediate (current) use of insulin Status: Chronic Assessment and Plan: * follow Accu-Cheks * on sliding-scale insulin Will continue to follow Subjective Date/time seen: 11/19/21 11:24 Continues to make slow and steady progress -- breathing/swelling/edema appear to be improving with current therapy; still seems a bit down by her fatigue/weakness/limited mobility but realizes that this will take some time to improve; no apparent distress noted; no issues/events overnight or earlier this AM. Exam Narrative: General: elderly female in NAD Heart: normal S1 and S2; no rub Lungs: decreased at bases Abdomen: soft, nontender, nondistended, positive bowel sounds Extremities: no cyanosis or clubbing; 1+ edema Skin: warm and dry Objective Data Vital Signs Vital Signs: Vital Signs Temp Pulse Resp BP Pu
--- NOTE | 2021-11-19 11:24 | PM.PNNEP ---
Progress Note: A&P Assessment and Plan (1) Acute kidney injury: Code(s): N17.9 - Acute kidney failure, unspecified Status: Acute Assessment and Plan: resolving/resolved due to a combination of infection and possibly use of Bactrim likely has a component of chronic prerenal azotemia from her aortic stenosis + pulmonary HTN suspect also has a component of renal venous HTN as creatinine has improved with diuretic therapy creatinine peaked at 3.2mg/dl evaluation to date: renal ultrasound with CKD urine electrolytes are non-prerenal mild proteinuria of ~ 800mg on scheduled potassium follow trend of repeat labs and UOP (2) Chronic kidney disease, stage 4 (severe): Code(s): N18.4 - Chronic kidney disease, stage 4 (severe) Status: Chronic Assessment and Plan: baseline creatinine runs around 1.7 - 2.2mg/dl (although has been higher in the last few months) due to HTN, DM, vascular disease, and age (3) Acute hypoxemic respiratory failure: Code(s): J96.01 - Acute respiratory failure with hypoxia Status: Acute Assessment and Plan: several issues playing a role: CHF COPD YUDELKA pneumonia pleural effusion continue ongoing therapy as outlined seems reasonable to try IV diamox - consider scheduled oral dosing (4) Hyponatremia: Code(s): E87.1 - Hypo-osmolality and hyponatremia Status: Acute Assessment and Plan: presumably from fluctuating fluid status, use of thiazide diuretics (metolazone), and underlying lung issues (see #3) follow trend (5) Benign hypertension: Code(s): I10 - Essential (primary) hypertension Status: Chronic Assessment and Plan: reasonable control at this time follow trend of hemodynamics (6) Community acquired pneumonia: Qualifiers: Laterality: unspecified laterality Qualified Code(s): J18.9 - Pneumonia, unspecified organism Code(s): J18.9 - Pneumonia, unspecified organism Status: Acute Assessment and Plan: appears to be clinically improving on antibiotic therapy (7) Staphylococcal arthritis, left elbow: Code(s): M00.022 - Staphylococcal arthritis, left elbow Status: Acute Assessment and Plan: continue supportive therapy on antibiotics (8) Type 2 diabetes mellitus with hyperglycemia, with long-term current use of insulin: Code(s): E11.65 - Type 2 diabetes mellitus with hyperglycemia; Z79.4 - terminal clerk (current) use of insulin Status: Chronic Assessment and Plan: follow Accu-Cheks on sliding-scale insulin Will continue to follow Subjective Date/time seen: 11/19/21 11:24 Continues to make slow and steady progress -- breathing/swelling/edema appear to be improving with current therapy; still seems a bit down by her fatigue/weakness/limited mobility but realizes that this will take some time to improve; no apparent distress noted; no issues/events overnight or earlier this AM. Exam Narrative: General: elderly female in NAD Heart: normal S1 and S2; no rub Lungs: decreased at bases Abdomen: soft, nontender, nondistended, positive bowel sounds Extremities: no cyanosis or clubbing; 1+ edema Skin: warm and dry Objective Data Vital Signs Vital Signs: Vital Signs Temp Pulse Resp BP Pulse Ox 11/19/21 06:16 87 11/19/21 06:08 36.6 C 70 18 114/52 L 100 11/19/21 05:48 36.6 C 70 18 114/52 L 100 11/19/21 04:46 80 100 11/19/21 04:00 73 11/19/21 01:15 81 16 100 11/19/21 00:00 87 11/18/21 22:18 35.8 C L 94 18 127/43 L 100 11/18/21 22:15 90 22 H 100 11/18/21 21:29 98 11/18/21 20:33 93 100 11/18/21 20:00 96 100 11/18/21 16:00 91 11/18/21 14:09 36.1 C L 79 16 98/62 L 100 11/18/21 12:00 92 Intake/Output Intake/Output: Intake & Output 11/16/21 11/17/21 11/18/21 11/19/21 23:59 23:59 23:
[2021-11-19 11:38] LABS: Glucose Point of Care 240 mg/dl (65-105)
--- NOTE | 2021-11-19 12:34 | PM.PNCARD ---
Progress Note: A&P Assessment and Plan (1) Heart failure with preserved ejection fraction: Code(s): I50.30 - Unspecified diastolic (congestive) heart failure Status: Acute Assessment and Plan: Clinically, patient is a very complicated and her shortness of breath is multifactorial. She has chronic hypoxic and hypercapnic respiratory failure along with obesity and YUDELKA on home trilogy unit, permanent atrial fibrillation, heart failure with preserved ejection fraction, and moderate to severe aortic stenosis along with severe pulmonary hypertension. She has significant valvular heart disease She has had good response to her current diuretic regimen. Shortness of breath improving and LE edema markedly improved. Continue Bumex 1mg p.o. b.i.d. Will decrease metolazone to every other day dosing. Continue to be cautious given severity of her aortic stenosis avoid significant hypotension and or intravascular volume depletion. Renal function is stable today. Monitor BMP daily and replace electrolytes as necessary. Started KCL 20 mEq b.i.d. today. (2) Acute and chronic respiratory failure with hypoxia: Code(s): J96.21 - Acute and chronic respiratory failure with hypoxia Status: Acute Assessment and Plan: Per primary service and pulmonology. Continue supportive therapy with bronchodilator, trilogy, O2 supplementation and impending thoracentesis. Anticoagulation has been resumed at this point. (3) Aortic stenosis: Code(s): I35.0 - Nonrheumatic aortic (valve) stenosis Status: Acute Assessment and Plan: Severe. Patient to have short interval follow up with Dr. Mahan after discharge. (4) Persistent atrial fibrillation: Code(s): I48.19 - Other persistent atrial fibrillation Status: Acute Assessment and Plan: Longstanding persistent atrial fibrillation. Patient has a pacemaker. Anticoagulation goal INR 2-3. (5) Obstructive sleep apnea on CPAP: Code(s): G47.33 - Obstructive sleep apnea (adult) (pediatric); Z99.89 - Dependence on other enabling machines and devices Status: Acute Assessment and Plan: As above, trilogy support. (6) Chronic anticoagulation: Code(s): Z79.01 - custodial (current) use of anticoagulants Status: Acute Assessment and Plan: On warfarin. INR 2.2 today. (7) Transaminitis: Code(s): R74.01 - Elevation of levels of liver transaminase levels Status: Acute Assessment and Plan: AST/ALT are trending down. The workup per primary service has been negative. Subjective Date/time seen: 11/19/21 12:34 Interval history: 81-year-old female with a past medical history significant for moderate to severe aortic stenosis, severe pulmonary hypertension RVSP 61 mm Hg, heart failure with preserved ejection fraction, COPD, chronic hypoxic and hypercapnic respiratory failure on home O2 1.5 L and trilogy unit, history of tracheostomy, permanent atrial fibrillation, sick sinus syndrome status post [place] scientific pacemaker on anticoagulation with warfarin, chronic kidney disease stage 4, hypertension, type 2 diabetes mellitus who presented to the emergency department complaints of progressive shortness of breath Date of service 11/13/2021: She feels about the same. No significant improvement. Admits to shortness of breath swelling. She has no chest pain though. Overall simply feels poorly Date of service 11/14/2021: She feels better today. She is less short of breath. Her edema has markedly improved. No Chest pain Date of service 11/15/2021: Continues to improve. Her swelling is better. Still has some shortness of breath is also improving. Denies any chest pain, palpitations. No complaints today. Date of service 11/16/2021: Breathing is better today. Still has some mild swelling but this is improved. Date of service 11/17/2021: Patient states she is feeling much bet
[2021-11-19] MEDS: INSULIN ASPART (*BKC) 100 UNITS/ML SUB-Q (13:17)
[2021-11-19 16:10] LABS: Glucose Point of Care 140 mg/dl (65-105)
[2021-11-19] MEDS: WARFARIN (*PBKC) 5 MG TABLET PO (17:43)
[2021-11-19 17:55] LABS: Alveolar/Arterial O2 Gradient 38.3 mmHg; Base Excess ABG 15.5 mEq/l (+/-2.0); Carboxyhemoglobin 0.1 % THb (0-2.0); Fractional Inspired Oxygen 28 %; HCO3 ABG 40.9 mEq/l (22.0-26.0); Methemoglobin ABG 0.3 %THb (0-1.5); Oxygen Content ABG 17.1 %vol (16.0-22.0); Oxygen Saturation ABG 97.8 % (95.0-100.0); Oxyhemoglobin 96.9 % THb (90.0-100.0); PCO2 ABG 53.2 mmHg (35.0-45.0); PO2 ABG 98.6 mmHg (80.0-100.0); PO2 FiO2 Ratio Arterial Blood 3.52 %; Reduced Hemoglobin 2.7 %THb (0-5.0); Total Hemoglobin 12.5 g/dL (12.0-18.0)
[2021-11-19 17:58] LABS: Site Drawn LEFT BRACHIAL; pH ABG 7.504 (7.350-7.450)
[2021-11-19 17:59] LABS: Device NASAL CANNULA
[2021-11-19 20:11] LABS: Glucose Point of Care 67 mg/dl (65-105)
[2021-11-19] MEDS: SIMVASTATIN 10 MG TABLET PO (20:26)
[2021-11-19] MEDS: DEXTROSE 50% 25 GM/50 ML SYRINGE IV PUSH (21:18)
[2021-11-19 21:41] LABS: Amylase, Pleural Fluid 23 U/L
[2021-11-19 21:44] LABS: Glucose Point of Care 164 mg/dl (65-105)
[2021-11-20] VITALS (14 sets, daily range): BP systolic 101–129; BP diastolic 45–59; PULSE 72–104; RESP 15–18; TEMP 35.8–36.6; O2SAT 98–100
[2021-11-20] MEDS: LEVOTHYROXINE SODIUM 100 MCG TABLET 200 MCG PO (05:27)
[2021-11-20] MEDS: METOPROLOL TARTRATE 25 MG TABLET PO ×3 (05:28→20:58)
[2021-11-20 06:04] LABS: Basophils Percent Auto 0.2 % (0.2-1.2); Eosinophils Percent Auto 0.1 % (0-4.4); Hematocrit 32.9 % (37.0-47.0); Hemoglobin 10.9 g/dL (12.0-15.0); Immature Granulocyte Absolute 0.22 K/mm3 (0.00-0.031); Immature Granulocyte Percent A 1.2 % (0-0.5); Lymphocytes Absolute Auto 0.27 K/mm3 (0.9-3.2); Lymphocytes Percent Auto 1.5 % (18.3-44.2); Mean Corpuscular HGB Conc 33.1 g/dl (32-36); Mean Corpuscular Hemoglobin 35.7 pg (26-34); Mean Corpuscular Volume 107.9 fl (80-100); Mean Platelet Volume 12.2 fl (7.4-10.4); Monocytes Absolute Auto 2.3 K/mm3 (0.1-0.6); Monocytes Percent Auto 12.6 % (2.6-8.5); Neutrophils Absolute Auto 15.1 K/mm3 (1.3-6.7); Neutrophils Percent Auto 84.4 % (45.5-73.1); Nucleated Red Blood Cells Perc 0.2 % (0.0-0.2); Platelet Count Result 150 k/mm3 (150-375); Red Blood Count 3.05 M/mm3 (4.2-5.4); Red Cell Distribution Width 15.9 % (11.5-14.5); White Blood Count 17.9 K/mm3 (4.5-10.0)
[2021-11-20 06:23] LABS: Alanine Aminotransferase 122 U/L (4-35); Albumin Level 3.3 g/dL (3.5-5.1); Alkaline Phosphatase 252 U/L (38-126); Aspartate Amino Transferase 56 U/L (14-36); Bilirubin,Total 1.3 mg/dL (0.2-1.3); Blood Urea Nitrogen 92 mg/dL (7-17); Calcium 6.2 mg/dL (8.4-10.2); Carbon Dioxide > 40 mmol/L (22-30); Chloride 78 mmol/L (98-107); Estimated CRCL calculation 27 ml/min; Estimated Glomerular Filt Rate 27; Glucose 87 mg/dL (65-110); Magnesium 1.6 mg/dL (1.6-2.3); Potassium 2.7 mmol/L (3.4-5.0); Sodium 133 mmol/L (137-145)
--- NOTE | 2021-11-20 07:30 | PM.IMPN ---
Progress Note: A&P Assessment and Plan (1) Community acquired pneumonia: Qualifiers: Laterality: unspecified laterality Qualified Code(s): J18.9 - Pneumonia, unspecified organism Code(s): J18.9 - Pneumonia, unspecified organism Status: Acute Assessment and Plan: White blood cell count was 15.1 upon admission is 17.9 today. Chest xray (11-17-21) Has no changes noted Continue vanco and cefepime, DC vanco per pulmonology day 7, DC cefepime at this time Received full course Sputum culture and blood cultures NGTD Pleural labs does look to be growing gram positive cocci in clusters Continue trend labs (2) CHF exacerbation: Qualifiers: Heart failure type: unspecified Qualified Code(s): I50.9 - Heart failure, unspecified Code(s): I50.9 - Heart failure, unspecified Status: Acute Assessment and Plan: She is in an acute diastolic heart failure exacerbation Continue metolazone 2.5mg PO every other day and bumex 1mg IV BID Continue with metoprolol Trend urine output Daily weights urinary catheter for accurate I&Os Echo 55-60% moderate to severe aortic valve stenosis, moderate right and severe left atrial chamber enlargement, and an indeterminate diastolic dysfunction Consulted pulmonology and cardiology for further help Give one dose of Diamox since CO2 seems to be consistently >40, repeat one more, consider changing to PO (3) COPD exacerbation: Code(s): J44.1 - Chronic obstructive pulmonary disease with (acute) exacerbation Status: Acute Assessment and Plan: Continue with inhalers from home and nebulizers. Supplemental oxygen, wean to maintain saturations Continue cefepime, dc vanc at this time Increase in sputum, oxygen, and wheeze (4) Acute hypoxemic respiratory failure: Code(s): J96.01 - Acute respiratory failure with hypoxia Status: Acute Assessment and Plan: oxygen at 1.5 L and is up to 3 L at home Currently on 2L Continue to trend titrate as indicated Cxray (11-19-21) No changes to PNA CT (11-12-21) Moderate-sized left and small right pleural effusions, Patchy ground glass opacities of the lungs, consistent with pneumonia and/or mild pulmonary edema, Cardiomegaly. Diuresis per cards and nephrology ABG pH 7.361, CO2 48.8, O2 60.9, HCO3 27.0, Saturation 90.3 Repeat chest xray (5) Anemia: Code(s): D64.9 - Anemia, unspecified Status: Chronic Assessment and Plan: Patient is at her baseline continue to monitor. (6) Hypertension: Code(s): I10 - Essential (primary) hypertension Status: Chronic Assessment and Plan: Current BP is 101/59 Continue with metoprolol Trend BP Adjust therapy as indicated (7) Bilateral lower extremity edema: Code(s): R60.0 - Localized edema Status: Acute Assessment and Plan: Venous Dopplers Negative continue with diuretics Continue long-term anticoagulation and is therapeutic Seems to be getting better (8) Vitamin D deficiency, unspecified: Code(s): E55.9 - Vitamin D deficiency, unspecified Status: Acute Assessment and Plan: Continue with supplement. (9) Acute renal insufficiency: Code(s): N28.9 - Disorder of kidney and ureter, unspecified Status: Acute Assessment and Plan: Current BUN/Cr 92/1.80, seems to be getting better See [facility] outpatient Will need to trend labs while on diuretics Compression stocking (10) Type 2 diabetes mellitus with hyperglycemia, with long-term current use of insulin: Code(s): E11.65 - Type 2 diabetes mellitus with hyperglycemia; Z79.4 - longterm (current) use of insulin Status: Chronic Assessment and Plan: Current glucose is 87 on labs Accu-Cheks AC and HS with sliding scale insulin Will need to adjust to cover for the steroids Increase Lantus 30 units aspart
--- NOTE | 2021-11-20 07:30 | P.PNIM_ITS ---
Progress Note: A&P Assessment and Plan (1) Community acquired pneumonia: Qualifiers: Laterality: unspecified laterality Qualified Code(s): J18.9 - Pneumonia, unspecified organism Code(s): J18.9 - Pneumonia, unspecified organism Status: Acute Assessment and Plan: * White blood cell count was 15.1 upon admission is 17.9 today. * Chest xray (11-17-21) Has no changes noted * Continue vanco and cefepime, DC vanco per pulmonology day 7, DC cefepime at this time * Received full course * Sputum culture and blood cultures NGTD * Pleural labs does look to be growing gram positive cocci in clusters * Continue trend labs (2) CHF exacerbation: Qualifiers: Heart failure type: unspecified Qualified Code(s): I50.9 - Heart failure, unspecified Code(s): I50.9 - Heart failure, unspecified Status: Acute Assessment and Plan: * She is in an acute diastolic heart failure exacerbation * Continue metolazone 2.5mg PO every other day and bumex 1mg IV BID * Continue with metoprolol * Trend urine output * Daily weights * urinary catheter for accurate I&Os * Echo 55-60% moderate to severe aortic valve stenosis, moderate right and severe left atrial chamber enlargement, and an indeterminate diastolic dysfunction * Consulted pulmonology and cardiology for further help * Give one dose of Diamox since CO2 seems to be consistently >40, repeat one more, consider changing to PO (3) COPD exacerbation: Code(s): J44.1 - Chronic obstructive pulmonary disease with (acute) exacerbation Status: Acute Assessment and Plan: * Continue with inhalers from home and nebulizers. * Supplemental oxygen, wean to maintain saturations * Continue cefepime, dc vanc at this time * Increase in sputum, oxygen, and wheeze (4) Acute hypoxemic respiratory failure: Code(s): J96.01 - Acute respiratory failure with hypoxia Status: Acute Assessment and Plan: * oxygen at 1.5 L and is up to 3 L at home * Currently on 2L * Continue to trend * titrate as indicated * Cxray (11-19-21) No changes to PNA * CT (11-12-21) Moderate-sized left and small right pleural effusions, Patchy ground glass opacities of the lungs, consistent with pneumonia and/or mild pulmonary edema, Cardiomegaly. * Diuresis per cards and nephrology * ABG pH 7.361, CO2 48.8, O2 60.9, HCO3 27.0, Saturation 90.3 * Repeat chest xray (5) Anemia: Code(s): D64.9 - Anemia, unspecified Status: Chronic Assessment and Plan: Patient is at her baseline continue to monitor. (6) Hypertension: Code(s): I10 - Essential (primary) hypertension Status: Chronic Assessment and Plan: * Current BP is 101/59 * Continue with metoprolol * Trend BP * Adjust therapy as indicated (7) Bilateral lower extremity edema: Code(s): R60.0 - Localized edema Status: Acute Assessment and Plan: * Venous Dopplers Negative * continue with diuretics * Continue long-term anticoagulation and is therapeutic * Seems to be getting better (8) Vitamin D deficiency, unspecified: Code(s): E55.9 - Vitamin D deficiency, unspecified Status: Acute Assessment and Plan: Continue with supplement. (9) Acute renal insufficiency: Code(s): N28.9 - Disorder of kidney and ureter, unspecified Status: Acute Assessment and Plan: * Current BUN/Cr 92/1.80, seems to be getting
--- NOTE | 2021-11-20 07:33 | PM.PNCARD ---
Progress Note: A&P Additional Plan 81-year-old lady with permanent atrial fibrillation and valvular heart disease also with advanced chronic renal failure and volume overload. Patient's volume status appears to be essentially optimized at this time she does not have any pulmonary congestion of significance she is breathing comfortably and does not have any perceptible lower extremity edema. Hypokalemia noted this morning that needs to be supplemented. The principal cardiac decision to be made is regarding aortic valve replacement. Had a lengthy discussion with her this morning about this and it is clear to me that she really does not understand this very well at all. Current regimen of Bumex and metolazone every other day seems reasonable. She will need to have consultation with my partner, Dr. Mahan in the office to come to a decision as to whether or not aortic valve replacement is going to be considered. I do not have any specific experience with this patient but it seems to me she is not going to be capable of making this decision Jeremias Zamora MD [facility] Subjective Date/time seen: 11/20/21 07:33 Interval history: 81-year-old female with a past medical history significant for moderate to severe aortic stenosis, severe pulmonary hypertension RVSP 61 mm Hg, heart failure with preserved ejection fraction, COPD, chronic hypoxic and hypercapnic respiratory failure on home O2 1.5 L and trilogy unit, history of tracheostomy, permanent atrial fibrillation, sick sinus syndrome status post [employer] pacemaker on anticoagulation with warfarin, chronic kidney disease stage 4, hypertension, type 2 diabetes mellitus who presented to the emergency department complaints of progressive shortness of breath Date of service 11/13/2021: She feels about the same. No significant improvement. Admits to shortness of breath swelling. She has no chest pain though. Overall simply feels poorly Date of service 11/14/2021: She feels better today. She is less short of breath. Her edema has markedly improved. No Chest pain Date of service 11/15/2021: Continues to improve. Her swelling is better. Still has some shortness of breath is also improving. Denies any chest pain, palpitations. No complaints today. Date of service 11/16/2021: Breathing is better today. Still has some mild swelling but this is improved. Date of service 11/17/2021: Patient states she is feeling much better today - more alert. No complaints. Date of service 11/19/2021: No acute events overnight. No significant clinical changes. Patient continues to make slow progress. She is feeling well today. No complaints. Date of service 11/20/2021: She reports no shortness of breath today no cardiovascular complaints. Seems to have very poor insight regarding her aortic valve disease. Exam Const: General: comfortable and no acute distress HENMT: Mouth: Yes moist mucous membranes Eyes: Sclera: sclerae normal Pupils: Equal, round and reactive pupils present Neck: Neck: supple Other: Difficult to assess JVD given body habitus Resp: Effort & Inspection: normal respiratory effort Auscultation: clear to auscultation bilaterally Other: no audible rales at this time Cardio: Rate: regular rate Rhythm: regular rhythm Other: faint systolic crescendo decrescendo murmur audible at the base. GI: GI Palp: Yes Soft to palpation Auscultation: normal bowel sounds Skin: General skin exam: normal color Neuro: Cognition (Neuro): normal cognition Extrem: General: normal to inspection Objective Data Vital Signs Vital Signs: Vital Signs - 24 hr 11/19/21 08:00 11/19/21 12:00 11/19/21 14:19 Temperature 36.6 C Pulse Rate 81 92 92 Respiratory Rate 16 Blood Pressure 110/44 L Pulse Oximetry 98 100 11/19/21 16:00 11/19/21 20:00 11/19/21 20:26 Temperature Pulse Rate 82 74 64 Respiratory Rate Blood Pressure Pulse Oximetry 10/27
[2021-11-20] MEDS: POTASSIUM CHLORIDE INJ 40 MEQ in SODIUM CHLORIDE 0.9% IV 500 ML 130 MEQ IVPB (07:41)
[2021-11-20] MEDS: MAGNESIUM SULF 4 GM/WATER100ML 4 GM/100 ML BAG IVPB (07:41)
[2021-11-20 07:45] LABS: Glucose Point of Care 108 mg/dl (65-105)
[2021-11-20 07:45] LABS: Glucose Point of Care 94 mg/dl (65-105)
[2021-11-20] MEDS: POTASSIUM CHLORIDE 20 MEQ TABLET.ER PO ×2 (07:46→17:15)
[2021-11-20] MEDS: POTASSIUM CHLORIDE 20 MEQ TABLET 40 MEQ PO (08:06)
[2021-11-20] MEDS: CYANOCOBALAMIN 1,000 MCG TABLET 1000 MCG PO (08:08)
[2021-11-20] MEDS: GABAPENTIN 100 MG CAPSULE PO ×2 (08:08→17:15)
[2021-11-20] MEDS: BUMETANIDE 1 MG TABLET PO (08:09)
[2021-11-20] MEDS: CHOLECALCIFEROL 1,000 UNITS TABLET 1000 UNITS PO (08:09)
[2021-11-20] MEDS: FEBUXOSTAT 40 MG TABLET PO (08:09)
[2021-11-20] MEDS: FINASTERIDE 5 MG TABLET PO (08:09)
[2021-11-20] MEDS: SILVERGEL (ELTA) 45 ML 1 APPLIC TOPICAL (08:10)
[2021-11-20] MEDS: INSULIN GLARGINE (*BKC) 100 UNITS/ML 30 UNITS SUB-Q (08:20)
[2021-11-20 11:48] LABS: Glucose Point of Care 207 mg/dl (65-105)
--- NOTE | 2021-11-20 12:09 | PM.PNPUL ---
Progress Note: A&P Assessment and Plan (1) CHF exacerbation: Qualifiers: Heart failure type: unspecified Qualified Code(s): I50.9 - Heart failure, unspecified Code(s): I50.9 - Heart failure, unspecified Status: Acute (2) Acute hypoxemic respiratory failure: Code(s): J96.01 - Acute respiratory failure with hypoxia Status: Acute Assessment and Plan: 81-year-old female with history of chronic hypercapnic hypoxemic respiratory failure related to obesity hypoventilation, history of congestive heart failure, Severe aortic stenosis, atrial fibrillation, chronic kidney disease, chronically on home ventilatory support via trilogy ventilator, presented with increasing shortness of breath. Chest CT done on admission showed moderate-sized left and small right pleural effusions with patchy groundglass opacities of the lungs, cardiomegaly. Patient has been on diuresis with clinical improvement of shortness of breath and also lower extremity edema. Patient using home ventilator at night. She sleeps well on trilogy ventilator. Apnea link measured showed no evidence of oxyhemoglobin desaturation on current settings. Pleural fluid analysis showed absence of empyema as pH is normal. Pleural fluid analysis showed low albumin and low LDH most likely related to chronic transudate. pleural fluid cultures negative so far. Significance of a Gram-positive cocci on initial pleural fluid smear of unclear significance. On last chest x-ray there was significant decrease in size of pleural effusions. Leukocytosis persists. Could be related to urinary tract infection. Discussed leukocytosis with the hospitalist. patient appears weak today. She does not look septic. Arterial blood gases showed superimposed metabolic alkalosis which fits with hypokalemia. Patient is probably over diuresed. Case was discussed with the hospitalist. Will proceed with new chest x-ray blood cultures, urinalysis. consider holding diuretics for a day as patient is probably over diuresed, with hypokalemia and contraction alkalosis. Blood pressure is also lower today than it was 2 days ago. Will continue with noninvasive ventilatory support at night and p.r.n. during the day. (3) Bilateral lower extremity edema: Code(s): R60.0 - Localized edema Status: Acute (4) Chronic kidney disease, stage 4 (severe): Code(s): N18.4 - Chronic kidney disease, stage 4 (severe) Status: Chronic (5) Atrial fibrillation: Code(s): I48.91 - Unspecified atrial fibrillation Status: Acute (6) Pleural effusion: Code(s): J90 - Pleural effusion, not elsewhere classified Status: Acute (7) Obstructive sleep apnea on CPAP: Code(s): G47.33 - Obstructive sleep apnea (adult) (pediatric); Z99.89 - Dependence on other enabling machines and devices Status: Acute Subjective Date/time seen: 11/20/21 12:09 Patient complaining of not feeling well today. She has no new respiratory symptoms. She appears confused and tired. She is still receiving noninvasive ventilatory support today. Laying flat in bed. Leukocytosis persists but less than before. She has been off antibiotics. Hypokalemia noted. Has received potassium replacement. Also received magnesium replacement. Chest x-ray from yesterday looks significantly improved compared to x-rays taken a week ago. She has no fever chills. She has no abdominal pain. Review of Systems Review of Systems: All systems reviewed & are unremarkable except as noted in HPI and below Exam Narrative: GENERAL APPEARANCE: Well developed, well nourished, morbidly obese, alert and cooperative, laying flat in bed while on noninvasive ventilatory support and supplemental oxygen. HEENT: Sclerae anicteric and conjunctivae pink and moist. Extraocular movements were intact and pupils were equal, round. LUNGS: decreased breath sounds both bases with few crackles
[2021-11-20] MEDS: INSULIN ASPART (*BKC) 100 UNITS/ML 10 UNITS SUB-Q (12:46)
[2021-11-20] MEDS: INSULIN ASPART (*BKC) 100 UNITS/ML SUB-Q (12:46)
--- NOTE | 2021-11-20 12:51 | P.PNNP_ITS ---
Progress Note: A&P Assessment and Plan (1) Acute kidney injury: Code(s): N17.9 - Acute kidney failure, unspecified Status: Acute Assessment and Plan: * resolving/resolved * due to a combination of infection and possibly use of Bactrim * likely has a component of chronic prerenal azotemia from her aortic stenosis + pulmonary HTN * suspect also has a component of renal venous HTN as creatinine has improved with diuretic therapy * creatinine peaked at 3.2mg/dl * evaluation to date: * renal ultrasound with CKD * urine electrolytes are non-prerenal * mild proteinuria of ~ 800mg * on scheduled potassium * follow trend of repeat labs and UOP (2) Chronic kidney disease, stage 4 (severe): Code(s): N18.4 - Chronic kidney disease, stage 4 (severe) Status: Chronic Assessment and Plan: * baseline creatinine runs around 1.7 - 2.2mg/dl (although has been higher in the last few months) * due to HTN, DM, vascular disease, and age (3) Acute hypoxemic respiratory failure: Code(s): J96.01 - Acute respiratory failure with hypoxia Status: Acute Assessment and Plan: * several issues playing a role: * CHF * COPD * YUDELKA * pneumonia * pleural effusion * continue ongoing therapy as outlined * consider adding oral diamox for a few doses (4) Hyponatremia: Code(s): E87.1 - Hypo-osmolality and hyponatremia Status: Acute Assessment and Plan: * presumably from fluctuating fluid status, use of thiazide diuretics (metolazone), and underlying lung issues (see #3) * follow trend (5) Benign hypertension: Code(s): I10 - Essential (primary) hypertension Status: Chronic Assessment and Plan: * reasonable control at this time * follow trend of hemodynamics (6) Community acquired pneumonia: Qualifiers: Laterality: unspecified laterality Qualified Code(s): J18.9 - Pneumonia, unspecified organism Code(s): J18.9 - Pneumonia, unspecified organism Status: Acute Assessment and Plan: * appears to be clinically improving * on antibiotic therapy (7) Type 2 diabetes mellitus with hyperglycemia, with long-term current use of insulin: Code(s): E11.65 - Type 2 diabetes mellitus with hyperglycemia; Z79.4 - extermination inspector (current) use of insulin Status: Chronic Assessment and Plan: * follow Accu-Cheks * on sliding-scale insulin Will continue to follow Subjective Date/time seen: 11/20/21 12:51 States that she just does not feel well today but is unable to elaborate why at the time of my visit -- respiratory status/breathing seems stable if not better as does lower extremity edema; last CXR results noted; no acute issues overnight or earlier this morning; hypokalemia noted by AM labs but has since been replaced. Exam Narrative: General: elderly female in NAD Heart: normal S1 and S2; no rub Lungs: decreased at bases Abdomen: soft, nontender, nondistended, positive bowel sounds Extremities: no cyanosis or clubbing; trace - 1+ edema Skin: warm and intact Objective Data Vital Signs Vital Signs: Vital Signs Temp Pulse Resp BP Pulse Ox 11/20/21 12:00 96 11/20/21 09:55 82 98 11/20/21 08:00 104 H 18 100 11/20/21 06:41 35.8 C L 101 H 18 101/59 L 100 11/20/21 05:28 98
--- NOTE | 2021-11-20 12:51 | PM.PNNEP ---
Progress Note: A&P Assessment and Plan (1) Acute kidney injury: Code(s): N17.9 - Acute kidney failure, unspecified Status: Acute Assessment and Plan: resolving/resolved due to a combination of infection and possibly use of Bactrim likely has a component of chronic prerenal azotemia from her aortic stenosis + pulmonary HTN suspect also has a component of renal venous HTN as creatinine has improved with diuretic therapy creatinine peaked at 3.2mg/dl evaluation to date: renal ultrasound with CKD urine electrolytes are non-prerenal mild proteinuria of ~ 800mg on scheduled potassium follow trend of repeat labs and UOP (2) Chronic kidney disease, stage 4 (severe): Code(s): N18.4 - Chronic kidney disease, stage 4 (severe) Status: Chronic Assessment and Plan: baseline creatinine runs around 1.7 - 2.2mg/dl (although has been higher in the last few months) due to HTN, DM, vascular disease, and age (3) Acute hypoxemic respiratory failure: Code(s): J96.01 - Acute respiratory failure with hypoxia Status: Acute Assessment and Plan: several issues playing a role: CHF COPD YUDELKA pneumonia pleural effusion continue ongoing therapy as outlined consider adding oral diamox for a few doses (4) Hyponatremia: Code(s): E87.1 - Hypo-osmolality and hyponatremia Status: Acute Assessment and Plan: presumably from fluctuating fluid status, use of thiazide diuretics (metolazone), and underlying lung issues (see #3) follow trend (5) Benign hypertension: Code(s): I10 - Essential (primary) hypertension Status: Chronic Assessment and Plan: reasonable control at this time follow trend of hemodynamics (6) Community acquired pneumonia: Qualifiers: Laterality: unspecified laterality Qualified Code(s): J18.9 - Pneumonia, unspecified organism Code(s): J18.9 - Pneumonia, unspecified organism Status: Acute Assessment and Plan: appears to be clinically improving on antibiotic therapy (7) Type 2 diabetes mellitus with hyperglycemia, with long-term current use of insulin: Code(s): E11.65 - Type 2 diabetes mellitus with hyperglycemia; Z79.4 - senior care (current) use of insulin Status: Chronic Assessment and Plan: follow Accu-Cheks on sliding-scale insulin Will continue to follow Subjective Date/time seen: 11/20/21 12:51 States that she just does not feel well today but is unable to elaborate why at the time of my visit -- respiratory status/breathing seems stable if not better as does lower extremity edema; last CXR results noted; no acute issues overnight or earlier this morning; hypokalemia noted by AM labs but has since been replaced. Exam Narrative: General: elderly female in NAD Heart: normal S1 and S2; no rub Lungs: decreased at bases Abdomen: soft, nontender, nondistended, positive bowel sounds Extremities: no cyanosis or clubbing; trace - 1+ edema Skin: warm and intact Objective Data Vital Signs Vital Signs: Vital Signs Temp Pulse Resp BP Pulse Ox 11/20/21 12:00 96 11/20/21 09:55 82 98 11/20/21 08:00 104 H 18 100 11/20/21 06:41 35.8 C L 101 H 18 101/59 L 100 11/20/21 05:28 98 11/20/21 04:50 77 15 99 11/20/21 04:19 72 11/20/21 00:00 84 11/19/21 22:00 79 17 99 11/19/21 21:09 35.9 C L 72 18 124/51 L 100 11/19/21 20:26 64 11/19/21 20:00 74 11/19/21 16:00 82 Intake/Output Intake/Output: Intake & Output 11/17/21 11/18/21 11/19/21 11/20/21 23:59 23:59 23:59 23:59 Intake Total 485 1280 1240 240 Output Total 3250 2300 Balance -2765 -1020 1240 240 Meds/Results Medications: Active Medications Generic Name Dose Route Start Last Admin Trade Name Freq PRN Reason Stop Dose Admin Acetaminophen 650 mg 11/07/21 14:20 11/12/21 20:11
[2021-11-20 15:27] LABS: Potassium 3.8 mmol/L (3.4-5.0)
[2021-11-20 15:28] LABS: Magnesium 2.9 mg/dL (1.6-2.3)
[2021-11-20 16:08] LABS: Add Urine Microscopic? YES; Appearance Urine Clear (Clear); Bacteria Urine Trace /hpf; Bilirubin Urine Negative (Negative); Blood Urine 1+ (Negative); Color Urine Yellow (Yellow); Glucose Urine UA Negative (Negative); Ketones Urine Negative (Negative); Leukocyte Esterase Ur Trace LEU/UL (Negative); Mucus Urine Rare /lpf; Nitrate Urine Negative (Negative); Protein Urine Negative (Negative); Specific Grav Ur 1.009 (1.001-1.035); Squamous Epithelial Cell Urine Few /hpf (Few); Urobilinogen Urine Negative mg/dL (<2.0); WBC Urine 0-3 /hpf
[2021-11-20 16:46] LABS: Glucose Point of Care 116 mg/dl (65-105)
[2021-11-20] MEDS: WARFARIN (*PBKC) 5 MG TABLET PO (17:15)
[2021-11-20] MEDS: SIMVASTATIN 10 MG TABLET PO (20:58)
[2021-11-20 21:25] LABS: Glucose Point of Care 121 mg/dl (65-105)
[2021-11-21] VITALS (10 sets, daily range): BP systolic 110–117; BP diastolic 43–69; PULSE 75–96; RESP 15–16; TEMP 35.8–36.4; O2SAT 96–100
[2021-11-21 05:07] LABS: Glucose Point of Care 65 mg/dl (65-105)
[2021-11-21 05:14] LABS: Basophils Percent Auto 0.2 % (0.2-1.2); Eosinophils Percent Auto 0.1 % (0-4.4); Hematocrit 30.5 % (37.0-47.0); Hemoglobin 10.2 g/dL (12.0-15.0); Immature Granulocyte Absolute 0.13 K/mm3 (0.00-0.031); Immature Granulocyte Percent A 0.9 % (0-0.5); Lymphocytes Absolute Auto 0.37 K/mm3 (0.9-3.2); Lymphocytes Percent Auto 2.5 % (18.3-44.2); Mean Corpuscular HGB Conc 33.4 g/dl (32-36); Mean Corpuscular Hemoglobin 35.7 pg (26-34); Mean Corpuscular Volume 106.6 fl (80-100); Monocytes Absolute Auto 1.7 K/mm3 (0.1-0.6); Monocytes Percent Auto 11.8 % (2.6-8.5); Neutrophils Absolute Auto 12.3 K/mm3 (1.3-6.7); Neutrophils Percent Auto 84.5 % (45.5-73.1); Nucleated Red Blood Cells Perc 0.1 % (0.0-0.2); Platelet Count Result 150 k/mm3 (150-375); Red Blood Count 2.86 M/mm3 (4.2-5.4); Red Cell Distribution Width 15.9 % (11.5-14.5); White Blood Count 14.6 K/mm3 (4.5-10.0)
[2021-11-21 05:35] LABS: Alanine Aminotransferase 90 U/L (4-35); Albumin Level 3.1 g/dL (3.5-5.1); Alkaline Phosphatase 255 U/L (38-126); Aspartate Amino Transferase 46 U/L (14-36); Blood Urea Nitrogen 85 mg/dL (7-17); Calcium 6.2 mg/dL (8.4-10.2); Carbon Dioxide > 40 mmol/L (22-30); Chloride 83 mmol/L (98-107); Estimated CRCL calculation 27 ml/min; Estimated Glomerular Filt Rate 27; Glucose 65 mg/dL (65-110); Potassium 3.1 mmol/L (3.4-5.0); Sodium 131 mmol/L (137-145)
[2021-11-21] MEDS: DEXTROSE 50% 25 GM/50 ML SYRINGE IV PUSH (05:57)
[2021-11-21] MEDS: LEVOTHYROXINE SODIUM 100 MCG TABLET 200 MCG PO (05:57)
[2021-11-21] MEDS: METOPROLOL TARTRATE 25 MG TABLET PO ×2 (05:57→14:13)
[2021-11-21] MEDS: POTASSIUM CHLORIDE 20 MEQ TABLET 40 MEQ PO (07:31)
[2021-11-21] MEDS: INSULIN GLARGINE (*BKC) 100 UNITS/ML 30 UNITS SUB-Q (08:00)
[2021-11-21] MEDS: CHOLECALCIFEROL 1,000 UNITS TABLET 1000 UNITS PO (08:11)
[2021-11-21] MEDS: POTASSIUM CHLORIDE 20 MEQ TABLET.ER PO (08:11)
[2021-11-21] MEDS: FINASTERIDE 5 MG TABLET PO (08:13)
[2021-11-21] MEDS: GABAPENTIN 100 MG CAPSULE PO (08:14)
[2021-11-21] MEDS: SILVERGEL (ELTA) 45 ML 1 APPLIC TOPICAL (08:15)
[2021-11-21] MEDS: CYANOCOBALAMIN 1,000 MCG TABLET 1000 MCG PO (08:15)
[2021-11-21] MEDS: FEBUXOSTAT 40 MG TABLET PO (08:15)
[2021-11-21] MEDS: metOLazone 2.5 MG TABLET PO (08:15)
[2021-11-21 08:34] LABS: Glucose Point of Care 113 mg/dl (65-105)
--- NOTE | 2021-11-21 10:04 | PM.PNPUL ---
Progress Note: A&P Assessment and Plan (1) CHF exacerbation: Qualifiers: Heart failure type: unspecified Qualified Code(s): I50.9 - Heart failure, unspecified Code(s): I50.9 - Heart failure, unspecified Status: Acute (2) Acute hypoxemic respiratory failure: Code(s): J96.01 - Acute respiratory failure with hypoxia Status: Acute Assessment and Plan: 81-year-old female with history of chronic hypercapnic hypoxemic respiratory failure related to obesity hypoventilation, history of congestive heart failure, Severe aortic stenosis, atrial fibrillation, chronic kidney disease, chronically on home ventilatory support via trilogy ventilator, presented with increasing shortness of breath. Chest CT done on admission showed moderate-sized left and small right pleural effusions with patchy groundglass opacities of the lungs, cardiomegaly. Patient has been on diuresis with clinical improvement of shortness of breath and also lower extremity edema. Patient using home ventilator at night. She sleeps well on trilogy ventilator. Apnea link measured showed no evidence of oxyhemoglobin desaturation on current settings. Pleural fluid analysis showed absence of empyema as pH is normal. Pleural fluid analysis showed low albumin and low LDH most likely related to chronic transudate. pleural fluid cultures negative so far. Significance of a Gram-positive cocci on initial pleural fluid smear of unclear significance. On last chest x-ray there was significant decrease in size of pleural effusions. White cell count lower today. Case was discussed with hospitalist. Will continue with noninvasive ventilatory support at night and p.r.n. during the day. (3) Bilateral lower extremity edema: Code(s): R60.0 - Localized edema Status: Acute (4) Chronic kidney disease, stage 4 (severe): Code(s): N18.4 - Chronic kidney disease, stage 4 (severe) Status: Chronic (5) Atrial fibrillation: Code(s): I48.91 - Unspecified atrial fibrillation Status: Acute (6) Pleural effusion: Code(s): J90 - Pleural effusion, not elsewhere classified Status: Acute (7) Obstructive sleep apnea on CPAP: Code(s): G47.33 - Obstructive sleep apnea (adult) (pediatric); Z99.89 - Dependence on other enabling machines and devices Status: Acute Subjective Date/time seen: 11/21/21 10:04 patient has no respiratory new respiratory complaints this a.m.. Sitting up in bed while on supplemental oxygen via nasal cannula. Slept well last night on noninvasive ventilatory support and supplemental oxygen. Review of Systems Review of Systems: All systems reviewed & are unremarkable except as noted in HPI and below Exam Narrative: GENERAL APPEARANCE: Well developed, well nourished, morbidly obese, alert and cooperative, laying flat in bed while on noninvasive ventilatory support and supplemental oxygen. HEENT: Sclerae anicteric and conjunctivae pink and moist. Extraocular movements were intact and pupils were equal, round. LUNGS: decreased breath sounds both bases with few crackles in the lung rodarte, no wheezing. CARDIAC: There was a regular rate and rhythm without any murmurs ABDOMEN: Soft and nontender with normal bowel sounds. There was no organomegaly. EXTREMITIES: No cyanosis, clubbing. Trace edema in lower extremities. NEUROLOGIC: Alert. moving all extremities. Objective Data Vital Signs Vital Signs: Vital Signs - 24 hr 11/20/21 12:00 11/20/21 14:00 11/20/21 16:00 Temperature 36.5 C Pulse Rate 96 92 88 Respiratory Rate 16 Blood Pressure 129/54 L Pulse Oximetry 100 11/20/21 20:00 11/20/21 20:58 11/20/21 21:00 Temperature 36.6 C Pulse Rate 89 72 80 Respiratory Rate 16 Blood Pressure 113/45 L Pulse Oximetry 100 11/20/21 21:55 11/21/21 00:00 11/21/21 04:00 Temperature Pulse Rate 74 82 80 Respiratory Rate 16 Blood Pressure
[2021-11-21 12:08] LABS: Glucose Point of Care 275 mg/dl (65-105)
[2021-11-21] MEDS: INSULIN ASPART (*BKC) 100 UNITS/ML 10 UNITS SUB-Q (12:21)
[2021-11-21] MEDS: INSULIN ASPART (*BKC) 100 UNITS/ML SUB-Q (12:21)
--- NOTE | 2021-11-21 12:35 | PM.PNNEP ---
Progress Note: A&P Assessment and Plan (1) Acute kidney injury: Code(s): N17.9 - Acute kidney failure, unspecified Status: Acute Assessment and Plan: resolving/resolved due to a combination of infection and possibly use of Bactrim likely has a component of chronic prerenal azotemia from her aortic stenosis + pulmonary HTN suspect also has a component of renal venous HTN as creatinine has improved with diuretic therapy creatinine peaked at 3.2mg/dl evaluation to date: renal ultrasound with CKD urine electrolytes are non-prerenal mild proteinuria of ~ 800mg on scheduled potassium follow trend of repeat labs and UOP (2) Chronic kidney disease, stage 4 (severe): Code(s): N18.4 - Chronic kidney disease, stage 4 (severe) Status: Chronic Assessment and Plan: baseline creatinine runs around 1.7 - 2.2mg/dl (although has been higher in the last few months) due to HTN, DM, vascular disease, and age (3) Acute hypoxemic respiratory failure: Code(s): J96.01 - Acute respiratory failure with hypoxia Status: Acute Assessment and Plan: several issues playing a role: CHF COPD YUDELKA pneumonia pleural effusion continue ongoing therapy as outlined consider adding oral diamox for a few doses (4) Hyponatremia: Code(s): E87.1 - Hypo-osmolality and hyponatremia Status: Acute Assessment and Plan: presumably from fluctuating fluid status, use of thiazide diuretics (metolazone), and underlying lung issues (see #3) follow trend (5) Benign hypertension: Code(s): I10 - Essential (primary) hypertension Status: Chronic Assessment and Plan: reasonable control at this time follow trend of hemodynamics (6) Community acquired pneumonia: Qualifiers: Laterality: unspecified laterality Qualified Code(s): J18.9 - Pneumonia, unspecified organism Code(s): J18.9 - Pneumonia, unspecified organism Status: Acute Assessment and Plan: appears to be clinically improving on antibiotic therapy (7) Type 2 diabetes mellitus with hyperglycemia, with long-term current use of insulin: Code(s): E11.65 - Type 2 diabetes mellitus with hyperglycemia; Z79.4 - prison (current) use of insulin Status: Chronic Assessment and Plan: follow Accu-Cheks on sliding-scale insulin Not opposed to discharge from renal perspective if otherwise medically stable - she can follow-up with in the office for contineud CKD management. Will continue to follow Subjective Date/time seen: 11/21/21 12:35 No acute complaints voiced other than what she has previously mentioned - weakness and difficulty ambulating (suspect due to deconditioning given this protracted hospitalization); breathing/edema appears stable if not better at thsi time; no other issues/events overnight or earlier this AM; noted plans for possible discharge to rehab. Exam Narrative: General: elderly female in NAD Heart: normal S1 and S2; no rub Lungs: decreased at bases Abdomen: soft, nontender, nondistended, positive bowel sounds Extremities: no cyanosis or clubbing; trace - 1+ edema Skin: warm and intact Objective Data Vital Signs Vital Signs: Vital Signs Temp Pulse Resp BP Pulse Ox 11/21/21 08:00 94 11/21/21 07:53 84 15 100 11/21/21 05:57 36.4 C 84 15 117/69 100 11/21/21 04:27 75 15 97 11/21/21 04:00 80 11/21/21 00:00 82 11/20/21 21:55 74 16 99 11/20/21 21:00 36.6 C 80 16 113/45 L 100 11/20/21 20:58 72 11/20/21 20:00 89 11/20/21 16:00 88 Intake/Output Intake/Output: Intake & Output 11/18/21 11/19/21 11/20/21 11/21/21 23:59 23:59 23:59 23:59 Intake Total 1280 1240 780 830 Output Total 2300 Balance -1020 1240 780 830 Meds/Results Medications: Active Medications Generic Name Dose Route Start Last Admin Trade Name F
--- NOTE | 2021-11-21 12:35 | P.PNNP_ITS ---
Progress Note: A&P Assessment and Plan (1) Acute kidney injury: Code(s): N17.9 - Acute kidney failure, unspecified Status: Acute Assessment and Plan: * resolving/resolved * due to a combination of infection and possibly use of Bactrim * likely has a component of chronic prerenal azotemia from her aortic stenosis + pulmonary HTN * suspect also has a component of renal venous HTN as creatinine has improved with diuretic therapy * creatinine peaked at 3.2mg/dl * evaluation to date: * renal ultrasound with CKD * urine electrolytes are non-prerenal * mild proteinuria of ~ 800mg * on scheduled potassium * follow trend of repeat labs and UOP (2) Chronic kidney disease, stage 4 (severe): Code(s): N18.4 - Chronic kidney disease, stage 4 (severe) Status: Chronic Assessment and Plan: * baseline creatinine runs around 1.7 - 2.2mg/dl (although has been higher in the last few months) * due to HTN, DM, vascular disease, and age (3) Acute hypoxemic respiratory failure: Code(s): J96.01 - Acute respiratory failure with hypoxia Status: Acute Assessment and Plan: * several issues playing a role: * CHF * COPD * YUDELKA * pneumonia * pleural effusion * continue ongoing therapy as outlined * consider adding oral diamox for a few doses (4) Hyponatremia: Code(s): E87.1 - Hypo-osmolality and hyponatremia Status: Acute Assessment and Plan: * presumably from fluctuating fluid status, use of thiazide diuretics (metolazone), and underlying lung issues (see #3) * follow trend (5) Benign hypertension: Code(s): I10 - Essential (primary) hypertension Status: Chronic Assessment and Plan: * reasonable control at this time * follow trend of hemodynamics (6) Community acquired pneumonia: Qualifiers: Laterality: unspecified laterality Qualified Code(s): J18.9 - Pneumonia, unspecified organism Code(s): J18.9 - Pneumonia, unspecified organism Status: Acute Assessment and Plan: * appears to be clinically improving * on antibiotic therapy (7) Type 2 diabetes mellitus with hyperglycemia, with long-term current use of insulin: Code(s): E11.65 - Type 2 diabetes mellitus with hyperglycemia; Z79.4 - oysterman (current) use of insulin Status: Chronic Assessment and Plan: * follow Accu-Cheks * on sliding-scale insulin Not opposed to discharge from renal perspective if otherwise medically stable - she can follow-up with in the office for contineud CKD management. Will continue to follow Subjective Date/time seen: 11/21/21 12:35 No acute complaints voiced other than what she has previously mentioned - weakness and difficulty ambulating (suspect due to deconditioning given this protracted hospitalization); breathing/edema appears stable if not better at thsi time; no other issues/events overnight or earlier this AM; noted plans for possible discharge to rehab. Exam Narrative: General: elderly female in NAD Heart: normal S1 and S2; no rub Lungs: decreased at bases Abdomen: soft, nontender, nondistended, positive bowel sounds Extremities: no cyanosis or clubbing; trace - 1+ edema Skin: warm and intact Objective Data Vital Signs Vital Signs: Vital Signs Temp Pulse Resp BP Pulse Ox 11/21/21 08:00 94
--- NOTE | 2021-11-21 12:49 | P.DS_ITS ---
DS: Admitting Diagnosis Discharge Date 11/21/21 1130 Admitting Diagnosis PNA/CHF exacerbation/Pleural Effusion DS: Discharge Diagnosis Discharge Diagnosis (1) Community acquired pneumonia: Qualifiers: Laterality: unspecified laterality Qualified Code(s): J18.9 - Pneumonia, unspecified organism Code(s): J18.9 - Pneumonia, unspecified organism Status: Acute Assessment and Plan: * White blood cell count was 15.1 upon admission is 17.9 today. * Chest xray (11-17-21) Has no changes noted * Continue vanco and cefepime, DC vanco per pulmonology day 7, DC cefepime at this time * Received full course * Sputum culture and blood cultures NGTD * Pleural labs does look to be growing gram positive cocci in clusters * Continue trend labs (2) CHF exacerbation: Qualifiers: Heart failure type: unspecified Qualified Code(s): I50.9 - Heart failure, unspecified Code(s): I50.9 - Heart failure, unspecified Status: Acute Assessment and Plan: * She is in an acute diastolic heart failure exacerbation * Continue metolazone 2.5mg PO every other day and bumex 1mg IV BID * Continue with metoprolol * Chest xray does show CHF exacerbation unchanged * Trend urine output * Daily weights * urinary catheter for accurate I&Os * Echo 55-60% moderate to severe aortic valve stenosis, moderate right and severe left atrial chamber enlargement, and an indeterminate diastolic dysfunction * Consulted pulmonology and cardiology for further help * Give one dose of Diamox since CO2 seems to be consistently >40, repeat one more, consider changing to PO (3) COPD exacerbation: Code(s): J44.1 - Chronic obstructive pulmonary disease with (acute) exacerbation Status: Acute Assessment and Plan: * Continue with inhalers from home and nebulizers. * Supplemental oxygen, wean to maintain saturations * Continue cefepime, dc vanc at this time * Increase in sputum, oxygen, and wheeze (4) Acute hypoxemic respiratory failure: Code(s): J96.01 - Acute respiratory failure with hypoxia Status: Acute Assessment and Plan: * oxygen at 1.5 L and is up to 3 L at home * Currently on 2L * Continue to trend * titrate as indicated * Cxray (11-19-21) No changes to PNA * CT (2-18-22) Moderate-sized left and small right pleural effusions, Patchy ground glass opacities of the lungs, consistent with pneumonia and/or mild pulmonary edema, Cardiomegaly. * Diuresis per cards and nephrology * ABG pH 7.361, CO2 48.8, O2 60.9, HCO3 27.0, Saturation 90.3 * Repeat chest xray (5) Anemia: Code(s): D64.9 - Anemia, unspecified Status: Chronic Assessment and Plan: Patient is at her baseline continue to monitor. (6) Hypertension: Code(s): I10 - Essential (primary) hypertension Status: Chronic Assessment and Plan: * Current BP is 117/69 * Continue with metoprolol * Trend BP * Adjust therapy as indicated (7) Bilateral lower extremity edema: Code(s): R60.0 - Localized edema Status: Acute Assessment and Plan: * Venous Dopplers Negative * continue with diuretics * Continue long-term anticoagulation and is therapeutic * Seems to be getting better (8) Vitamin D deficiency, unspecified: Code(s): E55.9 - Vitamin D deficiency, unspecified Status: Acute Assessment and Plan: Continue with supplement. (9) Acute renal
--- NOTE | 2021-11-21 12:49 | PM.DS ---
DS: Admitting Diagnosis Discharge Date 11/21/21 1130 Admitting Diagnosis PNA/CHF exacerbation/Pleural Effusion DS: Discharge Diagnosis Discharge Diagnosis (1) Community acquired pneumonia: Qualifiers: Laterality: unspecified laterality Qualified Code(s): J18.9 - Pneumonia, unspecified organism Code(s): J18.9 - Pneumonia, unspecified organism Status: Acute Assessment and Plan: White blood cell count was 15.1 upon admission is 17.9 today. Chest xray (11-17-21) Has no changes noted Continue vanco and cefepime, DC vanco per pulmonology day 7, DC cefepime at this time Received full course Sputum culture and blood cultures NGTD Pleural labs does look to be growing gram positive cocci in clusters Continue trend labs (2) CHF exacerbation: Qualifiers: Heart failure type: unspecified Qualified Code(s): I50.9 - Heart failure, unspecified Code(s): I50.9 - Heart failure, unspecified Status: Acute Assessment and Plan: She is in an acute diastolic heart failure exacerbation Continue metolazone 2.5mg PO every other day and bumex 1mg IV BID Continue with metoprolol Chest xray does show CHF exacerbation unchanged Trend urine output Daily weights urinary catheter for accurate I&Os Echo 55-60% moderate to severe aortic valve stenosis, moderate right and severe left atrial chamber enlargement, and an indeterminate diastolic dysfunction Consulted pulmonology and cardiology for further help Give one dose of Diamox since CO2 seems to be consistently >40, repeat one more, consider changing to PO (3) COPD exacerbation: Code(s): J44.1 - Chronic obstructive pulmonary disease with (acute) exacerbation Status: Acute Assessment and Plan: Continue with inhalers from home and nebulizers. Supplemental oxygen, wean to maintain saturations Continue cefepime, dc vanc at this time Increase in sputum, oxygen, and wheeze (4) Acute hypoxemic respiratory failure: Code(s): J96.01 - Acute respiratory failure with hypoxia Status: Acute Assessment and Plan: oxygen at 1.5 L and is up to 3 L at home Currently on 2L Continue to trend titrate as indicated Cxray (11-19-21) No changes to PNA CT (11-12-21) Moderate-sized left and small right pleural effusions, Patchy ground glass opacities of the lungs, consistent with pneumonia and/or mild pulmonary edema, Cardiomegaly. Diuresis per cards and nephrology ABG pH 7.361, CO2 48.8, O2 60.9, HCO3 27.0, Saturation 90.3 Repeat chest xray (5) Anemia: Code(s): D64.9 - Anemia, unspecified Status: Chronic Assessment and Plan: Patient is at her baseline continue to monitor. (6) Hypertension: Code(s): I10 - Essential (primary) hypertension Status: Chronic Assessment and Plan: Current BP is 117/69 Continue with metoprolol Trend BP Adjust therapy as indicated (7) Bilateral lower extremity edema: Code(s): R60.0 - Localized edema Status: Acute Assessment and Plan: Venous Dopplers Negative continue with diuretics Continue long-term anticoagulation and is therapeutic Seems to be getting better (8) Vitamin D deficiency, unspecified: Code(s): E55.9 - Vitamin D deficiency, unspecified Status: Acute Assessment and Plan: Continue with supplement. (9) Acute renal insufficiency: Code(s): N28.9 - Disorder of kidney and ureter, unspecified Status: Acute Assessment and Plan: Current BUN/Cr 85/1.80, seems to be getting better See [facility] outpatient Will need to trend labs while on diuretics Compression stocking (10) Type 2 diabetes mellitus with hyperglycemia, with long-term current use of insulin: Code(s): E11.65 - Type 2 diabetes mellitus with hyperglycemia; Z79.4 - terminal supervisor (current) use of insulin Status: Chronic Assessment and P
[2021-11-21 13:24] LABS: Uric Acid 7.7 mg/dL (2.5-7.5)
[2021-11-21 16:35] LABS: EDCOVIDSCREEN Negative (Negative)
[2021-11-21 16:46] LABS: Glucose Point of Care 172 mg/dl (65-105)
--- NOTE | 2021-11-21 17:15 | PM.DDS ---
Discharge Summary Date and Time Date of : 11/21/21 Time of : 17:11 Provider Pronounced By: Dr Baker Probable Cause of Probable Cause of : Aspiration, acute on chronic respiratory failure, aortic stenosis Summary Hospital Course: Patient is a 81 year old female with a past medical of CHF, COPD, chronic respiratory failure with hypoxia on 2LNC at home who presented to the ED with complaints of shortness of breath, with increased work of breathing. Initial chest xray showed Small pleural effusions,with airspace opacities in the lower lung zones consistent with PNA or atelectasis. She was initially started on IV azithromycin and ceftriaxone. Blood cultures were drawn at that time which resulted to be negative. She then was having problems with urination, and a urinary catheter was installed. She was not getting better and her renal function was also getting worse, since she was treated with IV lasix BID. Pulmonary, nephrology, and cardiology were all consulted. A CT of the chest was obtained which showed a moderate size left pleural effusion. IR was consulted and a thoracentesis was performed which did yield 650ml of clear yellow fluid. Renal ultrasound showed increased renal cortical echogenicity consistent with medical renal disease. The pleural effusion did not yield any infection. Nephrology and Cardiology did change her diuretics which helped remove excess fluids. Anshu hose were also placed which helped her lower extremity edema. Serial chest xrays were performed and did not show any progression. IV antibiotics were changed and she received a full course of Vancomycin and cefepime. WBC count did increase without the help of steroids, and got [place] [address]. Antibiotics were DC'd and the WBC have been trending down, and are currently 14.6 today. She has been getting very weak over the last week, however, she is still working hard at doing exercises, and is continually getting up into the chair everyday. IT was noted that she was experiencing some confusion, and a head CT was performed which did not show any intracranial abnormalities. UA was also sent for possible UTI, which did not have any growth. Potassium has been noted to be low, and has been replaced accordingly. She denies having any complaints such as chest pain, shortness of breath, nausea, vomiting, weakness or fatigue. She did express that she is scared, and is worried about the transfer to the facility. I did talk to Dr. Zamora about the patient being DC'd and he was ok with the discharge, however, he did stress the importance of her following up with Dr. Mahan about her aortic valve. Patient has severe aortic stenosis, and it has been explored about getting the valve replaced. I have spoken with her daughter, , and the patient herself about this procedure. I explained that there will be risk involved. I have instructed them to follow up with Dr. Mahan for further recommendations about this procedure. He did agree to discharge at this time. He also stated that he would coordinate follow up for her as well. I also had many conversations with Dr. La, who stated that the PNA is resolved and the pleural effusion was unremarkable. He has also agreed to discharged as long as cardiology was ok with this. Dr. Nguyen was also contacted about discharge. He is also was ok with the discharge, as long as cardiology was on board for discharge. He was also in agreement with the diuretics as well. Prior to discharge patient had worked with PT and OT and was routinely doing exercised while sitting in the chair. Patient got up every single day. She was really working hard to get home. Received a call from nursing stating that the patient was coding. According to the she was sitting in the chair and he was feeding her. He stated that she became unresponsive and her eyes rolled to the back of her head. He did try to get her to respond, keyla
--- NOTE | 2021-11-21 17:19 | WPDPROCEDUR ---
Procedures Intubation Intubation Date: 11/21/21 <Simi Hebert APRN - Last Filed: 11/21/21 17:20> Intubation Time: 16:30 <Simi Hebert APRN - Last Filed: 11/21/21 17:20> A pre-procedural Time-Out was completed immediately before starting the procedure and confirmed: Patient Identification, Site, Procedure, Patient Position and the Availability of Requisite Equipment: Yes <Simi Hebert APRN - Last Filed: 11/21/21 17:20> Sedative: none <Simi Hebert APRN - Last Filed: 11/21/21 17:20> Laryngoscope: fiber optic video scope <Simi Hebert APRN - Last Filed: 11/21/21 17:20> ET tube size: 7 <Simi Hebert APRN - Last Filed: 11/21/21 17:20> Tube secured depth (cm): 24 <Simi Hebert APRN - Last Filed: 11/21/21 17:20> Tube secured location: teeth <Simi Hebert APRN - Last Filed: 11/21/21 17:20> Tube placement confirmation: visualized tube passing through cords, equal breath sounds bilaterally and confirmation by capnometry <Simi Hebert APRN - Last Filed: 11/21/21 17:20> Patient tolerated procedure: well <Simi Hebert APRN - Last Filed: 11/21/21 17:20> Intubation complications: none <Simi Hebert APRN - Last Filed: 11/21/21 17:20>
--- NOTE | 2021-11-21 17:39 | PC.NURSE ---
At 1647 pt's was in room feeding pt, SWEET POTATO DISINTEGRATOR heard panicky tried to arouse, SWEET POTATO DISINTEGRATOR entered the room and pt found sitting in the chair in reclining position and was unresponsive. SWEET POTATO DISINTEGRATOR call rapid response code, RN assessed no pulse found, CPR started. See code blue notes for further details.
--- NOTE | 2021-11-21 18:48 | ED.PROCEDURE ---
Procedures Other Procedures Procedure 1: Other Procedure: I was called to run the code, when I arrived to the patient room, CPR process was in progress, nurse practitioner was trying to intubate at that time, CPR protocol was in process for 20 minutes, no pulse, PEA, after talking to patient , the decision to stop the code was ordered.. Critical time was 45 minutes
== END 2021-11-21 17:11 | disposition expired | DRG 193 ==
LOC: ANHED 14:40 → ANH3MED 14:51
PROVIDERS: Emergency Medicine; Internal Medicine Cardiovascular Disease; Internal Medicine Nephrology; Internal Medicine Pulmonary Disease; Nurse Practitioner; Admitting Provider Internal Medicine; Emergency Provider Nurse Practitioner; PCP Family Medicine; Visit Provider Nurse Practitioner
DX: J18.9 Pneumonia, unspecified organism (principal); I50.33 Acute on chronic diastolic (congestive) heart failure; J96.21 Acute and chronic respiratory failure with hypoxia; I13.0 Hypertensive heart and chronic kidney disease with heart failure and stage 1 through stage 4 chronic kidney disease, or unspecified chronic kidney disease; N18.4 Chronic kidney disease, stage 4 (severe); I48.19 Other persistent atrial fibrillation; J44.0 Chronic obstructive pulmonary disease with (acute) lower respiratory infection; J44.1 Chronic obstructive pulmonary disease with (acute) exacerbation; M00.022 Staphylococcal arthritis, left elbow; J90 Pleural effusion, not elsewhere classified; N17.9 Acute kidney failure, unspecified; E87.1 Hypo-osmolality and hyponatremia; E66.2 Morbid (severe) obesity with alveolar hypoventilation; Z20.822 Contact with and (suspected) exposure to COVID-19; J44.9 Chronic obstructive pulmonary disease, unspecified; E11.9 Type 2 diabetes mellitus without complications; I48.91 Unspecified atrial fibrillation; E78.5 Hyperlipidemia, unspecified; I35.0 Nonrheumatic aortic (valve) stenosis; Z87.891 Personal history of nicotine dependence; E11.22 Type 2 diabetes mellitus with diabetic chronic kidney disease; I12.9 Hypertensive chronic kidney disease with stage 1 through stage 4 chronic kidney disease, or unspecified chronic kidney disease; E11.42 Type 2 diabetes mellitus with diabetic polyneuropathy; E11.319 Type 2 diabetes mellitus with unspecified diabetic retinopathy without macular edema; Z79.4 Long term (current) use of insulin; E78.2 Mixed hyperlipidemia; E89.0 Postprocedural hypothyroidism; Z95.0 Presence of cardiac pacemaker; H91.90 Unspecified hearing loss, unspecified ear; B95.61 Methicillin susceptible Staphylococcus aureus infection as the cause of diseases classified elsewhere; Z79.01 Long term (current) use of anticoagulants; D64.9 Anemia, unspecified; E55.9 Vitamin D deficiency, unspecified; E11.65 Type 2 diabetes mellitus with hyperglycemia; Z68.39 Body mass index [BMI] 39.0-39.9, adult; M1A.9XX1 Chronic gout, unspecified, with tophus (tophi); E87.6 Hypokalemia; R74.01 Elevation of levels of liver transaminase levels; I46.9 Cardiac arrest, cause unspecified; T17.928A Food in respiratory tract, part unspecified causing other injury, initial encounter; X58.XXXA Exposure to other specified factors, initial encounter; Y93.9 Activity, unspecified; Y92.230 Patient room in hospital as the place of occurrence of the external cause; Y99.9 Unspecified external cause status
CPT/HCPCS: 31500; 32555; 36415; 36600; 70450; 71045; 71046; 71250; 74176; 76705; 76775; 80048; 80053; 80069; 80074; 80202; 81001; 82042; 82150; 82375; 82465; 82550; 82570; 82728; 82805; 82945; 82948; 83050; 83605; 83615; 83735; 83880; 83986; 84100; 84132; 84155; 84156; 84157; 84300; 84311; 84439; 84443; 84478; 84480; 84484; 84550; 85025; 85380; 85610; 85730; 86140; 87015; 87040; 87070; 87075; 87086; 87088; 87102; 87116; 87205; 87206; 87426; 87804; 88104; 88108; 88184; 88305; 89051; 92950; 93005; 93970; 94640; 94762; 96365; 96366; 96367; 96375; 96376; 97110; 97161; 97164; 97165; 97166; 97530; 97535; 99285; A9270; C8929; C9803; G0378; J0171; J0456; J0692; J0696; J1120; J1815; J1940; J2930; J3370; J3430; J3475; J3480; J7030; J7040; J7050; Q9957; U0003; U0005